=== PATIENT | female | born 1970 | race Caucasian/White ===

== ENCOUNTER → 2019-03-24 07:33 | Outpatient (CLI) | payer OTHER, SELFPAY ==
[2017-11-06 10:34] VITALS: BMI 24.4
--- NOTE | 2019-03-23 13:00 | FLU_PTH ---
PATIENT: FABIANA ORTEZ LOC: [facility] U#:[id number] AGE/SX: 55/F ROOM: RE03/24/[address]: Dr. Stephy Garcia MD : 1970 BED: DIS: SPEC #: [id number] RECD: 03/23/19 16:53 STATUS: KHAI REMaxim #: [id number] KATTY: 03/23/19 13:[address]: Stephy Garcia DEPT: CYTOLOGY RECD BY: Rodo Foster ENTERED: 03/26/19 08:37 SP TYPE: Fluid OTHR DR: No Primary Care Phys Tissues: A - Thyroid gland, NOS B - Thyroid gland, NOS Procedures: Special Stain Group II Surgery Specimen Level IV Cytospin Fluid Cytology Other HEADER OPERATION: Ultrasound-guided fine needle aspiration right thyroid PRE-OP DIAGNOSIS: Right thyroid nodule TISSUE SUBMITTED: A - FNA right thyroid fluid for cytology, B - FNA right thyroid slides x6 DIAGNOSIS CYTOLOGY A. Right thyroid fluid for cytology, ultrasound-guided FNA (cytospin and cell block): Paucicellular specimen. A few benign appearing follicular cells noted. B. Right thyroid nodule, ultrasound-guided FNA (smears): Atypical follicular cells noted, suspicious for papillary thyroid carcinoma. Adequate for evaluation. SJ:rg 03/27/19 COMMENT Correlation with clinical, radiologic findings and appropriate follow up are necessary. CYTOLOGY STUDY Slides are reviewed. CYTOLOGY GROSS A - Received is 20 ml of light brown fluid labeled with the patient's name and and designated per the requisition as right thyroid. Submitted for cytology preparation including cell block. B - Received are six smears labeled with the patient's name and designated per the requisition as right thyroid. Submitted for staining. / 03/26/19 TC:5 CPT: 80216, 71111, 30842
== END ==
PROVIDERS: Referring Provider Surgery; Visit Provider Surgery
DX: E04.1 Nontoxic single thyroid nodule (principal)
CPT/HCPCS: 88108; 88161; 88305; 88313

== ENCOUNTER 2019-04-23 14:05 | Observation (INO) | payer OTHER, SELFPAY ==
--- NOTE | 2019-03-30 15:56 | HP.PCM_ITS ---
History and Physical Date of Admission: 03/30/19 Courtney FLORES-1970 REFERRING PHYSICIAN: Darian Raza MD CHIEF COMPLAINT: right thyroid nodule HPI: The patient is a 48 year old female presents with abnormal thyroid ultrasound Mother had Graves' disease. Denies cancer in immediate family. The patient does note voice changes - more raspy lately. Feels like she is trying to clear her throat all the time. Denies unusual radiation exposure Denies history of thyroiditis. Denies use of thyroid hormones. Denies globus symptoms. 03/02/19 US thyroid Measurements: Right lobe 4.4 x 1.6 x 1.7 cm . Left lobe 4.2 x 1.4 x 1.3 cm . Isthmus 0.2 cm. Thyroid texture: Unremarkable . Nodules: (If there are nodules present than measurements of largest ones given below) Right lobe: Single solid nodule in the midpole of the RIGHT lobe of the thyroid. It measures 1 cm diameter present very hypoechoic rim . It shows no hypervascularity Left lobe: None . Isthmus: None . Pathology from US guided FNA - atypical follicular cells noted, suspicious for papillary thyroid carcinoma PAST MEDICAL HISTORY ? Fibroadenosis, breast diffuse ? Neuropathy (HCC) right leg s/p back surgery ? RLS (restless legs syndrome) PAST SURGICAL HISTORY ? HYSTERECTOMY 10/22/2013 total hysterectomy ? KNEE ARTHROSCOPY/SURGERY Left 1989 ? PAST SURGICAL HISTORY OF L5-S1 decompression Current Outpatient Medications: gabapentin (NEURONTIN) 300 mg capsule Take 1 capsule by mouth daily at bedtime for 180 days. ibuprofen (MOTRIN) 800 mg tablet Take 800 mg by mouth every 6 hours as needed. ALLERGIES: Doxycycline PERSONAL HISTORY: Social History Socioeconomic History Marital status: Tobacco Use Smoking status: Current Every Day Smoker FAMILY HISTORY ? Cancer Mother thyroid ? Heart Mother valve that flips ? other (Other) Mother SHELLY ? Hypertension Brother ? Hyperlipidemia Brother ? other (Other) Brother back issues ? Aneurysm Paternal Grandmother ? Breast Cancer Paternal Aunt REVIEW OF SYSTEMS: General: The patient denies fatigue, NOTES weight loss, denies weight gain, denies feeling hot, and denies feelings of cold. Eyes: The patient denies glaucoma, denies eye injury/surgery, wears glasses or contacts. Ear/Nose/Throat: The patient denies allergies, denies hayfever, denies ear infections, and denies bloody noses. Cardiovascular: The patient denies chest pain, denies heart disease, denies high blood pressure,denies cardiac stent, denies prior heart attack, denies irregular heart beat, denies high cholesterol, denies poor circulation, denies heart failure, other cardiac issues, denies claudication, denies cold feet, denies peripheral arterial stent. Respiratory: The patient denies tuberculosis, denies pneumonia, NOTES frequent cough, denies pulmonary embolism, denies shortness of breath, and denies coughing up blood. Gastrointestinal: The patient denies difficulty swallowing, denies acid reflux, denies ulcers, denies vomiting, NOTES jaundice/hepatitis, denies gallbladder problems, denies black or tarry stools, denies hemorrhoids, denies bleeding from rectum, denies diverticulitis, denies constipation, denies diarrhea, denies loss of stool control, and denies hernias. Kidney/Bladder: The patient denies kidney stones, denies urine infections, and denies bloody urine. Skin: The patient denies a history of skin cancer, denies bl eeding/changing moles, and denies a history of skin rash. Neurologic: The patient denies a history of epilepsy/convulsions, denies headaches, denies head/spinal injuries, and denies stroke/TIA. Psychiatric: The patient denies psychiatric medications, denies depression, and denies voices, denies substance abuse. Endocrine: The patient denies thyroid disorders, denies diabetes, and denies hormonal problems. Hematologic: bruises easily, denies bleeding, and denies anemia, denies blood clots. Infections: The patient denies a history of measles and mumps, denies rheumatic fever, and NOTES sexually transmitted diseases. Musculoskeletal: The patient NOTES back pain/injury, NOTES back problems, denies sciatica, NOTES knee/foot trouble, denies arthritis, or denies gout. PHYSICAL EXAMINATION: General: The patient is 48 year old female, well nourished, well hydrated in no acute distress. The patient is oriented to time, place, and person. VITALS: Blood pressure 110/68, pulse 68, weight 63 kg (139 lb). Body mass index is 25.02 kg/m?. Head ? Normocephalic. EOM intact with sclera clear and no icterus noted. Wearing glasses. Mouth with mucus membranes moist. Neck - supple with no jugular venous distention noted. Trachea is midline. Lungs ? clear to auscultation. Normal breath sounds. No rales/rhonchi/wheezing noted. No labored breathing noted, such as retractions. . Heart ? normal S1 and S2 auscultated. No rubs/clicks/murmurs noted. Regular rate. Abdomen ? soft and benign. Normal bowel sounds. No abdominal bruits noted. No distention noted. Extremities ? no pitting edema noted. Skin ? normal skin integrity. Lymph ? no cervical adenopathy detected, no supraclavicular adenopathy detected, no axillary adenopathy detected Neurological ? gait normal, no focal deficits noted. Psych ? calm and appropriate IMPRESSION: tight thyroid nodule - thyroid neoplasia of uncertain behavior PLAN: I have discussed the above with the patient and her mother who is present with her. I have offered right thyroid lobectomy/isthmusectomy, I have also discussed total thyroidectomy with patient. I have described the surgery to them. I have told patient that frozen section pathology may not be able to define if thyroid cancer. If thyroid cancer is found in permanent section pathology and if large enough, patient may require completion thyroidectomy. If total thyroidectomy is done, then she will have to be on lifelong thyroid medications. I have counseled the patient as to the risks of surgery, including but not limited to: infection, bleeding, seroma, scar tissue, cosmetic deformity, injury to any blood vessels/nerves, injury to the recurrent laryngeal nerves and their sequelae, injury to the parathyroid glands and their sequelae, bleeding requiring further surgery, etc. ? the patient understands. She wishes to proceed with right thyroid lobectomy/isthmusectomy only. The patient has been given the opportunity to ask questions and all questions were answered, she has no further questions.
[2019-04-23] VITALS (8 sets, daily range): BP systolic 104–119; BP diastolic 61–77; PULSE 51–63; RESP 14–16; TEMP 36.1–36.8; O2SAT 94–100; BMI 23.8
--- NOTE | 2019-04-23 | IMM_PTH ---
PATIENT: FABIANA ORTEZ LOC: [facility] U#:[id number] AGE/SX: 48/F ROOM: MS308 RE04/23/[address]: Dr. Stephy Garcia MD : 1970 BED: 1 DIS: 04/24/2019 SPEC #: [id number] RECD: 04/25/19 13:57 STATUS: KHAI REQ #: [id number] KATTY: 04/23/19 00:[address]: Stephy Garcia DEPT: IMMUNOHISTOCHEMISTRY RECD BY: Cristina Portillo ENTERED: 04/25/19 13:59 SP TYPE: IMMUNO OTHR DR: JOSE Kwong Tissues: Thyroid gland, NOS Procedures: CK19 (initial) CD56 (add) GAL-3 (add) HBME (add) PHYSICIAN & INSTITUTION [place] [id number] SPECIMEN INFORMATION: Tissue Source: Right thyroid, isthmus Clinical Info: Right thyroid nodule Specimen Number: [id number] #4 CPT code: 06303, 86372 x3 METHODOLOGY: Deparaffinized sections of prefer/formalin-fixed tissue or PAP/DQ stained slides are incubated with monoclonal/polyclonal antibodies/oligonucleotide probes. Localization is made via biotin free immunoperoxidase method. Appropriate controls are performed and reacted as expected. Results on target cell population are indicated in the following table: RESULTS: ANTIBODY / CLONE RESULT Block 4 CK19 (A53-B/A2.26) positive HBME1 (HBME-1) positive GAL3 (9C4) positive CD56 (123C3.D5) negative These tests were developed and their performance characteristics determined by [facility]. They may not have been cleared or approved by the U.S. Food and Drug Administration. The FDA has determined that such clearance or approval is not necessary. INTERPRETATION: Right thyroid, isthmus: Consistent with papillary thyroid microcarcinoma. SUPRIYA:lei 04/26/19
--- NOTE | 2019-04-23 13:15 | THYROID_PTH ---
PATIENT: FABIANA ORTEZ LOC: [facility] U#:[id number] AGE/SX: 48/F ROOM: MS308 RE04/23/[address]: Dr. 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 Unremarkable parathyroid tissue. See cancer summary below. SJ:lei 04/26/19 THYROID CANCER SUMMARY: Procedure - thyroid lobectomy and isthmusectomy Received - in formalin Specimen integrity - partly disrupted Specimen size: Right lobe - 3.5 x 2.5 x 1 cm Isthmus - 1.5 x 1 x 0.5 cm Specimen weight - 4.9 gm Tumor focality - unifocal Tumor laterality - right lobe Tumor size - 0.3 x 0.3 cm (measured microscopically). Histologic type - papillary carcinoma Variant - microcarcinoma Architecture - follicular Cytomorphology - classical Margins - margins uninvolved by invasive carcinoma. The tumor is 0.1 cm away from the anterior margin. Tumor capsule - totally encapsulated. Tumor capsular invasion - present, focal. Lymph-Vascular invasion - not identified Perineural invasion - not identified Extrathyroidal extension - not identified Distant metastasis - not applicable Additional pathologic findings - multinodular goiter - unremarkable parathyroid tissue. Ancillary studies - Immunohistochemistry ([id number]) Clinical history - Please make reference to previous specimen ([id number]) right thyroid nodule, ultrasound-guided FNA with diagnosis of atypical follicular cells noted, suspicious for papillary thyroid carcinoma. PATHOLOGIC STAGE: pT1a pNx Mx The above summary is in compliance with [employer] [place] [employer] (CAP) Cancer Protocols Checklist and [place] Joint Committee on Cancer (AJCC), Staging Manual, 8th Ed. COMMENT The tumor also show focal calcifications in the capsule. Immunohistochemistry ([id number]) supports the above diagnosis. Case has been reviewed in consultation with Dr. Dixon who concurs with the above diagnosis. IDC:AM MICROSCOPIC DESCRIPTION Slides are reviewed. GROSS DESCRIPTION Received in fixative is one container labeled with the patient's name and designated right thyroid, isthmus. The specimen consists of a partially disrupted portion of right thyroid lobe and detached portion of tissue consistent with isthmus. The entire specimen weighs 4.9 gm and the thyroid lobe measures 3.5 x 2.5 x 1 cm and the isthmus measures 1.5 x 1 x 0.5 cm. The specimen is inked as follows: right lobe thyroid anterior surface - black, posterior surface - blue, isthmus entire surface - black. Serial sections of the thyroid lobe and isthmus do not reveal obviously well-defined mass lesion. The entire specimen is submitted in five cassettes as follows: 1 - isthmus, 2-5 - right thyroid lobe (2 containing most superior portion and 5 containing most inferior portion). / SUPRIYA:lei 04/24/19 TC:0 CPT: 98053
[2019-04-23] MEDS: Cefazolin 2 GM in 0.9% Normal Saline 100 ML IV (14:30)
--- NOTE | 2019-04-23 18:01 | PCM.OPRPT ---
Report of Operation Date of Procedure: 04/23/19 Pre-Operative Diagnosis: right thyroid neoplasm of uncertain behavior Post-Operative Diagnosis: same Surgery/Procedure Performed:: right thyroid lobectomy and isthmusectomy Description of Surgical Findings:: some inflammation of the right thyroid gland, nodular thyroid gland production foreman: Trell Pradhan Type of Anesthesia:: General Anesthesiologist: Za Novak Specimen's removed: right thyroid and isthmus Drains: 10 Fr drain in right thyroid bed Estimated Blood Loss (mL): 15 ml Fluids Replaced: see anesthesia note Description of Procedure: After informed consent was obtained, the patient was brought to the Operating Room and placed in the supine position. Appropriate time out protocol was followed. She was then placed under GETA. The patient was then positioned with arms tucked and appropriate padding, with neck extension, and in the slightly reverse Trendelenburg position. The ultrasound transducer was used to identify the thyroid gland location and thus determine site of the optimum neck incision. The neck and upper chest were then prepped with a sterile surgical skin preparation and appropriate sterile surgical drapes were placed. The landmarks were identified and a low cervical collar incision was made with a 15 blade scalpel and carried down to the subcutaneous tissues using Bovie in the electrocautery mode. The platysma was divided along the incision and then flaps were created superiorly to the cricoid cartilage level and inferiorly to the sternal notch. The fascia overlying the strap muscles was then divided along the midline. . Attention was directed to the right thyroid gland. Blunt dissection was done to separate the strap muscles from the anterior aspect of the right thyroid lobe. The superior pole vessels were dissected out individually and then ligaclips were placed and then the vessels were transected. The thyroid gland was then rotated medially the middle vein was identified and transected with the Harmonic scalpel. The inferior pole was then identified and the vessels were ligated with ligaclips. The recurrent laryngeal nerve was then identified along its course and protected from injury. The superior pole was then retracted inferiorly and the pole vessels were ligated with ligaclips and then transected. The right lobe was noted to have surrounding inflammation and some adhesions to the posterior aspect of the strap muscles. The upper pole of the thyroid gland extended for superiorly and part of it was adhesed to the thyrohyoid muscle on the right. It was separted from this using the Harmonic scalpel. The thyroid gland was rotated medially and then dissected off the trachea. This was carefully done to avoid any injury to the recurrent laryngeal nerves. The inferior parathyroid gland and the superior parathyroid glands were identified and also protected. The right thyroid gland was then dissected off the trachea and the isthmus was then transected with the Harmonic scalpel to the left of the isthmus. It was fowarded to pathology for analysis. Hemostasis was carefully controlled with electrocautery, carefully avoiding any injury to the recurrent laryngeal nerves and the parathyroid glands. Because there is some bleeding still near the area of the recurrent laryngeal nerve , Surgicel was used for hemostasis. A small 10 [place] drain was then placed in the thyroid bed and brought out through the incision. The fascia of the strap muscles was then reapproximated along the midline using Vicryl suture. The platysma muscle was then reapproximated in a transverse fashion using interrupted 2-0 Vicryl suture. The skin incision was then reapproximated using 4-0 Monocryl in a running subcuticular fashion. The drain was brought out through the middle portion of the incision and sutured to the skin using nylon suture. The skin closure was reinforced using Dermibond and dressing applied over this. The patient was then extubated. She was brought to the Recovery Room in stable condition. She was able to phonate the letter E without difficulty. - Complications none noted - Admit VTE Documentation VTE Present on Admission: Yes VTE Mechan Device Prophylaxis: SCD's
[2019-04-23] MEDS: Lactated Ringers 1,000 ML 100 ML IV (18:15)
[2019-04-23] MEDS: Acetaminophen 325 MG Tablet 650 MG PO (20:12)
[2019-04-24] MEDS: Acetaminophen 325 MG Tablet 650 MG PO ×2 (01:59→07:44)
[2019-04-24] MEDS: Lactated Ringers 1,000 ML 100 ML IV (02:01)
[2019-04-24 04:19] VITALS: BP 108/62; PULSE 50; RESP 16; TEMP 36.9; O2SAT 98
[2019-04-24 05:55] LABS: Calcium,Total 8.9 mg/dL (8.5-10.1)
--- NOTE | 2019-04-24 06:50 | PCM.PN.SRG ---
Subjective: Patient feels great wants to go home now, I had planned on after lunch but she really wants to go home some sore throat, doesn't want to take pain meds - Physical Exam General: Alert, Oriented x3 Oral: Moist Mucosa Neck: Supple, - - dermibond intact, drain removed without difficulty Vital Signs Temp Pulse Resp BP Pulse Ox 98.5 F 50 L 16 108/62 98 04/24/19 04:19 04/24/19 04:19 04/24/19 04:19 04/24/19 04:19 04/24/19 04:19 Oxygen Delivery Method Room Air Weight: 61 kg Body Mass Index (BMI) 23.8 Intake and Output for Last 24 Hours 04/22/19 04/23/19 04/24/19 23:59 23:59 23:59 Intake Total 2100 / 2100 1700 / 1700 Output Total 1600 / 1600 Balance 2100 / 2100 100 / 100 Laboratory Tests Past 24 Hrs 04/24/19 05:18 Calcium 8.9 Medical Necessity - Tobacco Use Smoking Status: Light Smoker (<10/day) Tobacco Use: Cigarettes Assessment/Plan Impression: s/p right thyroid lobectomy Plan: will follow up with me on Tuesday Tums with calcium twice a day
--- NOTE | 2019-04-24 06:51 | PCM.DC.GS ---
Discharge Diet: No Restrictions, - - drink plenty of fluids Discharge Activity: Return to Normal Activity Call your doctor if your incision/area has: Continuous Slow Oozing, Foul Smelling Discharge Additional Dressing/Incision Instructions:: Leave dressing in place. May change if become saturated. do not soak wound Additional Instructions: Take TUMS with calcium - one tablet twice a day Allergies/Adverse Reactions: Allergies doxycycline Adverse Reaction (Intermediate, Verified 04/23/19 12:27) burning of throat Medications to take at Discharge Gabapentin [Neurontin] 300 mg PO QHS 04/18/19 Primary Care Physician: Jluis Whitmore PA [Primary Care Provider] - Test Results: Test results from this visit will be discussed in further detail at your follow-up appointment, if applicable. Please Follow Up With: Stephy Garcia MD - When: to be seen on Tuesday, April 27 - 10:30
--- NOTE | 2019-04-24 06:54 | DCINST_ITS ---
Discharge Diet: No Restrictions, - - drink plenty of fluids Discharge Activity: Return to Normal Activity Call your doctor if your incision/area has: Continuous Slow Oozing, Foul Smelling Discharge Additional Dressing/Incision Instructions:: Leave dressing in place. May change if become saturated. do not soak wound Additional Instructions: Take TUMS with calcium - one tablet twice a day Allergies/Adverse Reactions: Allergies doxycycline Adverse Reaction (Intermediate, Verified 04/23/19 12:27) burning of throat Medications to take at Discharge Gabapentin [Neurontin] 300 mg PO QHS 04/18/19 Primary Care Physician: Jluis Whitmore PA [Primary Care Provider] - Test Results: Test results from this visit will be discussed in further detail at your follow- up appointment, if applicable. Please Follow Up With: Stephy Garcia MD - When: to be seen on Tuesday, April 27 - 10:30
[2019-04-24 07:33] VITALS: BP 131/76; PULSE 50; RESP 18; TEMP 36.6; O2SAT 97
[2019-04-24 07:35] VITALS: PULSE 60
[2019-04-24] MEDS: Glycerin/Hypromellose/PEG400 15 ml Bottle 1 DRP EACH EYE (09:48)
== END 2019-04-24 10:55 | disposition home or self-care (01) ==
LOC: MS3 04-24 06:50
PROVIDERS: Admitting Provider Surgery; Family Provider Physician Assistant; PCP Physician Assistant; Referring Provider Surgery; Visit Provider Surgery
PROC: (CPT 60225; principal; 2019-04-23 13:00)
DX: C73 Malignant neoplasm of thyroid gland (principal); G62.9 Polyneuropathy, unspecified; G25.81 Restless legs syndrome; Z79.899 Other long term (current) drug therapy; F17.210 Nicotine dependence, cigarettes, uncomplicated
CPT/HCPCS: 60225; 36415; 82310; 88307; 88341; 88342; 96360; 96361; 97802; 99218; 99406; J7120; G0378; G0379; J2405

== ENCOUNTER → 2020-03-05 09:27 | Outpatient (CLI) | payer OTHER, SELFPAY ==
[2019-04-23 18:43] VITALS: BMI 23.8
--- NOTE | 2020-03-05 09:35 | US_ITS ---
STUDY: THYROID ULTRASOUND REASON FOR EXAM: Female, 49 years old. NODULE -- HX OF THYROID CA S/P RT THYROIDECTOMY TECHNIQUE: Ultrasound evaluation of the thyroid was performed with real-time and static burgess-scale imaging. COMPARISON: None. FINDINGS: RIGHT LOBE: The right lobe of the thyroid gland has been partially surgically removed. However, there is a remnant of the thyroid tissue measuring 2.9 cm x 0.7 cm x 1 cm. Within it, there is a 9 mm x 7 mm x 7 mm hypoechoic solid nodule in the midportion. LEFT LOBE: The left lobe of the thyroid gland measures 4.1 cm x 1.7 cm x 1.2 cm. There is a homogeneous echotexture. There are no demonstrated solid, cystic or complex lesions. ISTHMUS: The isthmus measures 2.0 mm. The regional lymph nodes are normal. US/Thyroid IMPRESSION: Status post subtotal thyroidectomy on the right side. There is a 9 mm x 7 mm x 7 mm well-defined hypoechoic solid nodule within the remnant of the right lobe. Increased vascularity is seen. Electronically Signed: Loy Rush, at 10:31 EDT , Service support ,
== END ==
PROVIDERS: PCP Physician Assistant; Referring Provider Family Medicine; Visit Provider Family Medicine
DX: E04.1 Nontoxic single thyroid nodule (principal)
CPT/HCPCS: 76536

== ENCOUNTER → 2021-03-09 08:22 | Outpatient (CLI) | payer OTHER, SELFPAY ==
[2019-04-23 18:43] VITALS: BMI 23.8
--- NOTE | 2021-03-09 08:24 | US_ITS ---
STUDY: THYROID ULTRASOUND REASON FOR EXAM: Female, 50 years old. THYROID CA TECHNIQUE: Ultrasound evaluation of the thyroid was performed with real-time and static burgess-scale imaging. COMPARISON: Comparison is made with prior study dated 03/05/2020. FINDINGS: RIGHT LOBE: The patient is status post partial right thyroidectomy. The right lobe of the thyroid gland measures 2.9 cm x 1.1 cm x 1 cm. There is a homogeneous echotexture. There is a 1 cm x 0.8 cm x 0.8 cm well-defined hypoechoic solid nodule in the midportion. This is unchanged. LEFT LOBE: The left lobe of the thyroid gland measures 4.3 cm x 1.8 cm x 1.2 cm. There is a homogeneous echotexture. There are no demonstrated solid, cystic or complex lesions. ISTHMUS: The isthmus measures 2 mm. The regional lymph nodes are normal. US/Thyroid IMPRESSION: Status post partial right thyroidectomy. Stable 1 cm x 0.8 cm x 0.8 sono solid nodule in the midportion of the right lobe. Electronically Signed: Loy Rush MD at 12:55 EDT , Service support ,
== END ==
PROVIDERS: PCP Physician Assistant; Referring Provider Physician Assistant; Visit Provider Physician Assistant
DX: C73 Malignant neoplasm of thyroid gland (principal)
CPT/HCPCS: 76536

== ENCOUNTER 2021-10-06 12:32 | Inpatient (IN) | payer OTHER, SELFPAY ==
[2021-10-06] VITALS (11 sets, daily range): BP systolic 80–102; BP diastolic 47–75; PULSE 77–105; RESP 14–18; TEMP 36.6–37.4; O2SAT 96–100; BMI 24.0
--- NOTE | 2021-10-06 13:01 | CT_ITS ---
STUDY: CT ABDOMEN AND PELVIS WITH CONTRAST REASON FOR EXAM: Female, 51 years old. Right lower quadrant pain. RADIATION DOSAGE (If Supplied By Facility): CTDIvol = ( 7.38 ) mGy, DLP = ( 284.00 ) mGycm TECHNIQUE: Transaxial images were obtained from the dome of the diaphragm to the symphysis pubis without oral contrast. IV 100ML ISOVUE 370 was administered. Sagittal and coronal images were reconstructed. Individualized dose optimization techniques were used for this CT. COMPARISON: None. FINDINGS: Mild degree of increased markings at the lung bases suggestive of a bibasilar dependent atelectasis. The visualized portions of the heart are within normal limits. There is a 1.4 cm cyst in the upper medial aspect of the right lobe of the liver. Normal gallbladder and extrahepatic biliary system. There are multiple benign calcified granulomata of the spleen. Normal pancreas. Normal bilateral adrenal glands. Normal right kidney. Normal left kidney. Normal visualized stomach. Normal small intestine. Normal colon. There is a tubular, thick-walled appendix (>7mm), consistent with acute appendicitis. Increased markings in the peritoneal fat in the right lower quadrant with thickening of the cecum suggestive of inflammatory change. Moderate amount of free fluid is seen in the cul-de-sac. Normal abdominal aorta. Normal inferior vena cava. Normal retroperitoneum. Normal urinary bladder. There is absence of the uterus consistent with a prior hysterectomy. Normal abdominal wall. Straightening of the normal cervical lordosis. CT/Abdomen/Pelvis W IV Cont ONLY IMPRESSION: Evidence of acute appendicitis with a moderate amount of free fluid in the cul-de-sac and inflammatory changes in the right lower quadrant including the cecum. Electronically Signed: Loy Rush MD at 14:25 EST , Service support ,
--- NOTE | 2021-10-06 13:02 | ED.VIS.GI ---
HPI HPI - GI History of Present Illness Chief Complaint: Abd Pain Narrative Narrative: Patient presents with her sister because of right-sided abdominal pain that she has had since 930 this morning. She states she began having nausea and vomiting, multiple episodes last evening at 8 PM. She vomited all evening. Today, she was sitting in the bathtub and had sharp abdominal pain on the right side, both upper and lower quadrant pain. It was so severe, sharp and stabbing, that she could not get out of the bathtub. Eventually, she was able to make it to her bed and was lying in bed until her sister came. They called the squad because of increased pain in the right lower quadrant. Patient vomited once in the squad without any emesis. She describes continued right-sided abdominal pain. She denies any dysuria or hematuria. Past surgical history includes hysterectomy. Sister also relates history of intermittent constipation and irritable bowel syndrome. Patient presents mainly because of the nausea, vomiting, and severe abdominal pain that she has been having over the last 3-1/2 hours. PFSH PFSH Medical History Anemia Back problem Guillermo's thyroiditis Hypoglycemia Irritable bowel syndrome Neuropathy Papillary microcarcinoma of thyroid Seasonal allergies Thyroid cancer Thyroid nodule Home Medications gabapentin [Neurontin] 300 mg PO QHS 04/18/19 [History Last Taken Unknown] ibuprofen 800 mg tablet 800 mg PO Q8H PRN 04/09/21 [History Last Taken Unknown] levothyroxine 75 mcg tablet 75 mcg PO DAILY #90 tab 09/22/21 [Rx Last Taken Unknown] Allergy/AdvReac Type Severity Reaction Status Date / Time morphine Allergy Intermediate vomitting Verified 10/06/21 12:35 doxycycline AdvReac Intermediate burning of Verified 10/06/21 12:35 throat latex tape Allergy Mild rash Uncoded 10/06/21 12:35 Family History Sister Anesthesia complication Mother Arthritis Osteoporosis Thyroid disorder Mitral valve prolapse Sleep apnea Glaucoma Surgical History H/O thyroidectomy History of back surgery History of hysterectomy History of knee surgery History of left knee surgery Social History Smoking Status: Current every day smoker tobacco type: cigarettes alcohol intake: current alcohol intake frequency: holidays/special occasions only substance use type: does not use what type of physical activity do you participate in: none ROS ROS ED ROS Narrative Constitutional: No fever, no chills. HEENT: No sore throat. No neck pain. No loss of vision. No rhinorrhea. Cardiovascular: No chest pain. No palpitations. No pedal edema. Respiratory: No cough, no shortness of breath. Abdominal: Right upper quadrant and right lower quadrant abdominal pain. Positive nausea. Multiple episodes of vomiting. No hematemesis. Genitourinary: No dysuria. No hematuria. Musculoskeletal: No myalgias. No arthralgias. Neurologic: No headaches. No dizziness. No lightheadedness. Skin: No rash. No change in color. Psychiatric: No depression. No anxiety. EXAM Physical Exam Narrative Exam Narrative: Afebrile. Vital signs noted. HEENT: Normocephalic. Atraumatic. PERRL, EOMI. Neck soft and supple. No point tenderness or step off. Cardiovascular: Regular rate and rhythm. No murmurs, rubs, or gallops appreciated. Respiratory: No tachypnea. Lungs clear to auscultation bilaterally. Gastrointestinal: Abdomen soft, tenderness to palpation right upper quadrant to right lower quadrant over McBurney's point, with normoactive bowel sounds. Positive voluntary guarding. Neurological: Awake. Alert. Nonfocal, nonlateralizing. Skin: No rash. Normal color. No pallor. Musculoskeletal: No pedal edema. Full range of motion extremities. Const Vital Signs: 10/06/21 12:32 10/06/21 15:02 Temperature 99.3 F H Temperature Source Temporal Pulse Rate 105 H Respiratory Rate 18 16 Blood Pressure 102/75 Blood Pressure Mean 84 Pulse Ox 97 Oxygen Delivery Method Room Air MDM MDM MDM Narrative Medical decision making narrative: Comprehensive work-up was pursued. Given her right upper quadrant and lower quadrant pain with history of multiple episodes of vomiting, I am concerned about cholecystitis. Additionally, appendicitis is in the differential given her pain in the right lower quadrant. I will obtain CBC, CMP, lipase, and CT of the abdomen and pelvis with IV contrast. I ordered a UA and she was administered Dilaudid 1 mg and Zofran 4 mg intravenously. She was also bolused normal saline 1 L intravenously. After Dilaudid, her abdomen remains soft. White count slightly low at 4.0, hemoglobin stable at 13.6. Electrolyte panel/CMP grossly unremarkable except for glucose appropriately elevated at 114. AST 13 with an ALT of 15. Lipase is low at 32. CT of the abdomen pelvis with IV contrast does show evidence of acute appendicitis with a moderate amount of free fluid in the cul-de-sac and inflammatory changes in the right lower quadrant including the cecum. Gallbladder appears normal. Tubular structure with wall thickening up to 7 mm is consistent with acute appendicitis. Serial abdominal examination shows her abdomen to remain soft with mild tenderness in the right lower quadrant. She was started on Zosyn 3.35 g intravenously. Patient will be discussed with Dr. Cole, on-call for general surgery. Patient will either be admitted or taken directly to the OR. She is in stable condition. Lab Data Attestation: I reviewed the patient's lab results. Labs: Laboratory Results - last 24 hr 10/06/21 10/06/21 13:16 13:16 WBC 4.0 L RBC 4.41 Hgb 13.6 Hct 40.7 MCV 92.3 MCH 30.8 MCHC 33.4 RDW Std Deviation 46.5 H RDW Coeff of Domitila 13.5 Plt Count 215 MPV 10.0 Immature Gran % (Auto) 0.300 Neut % (Auto) 82.8 H Lymph % (Auto) 13.8 L Richardson % (Auto) 2.3 Eos % (Auto) 0.0 Baso % (Auto) 0.8 Absolute Neuts (auto) 3.3 Absolute Lymphs (auto) 0.55 L Nucleated RBC % 0 Diff Path Review May foll Sodium 138 Potassium 3.7 Chloride 105 Carbon Dioxide 23.0 Anion Gap 10 BUN 21 H Creatinine 1.08 H Estim Creat Clear Calc 52.12 Est GFR (MDRD) Af Amer 69 Est GFR (MDRD) Non-Af 57 L BUN/Creatinine Ratio 19.4 Glucose 114 H Calcium 9.0 Total Bilirubin 1.00 AST 13 L ALT 15 Alkaline Phosphatase 64 Total Protein 6.8 Albumin 3.6 Globulin 3.2 Albumin/Globulin Ratio 1.1 Lipase 32 L Radiography Diagnostic Testing: Clinical Impression(s) from Imaging Studies Abdomen/Pelvis CT 10/06/21 13:01 IMPRESSION: Evidence of acute appendicitis with a moderate amount of free fluid in the cul-de-sac and inflammatory changes in the right lower quadrant including the cecum. Electronically Signed: Loy Rush MD at 14:25 EST , Service support , Discharge Plan Triage Chief Complaint: Abd Pain ED Provider: Jimi Denton Dx/Rx/DC Orders Prescriptions: No Action ibuprofen 800 mg tablet 800 mg PO Q8H PRN (Reason: pain) RF: 0 levothyroxine 75 mcg tablet 75 mcg PO DAILY Qty: 90 RF: 3 gabapentin [Neurontin] 300 MG capsule 300 mg PO QHS RF: 0 Primary Care Provider: Jluis Whitmore
[2021-10-06] MEDS: HYDROmorphone 1 MG/ML Syringe IV (13:13)
[2021-10-06] MEDS: 0.9% Normal Saline 1,000 ML 1000 ML IV (13:13)
[2021-10-06] MEDS: Ondansetron 4 MG/2 ML Vial IV (13:13)
[2021-10-06 13:27] LABS: Absolute Lymphocyte Count 0.55 X10^3/uL (0.83-4.51); Absolute Neutrophil Count 3.3 X10^3/uL (2.0-7.7); Basophil# 0.03 X10^3/uL; Basophil% 0.8 % (0-1); Hematocrit 40.7 % (37-47); Hemoglobin 13.6 g/dL (12.0-15.0); Lymphocyte # 0.55 X10^3/ul (0.83-4.51); Lymphocyte % 13.8 % (19-41); Mean Corp Hgb Conc 33.4 g/dL (32-36); Mean Corpuscular Hgb 30.8 pg (27.0-32.0); Mean Corpuscular Volume 92.3 fL (81-99); Monocyte# 0.09 X10^3/uL; Monocyte% 2.3 % (0-10); NRBC Flagged by Analyzer 0 % (0-5); Neutrophil % 82.8 % (47-70); POSITIVE DIFFERENTIAL YES; Platelet Count 215 K/mm3 (150-450); RBC Distribution Width CV 13.5 % (11.6-14.6); RBC Distribution Width SD 46.5 fl (35.1-43.9); Red Blood Count 4.41 M/mm3 (4.2-5.4)
[2021-10-06 13:28] LABS: Differential Indicated SCAN CRITERIA MET
[2021-10-06 13:47] LABS: ALB/GLOB Ratio 1.1 RATIO (0.9-2.4); AST(SGOT) 13 U/L (15-37); Alanine Aminotransfer ALT/SGPT 15 U/L (13-56); Albumin, Serum 3.6 g/dL (3.2-5.0); Alkaline Phosphatase 64 U/L (45-117); Anion Gap 10 (5-15); BUN 21 mg/dL (7-18); BUN/Creat Ratio 19.4 RATIO (10-20); Chloride 105 mmol/L (98-107); Creatinine, Serum 1.08 mg/dL (0.55-1.02); EST Glomerular Filtration Rate 57 mL/min (>60); Est Glom Filt Rate - Afr Amer 69 mL/min (>60); Estimated Creatinine Clearance 52.12 ml/min; Globulin 3.2 g/dL (2.2-4.2); Glucose 114 mg/dL (74-106); Lipase 32 U/L (73-393); Potassium 3.7 mmol/L (3.5-5.1); Protein, Total 6.8 g/dL (6.4-8.2); Sodium Level 138 mmol/L (136-145)
--- NOTE | 2021-10-06 15:06 | ED.RN ---
CALLED PHARMACY ABOUT ZOSYN, STILL NOT IN ER. KENY WILL SEND UP SHORTLY
--- NOTE | 2021-10-06 15:23 | HP.PCM_ITS ---
HPI - General HPI Narrative FABIANA ORTEZ, is a 51 F who presents to [facility] with an approximately 20?hour history of acute onset followed by localized right lower quadrant abdominal pain. Patient states that her symptoms began approximately 8 PM on 10/05/2021 as she was finishing a bath. She says that she was overcome by nausea and vomiting and this persisted for approximately the next 6 hours. She states that she has no sick contacts, but she, her daughter, and her all consumed some banana pudding that was not past its expiry but not taste right. Neither her daughter nor her , however, developed nausea and vomiting after this. Thereafter, she found herself dozing on and off but developing localized right lower quadrant pain. By 930 this a.m. her pain had become so severe she had her sister call us to bring her to the hospital. Her ED work-up is notable for biochemistries that show a white blood cell count at the lower range of normal but a left shift is present. CT imaging is consistent with acute, uncomplicated appendicitis given some periappendiceal fluid and cecal inflammation. [facility] Medical History Anemia Back problem Guillermo's thyroiditis Hypoglycemia Irritable bowel syndrome Neuropathy Papillary microcarcinoma of thyroid Seasonal allergies Thyroid cancer Thyroid nodule Home Medications gabapentin [Neurontin] 300 mg PO QHS 04/18/19 [History Last Taken Unknown] ibuprofen 800 mg tablet 800 mg PO Q8H PRN 04/09/21 [History Last Taken Unknown] levothyroxine 75 mcg tablet 75 mcg PO DAILY #90 tab 09/22/21 [Rx Last Taken Unknown] Allergy/AdvReac Type Severity Reaction Status Date / Time morphine Allergy Intermediate vomitting Verified 10/06/21 12:35 doxycycline AdvReac Intermediate burning of Verified 10/06/21 12:35 throat latex tape Allergy Mild rash Uncoded 10/06/21 12:35 Family History Sister Anesthesia complication Mother Arthritis Osteoporosis Thyroid disorder Mitral valve prolapse Sleep apnea Glaucoma Surgical History H/O thyroidectomy History of back surgery History of hysterectomy History of knee surgery History of left knee surgery Social History Smoking Status: Current every day smoker tobacco type: cigarettes alcohol intake: current alcohol intake frequency: holidays/special occasions only substance use type: does not use what type of physical activity do you participate in: none Vital Signs Vital Signs Vital Signs: 10/06/21 12:32 10/06/21 15:02 Temperature 99.3 F H Temperature Source Temporal Pulse Rate 105 H Respiratory Rate 18 16 Blood Pressure 102/75 Blood Pressure Mean 84 Pulse Ox 97 Oxygen Delivery Method Room Air Weight Weight: 136 lb Body Mass Index (BMI) 24.0 Physical Exam Const alert and oriented x3 Constitutional Narrative: Mild distress from abdominal pain GI GI Narrative: Well?healed supraumbilical incision. Nondistended. Soft. Tender to palpation diffusely with greatest intensity over McBurney's point. Positive psoas sign negative obturator sign. Extremity Extremity Narrative: Multiple contusions across anterior aspect of bilateral lo wer extremities Results Lab / Micro Data Result Diagrams: 10/06/21 13:16 10/06/21 13:16 Labs: Laboratory Results - last 24 hr 10/06/21 13:16: WBC 4.0 L, RBC 4.41, Hgb 13.6, Hct 40.7, MCV 92.3, MCH 30.8, MCHC 33.4, RDW Std Deviation 46.5 H, RDW Coeff of Domitila 13.5, Plt Count 215, MPV 10.0, Immature Gran % (Auto) 0.300, Neut % (Auto) 82.8 H, Lymph % (Auto) 13.8 L, [place] % (Auto) 2.3, Eos % (Auto) 0.0, Baso % (Auto) 0.8, Absolute Neuts (auto) 3.3, Absolute Lymphs (auto) 0.55 L, Nucleated RBC % 0, Diff Path Review March10/06/21 13:16: Sodium 138, Potassium 3.7, Chloride 105, Carbon Dioxide 23.0, Anion Gap 10, BUN 21 H, Creatinine 1.08 H, Estim Creat Clear Calc 52.12, Est GFR (MDRD) Af Amer 69, Est GFR (MDRD) Non-Af 57 L, BUN/Creatinine Ratio 19.4, Glucose 114 H, Calcium 9.0, Total Bilirubin 1.00, AST 13 L, ALT 15, Alkaline Phosphatase 64, Total Protein 6.8, Albumin 3.6, Globulin 3.2, Albumin/Globulin Ratio 1.1, Lipase 32 L Micro: Microbiology 10/06/21 14:41 Nasal Secretion SARS-CoV-2 Antigen (Rapid) - Final Radiology Impression Abdomen/Pelvis CT 10/06/21 13:01 IMPRESSION: Evidence of acute appendicitis with a moderate amount of free fluid in the cul-de-sac and inflammatory changes in the right lower quadrant including the cecum. Electronically Signed: Loy Rush MD at 14:25 EST , Service support , Assessment & Plan Assessment/Plan (1) Acute appendicitis: PLAN: This is a 51-year-old, previously?healthy, female who presents with less than 24 hours of nausea vomiting with localized abdominal pain. Patient has CT imaging demonstrating evidence of acute, uncomplicated appendicitis. Although there is not a significant leukocytosis patient does have left shift with CBC. Exam corroborates this diagnosis with significant tenderness at McBurney's point. I discussed with the patient my recommendation for laparoscopic appendectomy, but also provided information on the treatment of appendicitis with antibiotics alone based on the recent CODA trial. Patient expresses understanding of this information and agrees to proceed with my recommendation for surgery. Patient is due to receive prescribed Zosyn imminently. Following this administration, will proceed to the OR for emergent laparoscopic appendectomy. All questions were taken from the patient and her after a detailed informed consent procedure. Charges/Coding Visit Charges Inpatient E&M: 89007 Init Hosp L2
--- NOTE | 2021-10-06 15:43 | NURSING ---
OR SENG ACUTE APPENDICITIS
--- NOTE | 2021-10-06 16:15 | APP_PTH ---
PATIENT: FABIANA ORTEZ LOC: MS2 U#:[id number] AGE/SX: 51/F ROOM: [facility] [place] RE10/06/[address]: Dr. Bhanu Cole MD : 1970 BED: 1 DIS: 10/09/2021 SPEC #: [id number] RECD: 10/07/21 07:37 STATUS: KHAI REMaxim #: [id number] KATTY: 10/06/21 16:[address]: Bhanu Cole DEPT: SURGICAL PATHOLOGY RECD BY: Roopa Malave ENTERED: 10/07/21 12:49 SP TYPE: APPENDIX OTHR DR: JOSE Kwong Tissues: Appendix, NOS Procedures: Surgery Specimen Level III HEADER OPERATION: Laparoscopic appendectomy PRE-OP DIAGNOSIS: Acute appendicitis TISSUE SUBMITTED: Appendix MICROSCOPIC DIAGNOSIS Appendix, appendectomy: Acute appendicitis and periappendicitis. SUPRIYA:lei 10/08/2021 MICROSCOPIC DESCRIPTION Slides are reviewed. GROSS DESCRIPTION Received in fixative is one container labeled with the patient's name and designated appendix. The specimen consists of an appendix measuring 8 cm in length and 1.2 cm in average diameter. No gross perforations are evident. Serial sections reveal a patent lumen. Featheredge Machine Operator sections are submitted in one cassette. / AM:lei 10/07/21 TC:2 CPT: 21955
[2021-10-06] MEDS: Bupivacaine Mpf 0.5% 30 ML VIAL (17:40)
--- NOTE | 2021-10-06 17:49 | OP.PCM_ITS ---
Problems Associated Problem List Diagnoses (1) Acute appendicitis: Report of Operation Date of Procedure: 10/06/21 Pre-Operative Diagnosis: Acute appendicitis Post-Operative Diagnosis: Perforated, acute appendicitis with purulent pelvic Surgery/Procedure Performed:: Laparoscopic appendectomy Description of Surgical Findings:: - Inflamed appendix with evidence of perforation near base and fibrinous exudate along anterior abdominal wall and purulent fluid in pelvis/Morison's pouch Surgeon: Bhanu Cole supervisor blood donor recruiters: None Type of Anesthesia: General/Supplemental Anesthesiologist: Yulia Roque Specimen's removed: Peritoneal cultures Estimated Blood Loss (mL): 5 Description of Procedure: After appropriate identification in the preoperative holding area, the patient was brought to the operating room and placed supine on the operating room table. Antibiotics had been preoperatively administered in the emergency room. Patient was then induced with general endotracheal anesthetic. The abdomen was prepped and draped in usual sterile fashion. Formal timeout was conducted to confirm both the patient and the procedure. A supraumbilical incision was made and carried down to the level of the fascia which was sharply opened. After opening the peritoneum in like fashion, a finger sweep was made to confirm position, and a balloon trocar was placed and pneumoperitoneum was established to 15 mmHg. Patient was positioned in Trendelenburg with the left side down. 2 additional 5 mm trocars were placed in the left lower quadrant and suprapubic positions under direct laparoscopic vision. The peritoneum was inspected and there were no signs of inadvertent injury from this Horan entry. The appendix was visualized with moderately severe inflammation. Additionally, there was some fibrinous exudate along the anterior abdominal wall and there was a veil of omentum adherent across the pelvic inlet beneath which there was a copious amount of yellow purulent fluid. Using blunt laparoscopic dissection, the appendix was fully delineated from the cecum and adjacent terminal ileum. There is evidence of a perforation towards the base of the appendix but the most proximal portion of the base appeared to be healthy and viable confluent with the cecum. A window was made in the mesoappendix adjacent to the appendiceal base. The mesoappendix was divided with application of a laparoscopic harmonic. Then the base of the appendix was sealed and amputated with the use of an Endo PAULINO stapler. The appendix was placed in an Endo Catch bag. The staple line was inspected for hemostasis. There was a slight amount of oozing lateral aspect of the staple line so a Ray- Ahsan gauze was introduced via the 12 mm port site and pressure was applied to this area. Meanwhile, the purulent fluid was aspirated from the pelvis aside from a sample that was sent for aerobic and anaerobic cultures. Pelvis was then copiously irrigated with several liters of sterile saline and suctioned free. It also was noted that there was some purulent fluid in the area of Morison's pouch and right paracolic gutter so a similar sequence of aspiration and irrigation was undertaken in this location. The staple line was once against inspected for hemostasis and this time found to be intact. The 5 mm trocar sites were inspected for bleeding through withdrawal over our blunt tip suction product marketing specialist. Then pneumoperitoneum was evacuated and the supraumbilical port site fascia was closed wit 0 Vicryl in a upctey-fz-mighe fashion. The port sites were infiltrated with 20 mL local anesthetic. The skin of each port site was closed with 4-0 Monocryl in a subcuticular fashion. Steri-Strips and OpSite dressings were applied. Patient tolerated procedure well without any apparent complications. They were awoken from general anesthetic without issue and transferred to post anesthesia care unit for ongoing recovery. Complications None Admit VTE Documentation VTE Present on Admission: Yes VTE Mechan Device Prophylaxis: SCD's VTE Pharm Prophylaxis ordered?: No Procedures Digestive [id number]-49xxx: 53773 Laparoscopy appendectomy
[2021-10-06] MEDS: Lactated Ringers 1,000 ML 100 ML IV ×2 (18:13→18:14)
[2021-10-06] MEDS: 0.9% Normal Saline 1,000 ML 125 ML IV (20:25)
[2021-10-06] MEDS: Ibuprofen 400 MG Tablet PO (20:25)
[2021-10-06] MEDS: Acetaminophen 325 MG Tablet 650 MG PO (22:58)
[2021-10-06] MEDS: Heparin Injection (Vial) 5,000 UNIT/ML VIAL 5000 UNIT SC (22:58)
[2021-10-07] MEDS: Ibuprofen 400 MG Tablet PO ×3 (04:48→20:25)
[2021-10-07] MEDS: 0.9% Normal Saline 1,000 ML 125 ML IV ×2 (04:48→15:19)
[2021-10-07] MEDS: Heparin Injection (Vial) 5,000 UNIT/ML VIAL 5000 UNIT SC ×3 (04:48→20:25)
[2021-10-07 04:53] VITALS: BP 86/55; PULSE 82; RESP 16; TEMP 36.8; O2SAT 98
[2021-10-07 07:24] LABS: Absolute Lymphocyte Count 0.92 X10^3/uL (0.83-4.51); Absolute Neutrophil Count 6.6 X10^3/uL (2.0-7.7); Basophil# 0.03 X10^3/uL; Basophil% 0.4 % (0-1); Eosinophil# 0.01 X10^3/uL; Eosinophils% 0.1 % (0-5); Hematocrit 30.3 % (37-47); Hemoglobin 10.1 g/dL (12.0-15.0); Lymphocyte # 0.92 X10^3/ul (0.83-4.51); Lymphocyte % 11.7 % (19-41); Mean Corp Hgb Conc 33.3 g/dL (32-36); Mean Corpuscular Volume 92.9 fL (81-99); Monocyte# 0.29 X10^3/uL; Monocyte% 3.7 % (0-10); NRBC Flagged by Analyzer 0 % (0-5); Neutrophil # 6.58 X10^3/uL (2.7-7.7); Neutrophil % 83.8 % (47-70); POSITIVE MORPHOLOGY YES; Platelet Count 146 K/mm3 (150-450); RBC Distribution Width CV 14.1 % (11.6-14.6); RBC Distribution Width SD 48.1 fl (35.1-43.9); Red Blood Count 3.26 M/mm3 (4.2-5.4); White Blood Count 7.9 K/mm3 (4.4-11.0)
[2021-10-07 07:51] LABS: Anion Gap 4 (5-15); BUN 13 mg/dL (7-18); BUN/Creat Ratio 14.3 RATIO (10-20); Calcium,Total 7.8 mg/dL (8.5-10.1); Chloride 111 mmol/L (98-107); Creatinine, Serum 0.91 mg/dL (0.55-1.02); EST Glomerular Filtration Rate 70 mL/min (>60); Est Glom Filt Rate - Afr Amer 85 mL/min (>60); Estimated Creatinine Clearance 59.15 ml/min; Glucose 83 mg/dL (74-106); Potassium 3.8 mmol/L (3.5-5.1); Sodium Level 139 mmol/L (136-145)
[2021-10-07 07:57] LABS: Differential Indicated SCAN CRITERIA MET
--- NOTE | 2021-10-07 08:08 | PN.SURG_ITS ---
Subjective Subjective Patient seen and examined during AM rounds. She reports that her lower abdominal discomfort is much improved, however, she complains of upper abdominal discomfort which she describes as gas pains. She states that she is passing gas early in the evening but this has stopped and now she is uncomfortable. She is eager to begin walking to see if this will help things. Her blood pressure is noted to be 80s over 40s overnight and she states that she does normally run low but this is more like the 90s over 70s at home. Objective Data Objective Data Vital Signs: Vital Signs Temp Pulse Resp BP Pulse Ox 98.2 F 82 16 86/55 L 98 10/07/21 04:53 10/07/21 04:53 10/07/21 04:53 10/07/21 04:53 10/07/21 04:53 Oxygen Delivery Method Room Air Weight: 135 lb 12.876 oz Body Mass Index (BMI) 24.0 Intake & Output: Intake and Output for Last 24 Hours 10/05/21 10/06/21 10/07/21 23:59 23:59 23:59 Intake Total 2623.33 / 2623.33 1650 / 1650 Output Total 800 / 800 Balance 1823.33 / 1823.33 1650 / 1650 Lab / Micro Data Result Diagrams: 10/07/21 07:06 10/07/21 07:06 Labs: Laboratory Results - last 24 hr 10/06/21 13:16: WBC 4.0 L, RBC 4.41, Hgb 13.6, Hct 40.7, MCV 92.3, MCH 30.8, MCHC 33.4, RDW Std Deviation 46.5 H, RDW Coeff of Domitila 13.5, Plt Count 215, MPV 10.0, Immature Gran % (Auto) 0.300, Neut % (Auto) 82.8 H, Lymph % (Auto) 13.8 L, [place] % (Auto) 2.3, Eos % (Auto) 0.0, Baso % (Auto) 0.8, Absolute Neuts (auto) 3.3, Absolute Lymphs (auto) 0.55 L, Nucleated RBC % 0, Diff Path Review March10/06/21 13:16: Sodium 138, Potassium 3.7, Chloride 105, Carbon Dioxide 23.0, Anion Gap 10, BUN 21 H, Creatinine 1.08 H, Estim Creat Clear Calc 52.12, Est GFR (MDRD) Af Amer 69, Est GFR (MDRD) Non-Af 57 L, BUN/Creatinine Ratio 19.4, Glucose 114 H, Calcium 9.0, Total Bilirubin 1.00, AST 13 L, ALT 15, Alkaline Phosphatase 64, Total Protein 6.8, Albumin 3.6, Globulin 3.2, Albumin/Globulin Ratio 1.1, Lipase 32 L 10/07/21 07:06: WBC 7.9, RBC 3.26 L, Hgb 10.1 L, Hct 30.3 L, MCV 92.9, MCH 31.0, MCHC 33.3, RDW Std Deviation 48.1 H, RDW Coeff of Domitila 14.1, Plt Count 146 L, MPV 10.0, Immature Gran % (Auto) 0.300, Neut % (Auto) 83.8 H, Lymph % (Auto) 11.7 L, [place] % (Auto) 3.7, Eos % (Auto) 0.1, Baso % (Auto) 0.4, Absolute Neuts (auto) 6.6, Absolute Lymphs (auto) 0.92, Nucleated RBC % 0 10/07/21 07:06: Sodium 139, Potassium 3.8, Chloride 111 H, Carbon Dioxide 24.0, Anion Gap 4 L, BUN 13, Creatinine 0.91, Estim Creat Clear Calc 59.15, Est GFR (MDRD) Af Amer 85, Est GFR (MDRD) Non-Af 70, BUN/Creatinine Ratio 14.3, Glucose 83, Calcium 7.8 L, Phosphorus 3.0, Magnesium 2.0 Micro: Microbiology 10/06/21 14:41 Nasal Secretion SARS-CoV-2 Antigen (Rapid) - Final Radiography Diagnostic Testing: Radiology Impression Abdomen/Pelvis CT 10/06/21 13:01 IMPRESSION: Evidence of acute appendicitis with a moderate amount of free fluid in the cul-de-sac and inflammatory changes in the right lower quadrant including the cecum. Electronically Signed: Loy Rush MD at 14:25 EST , Service support , Physical Exam Const oriented x3 Resp normal respiratory effort GI GI Narrative: Mild to moderately distended, somewhat diffusely tender to palpation but primarily adjacent to the supraumbilical port site and in the right lower quadrant/right lateral abdominal wall. Operative dressings are intact and there is no drainage to them. Assessment & Plan Assessment/Plan (1) Perforated appendicitis: PLAN: Patient is postoperative day 1 from a laparoscopic appendectomy with Intra-Op of perforated appendicitis. There was copious amount of purulence within the pelvis as well as the right paracolic gutter. Cultures were sent but the patient has been kept empirically on Zosyn therapy. She states she initially had some passage of flatus, but this has stopped and now she is developing some uncomfortable bloating. She is already planning to walk and this is certainly encouraged. Given this bloating and lack of flatus, I will maintain her on a clear liquid diet today with IV fluid support. She is certainly at risk for an ileus given the intraoperative findings. (2) Status post laparoscopic appendectomy: PLAN: Neuro: As needed acetaminophen, ibuprofen, oxycodone, Dilaudid Pulm/CV: We will continue to monitor patient's blood pressure suspect that she is just dealing with residual sedation effects/analgesics FEN/GI: Monitor electrolytes daily, clear liquid diet, assess for consistent return of bowel function Heme/ID: Hemoglobin down trended from 13.6 preop to 10.1 mg/dL today. Patient is not tachycardic though and did have a immediate history of substantial vomiting so this could be somewhat hemodilution all. We will continue to trend with labs. Patient remains on IV Zosyn every 8 hours. We will follow up operative cultures Endo: No present concerns Proph: Ambulate as tolerated, heparin subcu 3 times daily Dispo: Continue inpatient stay Charges/Coding Visit Charges Inpatient E&M: 39507 Subs Hosp L2
[2021-10-07 08:24] LABS: Differential Comment SCANNED
[2021-10-07 09:23] VITALS: BP 99/62; PULSE 79; RESP 16; TEMP 36.7; O2SAT 97
--- NOTE | 2021-10-07 11:15 | CASEMGMT ---
RN SHIVANI Face to Face with patient for initial transition planning/care coordination assessment. RN CM introduced self and role at [facility]. Patient lying in bed, alert and oriented, at bedside. Patient willing to participate in assessment and is able to answer all questions appropriately. Care providers, pharmacy, and demographics verified. Patient wishes to discharge home, denies need for home health at this time. Patient states she has no further needs or concerns at this time. CM to follow for discharge planning needs that may arise. 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 Insurance: [employer] Prescription Benefit: yes Living Will/HPOA: Living will only LNOK: Living Arrangements: Patient lives with in a single story home with 3 steps and railing to enter the home. Patient states she was independent at home prior to surgery. Transportation: self/ DME/HHC: Patient states she has access to a shower chair. Patient denies further DME or HHC. Disposition Plan: Patient to discharge home with family support and follow-up plans in place. Gillian CRUZ, RN, CM
[2021-10-07] MEDS: Levothyroxine 75 MCG Tablet PO (12:02)
[2021-10-07 14:00] LABS: Pathologist Review Reviewed
[2021-10-07] MEDS: Acetaminophen 325 MG Tablet 650 MG PO (15:18)
[2021-10-07 15:23] VITALS: BP 111/74; PULSE 77; RESP 18; TEMP 36.8; O2SAT 98
[2021-10-07] MEDS: Gabapentin 300 MG Capsule PO (20:25)
[2021-10-07 20:31] VITALS: BP 123/82; PULSE 80; RESP 18; TEMP 36.6; O2SAT 97
[2021-10-08] MEDS: 0.9% Normal Saline 1,000 ML 125 ML IV (01:08)
[2021-10-08 03:00] VITALS: BP 118/67; PULSE 82; RESP 18; TEMP 36.6; O2SAT 96
[2021-10-08] MEDS: Levothyroxine 75 MCG Tablet PO (05:15)
[2021-10-08] MEDS: Ibuprofen 400 MG Tablet PO ×4 (05:15→22:29)
[2021-10-08] MEDS: Heparin Injection (Vial) 5,000 UNIT/ML VIAL 5000 UNIT SC ×3 (05:16→22:28)
[2021-10-08] MEDS: Ondansetron 4 MG/2 ML Vial IV (05:21)
[2021-10-08 07:40] LABS: Absolute Lymphocyte Count 0.57 X10^3/uL (0.83-4.51); Absolute Neutrophil Count 8.5 X10^3/uL (2.0-7.7); Basophil# 0.02 X10^3/uL; Basophil% 0.2 % (0-1); Eosinophil# 0.05 X10^3/uL; Eosinophils% 0.5 % (0-5); Hematocrit 30.1 % (37-47); Hemoglobin 10.1 g/dL (12.0-15.0); Lymphocyte # 0.57 X10^3/ul (0.83-4.51); Mean Corp Hgb Conc 33.6 g/dL (32-36); Mean Corpuscular Hgb 31.5 pg (27.0-32.0); Mean Corpuscular Volume 93.8 fL (81-99); Mean Platelet Vol. 10.1 fl (6.2-12.0); Monocyte# 0.25 X10^3/uL; Monocyte% 2.7 % (0-10); NRBC Flagged by Analyzer 0 % (0-5); Neutrophil # 8.49 X10^3/uL (2.7-7.7); Neutrophil % 90.1 % (47-70); POSITIVE DIFFERENTIAL YES; Platelet Count 155 K/mm3 (150-450); RBC Distribution Width CV 14.1 % (11.6-14.6); RBC Distribution Width SD 48.8 fl (35.1-43.9); Red Blood Count 3.21 M/mm3 (4.2-5.4); White Blood Count 9.4 K/mm3 (4.4-11.0)
[2021-10-08 07:41] LABS: Differential Indicated SCAN CRITERIA MET
[2021-10-08 08:23] LABS: Anion Gap 8 (5-15); BUN 14 mg/dL (7-18); BUN/Creat Ratio 17.7 RATIO (10-20); Calcium,Total 8.4 mg/dL (8.5-10.1); Chloride 112 mmol/L (98-107); Creatinine, Serum 0.79 mg/dL (0.55-1.02); EST Glomerular Filtration Rate 82 mL/min (>60); Est Glom Filt Rate - Afr Amer 99 mL/min (>60); Estimated Creatinine Clearance 68.13 ml/min; Glucose 72 mg/dL (74-106); Magnesium 2.2 mg/dL (1.6-2.6); Phosphorus 2.6 mg/dL (2.5-4.9); Potassium 3.6 mmol/L (3.5-5.1); Sodium Level 139 mmol/L (136-145)
--- NOTE | 2021-10-08 08:39 | PN.SURG_ITS ---
Subjective Subjective Patient was seen and examined on a.m. rounds. She reports that approximately 3 AM she developed some significant abdominal cramping and immediately went to the restroom where she had moderately large loose, tarry stool. She experienced some significant nausea thereafter, but this was responsive to as needed Zofran and has remained improved since approximately 5 AM. States that she now has an appetite. She attempted to try some broth yesterday but became nauseous and so she set this aside opting for water only. Additionally the belching that she reported yesterday has overall decreased in frequency. Mrs. Acosta notes that her pain is also significantly improved today. Objective Data Objective Data Vital Signs: Vital Signs Temp Pulse Resp BP Pulse Ox 97.9 F 82 18 118/67 96 10/08/21 03:00 10/08/21 03:00 10/08/21 03:00 10/08/21 03:00 10/08/21 03:00 Oxygen Delivery Method Room Air Weight: 135 lb 12.876 oz Body Mass Index (BMI) 24.0 Intake & Output: Intake and Output for Last 24 Hours 10/06/21 10/07/21 10/08/21 23:59 23:59 23:59 Intake Total 2623.33 / 2623.33 4950 / 4950 1000 / 1000 Output Total 800 / 800 Balance 1823.33 / 1823.33 4950 / 4950 1000 / 1000 Lab / Micro Data Result Diagrams: 10/08/21 07:16 10/08/21 07:16 Labs: Laboratory Results - last 24 hr 10/06/21 13:16: Diff Path Review Reviewed 10/08/21 07:16: WBC 9.4, RBC 3.21 L, Hgb 10.1 L, Hct 30.1 L, MCV 93.8, MCH 31.5, MCHC 33.6, RDW Std Deviation 48.8 H, RDW Coeff of Domitila 14.1, Plt Count 155, MPV 10.1, Immature Gran % (Auto) 0.500, Neut % (Auto) 90.1 H, Lymph % (Auto) 6.0 L, Pine % (Auto) 2.7, Eos % (Auto) 0.5, Baso % (Auto) 0.2, Absolute Neuts (auto) 8.5 H, Absolute Lymphs (auto) 0.57 L, Nucleated RBC % 0 11/18/21 07:16: Sodium 139, Potassium 3.6, Chloride 112 H, Carbon Dioxide 19.0 L , Anion Gap 8, BUN 14, Creatinine 0.79, Estim Creat Clear Calc 68.13, Est GFR (MDRD) Af Amer 99, Est GFR (MDRD) Non-Af 82, BUN/Creatinine Ratio 17.7, Glucose 72 L, Calcium 8.4 L, Phosphorus 2.6, Magnesium 2.2 Micro: Microbiology 10/06/21 17:25 Aspirate - Abdominal Gram Stain - Final 10/06/21 17:25 Aspirate - Abdominal Wound Culture - 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 Operative sites remain covered with dressings that have no drainage. Abdomen is soft and minimally tender to palpation about port site incisions. Assessment & Plan Assessment/Plan (1) Perforated appendicitis: PLAN: Patient is postoperative day two from a laparoscopic appendectomy with Intra-Op of perforated appendicitis. There was copious amount of purulence within the pelvis as well as the right paracolic gutter. Cultures were sent but the patient has been kept empirically on Zosyn therapy. Preliminary results consistent with gram-negative rods, lactose fermenting. She experienced return of bowel function overnight and continues to have loose stools. Brief, but significant nausea seems to have resolved with one-time Zofran. Now expressing an appetite. We will therefore plan to advance diet today. (2) Status post laparoscopic appendectomy: PLAN: Neuro: As needed acetaminophen, ibuprofen, oxycodone, Dilaudid Pulm/CV: Blood pressure improved; we will continue to monitor FEN/GI: Electrolytes within normal limits, advance to regular diet Heme/ID: Hemoglobin postoperatively stable at 10.1 mg/dL today and yesterday. Patient remains on IV Zosyn every 8 hours plan: We will plan to transition to oral antibiotics once patient improves tolerance of diet advancement. We will follow up operative cultures Endo: No present concerns Proph: Ambulate as tolerated, heparin subcu 3 times daily Dispo: Continue inpatient stay Charges/Coding Visit Charges Inpatient E&M: 81776 Subs Hosp L2
--- NOTE | 2021-10-08 09:32 | PCS.PANDOC ---
PANDEMIC DOCUMENTATION INITIATED: Date: 07/06/2021 Time: 190
[2021-10-08 09:50] VITALS: BP 114/68; PULSE 73; RESP 18; TEMP 36.7; O2SAT 99
[2021-10-08 15:13] VITALS: BP 127/77; PULSE 70; RESP 18; TEMP 36.4; O2SAT 98
[2021-10-08 21:15] VITALS: BP 108/71; PULSE 66; RESP 14; TEMP 36.6; O2SAT 96
[2021-10-08] MEDS: 0.9% Normal Saline 1,000 ML 25 ML IV (22:26)
[2021-10-08] MEDS: Gabapentin 300 MG Capsule PO (22:28)
[2021-10-09 02:36] VITALS: BP 126/75; PULSE 71; RESP 12; TEMP 37; O2SAT 96
[2021-10-09] MEDS: Heparin Injection (Vial) 5,000 UNIT/ML VIAL 5000 UNIT SC (06:19)
[2021-10-09] MEDS: levoFLOXacin 750 MG Tablet PO (06:19)
[2021-10-09] MEDS: Levothyroxine 75 MCG Tablet PO (06:19)
[2021-10-09] MEDS: Ibuprofen 400 MG Tablet PO (07:44)
[2021-10-09 08:00] VITALS: BP 126/88; PULSE 73; RESP 16; TEMP 37; O2SAT 97
--- NOTE | 2021-10-09 08:50 | PCM.DC ---
Discharge Instructions Diet Discharge Diet: No restrictions Activity Discharge Activity: May Not Drive (No driving while using narcotic pain medication) Lifting Restrictions: No lifting greater than 15 pounds for 2 weeks after surgery Dressing / Incision Call your doctor if your incision/area has: Increased Pain/ Swelling, Increased Redness and Foul Smelling Discharge Call your doctor if you observe: Fever of 101 or Higher Change Dressing in: leave in place till F/U Cleanse incision/area with: Soap & Water Additional Dressing/Incision Instructions:: Please leave Steri-Strips intact until they fall off spontaneously or are taken off at your follow-up visit Follow Up Care Please Follow Up With: Bhanu Cole MD When: 7 to 10 days post discharge Test Results: Test results from this visit will be discussed in further detail at your follow-up appointment, if applicable. Discharge Plan Admission Admit Date/Time: 10/06/21 17:53 Primary Reason for Your Visit: Acute appendicitis Attending Provider: Bhanu Cole Primary Care Provider: Jluis Whitmore Instructions Patient Instructions: Appendectomy Laparoscopic Dc Discharge Orders/Prescriptions Prescriptions: New levofloxacin 750 mg Tablet 750 mg PO DAILY 2 Days Qty: 2 RF: 0 oxycodone 5 mg Tablet 5 mg PO Q6H PRN (Reason: pain) 2 Days Qty: 7 RF: 0 Continued ibuprofen 800 mg tablet 800 mg PO Q8H PRN (Reason: pain) RF: 0 levothyroxine 75 mcg tablet 75 mcg PO DAILY Qty: 90 RF: 3 gabapentin [Neurontin] 300 MG capsule 300 mg PO QHS RF: 0 Referrals / Follow Up: Jluis Whitmore PA [Primary Care Provider] -
--- NOTE | 2021-10-09 09:01 | DS.PCM_ITS ---
Providers Date of Admission: 10/06/21 Primary Care Physician: JOSE Kwong Reason For Visit: PERFORATED APPENDICITIS Diagnosis Discharge Diagnosis (1) Perforated appendicitis: Status: Acute Code(s): K35.32 - Acute appendicitis with perforation and localized peritonitis, without abscess (2) Status post laparoscopic appendectomy: Status: Acute Code(s): Z90.49 - Acquired absence of other specified parts of digestive tract Medications at Discharge Home Medications gabapentin [Neurontin] 300 mg PO QHS 04/18/19 ibuprofen 800 mg tablet 800 mg PO Q8H PRN 04/09/21 levothyroxine 75 mcg tablet 75 mcg PO DAILY #90 tab 09/22/21 levofloxacin 750 mg PO DAILY 2 Days #2 tab 10/09/21 oxycodone 5 mg PO Q6H PRN 2 Days #7 tab 10/09/21 Hospital Course Operations appendectomy Summary of Care Provided Hospital Course: Patient was a seen and evaluated in [facility] ER on 10/06/2021. Her presentation and ER work-up were consistent with acute appendicitis. Emergent laparoscopic appendectomy was recommended. We then proceeded to the operating room for this procedure where intraoperatively, she was found to have perforated appendicitis and pelvic contamination with purulent fluid. The operation proceeded uneventfully and cultures were obtained of the pelvic fluid prior to aspirating it from the pelvis and copious irrigation. Patient was then admitted to the floor postoperatively for observation and ongoing antibiotic therapy. Postoperative day 1 patient had expected abdominal discomfort and appeared to be developing an ileus with bloating and absent bowel function. However, by postoperative day 2 she began having multiple loose stools. Her appetite soon followed and a regular diet was started. Operative cultures came back as positive for E. coli and her antibiotic was transitioned on postoperative day 2 from empiric Zosyn coverage to oral Levaquin 750 mg daily. By postoperative day 3 she was continued to have bowel movements tolerated regular diet, and reported feeling much improved. Therefore, discharge was granted after reviewing wound care instructions and return p recautions. Plan for short?interval follow-up in 7 to 10 days post hospital discharge. Physical Exam Const alert, oriented x3 and no apparent distress General Appearance: cooperative Resp normal respiratory effort GI GI Narrative: Mildly distended, ecchymosis to abdominal wall from heparin injections. Incision sites remain sealed with operative dressings there is no drainage to these dressings. Beneath, Steri-Strips are intact and incisions remain well approximated without surrounding erythema or drainage. Patient's a bdomen is appropriately tender to palpation about the incisions the level of the abdominal wall but the deep tenderness has resolved. Weight / BMI Weight Weight: 135 lb 12.876 oz Body Mass Index (BMI) 24.0 ABG / Lab / Microbiology Data Result Diagrams: 10/08/21 07:16 10/08/21 07:16 Laboratory: Laboratory Results - last 24 hr 10/08/21 07:16: Differential Comment COMMENT Microbiology: Microbiology 10/06/21 17:25 Aspirate - Abdominal Gram Stain - Final 10/06/21 17:25 Aspirate - Abdominal Wound Culture - Preliminary Escherichia coli Gram negative tamera 10/06/21 17:25 Aspirate - Abdominal Anaerobic Culture - Preliminary Checking for anaerobes, further studies to follow. 10/06/21 14:41 Nasal Secretion SARS-CoV-2 Antigen (Rapid) - Final D/C Instructions Discharge Diet: No restrictions Call your doctor if your incision/area has: Increased Pain/ Swelling, Increased Redness and Foul Smelling Discharge Call your doctor if you observe: Fever of 101 or Higher Cleanse incision/area with: Soap & Water Additional Dressing/Incision Instructions: Please leave Steri-Strips intact until they fall off spontaneously or are taken off at your follow-up visit Please Follow Up With: Bhanu Cole MD When: 7 to 10 days post discharge Meaningful Use Info Meaningful Use Diagnoses (Choose all that apply): None applicable Discharge Plan Admission Admit Date/Time: 10/06/21 17:53 Primary Reason for Your Visit: Acute appendicitis Attending Provider: Bhanu Cole Primary Care Provider: Jluis Whitmore Instructions Patient Instructions: Appendectomy Laparoscopic Dc Discharge Orders/Prescriptions Prescriptions: New levofloxacin 750 mg Tablet 750 mg PO DAILY 2 Days Qty: 2 RF: 0 oxycodone 5 mg Tablet 5 mg PO Q6H PRN (Reason: pain) 2 Days Qty: 7 RF: 0 Continued ibuprofen 800 mg tablet 800 mg PO Q8H PRN (Reason: pain) RF: 0 levothyroxine 75 mcg tablet 75 mcg PO DAILY Qty: 90 RF: 3 gabapentin [Neurontin] 300 MG capsule 300 mg PO QHS RF: 0 Referrals / Follow Up: Jluis Whitmore PA [Primary Care Provider] - Disposition Discharge Orders: Discharge Patient (Routine); Ordered 10/09/21 Ordered By: Dr. Bhanu Cole Charges/Coding Visit Charges Inpatient E&M: 69698 Disch Hosp
[2021-10-09 09:40] VITALS: BP 126/88; PULSE 73; RESP 16; TEMP 37; O2SAT 97
== END 2021-10-09 13:00 | disposition home or self-care (01) | DRG 340 ==
LOC: ED 15:19 → SDC 15:40 → ACINP 15:40 → SDC 19:12 → MS2 10-07 08:50
PROVIDERS: Admitting Provider Surgery; Emergency Provider Emergency Medicine; PCP Physician Assistant; Visit Provider Surgery
PROC: 0DTJ4ZZ Resection of Appendix, Percutaneous Endoscopic Approach (ICD-10-PCS; CPT 44970; principal; 2021-10-06 15:55)
DX: K35.32 Acute appendicitis with perforation, localized peritonitis, and gangrene, without abscess (principal); K58.9 Irritable bowel syndrome, unspecified; J30.2 Other seasonal allergic rhinitis; G62.9 Polyneuropathy, unspecified; F17.210 Nicotine dependence, cigarettes, uncomplicated; D64.9 Anemia, unspecified; Z91.048 Other nonmedicinal substance allergy status; Z79.890 Hormone replacement therapy; Z88.5 Allergy status to narcotic agent; Z90.710 Acquired absence of both cervix and uterus; E06.3 Autoimmune thyroiditis
CPT/HCPCS: 36415; 74177; 80048; 80053; 83690; 83735; 84100; 85025; 87070; 87075; 87077; 87186; 87205; 87426; 88304; 99251; 99285; J7030; J7120; A4216; G0463; J2405

== ENCOUNTER → 2021-10-22 10:51 | Outpatient (CLI) | payer OTHER, SELFPAY ==
--- NOTE | 2021-10-22 11:10 | RAD_ITS ---
STUDY: X-RAY CHEST REASON FOR EXAM: Female, 51 years old. Post op appy, R chest and flank pain TECHNIQUE: PA and lateral views of the chest. COMPARISON: None. FINDINGS: Increased linear markings are seen at the right lung base with blunting of the right costophrenic angle. This most likely represents atelectasis. Minimal increased markings at the left lung base as well. There is no demonstrated pleural abnormality. Normal size heart. Normal mediastinum and balaji. Normal visualized pulmonary arteries. Normal visualized aortic arch and descending thoracic aorta. Normal visualized thoracic spine. Normal visualized ribs, clavicles, and shoulders. Calcified splenic granulomas. RAD/Chest PA and Lateral IMPRESSION: Findings suggestive of bibasilar linear atelectasis is more prominent at the right lung base. Electronically Signed: Loy Rush MD at 11:44 EST , Service support ,
[2021-10-22 11:34] LABS: Absolute Lymphocyte Count 1.75 X10^3/uL (0.83-4.51); Absolute Neutrophil Count 3.9 X10^3/uL (2.0-7.7); Basophil# 0.07 X10^3/uL; Basophil% 1.1 % (0-1); Eosinophils% 1.6 % (0-5); Hematocrit 31.9 % (37-47); Hemoglobin 10.4 g/dL (12.0-15.0); Lymphocyte # 1.75 X10^3/ul (0.83-4.51); Lymphocyte % 27.4 % (19-41); Mean Corp Hgb Conc 32.6 g/dL (32-36); Mean Corpuscular Hgb 30.2 pg (27.0-32.0); Mean Corpuscular Volume 92.7 fL (81-99); Mean Platelet Vol. 9.2 fl (6.2-12.0); Monocyte# 0.55 X10^3/uL; Monocyte% 8.6 % (0-10); NRBC Flagged by Analyzer 0 % (0-5); Neutrophil # 3.88 X10^3/uL (2.7-7.7); Neutrophil % 60.8 % (47-70); Platelet Count 615 K/mm3 (150-450); RBC Distribution Width CV 13.6 % (11.6-14.6); RBC Distribution Width SD 46.1 fl (35.1-43.9); Red Blood Count 3.44 M/mm3 (4.2-5.4); White Blood Count 6.4 K/mm3 (4.4-11.0)
[2021-10-22 12:09] LABS: ALB/GLOB Ratio 0.8 RATIO (0.9-2.4); AST(SGOT) 13 U/L (15-37); Alanine Aminotransfer ALT/SGPT 26 U/L (13-56); Albumin, Serum 3.3 g/dL (3.2-5.0); Alkaline Phosphatase 120 U/L (45-117); Anion Gap 7 (5-15); BUN 11 mg/dL (7-18); BUN/Creat Ratio 12.6 RATIO (10-20); Calcium,Total 9.1 mg/dL (8.5-10.1); Chloride 104 mmol/L (98-107); Creatinine, Serum 0.88 mg/dL (0.55-1.02); EST Glomerular Filtration Rate 73 mL/min (>60); Est Glom Filt Rate - Afr Amer 88 mL/min (>60); Glucose 83 mg/dL (74-106); Potassium 3.7 mmol/L (3.5-5.1); Protein, Total 7.3 g/dL (6.4-8.2); Sodium Level 139 mmol/L (136-145)
--- NOTE | 2021-10-22 13:17 | RAD_ITS ---
STUDY: X-RAY - ABDOMEN/PELVIS REASON FOR EXAM: Female, 51 years old. POST OP FOLLOW UP/ FLANK PAIN TECHNIQUE: AP supine and upright views of the abdomen and pelvis. COMPARISON: None. FINDINGS: Bibasilar atelectasis/infiltrates. There is an abundance of fecal material throughout the colon. Multiple calcified splenic granulomas. Calcified right hepatic granuloma. Normal soft tissue structures. Normal visualized osseous structures. RAD/Abd Inc Decub and/or Erect IMPRESSION: Large amount of fecal material is seen in the colon. Electronically Signed: Loy Rush MD at 14:13 EST , Service support ,
== END ==
PROVIDERS: PCP Physician Assistant; Referring Provider Surgery; Visit Provider Surgery
DX: R10.9 Unspecified abdominal pain (principal); Z90.49 Acquired absence of other specified parts of digestive tract; R07.9 Chest pain, unspecified
CPT/HCPCS: 36415; 71046; 74019; 80053; 85025

== ENCOUNTER 2021-12-16 09:32 | Emergency (ER) | payer OTHER, SELFPAY ==
[2021-12-16 09:34] VITALS: BP 89/72; PULSE 94; RESP 6; TEMP 36.4; O2SAT 100; BMI 23.0
--- NOTE | 2021-12-16 10:00 | ED.VIS.GI ---
HPI HPI - GI History of Present Illness Chief Complaint: Abd Pain Informant: patient Narrative Narrative: Increasing abdominal pain nausea today. Has had changes in GI symptoms since her appendectomy in September. Performed by Dr. Cole. States since then has had bouts of constipation to loose stools. States has pain right away in the past week right when she eats. There has been nonbloody stools or tarry stools. Total hysterectomy in the past. Has not seen GI. She states she has been followed by Dr. Cole. States last week at her brother's house eating in [place] when pain came with eating she had persistent cramping until Tuesday. She states a lot of burping along with flatus. Watery stools. No recent antibiotics. Discussed with nursing at Dr. Walker office today was sent to the ED for evaluation. Reported had concerns for bowel obstruction. She denies any urinary symptoms. Prior similar symptoms: Yes PFSH PFSH Medical History Acute appendicitis Anemia Back problem Guillermo's thyroiditis Hypoglycemia Irritable bowel syndrome Neuropathy Papillary microcarcinoma of thyroid Perforated appendicitis Seasonal allergies Thyroid cancer Thyroid nodule Home Medications gabapentin [Neurontin] 300 mg PO QHS 04/18/19 [History Last Taken Unknown] ibuprofen 800 mg tablet 800 mg PO Q8H PRN 04/09/21 [History Last Taken Unknown] levothyroxine 75 mcg tablet 75 mcg PO DAILY #90 tab 09/22/21 [Rx Last Taken 10/06/21 07:00] Allergy/AdvReac Type Severity Reaction Status Date / Time morphine Allergy Intermediate vomitting Verified 12/16/21 09:33 doxycycline AdvReac Intermediate burning of Verified 12/16/21 09:33 throat latex tape Allergy Mild rash Uncoded 12/16/21 09:33 Family History Sister Anesthesia complication Mother Arthritis Osteoporosis Thyroid disorder Mitral valve prolapse Sleep apnea Glaucoma Surgical History H/O thyroidectomy History of appendectomy History of back surgery History of hysterectomy History of knee surgery History of left knee surgery Status post laparoscopic appendectomy (~09/2021) Social History Smoking Status: Current some day smoker tobacco type: cigarettes alcohol intake: current alcohol intake frequency: holidays/special occasions only substance use type: does not use what type of physical activity do you participate in: none ROS ROS ED Constitutional Constitutional ED: Denies chills, fever(s) or sweats Eyes Eyes: Denies change in vision ENT ENT ED: Denies dysphagia or sore throat Cardiovascular Cardiovascular: Denies chest pain, leg edema, palpitations or racing heartbeat Respiratory/Chest Respiratory/Chest: Denies cough, dyspnea or dyspnea on exertion Gastrointestinal Gastrointestinal: Reports abdominal pain, diarrhea and nausea; Denies vomiting Genitourinary Genitourinary ED: Denies dysuria, hematuria or urinary frequency Musculoskeletal Musculoskeletal: Denies back pain, extremity pain or neck pain Integumentary Denies rash or wounds Neurologic Neurologic: Denies headache(s), paresthesias or weakness EXAM Physical Exam Const Vital Signs: 12/16/21 09:34 12/16/21 11:23 Temperature 97.6 F L Temperature Source Temporal Pulse Rate 94 62 Respiratory Rate 6 L 15 Blood Pressure 89/72 L 138/74 H Blood Pressure Mean 77 Pulse Ox 100 98 Oxygen Delivery Method Room Air Positive well nourished and well developed General Appearance ED: well developed and NAD HEENT Reports dry mucous membranes normocephalic and atraumatic Mouth ED: Yes dry mucous membranes Mouth: dry mucous membranes Eyes PERRL, EOMs intact bilaterally and conjunctivae normal General Eye ED: Yes normal appearance of both eyes Neck no lymphadenopathy and supple General: Negative for tenderness Chest Wall Chest: Negative for tenderness Resp normal respiratory effort and normal air movement Effort and Inspection: symmetric chest movement; Negative for respiratory distress Cardio regular rate, regular rhythm and no murmurs Peripheral Pulses: pulses 2+ throughout GI normal to inspection, nondistended, normoactive bowel sounds GI Narrative: Tender palpation epigastric mid abdomen. Negative Aguilar's or McBurney's tenderness. No guarding or rebound. Palpation: Negative for guarding or rebound tenderness present Back/Spine no CVA tenderness and no thoracic nor lumbar tenderness Extremity normal to inspection General Extremety ED: Negative for edema or tenderness General Extremity: Negative for edema Neuro oriented x3 and no sensory deficits noted Sensorium / Orientation: awake and alert Skin no rashes or lesions noted and no wounds MDM MDM MDM Narrative Medical decision making narrative: Patient tender epigastric mid abdomen. No guarding or rebound. I did check abdominal labs normal except for slight renal insufficiency with a creatinine 1.13. She was treated for pain and nausea was given IV fluids. Nausea improved no loose stools while in the ED. White count 8.9. No C. difficile risk factors. Reports family history of irritable bowel syndrome. She states she currently started omeprazole daily for the past 4 days she will continue this. She has Zofran at home. She is given GI for follow-up as an outpatient for further work-up. States she will also follow-up with her PCP for recheck of labs. Discussed with patient clinically does not have a bowel obstruction due to having flatus and loose stools. Patient is being discharged under pandemic conditions under declared global, national and state disaster activation, with limited medical resources. Patient and community understands this. Results discussed in layman's terms to the patient satisfaction. All questions answered in layman's terms. Patient understands importance of follow-up care as directed. Patient has been instructed to return to the ED immediately if new symptoms, problems, or questions occur. We mutually agree with the plan of disposition. The patient understand that they may call or return with any questions or concerns at any time. Lab Data Attestation: I reviewed the patient's lab results. Labs: Laboratory Results - last 24 hr 12/16/21 12/16/21 09:55 09:55 WBC 8.9 RBC 4.61 Hgb 13.6 Hct 40.0 MCV 86.8 MCH 29.5 MCHC 34.0 RDW Std Deviation 47.4 H RDW Coeff of Domitila 14.9 H Plt Count 289 MPV 9.7 Immature Gran % (Auto) 0.200 Neut % (Auto) 67.7 Lymph % (Auto) 23.0 [place] % (Auto) 6.6 Eos % (Auto) 1.8 Baso % (Auto) 0.7 Absolute Neuts (auto) 6.1 Absolute Lymphs (auto) 2.05 Nucleated RBC % 0 Sodium 135 L Potassium 5.1 Chloride 103 Carbon Dioxide 23.0 Anion Gap 9 BUN 17 Creatinine 1.13 H Estim Creat Clear Calc 49.82 Est GFR (MDRD) Af Amer 66 Est GFR (MDRD) Non-Af 54 L BUN/Creatinine Ratio 15.0 Glucose 104 Calcium 9.3 Total Bilirubin 0.80 AST 25 ALT 16 Alkaline Phosphatase 80 Total Protein 7.7 Albumin 3.9 Globulin 3.8 Albumin/Globulin Ratio 1.0 Lipase 49 L Discharge Plan Triage Chief Complaint: Abd Pain ED Provider: Gabino Mo Dx/Rx/DC Orders Clinical Impression: Abdominal pain, Diarrhea, Acute renal insufficiency Instructions: Abdominal Pain, ED Diarrhea, Unknown Cause, ED Renal Insufficiency Prescriptions: No Action ibuprofen 800 mg tablet 800 mg PO Q8H PRN (Reason: pain) RF: 0 levothyroxine 75 mcg tablet 75 mcg PO DAILY Qty: 90 RF: 3 gabapentin [Neurontin] 300 MG capsule 300 mg PO QHS RF: 0 Primary Care Provider: Jluis Whitmore Referrals: FriendShamar DO [STAFF PHYSICIAN] - 3-5 Days Jluis Whitmore, PA [Primary Care Provider] - Activity Restrictions/Additional Instructions: Continue your omeprazole daily. Continue oral fluids. Your creatinine today 1.13, up from 0.88 previously. Continue oral fluids. Follow-up with GI for further work-up as an outpatient. Follow-up with your PCP for recheck of your kidney numbers. Disposition Disposition: Home, Self Care Discharge Date/Time: 12/16/21 11:25
[2021-12-16 10:05] LABS: Absolute Lymphocyte Count 2.05 X10^3/uL (0.83-4.51); Absolute Neutrophil Count 6.1 X10^3/uL (2.0-7.7); Basophil# 0.06 X10^3/uL; Basophil% 0.7 % (0-1); Eosinophil# 0.16 X10^3/uL; Eosinophils% 1.8 % (0-5); Hemoglobin 13.6 g/dL (12.0-15.0); Lymphocyte # 2.05 X10^3/ul (0.83-4.51); Mean Corpuscular Hgb 29.5 pg (27.0-32.0); Mean Corpuscular Volume 86.8 fL (81-99); Mean Platelet Vol. 9.7 fl (6.2-12.0); Monocyte# 0.59 X10^3/uL; Monocyte% 6.6 % (0-10); NRBC Flagged by Analyzer 0 % (0-5); Neutrophil # 6.05 X10^3/uL (2.7-7.7); Neutrophil % 67.7 % (47-70); Platelet Count 289 K/mm3 (150-450); RBC Distribution Width CV 14.9 % (11.6-14.6); RBC Distribution Width SD 47.4 fl (35.1-43.9); Red Blood Count 4.61 M/mm3 (4.2-5.4); White Blood Count 8.9 K/mm3 (4.4-11.0)
[2021-12-16] MEDS: 0.9% Normal Saline 1,000 ML 1000 ML IV (10:19)
[2021-12-16] MEDS: HYDROmorphone 1 MG/ML Syringe IV (10:20)
[2021-12-16] MEDS: Ondansetron 4 MG/2 ML Vial IV (10:20)
[2021-12-16 10:48] LABS: AST(SGOT) 25 U/L (15-37); Alanine Aminotransfer ALT/SGPT 16 U/L (13-56); Albumin, Serum 3.9 g/dL (3.2-5.0); Alkaline Phosphatase 80 U/L (45-117); Anion Gap 9 (5-15); BUN 17 mg/dL (7-18); Calcium,Total 9.3 mg/dL (8.5-10.1); Chloride 103 mmol/L (98-107); Creatinine, Serum 1.13 mg/dL (0.55-1.02); EST Glomerular Filtration Rate 54 mL/min (>60); Est Glom Filt Rate - Afr Amer 66 mL/min (>60); Estimated Creatinine Clearance 49.82 ml/min; Globulin 3.8 g/dL (2.2-4.2); Glucose 104 mg/dL (74-106); Lipase 49 U/L (73-393); Potassium 5.1 mmol/L (3.5-5.1); Protein, Total 7.7 g/dL (6.4-8.2); Sodium Level 135 mmol/L (136-145)
[2021-12-16 11:23] VITALS: BP 138/74; PULSE 62; RESP 15; O2SAT 98
== END 2021-12-16 11:25 | disposition home or self-care (01) ==
PROVIDERS: Emergency Provider Emergency Medicine; PCP Physician Assistant; Visit Provider Emergency Medicine
DX: R10.816 Epigastric abdominal tenderness (principal); R19.7 Diarrhea, unspecified; N28.9 Disorder of kidney and ureter, unspecified; E06.3 Autoimmune thyroiditis; F17.210 Nicotine dependence, cigarettes, uncomplicated; Z79.899 Other long term (current) drug therapy
CPT/HCPCS: 80053; 83690; 85025; 96361; 96374; 96375; 99283; J7030; A4216; J2405

== ENCOUNTER 2021-12-31 07:08 | Outpatient (CLI) | payer OTHER, SELFPAY ==
--- NOTE | 2021-12-31 07:10 | CT_ITS ---
STUDY: CT ABDOMEN AND PELVIS WITH CONTRAST REASON FOR EXAM: Female, 51 years old. Abd pain, chronic constipation -- w/ oral and IV contrast RADIATION DOSAGE (If Supplied By Facility): CTDIvol = ( 14.79 ) mGy, DLP = ( 485.17 ) mGycm TECHNIQUE: Transaxial images were obtained from the dome of the diaphragm to the symphysis pubis with oral contrast. Oral and amp; IV Readi-CAT and amp; 100mL Isovue-300 was administered. Sagittal and coronal images were reconstructed. Individualized dose optimization techniques were used for this CT. COMPARISON: Comparison is made with prior examination dated 10/06/2021. FINDINGS: The visualized lung bases are unremarkable. The visualized portions of the heart are within normal limits. Stable 1.4 cm cyst in the medial aspect of the right upper lobe superiorly. Normal gallbladder and extrahepatic biliary system. There are multiple benign calcified granulomata of the spleen. Normal pancreas. Normal bilateral adrenal glands. Normal right kidney. Normal left kidney. Normal visualized stomach. Normal small intestine. A large amount of fecal material is seen throughout the colon down to the rectum. There are surgical clips in the region of the appendix consistent with a prior appendectomy. Normal abdominal aorta. Normal inferior vena cava. Normal retroperitoneum. Normal urinary bladder. There is absence of the uterus consistent with a prior hysterectomy. Normal abdominal wall. Normal osseous structures. CT/Abdomen/Pelvis WITH Contrast IMPRESSION: Stable 1.4 cm cyst in the medial superior aspect of the right lobe of the liver. Large amount of fecal material is seen in the colon. Electronically Signed: Loy uRsh MD at 8:23 EST ,
== END 2021-12-31 23:59 | disposition home or self-care (01) ==
LOC: CT 07:09
PROVIDERS: PCP Physician Assistant; Referring Provider Nurse Practitioner Adult Health; Visit Provider Nurse Practitioner Adult Health
DX: K59.00 Constipation, unspecified (principal); R10.9 Unspecified abdominal pain
CPT/HCPCS: 74177; Q9967

== ENCOUNTER 2022-02-22 07:28 | Outpatient (CLI) | payer OTHER, SELFPAY ==
--- NOTE | 2022-02-22 07:30 | US_ITS ---
STUDY: THYROID ULTRASOUND REASON FOR EXAM: Female, 51 years old. THYROID CANCER, NODULES TECHNIQUE: Ultrasound evaluation of the thyroid was performed with real-time and static burgess-scale imaging. COMPARISON: Comparison is made with prior study dated 03/09/2021. FINDINGS: RIGHT LOBE: The patient is status post partial resection of the right lobe of the thyroid. The right lobe of the thyroid gland measures 2.9 cm x 0.77 x 1.4 cm. There is a homogeneous echotexture. Once again, is a 9 mm x 7 mm x 9 mm well-defined hypoechoic solid nodule in the midportion. Rim-like calcifications are seen within. LEFT LOBE: The left lobe of the thyroid gland measures 4.2 cm x 1.5 cm x 1.3 cm. There is a homogeneous echotexture. There are no demonstrated solid, cystic or complex lesions. ISTHMUS: The isthmus measures 2 mm. The regional lymph nodes are normal. US/Thyroid IMPRESSION: Status post partial resection of the right lobe of the thyroid. Stable 9 mm x 7 mm x 9 mm hypoechoic solid nodule in the midpole of the right lobe with the rim-like calcification. Electronically Signed: Loy Rush MD at 14:22 EDT ,
== END 2022-02-22 23:59 | disposition home or self-care (01) ==
LOC: US 07:29
PROVIDERS: PCP Physician Assistant; Referring Provider Physician Assistant; Visit Provider Physician Assistant
DX: C73 Malignant neoplasm of thyroid gland (principal); E04.1 Nontoxic single thyroid nodule; E06.3 Autoimmune thyroiditis; E89.0 Postprocedural hypothyroidism
CPT/HCPCS: 76536

== ENCOUNTER 2022-06-23 09:59 | Emergency (ER) | payer OTHER, SELFPAY ==
[2022-06-23 10:02] VITALS: BP 126/81; PULSE 70; RESP 17; TEMP 35.8; O2SAT 98; BMI 25.2
--- NOTE | 2022-06-23 10:14 | MRI_ITS ---
STUDY: MRI CERVICAL SPINE WITHOUT CONTRAST REASON FOR EXAM: Female, 51 years old. Pain, paresthesia, weak grasp x1 month TECHNIQUE: Standardized fat and water weighted pulse sequences were obtained in the sagittal and axial planes. COMPARISON: None FINDINGS: Normal foramen magnum and brainstem-cervical cord junction. Normal craniovertebral junction. Normal anterior atlantoaxial articulation. Normal odontoid process. Straightening of alignment of the columns of the cervical spine visualized. No evidence of spondylolisthesis is seen. Normal vertebral bodies and posterior osseous elements. No evidence of compression deformity is seen. No abnormal signal intensity visualized within the marrow of the cervical vertebral bodies on the STIR sequence. Unremarkable intervertebral disc height is seen. Normal cervical cord. Normal visualized soft tissue structures. C2-3: Mild degenerative changes, no significant narrowing of the spinal canal or bilateral neuroforamina is visualized at this level.. C3-4: Mild degenerative disc osteophyte complex and bilateral uncovertebral disease visualized but no significant narrowing of the spinal canal or bilateral neuroforamina is visualized at this level. C4-5: Mild degenerative disc osteophyte complex and bilateral uncovertebral disease visualized but no significant narrowing of the spinal canal or bilateral neuroforamina is visualized at this level.. C5-6: Mild degenerative disc osteophyte complex and bilateral uncovertebral disease visualized but no significant narrowing of the spinal canal or bilateral neuroforamina is visualized at this level. Degenerative disc osteophyte complex and bilateral uncovertebral disease visualized, mild narrowing of the spinal canal visualized, no significant narrowing of bilateral neuroforamina is visualized at this level. C7-T1: Mild degenerative changes visualized no significant narrowing of the spinal canal or neuroforamina is visualized at this level.. MRI/Spine Cervical (Routine) IMPRESSION: No significant degenerative changes of the cervical spine visualized. Electronically Signed: Kota Rivera MD at 11:29 EDT Reading Location ID and State: [facility] / [place] Tel , Service support ,
--- NOTE | 2022-06-23 10:16 | EDS_ITS ---
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 She reports onset May 23. She complains of pain that starts the right side of her neck and goes down her right arm. She initially complained of numbness in the thumb and index. She now has numbness in her little finger. She denies fever, chills night sweats. She denies weight loss. She denies cardiac respiratory symptoms. She has no other complaints. She reported that she felt significant improvement after her neck was manipulated. Prior similar symptoms: Yes Recent Illness/Hospitalization: No PFSH PFSH Medical History Acute appendicitis Anemia Back problem Guillermo's thyroiditis Hypoglycemia Irritable bowel syndrome Neuropathy Papillary microcarcinoma of thyroid Perforated appendicitis Seasonal allergies Thyroid cancer Thyroid nodule Home Medications gabapentin 300 mg capsule (Neurontin) 300 mg PO QHS 04/18/19 [History Last Taken Unknown] Allergy/AdvReac Type Severity Reaction Status Date / Time morphine Allergy Intermediate vomitting Verified 06/23/22 10:00 doxycycline AdvReac Intermediate burning of Verified 06/23/22 10:00 throat latex tape Allergy Mild rash Uncoded 06/23/22 10:00 Family History Sister Anesthesia complication Mother Arthritis Osteoporosis Thyroid disorder Mitral valve prolapse Sleep apnea Glaucoma Surgical History H/O thyroidectomy History of appendectomy History of back surgery History of hysterectomy History of knee surgery History of left knee surgery Status post laparoscopic appendectomy (~09/2021) Social History (Updated 06/23/22 @ 10:[address] Prince Worrell MD) household members: spouse Smoking Status: Former smoker alcohol intake: current alcohol intake frequency: holidays/special occasions only substance use type: does not use what type of physical activity do you participate in: none ROS ROS ED Constitutional Constitutional ED: Denies chills, fever(s), subjective, sweats or weight loss Eyes Eyes: Denies blurry vision, change in vision or diplopia ENT ENT ED: Denies ear pain, rhinorrhea or sore throat Cardiovascular Cardiovascular: Denies chest pain, palpitations or racing heartbeat Respiratory/Chest Respiratory/Chest: Denies cough, dyspnea or dyspnea on exertion Gastrointestinal Gastrointestinal: Denies nausea or vomiting Musculoskeletal Musculoskeletal: Reports neck pain and other Details: Numbness tingling altered grasp right upper extremity ; Denies arthralgias, back pain or myalgias Integumentary Denies Abrasions or rash Neurologic Neurologic: Reports paresthesias RUE and weakness; Denies headache(s) Hematologic/Lymphatic Hematologic/Lymphatic: Reports systems reviewed and no addt'l complaints, except as documented EXAM Physical Exam Const Vital Signs: 06/23/22 10:02 Temperature 96.4 F L Temperature Source Temporal Pulse Rate 70 Respiratory Rate 17 Blood Pressure 126/81 H Blood Pressure Mean 96 Pulse Ox 98 Oxygen Delivery Method Room Air Positive well nourished and well developed General Appearance ED: well developed and NAD; Negative for pallor HEENT Reports moist mucous membranes HEENT Narrative: Ears normal. Nares patent. Negative for trauma or tenderness Eyes PERRL and EOMs intact bilaterally General Eye ED: Negative for pale conjunctiva or scleral icterus Neck no lymphadenopathy, supple and no JVD Neck Narrative: Anterior surgical scar noted due to thyroid surgery. Resp normal respiratory effort and clear to auscultation bilaterally Cardio regular rate, regular rhythm, S1 normal heart sound and S2 normal heart sound Back/Spine Cervical Spine: Negative for cervical spine tenderness Thoracic Spine / Upper Back: Negative for thoracic spinal tenderness Lumbar Spine / Lower Back: Negative for lumbar spinal tenderness Extremity normal to inspection Extremity Narrative: Sensation is altered on the right upper extremity. Motor strength is 5/5 bicep, tricep, wrist flexors extensors. Axillary, median, radial and ulnar function intact. DTR symmetric. Grasp is weaker on the right. This may be due to the fact the patient states that her sensation is abnormal. She reports she has dropped things. Neuro oriented x3, CN's II-XII intact bilaterally and No no sensory deficits noted Sensorium / Orientation: alert Motor Exam: strength 5/5 throughout Psych mental status grossly normal Skin no rashes or lesions noted, no wounds and skin turgor normal General Skin Exam: Negative for jaundice or pallor MDM MDM MDM Narrative Medical decision making narrative: With symptoms for 1 month and now dropping things will obtain MRI of the neck to evaluate for spinal stenosis or other causes of her symptoms and findings. Patient was informed that her MRI shows minimal degenerative changes. There is no evidence of spinal stenosis or impingement on the spinal cord. Sent patient states when she cracks her neck she gets relief suspect this is due to her neck even though the MRI does not show any significant abnormality. Radiography Diagnostic Testing: Clinical Impression(s) from Imaging Studies Cervical Spine MRI 06/23/22 10:14 IMPRESSION: No significant degenerative changes of the cervical spine visualized. Electronically Signed: Kota Rivera MD at 11:29 EDT Reading Location ID and State: [facility] / [place] Tel , Service support , Discharge Plan Triage Chief Complaint: Numb/Ting ED Provider: Prince Worrell Dx/Rx/DC Orders Clinical Impression: Paresthesia of right upper extremity Instructions: ED Paraesthesias Prescriptions: No Action gabapentin [Neurontin] 300 MG capsule 300 mg PO QHS Primary Care Provider: Jluis Whitmore Referrals: Jluis Whitmore PA [Primary Care Provider] - 3-5 Days Disposition Disposition: Home, Self Care
[2022-06-23 12:32] VITALS: BP 124/88; PULSE 62; RESP 15; O2SAT 98
== END 2022-06-23 12:33 | disposition home or self-care (01) ==
PROVIDERS: Emergency Provider Emergency Medicine; PCP Physician Assistant; Visit Provider Emergency Medicine
DX: R20.2 Paresthesia of skin (principal); R20.0 Anesthesia of skin; Z87.891 Personal history of nicotine dependence; Z85.850 Personal history of malignant neoplasm of thyroid; E06.3 Autoimmune thyroiditis
CPT/HCPCS: 72141; 99283

== ENCOUNTER → 2022-06-30 | Outpatient (CLI) | payer OTHER, SELFPAY ==
[2022-06-30 11:29] LABS: Vitamin D,25 Hydroxy 38.2 ng/mL
[2022-06-30 11:45] LABS: Thyroid Stim Hormone (TSH) 2.57 uIU/mL (0.358-3.74)
== END | disposition home or self-care (01) ==
LOC: LAB 10:00
PROVIDERS: PCP Physician Assistant; Visit Provider Internal Medicine Endocrinology, Diabetes & Metabolism
DX: E55.9 Vitamin D deficiency, unspecified (principal); E06.3 Autoimmune thyroiditis
CPT/HCPCS: 36415; 82306; 84439; 84443

== ENCOUNTER → 2022-09-28 | Outpatient (CLI) | payer OTHER, SELFPAY ==
--- NOTE | 2022-09-28 08:17 | BD_ITS ---
STUDY: DUAL ENERGY X-RAY ABSORPTIOMETRY / DXA REASON FOR EXAM: Female, 52 years old. Screen TECHNIQUE: Bone Mineral Density (BMD) measurements of lumbar spine and bilateral hips were obtained. COMPARISON: None. FINDINGS: Lumbar Spine (L1-L4): g/cm2 (0.876) / T-score (-1.6) / Z-score (-0.8) Findings are suggestive of osteopenia with a moderate fracture risk. Left Femur Total: g/cm2 (0.834) / T-score (-0.9) / Z-score (-0.4) Left Femoral Neck: g/cm2 (0.712) / T-score (-1.2) / Z-score (-0.5) Right Femur Total: g/cm2 (0.845) / T-score (-0.8) / Z-score (-0.3) Right Femoral Neck: g/cm2 (0.7-0) / T-score (-1.2) / Z-score (-0.4) BD/Dexa Bone Density Study IMPRESSION: The patient is considered osteopenic as outlined below according to World Rafael Organization (WHO) criteria with a moderate fracture risk. Reference Information: The T-score is the number of standard deviations above or below the standard which is normal for young adults at their peak bone mineral density. The World Health Organization (WHO) interprets the T-scores as follows: Above -1 Normal bone density Between -1 and -2.5 Osteopenia Equal to / or below -2.5 Osteoporosis As a practical clinical guideline, osteopenia may be graded as follows: Mild -1 through -1.5 Moderate -1.6 through -2.0 Severe -2.1 through -2.4 The Z-score is the number of standard deviations above or below age-matched controls. A Z-score of less than -1.5 would be considered abnormal. References: 1. NIH Osteoporosis and Related Bone Diseases www osteo.org 2. International Society for Clinical Densitometry www iscd.org 3. National Osteoporosis Foundation www nof.org Electronically Signed: Loy Rush MD at 12:53 EST ,
== END | disposition home or self-care (01) ==
LOC: OPBD 08:09
PROVIDERS: PCP Physician Assistant; Referring Provider Internal Medicine Endocrinology, Diabetes & Metabolism; Visit Provider Internal Medicine Endocrinology, Diabetes & Metabolism
DX: E28.319 Asymptomatic premature menopause (principal)
CPT/HCPCS: 77080

== ENCOUNTER → 2023-09-01 | Outpatient (CLI) | payer OTHER, SELFPAY ==
[2023-09-01 11:22] LABS: Absolute Lymphocyte Count 1.82 X10^3/uL (0.83-4.51); Absolute Neutrophil Count 1.8 X10^3/uL (2.0-7.7); Basophil# 0.07 X10^3/uL; Basophil% 1.7 % (0-1); Eosinophil# 0.08 X10^3/uL; Hematocrit 40.7 % (37-47); Hemoglobin 13.6 g/dL (12.0-15.0); Lymphocyte # 1.82 X10^3/ul (0.83-4.51); Lymphocyte % 44.8 % (19-41); Mean Corp Hgb Conc 33.4 g/dL (32-36); Mean Corpuscular Hgb 30.9 pg (27.0-32.0); Mean Corpuscular Volume 92.5 fL (81-99); Mean Platelet Vol. 9.8 fl (6.2-12.0); Monocyte# 0.33 X10^3/uL; Monocyte% 8.1 % (0-10); NRBC Flagged by Analyzer 0 % (0-5); Neutrophil # 1.75 X10^3/uL (2.7-7.7); Neutrophil % 43.2 % (47-70); Platelet Count 232 K/mm3 (150-450); RBC Distribution Width CV 13.1 % (11.6-14.6); RBC Distribution Width SD 44.6 fl (35.1-43.9); White Blood Count 4.1 K/mm3 (4.4-11.0)
[2023-09-01 11:42] LABS: Vitamin D,25 Hydroxy 29.2 ng/mL
[2023-09-01 11:51] LABS: ALB/GLOB Ratio 1.2 RATIO (0.9-2.4); AST(SGOT) 15 U/L (15-37); Alanine Aminotransfer ALT/SGPT 20 U/L (13-56); Albumin, Serum 4.1 g/dL (3.2-5.0); Alkaline Phosphatase 79 U/L (45-117); Anion Gap 2 (5-15); BUN 13 mg/dL (7-18); BUN/Creat Ratio 12.3 RATIO (10-20); Calcium,Total 9.3 mg/dL (8.5-10.1); Chloride 108 mmol/L (98-107); Creatinine, Serum 1.06 mg/dL (0.55-1.02); EST Glomerular Filtration Rate 58 mL/min (>60); Est Glom Filt Rate - Afr Amer 70 mL/min (>60); Globulin 3.5 g/dL (2.2-4.2); Glucose 108 mg/dL (74-106); Potassium 4.7 mmol/L (3.5-5.1); Protein, Total 7.6 g/dL (6.4-8.2); Sodium Level 139 mmol/L (136-145); T4 Free Direct 0.89 ng/dL (0.76-1.46); T4 Total, Thyroxin 7.3 ug/dL (4.8-13.9); Thyroid Stim Hormone (TSH) 2.11 uIU/mL (0.358-3.74)
== END | disposition home or self-care (01) ==
LOC: LAB 10:39
PROVIDERS: PCP Physician Assistant; Referring Provider Physician Assistant; Visit Provider Physician Assistant
DX: E06.3 Autoimmune thyroiditis (principal); C73 Malignant neoplasm of thyroid gland; R79.89 Other specified abnormal findings of blood chemistry; G57.91 Unspecified mononeuropathy of right lower limb
CPT/HCPCS: 36415; 80053; 82306; 84436; 84439; 84443; 85025

== ENCOUNTER → 2023-09-30 | Outpatient (CLI) | payer OTHER, SELFPAY ==
--- NOTE | 2023-09-30 07:24 | BI_ITS ---
MAMMOGRAPHY - BILATERAL SCREENING REASON FOR EXAM: Female, 53 years old. Routine annual screening examination. PERTINENT HISTORY: Non-contributory. TECHNIQUE: Digital bilateral breast trista (3D mammographic acquisition) in the CC and MLO projections. 2-D mediolateral oblique (MLO) and craniocaudad (CC) views of both breasts were obtained. CAD: Full Field Digital Mammography with Computer Added Detection was performed. COMPARISON: Comparison is made with prior outside examination dated May 03, 2022. FINDINGS: Breast Composition: There are scattered areas of fibroglandular density. There is a 4.3 mm x 3.4 mm well-defined nodule in the deep central lateral portion of the left breast. Correlation with ultrasound is recommended. Stable small benign appearing bilateral axillary lymph nodes. No other significant abnormalities are identified. BI/SCRN MAMM (CAD)W/TRISTA BILAT IMPRESSION: 4.3 mm x 3.4 mm well-defined nodule in the deep central lateral portion of the left breast. Correlation with ultrasound is recommended. This has increased slightly in size as compared to prior study. ASSESSMENT CATEGORY: BIRADS Category 0: Incomplete. Need additional imaging evaluation. A letter regarding these results will be sent to the patient by the facility within 30 days. Approximately 10% of breast cancers are not detected by mammography. A normal mammogram should not delay biopsy of a clinically suspicious abnormality. [id number] Electronically Signed: Loy Rush MD at 8:55 EST ,
== END | disposition home or self-care (01) ==
PROVIDERS: PCP Physician Assistant; Referring Provider Physician Assistant; Visit Provider Physician Assistant
DX: Z12.31 Encounter for screening mammogram for malignant neoplasm of breast (principal)
CPT/HCPCS: 77063; 77067

== ENCOUNTER → 2023-10-03 | Outpatient (CLI) | payer OTHER, SELFPAY ==
[2023-10-03 08:18] LABS: Absolute Lymphocyte Count 1.77 X10^3/uL (0.83-4.51); Absolute Neutrophil Count 1.4 X10^3/uL (2.0-7.7); Basophil# 0.07 X10^3/uL; Basophil% 1.9 % (0-1); Eosinophil# 0.08 X10^3/uL; Eosinophils% 2.2 % (0-5); Hematocrit 40.6 % (37-47); Hemoglobin 12.9 g/dL (12.0-15.0); Lymphocyte # 1.77 X10^3/ul (0.83-4.51); Lymphocyte % 48.4 % (19-41); Mean Corp Hgb Conc 31.8 g/dL (32-36); Mean Corpuscular Hgb 29.7 pg (27.0-32.0); Mean Corpuscular Volume 93.3 fL (81-99); Mean Platelet Vol. 9.5 fl (6.2-12.0); Monocyte# 0.37 X10^3/uL; Monocyte% 10.1 % (0-10); NRBC Flagged by Analyzer 0 % (0-5); Neutrophil # 1.37 X10^3/uL (2.7-7.7); Neutrophil % 37.4 % (47-70); Platelet Count 224 K/mm3 (150-450); RBC Distribution Width CV 13.1 % (11.6-14.6); RBC Distribution Width SD 44.7 fl (35.1-43.9); Red Blood Count 4.35 M/mm3 (4.2-5.4); White Blood Count 3.7 K/mm3 (4.4-11.0)
[2023-10-03 08:46] LABS: Anion Gap 8 (5-15); BUN 19 mg/dL (7-18); BUN/Creat Ratio 20.4 RATIO (10-20); Calcium,Total 9.1 mg/dL (8.5-10.1); Chloride 106 mmol/L (98-107); Creatinine, Serum 0.93 mg/dL (0.55-1.02); EST Glomerular Filtration Rate 67 mL/min (>60); Est Glom Filt Rate - Afr Amer 82 mL/min (>60); Glucose 106 mg/dL (74-106); Potassium 4.4 mmol/L (3.5-5.1); Sodium Level 143 mmol/L (136-145)
[2023-10-03 10:06] LABS: Hemoglobin A1c 5.5 % (3.8-5.6)
== END | disposition home or self-care (01) ==
LOC: LAB 07:36
PROVIDERS: PCP Physician Assistant; Visit Provider Physician Assistant
DX: N18.31 Chronic kidney disease, stage 3a (principal); R73.09 Other abnormal glucose
CPT/HCPCS: 36415; 80048; 83036; 85025

== ENCOUNTER → 2023-10-04 | Outpatient (CLI) | payer OTHER, SELFPAY ==
--- NOTE | 2023-10-04 08:24 | US_ITS ---
STUDY: ULTRASOUND BREAST - LEFT REASON FOR EXAM: Female, 53 years old. Abnormal screening mammogram. TECHNIQUE: Axial and longitudinal images of the LEFT breast were performed with a high resolution ultrasound transducer. # OF IMAGES: 18 COMPARISON: Comparison is made with prior mammogram dated September 30, 2023. FINDINGS: LEFT Breast: The mammographic abnormality corresponds to a 5 mm x 4 mm x 3 mm hypoechoic nodule at the 3:00 position the breast at 9 cm from nipple. Increased vascularity is seen within the. Biopsy is recommended. US/Breast Limited Unilateral IMPRESSION: The mammographic abnormality corresponds to a 5 mm x 4 mm x 3 mm well-defined hypoechoic solid nodule at the 3:00 position breast and 9 cm from nipple with increased vascularity. Biopsy is recommended. ASSESSMENT CATEGORY: BIRADS Category 4: Suspicious - Biopsy Should Be Considered. A letter regarding these results will be sent to the patient by the facility within 30 days. Electronically Signed: Loy Rush MD at 11:07 EST ,
== END | disposition home or self-care (01) ==
LOC: OPUS 08:23
PROVIDERS: PCP Physician Assistant; Referring Provider Physician Assistant; Visit Provider Physician Assistant
DX: N63.21 Unspecified lump in the left breast, upper outer quadrant (principal)
CPT/HCPCS: 76642

== ENCOUNTER → 2023-10-19 | Outpatient (CLI) | payer OTHER, SELFPAY ==
--- NOTE | 2023-10-19 | IMM_PTH ---
PATIENT: FABIANA ORTEZ LOC: [facility] U#:[id number] AGE/SX: 53/F ROOM: RE10/19/[address]: Dr. Bhanu Cole MD : 1970 BED: DIS: 10/19/2023 SPEC #: [id number] RECD: 10/21/23 13:03 STATUS: KHAI REQ #: [id number] KATTY: 10/19/23 00:[address]: Bhanu Cole DEPT: IMMUNOHISTOCHEMISTRY RECD BY: Onelia Morillo ENTERED: 10/21/23 13:06 SP TYPE: IMMUNO OTHR DR: JOSE Kwong Tissues: Breast, NOS Procedures: BCL-2 (add) BCL-6 (add) CD15 (add) CD20 (add) CD30 (add) CD45 (add) CD5 (add) CD79A (add) KI-67 (add) CD3 (initial) PHYSICIAN & INSTITUTION [address] [address] SPECIMEN INFORMATION: Tissue Source: Left breast mass Clinical Info: Left breast mass Specimen Number: [id number] CPT code: 09258 x1, 53506 x9 METHODOLOGY: Deparaffinized sections of prefer/formalin-fixed tissue or PAP/DQ stained slides are incubated with monoclonal/polyclonal antibodies/oligonucleotide probes. Localization is made via biotin free immunoperoxidase method. Appropriate controls are performed and reacted as expected. Results on target cell population are indicated in the following table: RESULTS: ANTIBODY / CLONE RESULT Block A CD3 (PS1) positive CD5 (SP10) positive CD20 (L26) positive CD45 (RP2/18) positive CD79a (11E3) positive CD15 (MMA) negative CD30 (Wan-H2) negative BCL-2 (bcl-2/100/D5) positive BCL-6 (HN359C/A8) negative Ki-67 (30-9) positive, low These tests were developed and their performance characteristics determined by [facility]. They may not have been cleared or approved by the U.S. Food and Drug Administration. The FDA has determined that such clearance or approval is not necessary. The above immunohistochemical/dualISH markers are ordered and reviewed by the Pathologist. INTERPRETATION: Left breast mass, core biopsy: Polytypic (benign) lymphoid tissue. AM:lei 10/24/2023
--- NOTE | 2023-10-19 | BRBX_PTH ---
PATIENT: FABIANA ORTEZ LOC: [facility] U#:[id number] AGE/SX: 53/F ROOM: RE10/19/[address]: Dr. Bhanu Cole MD : 1970 BED: DIS: 10/19/2023 SPEC #: [id number] RECD: 10/19/23 13:45 STATUS: KHAI REMaxim #: [id number] KATTY: 10/19/23 00:[address]: Bhanu Cole DEPT: SURGICAL PATHOLOGY RECD BY: Roopa Malave ENTERED: 10/20/23 10:46 SP TYPE: BREAST BX OTHR DR: JOSE Kwong Tissues: Left breast, NOS Procedures: Surgery Specimen Level IV HEADER OPERATION: Ultrasound guided left breast biopsy PRE-OP DIAGNOSIS: Left breast mass TISSUE SUBMITTED: Left breast biopsy MICROSCOPIC DIAGNOSIS Left breast, core biopsy: Fragments of benign intramammary lymphoid tissue. See comment. AM:lei 10/21/2023 COMMENT Immunohistochemistry ([id number]) supports the above diagnosis. MICROSCOPIC DESCRIPTION Slides are reviewed. GROSS DESCRIPTION Received in fixative is one container labeled with the patient name and designated left breast. The specimen consists of two elongated fragments of candelario tissue measuring in aggregate 1.8 x 0.2 x 0.1 cm. The specimen is totally submitted in one cassette. / AM:lei 10/20/2023 TC:5 Ischemic Time: 30 seconds Fixation Time: 29.5 hours CPT: 44987
--- NOTE | 2023-10-19 11:47 | US_ITS ---
ULTRASOUND GUIDED CORE BIOPSY REASON FOR EXAM: Female, 53 years old. Abnormal ultrasound left breast PERTINENT HISTORY: Left breast nodule. COMPARISON: Comparison is made with prior sonogram of the breast dated October 04, 2023. TECHNIQUE: (All elements of maximal sterile barrier technique followed, including US elements as applicable) Under direct sonographic guidance, the surgeon performed core biopsy of a 5 mm x 4 mm x 3 mm hypoechoic nodule at the 3:00 is shown to breast at 9 cm from the nipple. US/US Breast Biopsy 1st Lesion IMPRESSION: Ultrasound guided core biopsy of a mass in the LEFT breast at 3:00 position of the breast benign sinus from nipple. without complication. Electronically Signed: Loy Rush MD at 14:23 EST ,
--- NOTE | 2023-10-19 14:47 | PCM.OP.PRO ---
Procedure Report Date of Procedure: 10/19/23 Procedure: Core needle biopsy of left breast Description: After a detailed discussion regarding the risks and benefits of the biopsy procedure, the patient was positioned supine on the exam table. Formal, written consents were obtained prior to positioning. Ultrasound was used to localize the lesion in the 3 o'clock position 9 cm from the nipple. Locally 1% lidocaine was infiltrated about the mass using ultrasound guidance (a total volume of 10 mL was used). Once the area was sufficiently anesthetized, a small stab incision was made in the skin superior to the area and the [employer] core max core needle device was introduced percutaneously. Ultrasound was used to guide the tip of the device to the border of the suspicious lesion. Then the mass was serially sampled with 3 cores which were placed in solution for pathologic processing. A marking clip was then placed under ultrasound guidance within the mass. Pressure was applied until hemostasis was obtained. The skin was cleaned and Steri-Strips were applied over the stab incision for the biopsy procedure. Patient tolerated the procedure with no complications EBL: 1 mL Complications: None Procedures Integumentary [id number]: [id number] Bx breast 1st lesion us imag
== END | disposition home or self-care (01) ==
LOC: OPUS 11:47
PROVIDERS: PCP Physician Assistant; Referring Provider Surgery; Visit Provider Surgery
DX: R92.8 Other abnormal and inconclusive findings on diagnostic imaging of breast (principal)
CPT/HCPCS: 19083; 88305; 88341; 88342

== ENCOUNTER 2023-11-24 14:53 | Emergency (ER) | payer OTHER, SELFPAY ==
[2023-11-24] VITALS (17 sets, daily range): BP systolic 110–134; BP diastolic 65–85; PULSE 57–75; RESP 11–21; TEMP 36.3; O2SAT 90–100
--- NOTE | 2023-11-24 15:08 | RAD_ITS ---
STUDY: X-RAY CHEST REASON FOR EXAM: Female, 53 years old. chest pain TECHNIQUE: Single AP portable view of the chest. COMPARISON: 10/22/2021. FINDINGS: The lungs are clear and expanded. There is no demonstrated pleural abnormality. Normal size heart. Normal mediastinum and balaji. Normal visualized pulmonary arteries. Normal visualized aortic arch and descending thoracic aorta. Normal visualized thoracic spine. Normal visualized ribs, clavicles, and shoulders. There is no demonstrated abnormality of the visualized soft tissue structures of the upper abdomen. RAD/Chest 1 View (Portable) IMPRESSION: Normal x-ray examination of the chest. Electronically Signed: Pankaj Park MD at 16:03 EST ,
--- NOTE | 2023-11-24 15:19 | ED.RN ---
NO OLD EKG
[2023-11-24 15:27] LABS: Absolute Lymphocyte Count 1.77 X10^3/uL (0.83-4.51); Absolute Neutrophil Count 3.4 X10^3/uL (2.0-7.7); Basophil# 0.05 X10^3/uL; Basophil% 0.9 % (0-1); Eosinophils% 1.7 % (0-5); Hematocrit 38.8 % (37-47); Hemoglobin 13.1 g/dL (12.0-15.0); Lymphocyte # 1.77 X10^3/ul (0.83-4.51); Lymphocyte % 30.8 % (19-41); Mean Corp Hgb Conc 33.8 g/dL (32-36); Mean Corpuscular Hgb 30.7 pg (27.0-32.0); Mean Corpuscular Volume 90.9 fL (81-99); Mean Platelet Vol. 9.2 fl (6.2-12.0); Monocyte# 0.42 X10^3/uL; Monocyte% 7.3 % (0-10); NRBC Flagged by Analyzer 0 % (0-5); Neutrophil # 3.39 X10^3/uL (2.7-7.7); Neutrophil % 59.1 % (47-70); Platelet Count 250 K/mm3 (150-450); RBC Distribution Width CV 13.1 % (11.6-14.6); RBC Distribution Width SD 43.3 fl (35.1-43.9); Red Blood Count 4.27 M/mm3 (4.2-5.4); White Blood Count 5.7 K/mm3 (4.4-11.0)
[2023-11-24 15:37] LABS: D-Dimer Quantitative (DVT/PE) 0.35 FEU/ug/m (0.27-0.49)
--- NOTE | 2023-11-24 15:39 | ED.VIS.CHEST ---
HPI History of Present Illness Chief Complaint: Chest Other Informant: patient Narrative Narrative: Patient presents with sharp pain on the right side of her chest into her breast. She states she was feeling perfectly normal at work today. She was typing at her keyboard. She stood up and turned and got sharp pain that radiated into her right breast. She states it hurts when she takes a deep breath but she is not truly short of breath. The pain seems to be more into her right breast. She has no recent travel surgery immobilization or personal history of DVT or PE. It sounds like her mother had a DVT after a femur fracture and surgery. Patient had a history of thyroid cancer but it was removed in 2019. It was removed in total. There was no need for chemo or radiation so she has no active cancer. Patient has no history or known risk for heart disease. She states other than this pain she feels fine. It is very sharp. She states if she holds her breast or if she holds her hands/arms above her chest it makes it a lot better. PFSH [facility] Medical History Acute appendicitis Anemia Back problem Guillermo's thyroiditis Hypoglycemia Irritable bowel syndrome Neuropathy Papillary microcarcinoma of thyroid Perforated appendicitis Physical exam, pre-employment Premature menopause Seasonal allergies Thyroid cancer Thyroid nodule Vitamin D deficiency Home Medications gabapentin 300 mg capsule (Neurontin) 300 mg PO QHS 04/18/19 [History Last Taken Unknown] linaclotide 145 mcg capsule (Linzess) 145 mcg PO DAILY 09/19/23 [History Last Taken Unknown] Allergy/AdvReac Type Severity Reaction Status Date / Time morphine Allergy Intermediate vomitting Verified 11/24/23 14:54 doxycycline AdvReac Intermediate burning of Verified 11/24/23 14:54 throat latex AdvReac Mild Rash Verified 11/24/23 14:54 Family History Sister Anesthesia complication Mother Arthritis Osteoporosis Thyroid disorder Mitral valve prolapse Sleep apnea Glaucoma Surgical History H/O thyroidectomy History of appendectomy History of back surgery History of hysterectomy History of knee surgery History of left knee surgery Status post laparoscopic appendectomy (~09/2021) Social History household members: spouse Smoking Status: Former smoker alcohol intake: current alcohol intake frequency: holidays/special occasions only substance use type: does not use what type of physical activity do you participate in: none ROS ROS ED Constitutional Constitutional ED: Denies chills, fever(s) or subjective Eyes Eyes: Denies blurry vision ENT ENT ED: Denies rhinorrhea or sore throat Cardiovascular Cardiovascular: Reports chest pain Respiratory/Chest Respiratory/Chest: Denies cough or dyspnea Gastrointestinal Gastrointestinal: Denies abdominal pain, nausea or vomiting Musculoskeletal Musculoskeletal: Denies myalgias Integumentary Denies rash Neurologic Neurologic: Denies paresthesias or weakness Hematologic/Lymphatic Hematologic/Lymphatic: Denies easy bleeding or easy bruising Allergic/Immunologic Allergic/Immunologic ED: Denies urticaria EXAM Physical Exam Narrative Exam Narrative: CONSTITUTIONAL: Patient is nontoxic in appearance. The patient looks comfortable. Work of breathing looks normal. She is laying in bed holding her right breast to help with the comfort. HEENT: No notable trauma. Mucous membranes moist. No sinus tenderness. No indication of pain with swallowing. EYES: No conjunctival injection. No proptosis. NECK:No JVD. No stridor. CARDIOVASCULAR: Regular rate. Regular rhythm. No notable murmur. No JVD. Rate is normal on a dose of she checked in, repeat vitals, on the monitor, and on her EKG. She appears to be normal sinus rhythm on the monitor with no ectopy. RESPIRATORY: No respiratory distress. Breathing is unlabored. No wheezes. No rhonchi. No rales. Patient does have some pain with a deep breath. Exam does not really show chest wall tenderness though. There is no axillary tenderness or lymphadenopathy. No subcu air. There is no actual tenderness on the breast tissue or under it. But it hurts in the breast tissue when she takes a deep breath. GASTROINTESTINAL: Not distended. Bowel sounds are normal. No tenderness. No guarding. No rebound. No palpable mass. No bruit is heard. GENITOURINARY: No tenderness over the bladder. No CVA tenderness. MUSCULOSKELETAL: Atraumatic. No peripheral edema. No cord. No tenderness along the deep venous system. No asymmetry. No distended veins. Extremities are overall normal plan and symmetric. NEUROLOGICAL: Patient is alert and appropriate. No focal deficit noted. SKIN: No noted rashes. No diaphoresis. PSYCHIATRIC: Patient is calm. Mood is appropriate. Const Vital Signs: 11/24/23 14:54 11/24/23 15:28 11/24/23 15:30 Temperature 97.4 F L Temperature Source Temporal Pulse Rate 75 70 Respiratory Rate 18 16 Respiratory Pattern Blood Pressure 124/85 H Blood Pressure Mean 98 Pulse Ox 97 99 Oxygen Delivery Method Room Air Room Air Room Air 11/24/23 15:30 Temperature Temperature Source Pulse Rate Respiratory Rate Respiratory Pattern Normal Blood Pressure Blood Pressure Mean Pulse Ox Oxygen Delivery Method MDM MDM MDM Narrative Medical decision making narrative: My opinion interpretation of her single view chest x-ray shows no acute process. Final reading is similar. Patient CBC shows no acute process. Patient's electrolytes show no acute process. Patient's troponin is negative despite several hours of discomfort. It is unmeasurable and less than 3. Patient's D-dimer is low at 0.35. We rechecked the patient. Toradol may have helped a little bit but not a lot. She still has pain with a deep of breath. There is a family history of DVT. Since the patient is having significant pleuritic pain, we will still do a CTA of the chest. Although this may be musculoskeletal we also do not have a reason for her to have a chest wall strain. There is nothing she has done recently. As long as the CTA is negative I think we can safely get her home. But with her overall risk factors and presentation I think it is the appropriate study to do. My independent interpretation of the patient's CTA of the chest shows no infiltrate no PE or other acute process. Final reading is negative. I talked with the patient. She is comfortable going home and managing this. There is a musculoskeletal component but there is no indication as to why this occurred. But ice rest Tylenol Motrin should be appropriate. Lab Data Attestation: I reviewed the patient's lab results. Labs: Laboratory Results - last 24 hr 11/24/23 15:15 WBC 5.7 RBC 4.27 Hgb 13.1 Hct 38.8 MCV 90.9 MCH 30.7 MCHC 33.8 RDW Std Deviation 43.3 RDW Coeff of Domitila 13.1 Plt Count 250 MPV 9.2 Immature Gran % (Auto) 0.200 Neut % (Auto) 59.1 Lymph % (Auto) 30.8 Overton % (Auto) 7.3 Eos % (Auto) 1.7 Baso % (Auto) 0.9 Absolute Neuts (auto) 3.4 Absolute Lymphs (auto) 1.77 Nucleated RBC % 0 D-Dimer Quant (PE/DVT) 0.35 Sodium 139 Potassium 4.2 Chloride 106 Carbon Dioxide 29.0 Anion Gap 4 L BUN 16 Creatinine 0.97 Est GFR (MDRD) Af Amer 78 Est GFR (MDRD) Non-Af 64 BUN/Creatinine Ratio 16.5 Glucose 93 Calcium 9.4 Troponin I High Sens < 3 L Radiography Diagnostic Testing: Clinical Impression(s) from Imaging Studies Chest X-Ray 11/24/23 15:08 IMPRESSION: Normal x-ray examination of the chest. Electronically Signed: Pankaj Park MD at 16:03 EST , Chest CTA 11/24/23 16:05 IMPRESSION: Normal CTA chest examination, without a demonstrated pulmonary embolism or arterial dissection. Electronically Signed: Pankaj Park MD at 16:37 EST , EKG Initial EKG: Comments: My independent interpretation of the patient's EKG shows a normal sinus rhythm with a rate of 64. No ventricular ectopy. Diffuse nonspecific ST and T wave changes but no sign of infarct or ischemia. There is overall mild flattening. MS interval, QRS duration and QTc are all normal. I looked on her system and there is no old EKG for comparison. Discharge Plan Triage Chief Complaint: Chest Other ED Provider: Felipe Capellan Dx/Rx/DC Orders Clinical Impression: Right-sided chest pain Instructions: ED Chest Pain, Uncertain Cause Prescriptions: No Action Linzess 145 mcg capsule 145 mcg PO DAILY gabapentin [Neurontin] 300 MG capsule 300 mg PO QHS Primary Care Provider: Jluis Whitmore Referrals: Jluis Whitmore PA [Primary Care Provider] - 3-5 Days if not improving Disposition Disposition: Home, Self Care
[2023-11-24] MEDS: 0.9% Normal Saline (500mL Bag) 500 ML 999 ML IV (15:41)
[2023-11-24] MEDS: Ketorolac 15 MG/ML Vial IV (15:41)
[2023-11-24 15:46] LABS: Anion Gap 4 (5-15); BUN 16 mg/dL (7-18); BUN/Creat Ratio 16.5 RATIO (10-20); Calcium,Total 9.4 mg/dL (8.5-10.1); Chloride 106 mmol/L (98-107); Creatinine, Serum 0.97 mg/dL (0.55-1.02); EST Glomerular Filtration Rate 64 mL/min (>60); Est Glom Filt Rate - Afr Amer 78 mL/min (>60); Glucose 93 mg/dL (74-106); Potassium 4.2 mmol/L (3.5-5.1); Sodium Level 139 mmol/L (136-145); Troponin-I HS < 3 pg/mL (3.0-54.0)
--- NOTE | 2023-11-24 16:05 | CT_ITS ---
STUDY: CTA CHEST REASON FOR EXAM: Female, 53 years old. PE RADIATION DOSAGE (If Supplied By Facility): CTDIvol = ( 9.57 ) mGy, DLP = ( 284.38 ) mGycm TECHNIQUE: The examination was performed with the intravenous administration of IV 100mL Isovue-370. Post-processing of the angiographic images was performed, with multiplanar reformation and 3D reconstruction. Individualized dose optimization techniques were used for this CT. COMPARISON: None. FINDINGS: Normal enhancement of the main pulmonary artery and right and left pulmonary arteries. Normal enhancement of the bilateral peripheral pulmonary arteries. There is no demonstrated pulmonary embolism. Normal thoracic aorta and visualized great vessels. There is no demonstrated aortic dissection. Normal heart and pericardium. Normal mediastinum. Normal hilar regions. Normal visualized trachea and bronchi. The lungs are well expanded. Normal pulmonary parenchyma. Normal pleura. Normal chest wall structures. Normal osseous structures. Normal visualized upper abdomen. CT/CTA Chest W/WO Contrast IMPRESSION: Normal CTA chest examination, without a demonstrated pulmonary embolism or arterial dissection. Electronically Signed: Pankaj Park MD at 16:37 EST ,
== END 2023-11-24 17:21 | disposition home or self-care (01) ==
PROVIDERS: Emergency Provider Emergency Medicine; PCP Physician Assistant; Visit Provider Emergency Medicine
DX: R07.9 Chest pain, unspecified (principal); Z87.891 Personal history of nicotine dependence; Z85.850 Personal history of malignant neoplasm of thyroid; K58.9 Irritable bowel syndrome, unspecified; Z79.899 Other long term (current) drug therapy; Z90.49 Acquired absence of other specified parts of digestive tract; Z90.710 Acquired absence of both cervix and uterus
CPT/HCPCS: 71045; 71275; 80048; 84484; 85025; 85379; 93005; 96361; 96374; 99284; Q9967; A4216

== ENCOUNTER → 2024-01-27 | Outpatient (CLI) | payer OTHER, SELFPAY ==
--- NOTE | 2024-01-27 14:04 | US_ITS ---
STUDY: THYROID ULTRASOUND REASON FOR EXAM: Female, 53 years old. Hx of papillary microcarcinoma of thyroid -- HX OF PARTIAL RT THYROIDECTOMY TECHNIQUE: Ultrasound evaluation of the thyroid was performed with real-time and static burgess-scale imaging. COMPARISON: 02/22/2022. FINDINGS: RIGHT LOBE: The right lobe of the thyroid gland measures 3.0 x 0.7 x 1.0 cm. There is a homogeneous echotexture. There is hypoechoic nodule with calcifications causing distal acoustic shadowing in the mid thyroid lobe measuring 0.92 x 0.80 x 0.62 cm. LEFT LOBE: The left lobe of the thyroid gland measures 4.2 x 1.6 x 1.3 cm. There is a homogeneous echotexture. There are no demonstrated solid, cystic or complex lesions. ISTHMUS: The isthmus measures 0.3 cm. US/Thyroid IMPRESSION: 1. Hypoechoic nodule with calcifications in the right mid thyroid lobe measuring 0.92 x 0.80 x 0.62 cm, previously 0.91 x 0.88 x 0.74 cm. This nodule is highly suspicious. Recommend follow-up thyroid ultrasounds annually for 3 years. 2. Normal left thyroid lobe and thyroid isthmus. Electronically Signed: Jimi Olmedo MD at 11:42 EDT ,
== END | disposition home or self-care (01) ==
LOC: US 13:59
PROVIDERS: PCP Physician Assistant; Referring Provider Nurse Practitioner Family; Visit Provider Nurse Practitioner Family
DX: C73 Malignant neoplasm of thyroid gland (principal); E04.1 Nontoxic single thyroid nodule
CPT/HCPCS: 76536

== ENCOUNTER → 2024-02-27 | Outpatient (CLI) | payer OTHER, SELFPAY ==
[2024-02-27 08:50] LABS: T4 Free Direct 0.78 ng/dL (0.76-1.46); Thyroid Stim Hormone (TSH) 4.66 uIU/mL (0.358-3.74)
== END | disposition home or self-care (01) ==
LOC: LAB 07:46
PROVIDERS: PCP Physician Assistant; Referring Provider Internal Medicine Endocrinology, Diabetes & Metabolism; Visit Provider Internal Medicine Endocrinology, Diabetes & Metabolism
DX: E06.3 Autoimmune thyroiditis (principal); C73 Malignant neoplasm of thyroid gland; E04.1 Nontoxic single thyroid nodule
CPT/HCPCS: 36415; 84439; 84443

== ENCOUNTER → 2024-05-04 | Outpatient (CLI) | payer OTHER, SELFPAY | END | disposition home or self-care (01) | LOC: EMPH 08:20 | PROVIDERS: PCP Physician Assistant; Visit Provider Family Medicine Geriatric Medicine | DX: Z03.818 Encounter for observation for suspected exposure to other biological agents ruled out (principal) | CPT/HCPCS: 87811 ==

== ENCOUNTER → 2024-05-30 | Outpatient (CLI) | payer OTHER, SELFPAY ==
[2024-05-30 11:51] LABS: T4 Free Direct 0.85 ng/dL (0.76-1.46); Thyroid Stim Hormone (TSH) 3.82 uIU/mL (0.358-3.74)
== END | disposition home or self-care (01) ==
LOC: LAB 10:25
PROVIDERS: PCP Physician Assistant; Referring Provider Internal Medicine Endocrinology, Diabetes & Metabolism; Visit Provider Internal Medicine Endocrinology, Diabetes & Metabolism
DX: E06.3 Autoimmune thyroiditis (principal)
CPT/HCPCS: 84439; 84443

== ENCOUNTER → 2024-10-04 | Outpatient (CLI) | payer OTHER, SELFPAY ==
--- NOTE | 2024-10-04 08:50 | BI_ITS ---
MAMMOGRAPHY - BILATERAL DIAGNOSTIC REASON FOR EXAM: Female, 54 years old. Follow up for left ultrasound-guided breast biopsy. PERTINENT HISTORY: Aunt with breast cancer. TECHNIQUE: Digital bilateral breast jonas (3D mammographic acquisition) in the CC and MLO projections. 2-D mediolateral oblique (MLO) and craniocaudad (CC) views of both breasts were obtained. CAD: Full Field Digital Mammography with Computer Added Detection was performed. COMPARISON: Comparison is made with prior study September 30, 2023. FINDINGS: Breast Composition: There are scattered areas of fibroglandular density. There are no dominant masses or suspicious calcifications. A tissue clip marker is seen within a 3 mm nodule in the upper lateral aspect of the left breast. Stable fat containing axillary lymph nodes. No other significant abnormalities are identified. There has been no significant change since the prior study. BI/DIAG MAMM W/CAD, BILAT IMPRESSION: Stable bilateral diagnostic mammogram. One year follow-up recommended. (A) ASSESSMENT CATEGORY: BIRADS Category 2: Benign. A letter regarding these results will be sent to the patient by the facility within 30 days. Approximately 10% of breast cancers are not detected by mammography. A normal mammogram should not delay biopsy of a clinically suspicious abnormality. Electronically Signed: Loy Rush MD at 10:25 EST ,
--- NOTE | 2024-10-04 08:53 | US_ITS ---
STUDY: ULTRASOUND BREAST - LEFT REASON FOR EXAM: Female, 54 years old. 6 month follow-up for left breast biopsy. TECHNIQUE: Axial and longitudinal images of the LEFT breast were performed with a high resolution ultrasound transducer. # OF IMAGES: 22 COMPARISON: Comparison is made with prior mammogram done earlier today as well as prior sonogram of the left breast dated October 04, 2023. FINDINGS: LEFT Breast: The lateral aspect of the left breast was examined with ultrasound. There is a 4 mm x 5 mm x 2 mm well-defined hypoechoic nodule at the 3:00 position breast at 9 cm from nipple. A tissue clip marker is seen within. US/Breast Limited Unilateral IMPRESSION: Stable examination. ASSESSMENT CATEGORY: BIRADS Category 2: Benign. A letter regarding these results will be sent to the patient by the facility within 30 days. Electronically Signed: Loy Rush MD at 11:06 EST ,
== END | disposition home or self-care (01) ==
LOC: OPBI 08:50
PROVIDERS: Referring Provider Surgery; Visit Provider Surgery
DX: R92.8 Other abnormal and inconclusive findings on diagnostic imaging of breast (principal)
CPT/HCPCS: 76642; 77062; 77066; G0279

== ENCOUNTER → 2024-11-20 | Outpatient (CLI) | payer OTHER, SELFPAY ==
[2024-11-20 08:38] LABS: T4 Free Direct 0.91 ng/dL (0.76-1.46)
== END | disposition home or self-care (01) ==
LOC: LAB 07:37
PROVIDERS: PCP Clinical Nurse Specialist Adult Health; Referring Provider Internal Medicine Endocrinology, Diabetes & Metabolism; Visit Provider Internal Medicine Endocrinology, Diabetes & Metabolism
DX: C73 Malignant neoplasm of thyroid gland (principal); E04.1 Nontoxic single thyroid nodule; E06.3 Autoimmune thyroiditis
CPT/HCPCS: 36415; 84439; 84443

== ENCOUNTER → 2024-12-07 | Outpatient (CLI) | payer OTHER, SELFPAY ==
[2024-12-07 09:06] LABS: Cholesterol 210 mg/dL (200); Glucose 113 mg/dL (74-106); High Density Lipoprotein 64 mg/dL; Triglycerides 126 mg/dL; Very Low Density Lipoprotein 25 mg/dL (5-40)
== END | disposition home or self-care (01) ==
LOC: LAB 07:48
PROVIDERS: PCP Clinical Nurse Specialist Adult Health; Referring Provider Clinical Nurse Specialist Adult Health; Visit Provider Clinical Nurse Specialist Adult Health
DX: Z13.1 Encounter for screening for diabetes mellitus (principal)
CPT/HCPCS: 36415; 80061; 82947

== ENCOUNTER → 2025-02-21 | Outpatient (CLI) | payer OTHER, SELFPAY ==
--- NOTE | 2025-02-21 12:16 | US_ITS ---
PROCEDURE: THYROID 02/21/2025 REASON FOR EXAM: Thyroid nodules, COMPARE 2023. History of prior partial right hemithyroidectomy. TECHNIQUE: Thyroid ultrasound COMPARISON: No prior comparison available. FINDINGS: Right thyroid lobe measures 2.7 x 0.6 x 0.7 cm. Left thyroid lobe measures 4.4 x 1.6 x 1.4 cm. Isthmus thickness is0.2 cm. Thyroid Size: Normal Background Echotexture: Homogeneous Thyroid Nodules: Right inferior thyroid nodule measuring 0.8 x 0.6 x 0.6 cm, mixed cystic and solid, isoechoic, wider than tall, ill-defined margins with peripheral calcification. TR-4. US/Thyroid IMPRESSION: Right TR-4 thyroid nodule, which meets ACR TI-RADS criteria for 1 year follow-u p. Reading Location: [id number]
== END | disposition home or self-care (01) ==
LOC: US 12:15
PROVIDERS: PCP Clinical Nurse Specialist Adult Health; Referring Provider Internal Medicine Endocrinology, Diabetes & Metabolism; Visit Provider Internal Medicine Endocrinology, Diabetes & Metabolism
DX: E04.1 Nontoxic single thyroid nodule (principal)
CPT/HCPCS: 76536

== ENCOUNTER → 2025-03-14 | Outpatient (CLI) | payer OTHER, SELFPAY ==
[2025-03-14 10:18] LABS: Absolute Lymphocyte Count 1.77 X10^3/uL (0.83-4.51); Basophil# 0.05 X10^3/uL; Basophil% 1.1 % (0-1); Eosinophil# 0.08 X10^3/uL; Eosinophils% 1.8 % (0-5); Hematocrit 36.7 % (37-47); Hemoglobin 12.1 g/dL (12.0-15.0); Lymphocyte # 1.77 X10^3/ul (0.83-4.51); Lymphocyte % 40.6 % (19-41); Mean Corpuscular Hgb 29.5 pg (27.0-32.0); Mean Corpuscular Volume 89.5 fL (81-99); Mean Platelet Vol. 9.2 fl (6.2-12.0); Monocyte# 0.44 X10^3/uL; Monocyte% 10.1 % (0-10); NRBC Flagged by Analyzer 0 % (0-5); Neutrophil # 2.01 X10^3/uL (2.7-7.7); Neutrophil % 46.2 % (47-70); Platelet Count 250 K/mm3 (150-450); RBC Distribution Width CV 13.4 % (11.6-14.6); White Blood Count 4.4 K/mm3 (4.4-11.0)
[2025-03-14 11:08] LABS: ALB/GLOB Ratio 1.6 RATIO (0.9-2.4); AST(SGOT) 22 U/L (<=31); Alanine Aminotransfer ALT/SGPT 16 U/L (<=34); Albumin, Serum 4.2 g/dL (3.5-5.0); Alkaline Phosphatase 71 U/L (35-104); Anion Gap 10 (5-15); BUN 16 mg/dL (4-19); BUN/Creat Ratio 17.4 RATIO (10-20); Calcium,Total 8.9 mg/dL (7.6-11.0); Carbon Dioxide 22.5 mmol/L (21.0-32.0); Chloride 106 mmol/L (98-108); Cholesterol 206 mg/dL (<=200); Creatinine, Serum 0.92 mg/dL (0.70-1.20); EST Glomerular Filtration Rate 75 (>60); Globulin 2.6 g/dL (2.2-4.2); Glucose 91 mg/dL (70-99); High Density Lipoprotein 48 mg/dL; Low Density Lipoprotein Calc. 132 mg/dL; Magnesium 2.3 mg/dL (1.5-2.2); Potassium 4.4 mmol/L (3.3-5.1); Protein, Total 6.8 g/dL (5.9-8.4); Sodium Level 139 mmol/L (133-145); Total Bilirubin 0.49 mg/dL (0.00-1.30); Triglycerides 127 mg/dL; Very Low Density Lipoprotein 25 mg/dL (5-40); Vitamin B12 468 pg/mL (180-914); cholesterol:hdl ratio screen 4.27
[2025-03-15 12:29] LABS: Hemoglobin A1c 6.2 % (<=5.6)
[2025-03-15 17:08] LABS: Anti-Thyroglobulin AB < 1.0 IU/mL (0.0-0.9); Thyroglobulin, Serum Qt. 12.5 ng/mL (1.5-38.5)
== END | disposition home or self-care (01) ==
LOC: LAB 09:49
PROVIDERS: PCP Clinical Nurse Specialist Adult Health; Referring Provider Clinical Nurse Specialist Adult Health; Visit Provider Clinical Nurse Specialist Adult Health
DX: Z13.220 Encounter for screening for lipoid disorders (principal); C73 Malignant neoplasm of thyroid gland; M51.26 Other intervertebral disc displacement, lumbar region; M47.819 Spondylosis without myelopathy or radiculopathy, site unspecified; G25.81 Restless legs syndrome
CPT/HCPCS: 36415; 80053; 80061; 82607; 83036; 83735; 84432; 84439; 84443; 85025; 86800

== ENCOUNTER → 2025-09-13 | Outpatient (CLI) | payer OTHER, SELFPAY | END | disposition home or self-care (01) | LOC: LAB 07:54 | PROVIDERS: PCP Clinical Nurse Specialist Adult Health; Referring Provider Internal Medicine Endocrinology, Diabetes & Metabolism; Visit Provider Internal Medicine Endocrinology, Diabetes & Metabolism | DX: E06.3 Autoimmune thyroiditis (principal) | CPT/HCPCS: 36415; 84439; 84443 ==

== ENCOUNTER → 2025-09-17 | Outpatient (CLI) | payer OTHER, SELFPAY ==
[2025-09-17 11:05] LABS: Hematocrit 37.9 % (37-47); Hemoglobin 12.8 g/dL (12.0-15.0); Immature Granulocytes Count 0.010 X10^3/uL (0.0-0.0); Mean Corp Hgb Conc 33.8 g/dL (32-36); Mean Corpuscular Volume 90.5 fL (81-99); Mean Platelet Vol. 9.4 fl (6.2-12.0); NRBC Flagged by Analyzer 0 % (0-5); Platelet Count 230 K/mm3 (150-450); RBC Distribution Width CV 13.2 % (11.6-14.6); RBC Distribution Width SD 43.8 fl (35.1-43.9); Red Blood Count 4.19 M/mm3 (4.2-5.4); White Blood Count 4.2 K/mm3 (4.4-11.0)
[2025-09-17 11:57] LABS: AST(SGOT) 21 U/L (<=31); Alanine Aminotransfer ALT/SGPT 13 U/L (<=34); Albumin, Serum 4.5 g/dL (3.5-5.0); Alkaline Phosphatase 71 U/L (35-104); Anion Gap 9 (5-15); BUN 22 mg/dL (4-19); BUN/Creat Ratio 25.1 RATIO (10-20); Calcium,Total 9.6 mg/dL (7.6-11.0); Carbon Dioxide 23.7 mmol/L (21.0-32.0); Chloride 106 mmol/L (98-108); Globulin 2.4 g/dL (2.2-4.2); Glucose 109 mg/dL (70-99); Potassium 4.9 mmol/L (3.3-5.1); Vitamin B12 342 pg/mL (180-914); Vitamin D,25 Hydroxy 24.8 ng/mL (30-100)
[2025-09-17 12:10] LABS: Creatinine, Urine (random) 34.20 mg/dL (28.00-217.00); Microalbumin,Random Urine < 12.0 mg/L (<20 mg/L)
== END | disposition home or self-care (01) ==
PROVIDERS: PCP Clinical Nurse Specialist Adult Health; Referring Provider Clinical Nurse Specialist Adult Health; Visit Provider Clinical Nurse Specialist Adult Health
DX: R73.03 Prediabetes (principal); C73 Malignant neoplasm of thyroid gland; R53.83 Other fatigue
CPT/HCPCS: 36415; 80053; 82043; 82306; 82570; 82607; 83036; 85025

== ENCOUNTER → 2025-10-02 | Outpatient (CLI) | payer OTHER, SELFPAY ==
[2025-10-02 14:10] LABS: Hematocrit 36.8 % (37-47); Hemoglobin 12.3 g/dL (12.0-15.0); Immature Granulocytes Count 0.010 X10^3/uL (0.0-0.0); Mean Corp Hgb Conc 33.4 g/dL (32-36); Mean Corpuscular Volume 90.4 fL (81-99); Mean Platelet Vol. 9.8 fl (6.2-12.0); NRBC Flagged by Analyzer 0 % (0-5); Platelet Count 255 K/mm3 (150-450); RBC Distribution Width CV 13.0 % (11.6-14.6); RBC Distribution Width SD 43.1 fl (35.1-43.9); Red Blood Count 4.07 M/mm3 (4.2-5.4); White Blood Count 4.5 K/mm3 (4.4-11.0)
== END | disposition home or self-care (01) ==
LOC: LAB 13:30
PROVIDERS: PCP Clinical Nurse Specialist Adult Health; Referring Provider Clinical Nurse Specialist Adult Health; Visit Provider Clinical Nurse Specialist Adult Health
DX: D72.829 Elevated white blood cell count, unspecified (principal)
CPT/HCPCS: 36415; 85025

== ENCOUNTER → 2025-10-08 | Outpatient (CLI) | payer OTHER, SELFPAY ==
--- NOTE | 2025-10-08 07:18 | BI_ITS ---
EXAM: SCRN MAMM (CAD)W/TRISTA BILAT DATE: 10/08/2025 CLINICAL HISTORY: F, Age 55 y/o , SCREENING Aunt with breast cancer. TECHNIQUE: Procedure Code: [id number] Modality: MG Procedure: SCRN MAMM (CAD)W/TRISTA BILAT COMPARISON: Prior exam(s) dated October 04, 2024.. FINDINGS: TISSUE DENSITY: There are scattered areas of fibroglandular density. Bilateral Breast Mammographic Findings: No significant masses, calcifications or other abnormalities are identified. A tissue clip marker is once again seen in the upper lateral aspect of the left breast. Stable small bilateral fat containing axillary lymph nodes. No suspicious masses, areas of developing architectural distortion, or suspicious calcifications. There has been no significant interval change. BI/SCRN MAMM (CAD)W/TRISTA BILAT IMPRESSION: Stable bilateral screening mammogram. OVERALL FINAL ASSESSMENT BI-RADS 2: BENIGN RECOMMENDATION: Routine annual follow-up in 1 Year Additional Recommendation none A letter with findings and recommendations will be mailed to the patient. Reading Location: [facility]
--- NOTE | 2025-10-08 07:21 | BD_ITS ---
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 Postmenopausal. TECHNIQUE: Procedure Code: BDDBD Modality: DX Procedure: DEXA BONE DENSITY STUDY COMPARISON: September 28, 2022. FINDINGS: BMD and T-SCORES Lumbar spine: 0.779 g/cm2, T-score -2.5 Levels: L1 through L4 Change from prior: Loss of 9.9%. Left femoral neck: 0.705 g/cm2, T-score -1.3 Femoral neck comparison data not recommended for monitoring change. Left total hip: 0.852 g/cm2, T-score -0.7 Change from prior: Improvement of 2.1%. Right femoral neck: 0.728 g/cm2, T-score -1.1 Femoral neck comparison data not recommended for monitoring change. Right total hip: 0.855 g/cm2, T-score -0.7 Change from prior: Improvement of 1.2%. The World Health Organization has defined the following categories based on bone density: Normal bone density: T-score equal to or greater than -1.0 Osteopenia: T-score between -1.0 and -2.5 Osteoporosis: T-score equal to or less than -2.5 FRAX (or Comparable) Fracture Risk Assessment: 10 Year Probability of Fracture: Major Osteoporotic Fracture: 19% Hip Fracture: 0.7% (Note: FRAX is not to be reported in setting of normal range bone density, osteoporosis on DEXA, known history of osteoporosis, prior osteoporotic hip or vertebral fracture, or for any patient undergoing pharmacological treatment for bone loss.) The National Osteoporosis Foundation (NOF) recommends pharmacological treatment for patients with a FRAX 10-year risk of 3% or higher for a hip fracture, or 20% or higher for a major osteoporotic fracture, to prevent osteoporosis and reduce fracture risk. The patient does meet the pharmacological treatment recommendations for prevention of osteoporosis. BD/Dexa Bone Density Study IMPRESSION: OSTEOPENIA. Recommend follow-up as clinically warranted. Reading Location: [id number]
--- OUTSIDE RECORDS SUMMARY | 2025-10-08 07:32 | XMS RPT_ITS | CCD ---
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 Ibanez Attending Provider Whitmore PA-C, M Oreland Primary Care Provider Whitmore PA-C, M Oreland Primary Care Provider Whitmore PA-C, [facility] Primary Care Provider Whitmore PA, PA [facility] Primary Care Provider Whitmore PA, PA [facility] Referring Provider Dr. Isac Michelle Attending Provider Wyles PA, PA Ildefonso Bazzi Attending Provider Whitmore PA, PA [facility] Primary Care Provider [phone] Whitmore PA, PA [facility] Referring Provider Wyles PA, PA Ildefonso Bazzi Attending Provider Whitmore PA-C, [facility] Primary Care Provider Whitmore PA, PA [facility] Primary Care Provider [phone] Whitmore PA, PA [facility] Referring Provider Dr. Isac Michelle Attending Provider Whitmore PA, PA [facility] Primary Care Provider [phone] Whitmore PA, PA [facility] Referring Provider Dr. Isac Michelle Attending Provider Dr. Bhanu Cole Attending Provider Dr. Bhanu Cole Referring Provider Dr. Bhanu Cole Other Provider Haim PA PA Hao Primary Care Provider Haim PA PA M Hao Referring Provider Haim GARCIA PA Hao Primary Care Provider Haim GARCIA PA Hao Referring Provider Dr. Bhanu Cole Attending Provider Dr. Bhanu Cole Referring Provider Dr. Bhanu Cole Other Provider Suppan ADVERTISING OPERATIONS COORDINATOR.ELECTRICAL DESIGNER, Jenny A Primary Care Provi yaneth Suppan MINER HELPER, Jenny Primary Care Provider Dr. Isac Michelle MD Attending Provider Dr. Isac Michelle MD Referring Provider Suppan MINER HELPER, Jenny Attending Provider Suppan MINER HELPER, Jenny Referring Provider Rafa Zhao MD, Chi Attending Provider Unavailable Suppan MINER HELPER, Jenny Primary Care Provider Rafa Zhao MD, Chi Attending Provider Unavailable SUPPAN, JENNY A Attending Unavailable SUPPAN, JENNY A Primary Care Unavailable SUPPAN, JENNY A Referring Unavailable SUPPAN, JENNY A Attending Unavailable SUPPAN, JENNY A Primary Care Unavailable Suppan, Jenny Primary Care Unavailable Rafa Manriquez Chi Attending Unavailable Suppan, Jenny Primary Care Unavailable Suppan, Jenny Referring Unavailable Bam Crisostomo Attending Unavailable Suppan, Jenny Primary Care Unavailable Suppan, Jenny Referring Unavailable Isac Michelle Attending Unavailable Chris Gerard NP Attending Unavailable Care Physician, No Primary Referring Unava ilable Care Physician, No Primary Primary Care Unava ilable Suppan, Jenny Primary Care Unavailable Isac Michelle Referring Unavailable Isac Michelle Attending Unavailable Suppan, Jenny Primary Care Unavailable Suppan, Jenny Referring Unavailable Suppan, Jenny Attending Unavailable Suppan, Jenny Primary Care Unavailable Miguel Angel, Isac Referring Unavailable Miguel Angel, Isac Attending Unavailable Suppan, Jenny Primary Care Unavailable Pavel OLS, Rafa Chi Referring Unavailable Pavel OLS, Rafa Chi Attending Unavailable Care Physician, No Primary Primary Care Unava ilable Pavel OLS, Rafa Chi Referring Unavailable Pavel OLS, Rafa Chi Attending Unavailable Suppan, Jenny Primary Care Unavailable Pavel OLS, Rafa Chi Attending Unavailable Suppan, Jenny Primary Care Unavailable Pavel OLS, Rafa Chi Attending Unavailable Suppan, Jenny Primary Care Unavailable Pavel OLS, Rafa Chi Referring Unavailable Pavel OLS, Rafa Chi Attending Unavailable Care Physician, No Primary Primary Care Unava ilable Pavel OLS, Rafa Chi Attending Unavailable Pavel OLS, Rafa Chi Referring Unavailable Suppan, Jenny Primary Care Unavailable Suppan, Jenny Attending Unavailable Suppan, Jenny Primary Care Unavailable Suppan, Jenny Referring Unavailable Suppan, Jenny Attending Unavailable Bhanu Cole Referring Unavailable Bhanu Cole Attending Unavailable Suppan, Jenny Primary Care Unavailable Miguel Angel, Isac Referring Unavailable Miguel Angel, Isac Attending Unavailable Suppan, Jenny Attending Unavailable Suppan, Jenny Primary Care Unavailable Suppan, Jenny Referring Unavailable Allergies Allergy Classification Reported Allergen(s) Allergy Type Date of Onset Reaction(s) Facility (20 sources) Doxycycline; Translations: [DOXYCYCLINE] Drug Allergy 8 Other: See Comments [facility] (20 sources) Morphine; Translations: [MORPHINE] Drug Allergy 9 GI Upset [facility] (4 sources) latex tape Allergy to substance 2 [facility] Work Phone: (20 sources) Latex Propensity to adverse reactions 2 [facility] Comment on above: latex tape (1 source) Scopolamine; Translations: [SCOPOLAMINE] Drug Allergy 5 [facility] Repository (1 source) Doxycycline Drug Allergy 5 [facility] Repository (1 source) Latex Drug allergy (disorder) 5 [facility] (1 source) Morphine Drug Allergy 5 [facility] Repository Medications Current Medications Medication Drug Class(es) Dates Sig (Normalized) Sig (Original) amoxicillin 500 mg / clavulanate 125 mg oral tablet (1 source) Penicillin-class Antibacterial Start: 12-18-2021 take 1 tablet by mouth every twelve hours Amoxicillin-Pot Clavulanate (Augmentin) 500-125 mg tablet Active 1 TABLET PO Q12H December 18, 2021 10:41am gabapentin 300 mg oral capsule (20 sources) Anti-epileptic Agent Start: 04-18-2019 End: 09-13-2025 take 1 capsule by mouth at bedtime Gabapentin (Neurontin) 300 MG capsule Active 300 mg PO AT BEDTIME April 18, 2019 12:00am Comment on above: Take 1 capsule by mouth daily at bedtime for 180 days. ibuprofen 800 mg oral tablet (20 sources) Nonsteroidal Anti-inflammatory Drug Start: 09-13-2024 End: 09-13-2025 take 1 tablet by mouth every eight hours as needed for pain ibuprofen (MOTRIN) 800 mg tablet Indications: Spondyloarthropathy Take 1 tablet by mouth every 8 hours as needed for pain. 180 tablet 3 09/13/2024 09/13/2025 Active Start: 04-09-2021 take 800 mg by mouth every eight hours Ibuprofen Active 800 MG PO Q8H April 09, 2021 1:53pm End: 09-13-2024 take 1 tablet by mouth every six hours as needed ibuprofen (MOTRIN) 800 mg tablet Take 800 mg by mouth every 6 hours as needed. 09/13/2024 Discontinued Comment on above: Take 800 mg by mouth every 6 hours as needed. Ipratropium [place] 21 mcg (0.03 %) spray,non-aerosol (1 source) Start: 5 Ipratropium [place] 21 mcg (0.03 %) spray,non-aerosol Active 2 NMA INTRANASAL 2 to 3 times per day as needed for postnasal drainage 30 February 28, 2025 12:00am administer into each nostril levothyroxine sodium 0.025 mg oral capsule (20 sources) l-Thyroxine Start: End: take 1 capsule by mouth once daily Levothyroxine (Tirosint) 25 mcg capsule Active 25 ug PO daily June 18, 2025 12:45pm Start: 09-25-2024 End: 11-09-2024 take 1 capsule by mouth every other day Levothyroxine (Tirosint) 25 mcg capsule Discontinued 25 ug PO .every other day 45 0 September 25, 2024 1:00am November 09, 2024 8:15am Start: 09-18-2024 End: 09-25-2024 take 1 capsule by mouth once daily Levothyroxine (Tirosint) 13 mcg capsule Discontinued 13 ug PO daily 90 1 September 19, 2024 3:48pm September 25, 2024 12:23pm Start: 02-29-2024 End: 03-02-2024 take 1 tablet by mouth once daily Levothyroxine 50 mcg tablet Discontinued 50 ug PO DAILY 90 2 February 29, 2024 12:00am March 02, 2024 1:48pm Start: 09-20-2022 End: 09-19-2023 take 1 tablet by mouth once daily Levothyroxine 75 mcg tablet Discontinued 75 ug PO DAILY 90 3 September 20, 2022 8:41am September 19, 2023 8:08am Start: 09-22-2021 take 1 tablet by minda th once daily levothyroxine (SYNTHROID) 75 mcg tablet Take 1 tablet by mouth once daily. 0 09/22/2021 Active Comment on above: Take 1 tablet by minda th once daily. Magnesium Glycinate 100 mg magnesium capsule (2 sources) Start: 4 Magnesium Glycinate 100 mg magnesium capsule Active 600 mg PO September 18, 2024 12:00am pantoprazole 40 mg delayed release oral tablet (1 source) Proton Pump Inhibitor Start: 2 take 40 mg by mouth once daily Pantoprazole Active 40 MG PO DAILY December 18, 2021 10:43am red yeast rice 600 mg oral tablet (2 sources) Start: 4 take 1 tablet by mouth twice daily Red Yeast Rice 600 mg tablet Active 600 mg PO TWICE A DAY September 18, 2024 12:00am give with meal/snack tumeric (2 sources) Start: 4 tumeric Active PO September 18, 2024 12:00am Completed/Discontinued Medications Medication Drug Class(es) Dates Sig (Normalized) Sig (Original) amoxicillin 500 mg oral tablet (2 sources) Penicillin-class Antibacterial Start: 06-26-2024 End: 07-13-2024 take 1 tablet by mouth three times daily Amoxicillin 500 mg tablet Discontinued 500 mg PO THREE TIMES A DAY 30 0 June 26, 2024 12:00am July 13, 2024 6:57am dicyclomine hydrochloride 10 mg oral capsule (20 sources) Anticholinergic Start: 12-18-2021 End: 12-28-2021 take 1 capsule by mouth every six hours Dicyclomine 10 mg capsule Discontinued 10 mg PO EVERY 6 HOURS 30 December 18, 2021 1:00am December 28, 2021 10:26am ferrous sulfate 325 mg oral tablet (8 sources) Start: 03-29-2022 take 1 tablet by mouth three times weekly ferrous sulfate 325 mg (65 mg iron) tablet Take 1 tablet by mouth three times a week. 36 tablet 3 03/29/2022 Active Comment on above: [facility] hydrocortisone 10 mg/ml / neomycin 3.5 mg/ml / polymyxin b [id number] unt/ml otic suspension (2 sources) Aminoglycoside Antibacterial, Polymyxin-class Antibacterial, Corticosteroid Start: 07-13-2024 End: 07-23-2024 Neomycin-Polymyxi n-Hc 3.5-10,000-1 mg/mL-unit/mL-% drops,suspension Discontinued 3 NMA OTIC Q4H 10 10 0 July 13, 2024 12:00am July 22, 2024 12:00am July 23, 2024 12:04am apply to (cotton) wick; replace wick every 24 hours levoFLOXacin 750 mg oral tablet (20 sources) Quinolone Antimicrobial Start: 10-09-2021 End: 10-20-2021 take 1 tablet by mouth once daily Levofloxacin 750 mg Tablet Discontinued 750 mg PO DAILY 2 2 0 October 09, 2021 9:56am October 20, 2021 3:53pm Rupture of appendix linaclotide 0.145 mg oral capsule (20 sources) Guanylate Cyclase-C Agonist Start: 01-12-2022 End: 09-13-2025 take 1 capsule by mouth once daily Linaclotide (Linzess) 145 mcg capsule Discontinued 145 ug PO DAILY September 19, 2023 12:00am March 08, 2024 2:57pm Start: 01-08-2022 take 1 capsule by [facility] at mealtime Linaclotide (Linzess) 145 mcg capsule Active 145 MCG PO DAILY January 08, 2022 7:35am Take thirty minutes prior to first meal/large drink of the day. Comment on above: Take 1 capsule by [facility] once daily as needed. methylPREDNISolone 4 mg oral tablet (3 sources) Corticosteroid Start: 2024 End: 2024 take 1 tablet by mouth once Methylprednisolone (Medrol ([place])) 4 mg tablets,dose pack Discontinued 4 mg PO per package directions 21 6 0 February 28, 2025 12:00am March 05, 2025 12:00am March 06, 2025 12:06am Start: 07-13-2024 End: 07-19-2024 take 1 tablet by mouth once Methylprednisolone (Medrol ([place])) 4 mg tablets,dose pack Discontinued 4 mg PO per package directions 21 6 0 July 13, 2024 12:00am July 18, 2024 12:00am July 19, 2024 12:03am oxyCODONE hydrochloride 5 mg oral tablet (20 sources) Opioid Agonist Start: 10-09-2021 End: 10-20-2021 take 1 tablet by mouth every six hours as needed for pain Oxycodone 5 mg Tablet Discontinued 5 mg PO EVERY 6 HOURS as needed for pain 7 2 0 October 09, 2021 October 20, 2021 3:53pm Status post laparoscopic appendectomy Acquired absence of other specified parts of digestive tract Problems Active Problems Problem Classification Problem Date Documented Da te Episodic/Chronic Abdominal pain (20 sources) Right upper quadrant pain; Translations: [Right upper quadrant pain] Onset: 10-07-2021 12-19-2021 Episodic Comment on above: Patient describes ac bolivar onset right upper quadrant pain early this morning. This pain is not associated with symptoms of fevers, chills, nausea, or anorexia. Also significantly she experiences relief with stretching her abdominal wall or when external pressure is applied to this area. She confirms recent constipation and states that she is experience some relief after having a bowel movement earlier this afternoon. At this juncture, I do not think her presentation is suggestive of inflamed viscera or peritoneum and therefore does not warrant any follow-up imaging or laboratories. I have asked her to monitor this pain and should she develop any of the above negative associations, to telephone our office and we will order work-up as indicated. In the interim, she is asked to maintain a strict bowel regimen and work to achieve 1 soft bowel movement daily. I have asked her to do this in the next day and a half so that there is time to accomplish an outpatient work-up if that is what is required. She and her sister expressed understanding of this information and agreed to proceed with this plan. Administrative/social admission (20 sources) Patient encounter status; Translations: [Encounter for pre-employment examination] 10-28-2022 Episodic Appendicitis and other appendiceal conditions (20 sources) Acute appendicitis; Translations: [Unspecified acute appendicitis] 10-20-2021 Episodic Cancer of thyroid (20 sources) Papillary thyroid carcinoma; Translations: [Malignant neoplasm of thyroid gland] Onset: 02-23-2022 02-23-2022 Chronic Chronic kidney disease (1 source) Chronic kidney disease stage 3A ; Translations: [Stage 3a chronic kidney disease (CKD) (HCC)] 09-05-2023 Chronic Complications of surgical procedures or medical care (1 source) History of subtotal thyroidectomy; Translations: [Postprocedural hypothyroidism] Chronic Deficiency and other anemia (20 sources) Anemia; Translations: [Anemia, unspecified] 04-09-2021 Episodic Deficiency and other anemia (1 source) Microcytic anemia; Translations: [Iron deficiency anemia, unspecified] Episodic Diabetes mellitus without complication (3 sources) Increased glucose level; Translations: [Other abnormal glucose] Onset: 09-17-2025 09-05-2023 Episodic Diseases of white blood cells (2 sources) Neutropenia; Translations: [Neutropenia, unspecified] Onset: 09-20-2025 09-05-2023 Chronic Disorders of lipid metabolism (1 source) Dyslipidemia; Translations: [Hyperlipidemia, unspecified] 09-13-2024 Chronic Immunizations and screening for infectious disease (2 sources) Encounter for observation for suspected exposure to other biological agents ruled out; Translations: [Encounter for observation for suspected exposure to other biological agents ruled out] Onset: 09-21-2025 Episodic Malaise and fatigue (1 source) Other fatigue; Translations: [Fatigue, unspecified type] Onset: 09-17-2025 Episodic Menopausal disorders (20 sources) Premature menopause; Translations: [Asymptomatic premature menopause] Onset: 09-17-2025 Chronic Mood disorders (20 sources) Reactive depression (situational); Translations: [Major depressive disorder, single episode, unspecified] Onset: 04-13-2019 04-13-2019 Chronic Nonspecific chest pain (7 sources) Right sided chest pain; Translations: [Chest pain, unspecified] 11-24-2023 Episodic Nutritional deficiencies (20 sources) Vitamin D deficiency; Translations: [Vitamin D deficiency, unspecified] Chronic Osteoarthritis (1 source) Osteoarthritis of left foot; Translations: [Primary osteoarthritis, left ankle and foot] 09-13-2024 Chronic Other bone disease and musculoskeletal deformities (1 source) Cervical somatic dysfunction; Translations: [Segmental and somatic dysfunction of cervical region] Episodic Other bone disease and musculoskeletal deformities (1 source) Somatic dysfunction of thoracic region; Translations: [Segmental and somatic dysfunction of thoracic region] Episodic Other bone disease and musculoskeletal deformities (1 source) Somatic dysfunction of right sacroiliac joint; Translations: [Segmental and somatic dysfunction of sacral region] Episodic Other bone disease and musculoskeletal deformities (1 source) Other specified disorders of bone density and structure, multiple sites; Translations: [Other specified disorders of bone density and structure, multiple sites] Onset: 09-17-2025 Episodic Other diseases of kidney and ureters (20 sources) Acute renal insufficiency; Translations: [Disorder of kidney and ureter, unspecified] 12-24-2021 Episodic Other ear and sense organ disorders (2 sources) Acute otitis externa; Translations: [Diffuse otitis externa, left ear] 07-13-2024 Episodic Other gastrointestinal disorders (2 sources) Irritable bowel syndrome characterized by constipation; Translations: [Irritable bowel syndrome with constipation] 09-13-2024 Chronic Other gastrointestinal disorders (20 sources) Diarrhea; Translations: [Diarrhea, unspecified] 12-24-2021 Episodic Other gastrointestinal disorders (20 sources) Constipation; Translations: [Constipation, unspecified] 12-18-2021 Episodic Other gastrointestinal disorders (1 source) Constipation, unspecified; Translations: [Constipation, unspecified] Episodic Other hereditary and degenerative nervous system conditions (11 sources) Restless legs; Translations: [Restless legs syndrome] Onset: 09-01-2023 Chronic Other hereditary and degenerative nervous system conditions (1 source) Restless legs syndrome; Translations: [Restless leg syndrome] Onset: 09-01-2023 Chronic Other nervous system disorders (20 sources) Neuropathy; Translations: [Polyneuropathy, unspecified] 04-09-2021 Chronic Other nervous system disorders (4 sources) Neuropathy of lower limb; Translations: [Unspecified mononeuropathy of right lower limb] Chronic Other nervous system disorders (1 source) Polyneuropathy; Translations: [Polyneuropathy, unspecified] Chronic Other nervous system disorders (2 sources) Right leg peripheral neuropathy; Translations: [Unspecified mononeuropathy of right lower limb] 01-17-2024 Chronic Other nervous system disorders (2 sources) Paresthesia; Translations: [Paresthesia of skin] Episodic Other nervous system disorders (20 sources) Paresthesia of right upper limb; Translations: [Paresthesia of skin] 07-01-2022 Episodic Other upper respiratory disease (20 sources) Seasonal allergy; Translations: [Other seasonal allergic rhinitis] 04-09-2021 Chronic Other upper respiratory disease (1 source) Seasonal allergic rhinitis; Translations: [Other seasonal allergic rhinitis] 09-13-2024 Chronic Other upper respiratory disease (1 source) Other seasonal allergic rhinitis; Translations: [Seasonal allergic rhinitis, unspecified trigger] Onset: 03-14-2025 Chronic Otitis media and related conditions (4 sources) Acute left otitis media; Translations: [Otitis media, unspecified, left ear] 06-26-2024 Episodic Screening and history of mental health and substance abuse codes (1 source) Encounter for screening examination for other mental health and behavioral disorders; Translations: [Encounter for screening examination for other mental health and behavioral disorders] Onset: 09-17-2025 Episodic Spondylosis; intervertebral disc disorders; other back problems (20 sources) Herniation of nucleus pulposus of lumbar intervertebral disc; Translations: [Other intervertebral disc displacement, lumbar region] Onset: 04-13-2019 04-13-2019 Chronic Spondylosis; intervertebral disc disorders; other back problems (20 sources) Back problem; Translations: [Dorsopathy, unspecified] 04-09-2021 Episodic Thyroid disorders (20 sources) Thyroid nodule; Translations: [Nontoxic single thyroid nodule] Onset: 03-02-2019 Resolved: 08-31-2019 Chronic Unclassified (1 source) Unknown / UNK(Unknown) Onset: 05-19-2018 Past or Other Problems Problem Classification Problem Date Documented Date Episodic/Chronic Nonmalignant breast conditions (6 sources) Breast lump; Translations: [Unspecified lump in the left breast, overlapping quadrants] Onset: 09-30-2023 09-30-2023 Episodic Other screening for suspected conditions (not mental disorders or infectious disease) (20 sources) Raised TSH level; Translations: [Other specified abnormal findings of blood chemistry] Onset: 03-03-2020 03-03-2020 Episodic Comment on above: This is a 53-year-ol d female who appears to be at average risk for breast cancer (based on the history provided and the Jacque risk calculation of approximately 1% 5-year risk for breast cancer) who presents with a new left breast abnormality. This was first detected on screening mammography earlier this month and confirmed with reflex ultrasound. The area is reported to be 5 mm x 4 mm x 3 mm and is described further as a hypoechoic nodule at the 3 o'clock position 9 cm from the nipple. Clinical breast exam is otherwise negative. I have shared with patient that given the small size of this lesion I would recommend proceeding with a core needle biopsy in the ultrasound department where we are able to get better resolution. Patient is receptive of this recommendation and we will get this scheduled as soon as possible. Other upper respiratory infections (2 sources) Laryngitis; Translations: [Acute laryngitis] Onset: 02-28-2025 02-28-2025 Episodic Residual codes; unclassified (20 sources) Acquired absence of other specified parts of digestive tract; Translations: [Status post laparoscopic appendectomy] Onset: 11-21-2020 10-20-2021 Episodic Comment on above: Patient appears to b e recovering well 2 weeks status post laparoscopic appendectomy for intraoperative finding of perforated appendicitis. Aside from 1 day of subjective chills after spending time outside, she describes no symptoms that would be concerning for postoperative abscess. Her lower abdominal pain is completely resolved. Her incisions are healing nicely. Pathology results reviewed. At this point I have given her some recommendations for local wound care to include topical triple antibiotic ointment, but have no clinical concerns related to her operation. Unclassified (1 source) BUMPS ON BACK OF TONGUE Onset: 05-19-2018 Results Test Name Value Interpretation Reference Range Facility [facility] 09-18-2025 [facility] Telephone (FAMPWS) FABIANA ACOSTA ([id number]) 1970 F Date Time Provider Department 09/18/25 JENNY LEBRON During your visit today, we recorded the following information about you: Yaneli Ortiz LPN 09/18/2025 10:53 AM Signed See lab results as requested: Scan on 09/17/2025 12:36 PM by Provider, External, PAThangC: Miscellaneous Lab Scan on 09/17/2025 12:12 PM by Provider, External PAThangC: Chemistry Scan on 09/17/2025 11:39 AM by Provider, External, PAThangC: Hematology Jenny Lebron APRN.ELECTRICAL DESIGNER 09/19/2025 7:51 AM Signed White blood count and neutrophils slightly decreased. We need to repeat CBC in 2 weeks. Prediabetes. Watch the sweets and simple carbohydrates such as white flour products, white rice, and potatoes. Choose a whole-grain whenever possible. Urine for microalbumin creatinine ratio shows no effect of the extra sugar on her kidneys. Vitamin D level is low at 24.8. She could consider [id number] vitamin D3-1000 units daily. please fax order for CBC repeat to [facility]. That is where patient works. Shawanda Handley MA 09/19/2025 11:27 AM Signed Patient was made aware of the results. Patient verbalizes understanding. Lab order faxed Shawanda Handley Ma Allergies As of Date: 09/18/2025 Noted Allergy Reaction DOXYCYCLINE 08/16/2018 14 - Other: See Comments Comments: Burned throat MORPHINE 04/27/2019 8 - GI Upset SCOPOLAMINE 09/17/2025 14 - Other: See Comments Comments: Vision changes blurry Had a patch on after surgery Date Reviewed: 09/17/2025 Reviewed by: Yaneli Ortiz LPN - Fully Assessed Reason for Visit: Results [95] Primary Visit Diagnosis:Leukocytosis, unspecified type [D72.829] Order(s):HBA1C (OUTSIDE) [1290355] Order #: [id number] COMPLETE BLOOD COUNT AND DIFFERENTIAL [SQCBCDIF] Order #: [id number] FUTURE Prescriptions as of 09/19/2025 - TIROSINT 25 mcg cap Take 25 mcg by mouth once daily. 50mg on Tuesday - levocetirizine (XYZAL) 5 mg tablet Take 5 mg by mouth. - ipratropium bromide (ATROVENT) 42 mcg (0.06 %) nasal spray Use 2 sprays in the nose four times daily. - Magnesium Glycinate (MAG GLYCINATE) 100 mg tab Take 3 tablets by mouth at bedtime as needed (RLS). - linaclotide (LINZESS) 145 mcg capsule Take 1 capsule by mouth once daily as needed. Take capsule on an empty stomach at least 30 minutes before a meal at the same time each day. Capsule should be swallowed whole. DO NOT chew or crush Problem List As Of Date 09/18/2025 Noted Resolved Thyroid nodule [E04.1] 03/02/2019 08/31/2019 Herniated intervertebral disc of lumbar spine [* Spondyloarthropathy (HCC) [M47.819] Reactive depression [F32.9] 04/13/2019 Thyroid cancer (HCC) [C73] Elevated TSH [R79.89] 03/03/2020 Abdominal pain, right lateral [R10.9] 10/07/2021 Restless leg syndrome [G25.81] 09/01/2023 Mass overlapping multiple quadrants of left eva*09/30/2023 Encounter Status:Closed by SHAWANDA HANDLEY on 09/19/25 Normal [facility] CBC W/Diff, Automatedon 10-2 Absolute Lymph 2.06 X10 3/uL Normal 0.83-4.51 [facility] Comment on above: Performed By: #### M 100.505 #### [facility] [address] [place], [address] Absolute Neut 1.5 X10 3/uL Low 2.0-7.7 [facility] Comment on above: Performed By: #### M 100.505 #### [facility] [address] [place], [place], [id number] Basophils/100 WBC (Bld) 1.2 % High 0-1 [facility] Comment on above: Performed By: #### M 100.505 #### [facility] [address] [place], [address] Eosinophils/100 WBC (Bld) 2.7 % Normal 0-5 [facility] Comment on above: Performed By: #### M 100.505 #### [facility] [address] [place], [address] Erythrocyte distribution width (RBC) [Ratio] 13.2 % Normal 11.6-14.6 [facility] Comment on above: Performed By: #### M 100.505 #### [facility] [address] [place], [address] Hematocrit (Bld) [Volume fraction] 37.9 % Normal 37-47 [facility] Comment on above: Performed By: #### M 100.505 #### [facility] [address] [place], [address] Hemoglobin (Bld) [Mass/Vol] 12.8 g/dL Normal 12.0-15.0 [facility] Comment on above: Performed By: #### M 100.505 #### [facility] [address] [place], [address] IG% 0.200 Normal 0.0-0.9 [facility] Comment on above: Result Comment: IG% - Immature Granulocytes (promyelocytes, myelocytes and metamyelocytes) > 1% indicates that a LEFT SHIFT is Present. Performed By: #### M 100.505 #### [facility] [address] [place], [address] Lymphocytes/100 WBC (Bld) 49.6 % High 19-41 [facility] Comment on above: Performed By: #### M 100.505 #### [facility] [address] [place], [address] MCH (RBC) [Entitic mass] 30.5 pg Normal 27.0-32.0 [facility] Comment on above: Performed By: #### M 100.505 #### [facility] [address] [place], [address] MCHC (RBC) [Mass/Vol] 33.8 g/dL Normal 32-36 [facility] Comment on above: Performed By: #### M 100.505 #### [facility] [address] [place], [address] MCV (RBC) [Entitic vol] 90.5 fL Normal 81-99 [facility] Comment on above: Performed By: #### M 100.505 #### [facility] [address] [place], [address] Monocytes/100 WBC (Bld) 9.2 % Normal 0-10 [facility] Comment on above: Performed By: #### M 100.505 #### [facility] [address] [place], [address] Neutrophils/100 WBC (Bld) 37.1 % Low 47-70 [facility] Comment on above: Performed By: #### M 100.505 #### [facility] [address] [place], [address] Nucleated RBC (Bld) [#/Vol] 0 10*3/uL Normal 0-5 [facility] Comment on above: Performed By: #### M 100.505 #### [facility] [address] [place], [address] Platelet mean volume (Bld) [Entitic vol] 9.4 fL Normal 6.2-12.0 [facility] Comment on above: Performed By: #### M 100.505 #### [facility] [address] [place], [address] Platelets (Bld) [#/Vol] 230 10*3/uL Normal 150-450 [facility] Comment on above: Performed By: #### M 100.505 #### [facility] [address] [place], [address] RBC (Bld) [#/Vol] 4.19 10*6/uL Low 4.2-5.4 [facility] Comment on above: Performed By: #### M 100.505 #### [facility] [address] [place], [address] RDW SD 43.8 fl Normal 35.1-43.9 [facility] Comment on above: Performed By: #### M 100.505 #### [facility] [address] [place], [address] WBC (Bld) [#/Vol] 4.2 10*3/uL Low 4.4-11.0 [facility] Comment on above: Performed By: #### M 100.505 #### [facility] [address] [place], [address] CNOVon 09-17-2025 [facility] FABIANA ACOSTA ([id number]) 1970 F Date Time Provider Department 09/17/25 9:40 AM [facility] During your visit today, we recorded the following information about you: Pulse Blood pressure Weight Height 56/minute 120/72 77.1 kg 1.625 m Jenny Lebron APRN.HUMBERTO 09/17/2025 10:07 AM Signed This is a 55 year old female who presents today with: Patient presents with: Wellness HISTORY OF PRESENT ILLNESS: Fabiana A Charpia is a 55 year old female. Patient presents with: Wellness The patient is a 55-year-old female with hypothyroidism, presenting for evaluation of persistent midday fatigue and levothyroxine dosage adjustment. Riding e-bike for exercise. PAST MEDICAL HISTORY: PAST MEDICAL HISTORY Diagnosis Date Chlamydia Chronic back pain Compound nevus excised, biopsy Condyloma acuminata Dissecting folliculitis of scalp 10/03/2009 nizoral, clobetasol Endometriosis Fibroadenosis, breast diffuse Genital warts Herniated intervertebral disc of lumbar spine l5-s1 RIGHT Histoplasmosis History of endometrial ablation SAL, BSO; BX EXTENSIVE ADENOMYOSIS, ENDOMETRIOSISLUMBAR DISC DEGEN Leiomyoma of uterus Menometrorrhagia Neuropathy right leg s/p back surgery SHELLY (obstructive sleep apnea) 04/02/2010 PSG: A:H index 5.1events per hour. 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 50mg on Tuesday levocetirizine (XYZAL) 5 mg tablet Take 5 mg by mouth. ipratropium bromide (ATROVENT) 42 mcg (0.06 %) nasal spray Use 2 sprays in the nose four times daily. Magnesium Glycinate (MAG GLYCINATE) 100 mg tab Take 3 tablets by mouth at bedtime as needed (RLS). linaclotide (LINZESS) 145 mcg capsule Take 1 capsule by mouth once daily as needed. Take capsule on an empty stomach at least 30 minutes before a meal at the same time each day. Capsule should be swallowed whole. DO NOT chew or crush No current facility-administered medications for this visit. FAMILY HISTORY Problem Relation Age of Onset Cancer Mother thyroid Heart Mother valve that flips other (Other) Mother SHELLY Glaucoma Mother Osteoporosis Mother Hypertension Brother Hyperlipidemia Brother other (Other) Brother back issues Aneurysm Paternal Grandmother Breast Cancer Paternal Aunt SOCIAL HISTORY[1] REVIEW OF SYSTEMS GENERAL: No weight loss, + malaise, no fevers/chills HEENT: Negative for frequent or significant headaches, No changes in hearing or vision. NECK: Negative for lumps, goiter, pain and significant neck swelling, cervical spine cracks and locks at times RESPIRATORY: Negative for cough, hemoptysis, wheezing, dyspnea or shortness of breath CARDIOVASCULAR: Negative for chest pain, leg swelling, orthopnea, or palpitations GI: No nausea, vomiting, or diarrhea/constipation. No hematochezia/melena. No heartburn or reflux symptoms. : No history of dysuria, frequency or incontinence MUSCULOSKELETAL: Positive for joint pain in hands. SKIN: Negative for lesions, rash, and itching ENDOCRINE: Negative for cold or heat intolerance, polyuria, polydipsia and goiter NEURO: No history of headaches, syncope, paralysis, seizures or tremors MOOD: Negative for depression, anxiety, or suicidal ideation. EXAM: BP 120/72 Pulse (!) 56 Ht 162.5 cm (5' 3.98) Wt 77.1 kg (170 lb) SpO2 98% BMI 29.20 kg/m? PHYSICAL EXAM: GENERAL: NAD, alert and oriented. SKIN: Unremarkable, no rash or skin lesions. HEAD: Normocephalic. OROPHARYNX: Lips, mucosa, and tongue normal, good dentition. No oral lesions noted. NECK: Supple, no lymphadenopathy, normal thyroid, no carotid bruits. LUNGS: Clear to auscultation bilaterally, no wheezes/rhonchi/rales. HEART: Regular rate and rhythm, no murmurs. No ectopy. EXTREMITIES: Normal, no deformities, no skin discoloration, no edema. NEURO: Awake, alert and oriented x3, normal gait, no involuntary motions. LABS: ASSESSMENT/PLAN: 1. Prediabetes - ICD9: 790.29, ICD10: R73.03 (primary diagnosis) Check labs - ALBUMIN/CREATININE RATIO, URINE - HEMOGLOBIN A1C 2. Thyroid cancer (HCC) - ICD9: 193, ICD10: C73 Followed by endocrinology - COMPREHENSIVE (more content not included)... Normal [facility] Metabolic Prof jourdan 09-17-2025 Albumin [Mass/Vol] 4.5 g/dL Normal 3.5-5.0 [facility] Comment on above: Performed By: #### M 100.505 #### [facility] [address] [place], [address] Albumin/Globulin [Mass ratio] 1.9 {ratio} Normal 0.9-2.4 [facility] Comment on above: Performed By: #### M 100.505 #### [facility] [address] [place], [address] ALK PHOS 71 U/L Normal 35-104 [facility] Comment on above: Performed By: #### M 100.505 #### [facility] [address] [place], [address] ALT [Catalytic activity/Vol] 13 U/L Normal <=34 [facility] Comment on above: Performed By: #### M 100.505 #### [facility] [address] [place], [address] AST [Catalytic activity/Vol] 21 U/L Normal <=31 [facility] Comment on above: Performed By: #### M 100.505 #### [facility] [address] [place], [address] Bilirubin [Mass/Vol] 0.48 mg/dL Normal 0.00-1.30 [facility] Comment on above: Performed By: #### M 100.505 #### [facility] [address] [place], [address] BUN/CRE 25.1 RATIO High 10-20 [facility] Comment on above: Performed By: #### M 100.505 #### [facility] [address] [place], [address] Calcium [Mass/Vol] 9.6 mg/dL Normal 7.6-11.0 [facility] Comment on above: Performed By: #### M 100.505 #### [facility] [address] [place], [address] Chloride [Moles/Vol] 106 mmol/L Normal 98-108 [facility] Comment on above: Performed By: #### M 100.505 #### [facility] [address] [place], [address] CO2 [Moles/Vol] 23.7 mmol/L Normal 21.0-32.0 [facility] Comment on above: Performed By: #### M 100.505 #### [facility] [address] [place], [address] Creatinine [Mass/Vol] 0.88 mg/dL Normal 0.70-1.20 [facility] Comment on above: Performed By: #### M 100.505 #### [facility] [address] [place], [address] GAP 9 Normal 5-15 [facility] Comment on above: Performed By: #### M 100.505 #### [facility] [address] [place], [address] GFR/1.73 sq M.predicted among non-blacks MDRD (S/P/Bld) [Vol rate/Area] 79 mL/min/{1.73_m2} Normal >60 [facility] Comment on above: Result Comment: mL/m in/1.73m2 CKD-EPI Creatinine Equation (2020) Performed By: #### M 100.505 #### [facility] [address] [place], [address] Globulin (S) [Mass/Vol] 2.4 g/dL Normal 2.2-4.2 [facility] Comment on above: Performed By: #### M 100.505 #### [facility] [address] [place], [address] Glucose [Mass/Vol] 109 mg/dL High 70-99 [facility] Comment on above: Performed By: #### M 100.505 #### [facility] [address] [place], [place], [address] Potassium [Moles/Vol] 4.9 mmol/L Normal 3.3-5.1 [facility] Comment on above: Performed By: #### M 100.505 #### [facility] [address] [place], [place], [address] Sodium [Moles/Vol] 139 mmol/L Normal 133-145 [facility] Comment on above: Performed By: #### M 100.505 #### [facility] [address] [place], [place], [address] T PROT 6.9 g/dL Normal 5.9-8.4 [facility] Comment on above: Performed By: #### M 100.505 #### [facility] [address] [place], [place], [id number] Urea nitrogen [Mass/Vol] 22 mg/dL High 4-19 [facility] Comment on above: Performed By: #### M 100.505 #### [facility] [address] [place], [place], [address] Endocrinology Visit Reporton 09-17-2025 Endocrinology Visit Report [facility] [address] [place], [place] [address] OFFICE VISIT Date of Service: 09/17/25 MR#: [id number] Acct: [id number] Name: FABIANA ACOSTA DAISY Rep #: [id number] : 1970 Provider: Jluis Burnett Age/Sex: 55/F Location: [facility] Status: Signed Intake Vital Signs 09/18/24 08:01 10/14/24 09:38 09/17/25 07:59 Height 5 ft 3 in 5 ft 3 in 5 ft 3 in Weight: 170 lb 2 oz BMI 30.1 BP 114/81 H Blood Pressure Location Rt brachial Position Sitting Pulse 60 Pulse Source Monitor Pulse Oximetry (%) 98 Oxygen Delivery Method room air Intake Visit Reasons: 1 Y FU Chief Complaint: Thyroid Allergies morphine Allergy (Intermediate, Verified 09/17/25 07:57) vomitting doxycycline Adverse Reaction (Intermediate, Verified 09/17/25 07:57) burning of throat latex Adverse Reaction (Mild, Verified 09/17/25 07:57) Rash Medications ???Medication ???Instructions ???Recorded ???Confirmed ???Type linaclotide 145 mcg capsule 145 mcg PO DAILY PRN 03/08/2408/22 History (Linzess) magnesium glycinate 600 mg PO 09/18/24 09/17/25 Histor y tumeric PO 09/18/24 09/17/25 History ipratropium bromide 21 mcg (0.03 2 spray intranasal BID-TID PRN 09/1409/17/25 Rx %) nasal spray postnasal drainage #30 mL levothyroxine 25 mcg capsule 25 mcg PO .daily, 2 on Sundays09/17/25 Rx (Tirosint) #102 [facility] History Acute otitis media, left Physical exam, pre-employment Premature menopause Vitamin D deficiency Perforated appendicitis Acute appendicitis Thyroid nodule Papillary microcarcinoma of thyroid Guillermo's thyroiditis Thyroid cancer Neuropathy Irritable bowel syndrome Hypoglycemia Back problem Anemia Seasonal allergies Surgical History History of appendectomy Status post laparoscopic appendectomy ( 09/2021) History of knee surgery H/O thyroidectomy History of hysterectomy History of back surgery History of left knee surgery Family History Sister Anesthesia complication Mother Arthritis Osteoporosis Thyroid disorder Mitral valve prolapse Sleep apnea Glaucoma Social History household members: spouse Smoking Status: Former smoker alcohol intake: current alcohol intake frequency: holidays/special occasions only substance use type: does not use what type of physical activity do you participate in: none HPI HPI Chief Complaint: Thyroid Details: FABIANA ACOSTA, is a 55 F who presents to the office today for follow up. History: She has a family history of autoimmune thyroid disease. She was noted by Alli Whitmore PA-C to have a right thyroid nodule in February,. Ultrasound showed a 1 cm thyroid nodule. FNA was suspicious according to patient (I do not have that report). She had partial lobectomy. I do not have operative report or pathology report, but Dr. Garcia's note states there was a 2 mm microcarcinoma in the removed tissue. The patient reports the pathology showed Guillermo's. (It is confusing because there is mention of right lobectomy and isthmusectomy, but clearly that was not done) Ultrasounds in 2019 and 2020: RIGHT LOBE: The patient is status post partial right thyroidectomy. The right lobe of the thyroid gland measures 2.9 cm x 1.1 cm x 1 cm. There is a homogeneous echotexture. There is a 1 cm x 0.8 cm x 0.8 cm well-defined hypoechoic solid nodule in the midportion. This is unchanged. LEFT LOBE: The left lobe of the thyroid gland measures 4.3 cm x 1.8 cm x 1.2 cm. There is a homogeneous echotexture. There are no demonstrated solid, cystic or complex lesions. ISTHMUS: The isthmus measures 2 mm. The regional lymph nodes are normal. Ultrasound 2023: RIGHT LOBE: The right lobe of the thyroid gland measures 3.0 x 0.7 x 1.0 cm. There is a homogeneous echotexture. There is hypoechoic nodule with calcifications causing distal acoustic shadowing in the mid thyroid lobe measuring 0.92 x 0.80 x 0.62 cm. LEFT LOBE: The left lobe of the thyroid gland measures 4.2 x 1.6 x 1.3 cm. There is a homogeneous echotexture. There are no demonstrated solid, cystic or complex lesions. ISTHMUS: The isthmus measures 0.3 cm. US/Thyroid IMPRESSION: 1. Hypoechoic nodule with calcifications in the right mid thyroid lobe measuring 0.92 x 0.80 x 0.62 cm, previously 0.91 x 0.88 x 0.74 cm. This nodule is highly suspicious. Recommend follow-up thyroid ultrasounds annually for 3 years. 2. Normal left thyroid lobe and thyroid i (more content not included)... Normal [facility] Hemoglobin A1con 09-17-2025 HbA1c (Bld) [Mass fraction] 5.7 % Normal <=5.6 [facility] Comment on above: Result Comment: Norm al < 5.7 % Prediabetic 5.7 - 6.4 % Diabetic >or= 6.5 % Please note range changes. Performed By: #### M 100.505 #### [facility] [address] [place], [address] Microalb:Creat Ratio,Random URon 09-17-2025 Creatinine [Mass/Vol] 34.20 mg/dL Normal 28.00-217.00 [facility] Comment on above: Performed By: #### M 100.505 #### [facility] [address] [place], [address] MALB:CREAT UNABLE TO CALCULATE Normal <30 mg/g CRE [facility] Comment on above: Performed By: #### M 100.505 #### [facility] [address] [place], [address] MICROALBUMIN,UR < 12.0 Normal <20 mg/L [facility] Comment on above: Performed By: #### M 100.505 #### [facility] [address] [place], [address] Vitamin B12on 09-17-2025 Cobalamin (Vitamin B12) [Mass/Vol] 342 pg/mL Normal 180-914 [facility] Comment on above: Performed By: #### M 100.505 #### [facility] [address] [place], [address] Vitamin D,25 Hydroxyon 09-17 Vitamin D 25-OH 24.8 ng/mL Low 30-100 [facility] Comment on above: Result Comment: Aydee min D Status Deficiency: <20 ng/mL (50nmol/L) Insufficiency: 20-30 ng/mL (50-75 nmol/L) Sufficiency: 30-100 ng/mL (75-250 nmol/L) Toxicity: >100 ng/mL (>250 nmol/L) Performed By: #### M 100.505 #### [facility] [address] [place], [address] T4 Free Directon 09-13-2025 T4 FREE DIRECT 1.10 ng/dL Normal 0.76-1.46 [facility] Comment on above: Performed By: #### M 100.505 #### [facility] [address] [place], [address] Thyroid Stim Hormone (TSH)on 09-13-2025 TSH 3.430 uIU/mL Normal 0.300-4.200 [facility] Comment on above: Performed By: #### M 100.505 #### [facility] [address] [place], [address] COVID 19 AG RAPID (RN COLLEC T)on 09-09-2025 SARS-CoV-2 (COVID-19) RNA JOHN+probe Ql (Unsp spec) SARS-CoV-2 (COVID 19) Negative RAPID METHOD BinaxNow COVID19 Ag Card Normal [facility] Comment on above: Performed By: #### M 100.505 #### [facility] [address] [place], [address] COVID 19 AG RAPID (RN COLLEC T)on 09-04-2025 SARS-CoV-2 (COVID-19) RNA JOHN+probe Ql (Unsp spec) *Negative results from patients with symptom onset beyond five days should be treated as presumptive and confirmed by a molecular assay if clinically necessary. Negative results should not be used as the sole basis for treatment or for patient management. SARS-CoV-2 Ag Resp Ql IA.rapid *Positive results do not differentiate between SARS-CoV and SARS-CoV-2. If differentiation of the specific SARS virus is desired an additional sample and an additional order is required. SARS-CoV-2 Ag Resp Ql IA.rapid * This test has not been FDA cleared or approved; the test has been authorized by FDA under an Emergency Use Authorization (EAU) for use by laboratories certified under CLIA that meet the requirements to perform moderate, high, or waived complexity tests. SARS-CoV-2 Ag Resp Ql IA.rapid Normal Reference Range: Negative SARS-CoV-2 (COVID 19) Negative RAPID METHOD BinaxNow COVID19 Ag Card [facility] Comment on above: Performed By: #### M 100.505 #### [facility] [address] [place] [address]. [place], [place], [id number] COVID 19 AG RAPID (RN COLLEC T)on 08-30-2025 SARS-CoV-2 (COVID-19) RNA JOHN+probe Ql (Unsp spec) SARS-CoV-2 (COVID 19) Negative RAPID METHOD BinaxNow COVID19 Ag Card [facility] Comment on above: Performed By: #### M 100.505 #### [facility] [address] [place] [address]. [place], [place], [id number] COVID 19 AG RAPID (RN COLLEC T)on 08-26-2025 SARS-CoV-2 (COVID-19) RNA JOHN+probe Ql (Unsp spec) *Negative results from patients with symptom onset beyond five days should be treated as presumptive and confirmed by a molecular assay if clinically necessary. Negative results should not be used as the sole basis for treatment or for patient management. SARS-CoV-2 Ag Resp Ql IA.rapid *Positive results do not differentiate between SARS-CoV and SARS-CoV-2. If differentiation of the specific SARS virus is desired an additional sample and an additional order is required. SARS-CoV-2 Ag Resp Ql IA.rapid * This test has not been FDA cleared or approved; the test has been authorized by FDA under an Emergency Use Authorization (EAU) for use by laboratories certified under CLIA that meet the requirements to perform moderate, high, or waived complexity tests. SARS-CoV-2 Ag Resp Ql IA.rapid Normal Reference Range: Negative SARS-CoV-2 (COVID 19) Negative RAPID METHOD BinaxNow COVID19 Ag Card [facility] Comment on above: Performed By: #### M 100.505 #### [facility] [address] [place], [place], [id number] COVID 19 AG RAPID (RN COLLEC T)on 08-23-2025 SARS-CoV-2 (COVID-19) RNA JOHN+probe Ql (Unsp spec) SARS-CoV-2 (COVID 19) Negative RAPID METHOD BinaxNow COVID19 Ag Card Normal [facility] Comment on above: Performed By: #### M 100.505 #### [facility] [address] [place], [address] COVID 19 AG RAPID (RN COLLEC T)on 07-15-2025 SARS-CoV-2 (COVID-19) RNA JOHN+probe Ql (Unsp spec) *Negative results from patients with symptom onset beyond five days should be treated as presumptive and confirmed by a molecular assay if clinically necessary. Negative results should not be used as the sole basis for treatment or for patient management. SARS-CoV-2 Ag Resp Ql IA.rapid *Positive results do not differentiate between SARS-CoV and SARS-CoV-2. If differentiation of the specific SARS virus is desired an additional sample and an additional order is required. SARS-CoV-2 Ag Resp Ql IA.rapid * This test has not been FDA cleared or approved; the test has been authorized by FDA under an Emergency Use Authorization (EAU) for use by laboratories certified under CLIA that meet the requirements to perform moderate, high, or waived complexity tests. SARS-CoV-2 Ag Resp Ql IA.rapid Normal Reference Range: Negative SARS-CoV-2 (COVID 19) Negative RAPID METHOD BinaxNow COVID19 Ag Card Normal [facility] Comment on above: Performed By: #### M 100.505 #### [facility] [address] [place], [address] COVID-19 virus antigen assay Ordered By: Rafa Zhao on 07-15-2025 SARS-CoV-2 (COVID-19) Ag IA.rapid Ql (Resp) [facility] CNPTorri 03-15-2025 [facility] RENALDOFABIANA AUGUSTIN ([id number]) 1970 F Date Time Provider Department 03/15/25 JENNY LEBRON During your visit today, we recorded the following information about you: Oly Lee MA 03/15/2025 9:56 AM Signed Scan on 03/14/2025 10:49 AM by Provider, External, LEANNC: CBC Jenny Lebron APRN.ELECTRICAL DESIGNER 03/15/2025 10:16 AM Signed Red blood count slightly decreased. Will monitor. Cholesterol levels look okay. Liver function normal. Kidney function normal. Magnesium normal. Thyroid level normal. B12 normal. No change needed. Codie Goldberg RN 03/15/2025 10:30 AM Signed Pt called and is notified of providers results and instructions. Pt voices understanding. Codie Goldberg RN Allergies As of Date: 03/15/2025 Noted Allergy Reaction DOXYCYCLINE 08/16/2018 14 - Other: See Comments Comments: Burned throat MORPHINE 04/27/2019 8 - GI Upset Date Reviewed: 09/13/2024 Reviewed by: Jenny Lebron, JOHNY.ELECTRICAL DESIGNER - Fully Assessed Reason for Visit: Results [95] Prescriptions as of 03/15/2025 - TIROSINT 25 mcg cap Take 25 mcg by mouth once daily. - levocetirizine (XYZAL) 5 mg tablet Take 5 mg by mouth. - ipratropium bromide (ATROVENT) 42 mcg (0.06 %) nasal spray Use 2 sprays in the nose four times daily. - Magnesium Glycinate (MAG GLYCINATE) 100 mg tab Take 3 tablets by mouth at bedtime as needed (RLS). - linaclotide (LINZESS) 145 mcg capsule Take 1 capsule by mouth once daily as needed. Take capsule on an empty stomach at least 30 minutes before a meal at the same time each day. Capsule should be swallowed whole. DO NOT chew or crush - ibuprofen (MOTRIN) 800 mg tablet Take 1 tablet by mouth every 8 hours as needed for pain. Problem List As Of Date 03/15/2025 Noted Resolved Thyroid nodule [E04.1] 03/02/2019 08/31/2019 Herniated intervertebral disc of lumbar spine [* Spondyloarthropathy (HCC) [M47.819] Reactive depression [F32.9] 04/13/2019 Thyroid cancer (HCC) [C73] Elevated TSH [R79.89] 03/03/2020 Abdominal pain, right lateral [R10.9] 10/07/2021 Restless leg syndrome [G25.81] 09/01/2023 Mass overlapping multiple quadrants of left eva*09/30/2023 Encounter Status:Closed by CODIE GOLDBERG on 03/15/25 Normal [facility] Hemoglobin A1con 03-15-2025 HbA1c (Bld) [Mass fraction] 6.2 % High <=5.6 [facility] Comment on above: Result Comment: Norm al < 5.7 % Prediabetic 5.7 - 6.4 % Diabetic >or= 6.5 % Please note range changes. Performed By: #### M 100.505 #### [facility] [address] [place], [address] Thyroglobulin w/Anti-TG ABon 03-15-2025 Anti-TG AB < 1.0 Normal 0.0-0.9 [facility] Comment on above: Result Comment: Thyr oglobulin Antibody measured by [facility] Methodology It should be noted that the presence of thyroglobulin antibodies may not be pathogenic nor diagnostic, especially at very low levels. The assay veterans contact representative has found that four percent of individuals without evidence of thyroid disease or autoimmunity will have positive TgAb levels up to 4 IU/mL. Performed By: #### M 100.505 #### [facility] [address] [place], [address] THYROGLOB QUANT 12.5 ng/mL Normal 1.5-38.5 [facility] Comment on above: Result Comment: Acco rding to the National Academy of Clinical Biochemistry, the reference interval for Thyroglobulin (TG) should be related to euthyroid patients and not for patients who underwent thyroidectomy. TG reference intervals for these patients depend on the residual mass of the thyroid tissue left after surgery. Establishing a post-operative baseline is recommended. The assay limit of quantitation is 0.1 ng/mL Thyroglobulin measured by [facility] Immunometric Assay Performed at: [address] [id number] Telegraph Service Clerk: Gurvinder Durant PhD, Phone: [phone] Performed By: #### M 100.505 #### [facility] [address] [place], [address] CBC W/Diff, Automatedon 04-2 Absolute Lymph 1.77 X10 3/uL Normal 0.83-4.51 [facility] Comment on above: Performed By: #### M 100.505 #### [facility] [address] [place], [address] Absolute Neut 2.0 X10 3/uL Normal 2.0-7.7 [facility] Comment on above: Performed By: #### M 100.505 #### [facility] [address] [place], [address] Basophils/100 WBC (Bld) 1.1 % High 0-1 [facility] Comment on above: Performed By: #### M 100.505 #### [facility] [address] [place], [address] Eosinophils/100 WBC (Bld) 1.8 % Normal 0-5 [facility] Comment on above: Performed By: #### M 100.505 #### [facility] [address] [place], [address] Erythrocyte distribution width (RBC) [Ratio] 13.4 % Normal 11.6-14.6 [facility] Comment on above: Performed By: #### M 100.505 #### [facility] [address] [place], [address] Hematocrit (Bld) [Volume fraction] 36.7 % Low 37-47 [facility] Comment on above: Performed By: #### M 100.505 #### [facility] [address] [place], [address] Hemoglobin (Bld) [Mass/Vol] 12.1 g/dL Normal 12.0-15.0 [facility] Comment on above: Performed By: #### M 100.505 #### [facility] [address] [place], [address] IG% 0.200 Normal 0.0-0.9 [facility] Comment on above: Result Comment: IG% - Immature Granulocytes (promyelocytes, myelocytes and metamyelocytes) > 1% indicates that a LEFT SHIFT is Present. Performed By: #### M 100.505 #### [facility] [address] [place], [address] Lymphocytes/100 WBC (Bld) 40.6 % Normal 19-41 [facility] Comment on above: Performed By: #### M 100.505 #### [facility] [address] [place], [address] MCH (RBC) [Entitic mass] 29.5 pg Normal 27.0-32.0 [facility] Comment on above: Performed By: #### M 100.505 #### [facility] [address] [place], [address] MCHC (RBC) [Mass/Vol] 33.0 g/dL Normal 32-36 [facility] Comment on above: Performed By: #### M 100.505 #### [facility] [address] [place], [address] MCV (RBC) [Entitic vol] 89.5 fL Normal 81-99 [facility] Comment on above: Performed By: #### M 100.505 #### [facility] [address] [place], [address] Monocytes/100 WBC (Bld) 10.1 % High 0-10 [facility] Comment on above: Performed By: #### M 100.505 #### [facility] [address] [place], [address] Neutrophils/100 WBC (Bld) 46.2 % Low 47-70 [facility] Comment on above: Performed By: #### M 100.505 #### [facility] [address] [place], [address] Nucleated RBC (Bld) [#/Vol] 0 10*3/uL Normal 0-5 [facility] Comment on above: Performed By: #### M 100.505 #### [facility] [address] [place], [address] Platelet mean volume (Bld) [Entitic vol] 9.2 fL Normal 6.2-12.0 [facility] Comment on above: Performed By: #### M 100.505 #### [facility] [address] [place], [address] Platelets (Bld) [#/Vol] 250 10*3/uL Normal 150-450 [facility] Comment on above: Performed By: #### M 100.505 #### [facility] [address] [place], [address] RBC (Bld) [#/Vol] 4.10 10*6/uL Low 4.2-5.4 [facility] Comment on above: Performed By: #### M 100.505 #### [facility] [address] [place], [address] RDW SD 44.0 fl High 35.1-43.9 [facility] Comment on above: Performed By: #### M 100.505 #### [facility] [address] [place], [address] WBC (Bld) [#/Vol] 4.4 10*3/uL Normal 4.4-11.0 [facility] Comment on above: Performed By: #### M 100.505 #### [facility] [place], [address] CNOVon 03-14-2025 CNOV Office Visit (FAMPWS ) FABIANA ACOSTA ([id number]) 1970 F Date Time Provider Department 03/14/25 8:40 AM [facility] During your visit today, we recorded the following information about you: Pulse Blood pressure Weight 68/minute 112/58 77.1 kg Jenny Lebron, ADVERTISING OPERATIONS COORDINATOR.ELECTRICAL DESIGNER 03/14/2025 9:25 AM Signed This is a 54 year old female who presents today with: Patient presents with: 6 Month Exam Fatigue HISTORY OF PRESENT ILLNESS: Fabiana Acosta is a 54 year old female. Patient presents with: 6 Month Exam Fatigue Something is not right. Extremely tired. Thyroid level in Nov. Ok. Going to work in the last 2 months and falling asleep at computer. Takes Xyzal- thought that might be doing it. Switch to night, didn't help. Before going to [place], early February- felt really tired. Then had herpes Simplex ordered. Mikenel used. Seen in urgent care for allergy induced laryngitis. Took steroid. Then had swollen glands under left arm- whole arm aches. Abdominal cramps. Watery diarrhea. Left arm hurt so bad, she couldn't touch it. That occurred on . 24 hours later, pain better. Arm still feels tender. Feels off. Foggy. Ate a lot of sugar. Slept 12 hours on . Also brings with her 's blood sugars to address. PAST MEDICAL HISTORY: PAST MEDICAL HISTORY Diagnosis Date Chlamydia Chronic back pain Compound nevus excised, biopsy Condyloma acuminata Dissecting folliculitis of scalp 10/03/2009 nizoral, clobetasol Endometriosis Fibroadenosis, breast diffuse Genital warts Herniated intervertebral disc of lumbar spine l5-s1 RIGHT Histoplasmosis History of endometrial ablation SAL, BSO; BX EXTENSIVE ADENOMYOSIS, ENDOMETRIOSISLUMBAR DISC DEGEN Leiomyoma of uterus Menometrorrhagia Neuropathy right leg s/p back surgery SHELLY (obstructive sleep apnea) 04/02/2010 PSG: A:H index 5.1events per hour. 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 levocetirizine (XYZAL) 5 mg tablet Take 5 mg by mouth. ipratropium bromide (ATROVENT) 42 mcg (0.06 %) nasal spray Use 2 sprays in the nose four times daily. ibuprofen (MOTRIN) 800 mg tablet Take 1 tablet by mouth every 8 hours as needed for pain. linaclotide (LINZESS) 145 mcg capsule Take 1 capsule by mouth once daily as needed. Take capsule on an empty stomach at least 30 minutes before a meal at the same time each day. Capsule should be swallowed whole. DO NOT chew or crush (Patient not taking: Reported on 03/14/2025) gabapentin (NEURONTIN) 300 mg capsule Take 1 capsule by mouth daily at bedtime. No current facility-administered medications for this visit. FAMILY HISTORY Problem Relation Age of Onset Cancer Mother thyroid Heart Mother valve that flips other (Other) Mother SHELLY Glaucoma Mother Osteoporosis Mother Hypertension Brother Hyperlipidemia Brother other (Other) Brother back issues Aneurysm Paternal Grandmother Breast Cancer Paternal Aunt Social History Tobacco Use Smoking status: Every Day Smokeless tobacco: Never REVIEW OF SYSTEMS GENERAL: No weight loss- some gain, + malaise or fevers/chills HEENT: + significant temples with migraine headaches- light sensitive, No changes in hearing, slight change vision. NECK: Negative for lumps, goiter, pain and significant neck swelling now but had on Tuesday and left axillae RESPIRATORY: Some cough from drainage, no hemoptysis, no wheezing, no dyspnea or shortness of breath CARDIOVASCULAR: Negative for chest pain, leg swelling, orthopnea, or palpitations GI: No nausea, no vomiting, Tuesday diarrhea/ no constipation. No hematochezia/melena. Occ heartburn or reflux symptoms. : No history of dysuria, frequency or incontinence MUSCULOSKELETAL: Always joint pain. SKIN: Negative for lesions, rash, and itching ENDOCRINE: Negative for cold or heat intolerance, polyuria, + polydipsia and goiter NEURO: No history of headaches, syncope, paralysis, seizures or tremors MOOD: Negative for depression, anxiety, or suicidal ideation. 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 PH (more content not included)... Normal [facility] 03-14-2025 [facility] Telephone ([facility]) FABIANA ACOSTA ([id number]) 1970 F Date Time Provider Department 03/14/25 JENNY LEBRON [facility] During your visit today, we recorded the following information about you: Jenny Lebron APRN.[facility] 03/14/2025 4:54 PM Signed Labs thus far today: Total cholesterol 206, triglycerides 127, HDL 48, AST 22, ALT 16, alkaline phosphatase 71 BUN 16, creatinine 0.92 Sodium 139, potassium 4.4 Magnesium 2.3 TSH 2.37 B12 468 Free T41.1 Allergies As of Date: 03/14/2025 Noted Allergy Reaction DOXYCYCLINE 08/16/2018 14 - Other: See Comments Comments: Burned throat MORPHINE 04/27/2019 8 - GI Upset Date Reviewed: 09/13/2024 Reviewed by: Jenny Lebron APRN.ELECTRICAL DESIGNER - Fully Assessed Prescriptions as of 03/14/2025 - TIROSINT 25 mcg cap Take 25 mcg by mouth once daily. - levocetirizine (XYZAL) 5 mg tablet Take 5 mg by mouth. - ipratropium bromide (ATROVENT) 42 mcg (0.06 %) nasal spray Use 2 sprays in the nose four times daily. - Magnesium Glycinate (MAG GLYCINATE) 100 mg tab Take 3 tablets by mouth at bedtime as needed (RLS). - linaclotide (LINZESS) 145 mcg capsule Take 1 capsule by mouth once daily as needed. Take capsule on an empty stomach at least 30 minutes before a meal at the same time each day. Capsule should be swallowed whole. DO NOT chew or crush - ibuprofen (MOTRIN) 800 mg tablet Take 1 tablet by mouth every 8 hours as needed for pain. Problem List As Of Date 03/14/2025 Noted Resolved Thyroid nodule [E04.1] 03/02/2019 08/31/2019 Herniated intervertebral disc of lumbar spine [* Spondyloarthropathy (HCC) [M47.819] Reactive depression [F32.9] 04/13/2019 Thyroid cancer (HCC) [C73] Elevated TSH [R79.89] 03/03/2020 Abdominal pain, right lateral [R10.9] 10/07/2021 Restless leg syndrome [G25.81] 09/01/2023 Mass overlapping multiple quadrants of left eva*09/30/2023 Encounter Status:Closed by JENNY LEBRON on 03/14/25 Normal [facility] Metabolic Prof ilon 03-14-2025 Albumin [Mass/Vol] 4.2 g/dL Normal 3.5-5.0 [facility] Comment on above: Performed By: #### M 100.505 #### [facility] [address] [place], [address] Albumin/Globulin [Mass ratio] 1.6 {ratio} Normal 0.9-2.4 [facility] Comment on above: Performed By: #### M 100.505 #### [facility] [address] [place], [address] ALK PHOS 71 U/L Normal 35-104 [facility] Comment on above: Performed By: #### M 100.505 #### [facility] [address] [place], [address] ALT [Catalytic activity/Vol] 16 U/L Normal <=34 [facility] Comment on above: Performed By: #### M 100.505 #### [facility] [address] [place], [address] AST [Catalytic activity/Vol] 22 U/L Normal <=31 [facility] Comment on above: Performed By: #### M 100.505 #### [facility] [address] [place], [address] Bilirubin [Mass/Vol] 0.49 mg/dL Normal 0.00-1.30 [facility] Comment on above: Performed By: #### M 100.505 #### [facility] [address] [place], [address] BUN/CRE 17.4 RATIO Normal 10-20 [facility] Comment on above: Performed By: #### M 100.505 #### [facility] [address] [place], [address] Calcium [Mass/Vol] 8.9 mg/dL Normal 7.6-11.0 [facility] Comment on above: Performed By: #### M 100.505 #### [facility] [address] [place], [address] Chloride [Moles/Vol] 106 mmol/L Normal 98-108 [facility] Comment on above: Performed By: #### M 100.505 #### [facility] [address] [place], [address] CO2 [Moles/Vol] 22.5 mmol/L Normal 21.0-32.0 [facility] Comment on above: Performed By: #### M 100.505 #### [facility] [address] [place], [address] Creatinine [Mass/Vol] 0.92 mg/dL Normal 0.70-1.20 [facility] Comment on above: Performed By: #### M 100.505 #### [facility] [address] [place], [address] GAP 10 Normal 5-15 [facility] Comment on above: Performed By: #### M 100.505 #### [facility] [address] [place], [address] GFR/1.73 sq M.predicted among non-blacks MDRD (S/P/Bld) [Vol rate/Area] 75 mL/min/{1.73_m2} Normal >60 [facility] Comment on above: Result Comment: mL/m in/1.73m2 CKD-EPI Creatinine Equation (2020) Performed By: #### M 100.505 #### [facility] [address] [place], [address] Globulin (S) [Mass/Vol] 2.6 g/dL Normal 2.2-4.2 [facility] Comment on above: Performed By: #### M 100.505 #### [facility] [address] [place], [address] Glucose [Mass/Vol] 91 mg/dL Normal 70-99 [facility] Comment on above: Performed By: #### M 100.505 #### [facility] [address] [place], [address] Potassium [Moles/Vol] 4.4 mmol/L Normal 3.3-5.1 [facility] Comment on above: Performed By: #### M 100.505 #### [facility] [address] [place], [address] Sodium [Moles/Vol] 139 mmol/L Normal 133-145 [facility] Comment on above: Performed By: #### M 100.505 #### [facility] [address] [place], [address] T PROT 6.8 g/dL Normal 5.9-8.4 [facility] Comment on above: Performed By: #### M 100.505 #### [facility] [address] [place], [address] Urea nitrogen [Mass/Vol] 16 mg/dL Normal 4-19 [facility] Comment on above: Performed By: #### M 100.505 #### [facility] [address] [place], [address] Lipid Profileon 03-14-2025 CHOL:HDL 4.27 Normal [facility] Comment on above: Performed By: #### M 100.505 #### [facility] [address] [place], [address] Cholesterol [Mass/Vol] 206 mg/dL High <=200 [facility] Comment on above: Result Comment: Chol esterol level, Desirable <200 mg/dL Borderline high cholesterol 200-239 mg/dL High cholesterol >=240 mg/dL Recommendations of the NCEP Adult Treatment Panel for the following risk-cutoff thresholds for the [place] population. Performed By: #### M 100.505 #### [facility] [address] [place], [address] Cholesterol in HDL [Mass/Vol] 48 mg/dL Normal [facility] Comment on above: Result Comment: Mariel onal Cholesterol Education Program (NCEP) guidelines: <40 mg/dL: Low HDL-cholesterol (major risk factor for CHD) >= 60 mg/dL: High HDL-cholesterol (negative risk factor for CHD) HDL-cholesterol is affected by a number of factors, e.g. smoking, exercise, hormones, sex and age. Performed By: #### M 100.505 #### [facility] [address] [place], [address] Cholesterol in LDL [Mass/Vol] 132 mg/dL Normal [facility] Comment on above: Result Comment: Bord ffznga=672-335 mg/dL Higher Tovt=391 mg/dL or greater Performed By: #### M 100.505 #### [facility] [address] [place], [address] Cholesterol in VLDL [Mass/Vol] 25 mg/dL Normal 5-40 [facility] Comment on above: Performed By: #### M 100.505 #### [facility] [address] [place], [address] Triglyceride [Mass/Vol] 127 mg/dL Normal [facility] Comment on above: Result Comment: The drugs N-Acetylcysteine and Metamizole may falsely depress this assay. Normal range: <150 mg/dL Borderline High: 150-199 mg/dL High: 200-499 mg/dL Very High: >500 mg/dL Performed By: #### M 100.505 #### [facility] [address] [place], [place], [address] Magnesiumon 03-14-2025 Magnesium [Mass/Vol] 2.3 mg/dL High 1.5-2.2 [facility] Comment on above: Performed By: #### M 100.505 #### [facility] [address] [place], [address] T4 Free Directon 03-14-2025 T4 FREE DIRECT 1.10 ng/dL Normal 0.76-1.46 [facility] Comment on above: Performed By: #### M 100.505 #### [facility] [address] [place], [address] Thyroid Stim Hormone (TSH)on 03-14-2025 TSH 2.370 uIU/mL Normal 0.300-4.200 [facility] Comment on above: Performed By: #### M 100.505 #### [facility] [address] [place], [place], [address] Vitamin B12on 03-14-2025 Cobalamin (Vitamin B12) [Mass/Vol] 468 pg/mL Normal 180-914 [facility] Comment on above: Performed By: #### M 100.505 #### [facility] [address] [place], [place], [address] Urgent Care Visit Reporton 0 02-28-2025 Urgent Care Visit Report [facility] [address], [address] [place], [place] [address] OFFICE VISIT Date of Service: 02/28/25 MR#: [id number] Acct: [id number] Name: FABIANA ACOSTA Rep #: [id number] : 1970 Provider: JOSE Berkowitz Age/Sex: 54/F Location[place] [facility] Status: Signed Intake Vital Signs 10/14/24 09:38 02/28/25 06:44 Height 5 ft 3 in BP 110/68 Blood Pressure Location Lt brachial Position Sitting Respiration 15 Pulse 74 Pulse Source NIBP Temp 98.2 F Temp Source Oral Pulse Oximetry (%) 97 Oxygen Delivery Method room air Intake Visit Reasons: COUGH, SORE THROAT Chief Complaint: cough, chest congest, mucus, cold sores Hog Stomach Preparer Required: No Is patient in pain?: No Allergies morphine Allergy (Intermediate, Verified 02/28/25 06:45) vomitting doxycycline Adverse Reaction (Intermediate, Verified 02/28/25 06:45) burning of throat latex Adverse Reaction (Mild, Verified 02/28/25 06:45) Rash Is last menstrual period known: No Post menopausal: No Patient : No Have you fallen in the past year?: No Nurse's Note: cough, chest congest, mucus, cold sores x 4 days. negative home covid test yesterday. states she feels fine, just so much mucus, and I cant talk PFSH Medical History Acute otitis media, left Physical exam, pre-employment Premature menopause Vitamin D deficiency Perforated appendicitis Acute appendicitis Thyroid nodule Papillary microcarcinoma of thyroid Guillermo's thyroiditis Thyroid cancer Neuropathy Irritable bowel syndrome Hypoglycemia Back problem Anemia Seasonal allergies Surgical History History of appendectomy Status post laparoscopic appendectomy ( 09/2021) History of knee surgery H/O thyroidectomy History of hysterectomy History of back surgery History of left knee surgery Family History Sister Anesthesia complication Mother Arthritis Osteoporosis Thyroid disorder Mitral valve prolapse Sleep apnea Glaucoma Social History household members: spouse Smoking Status: Former smoker alcohol intake: current alcohol intake frequency: holidays/special occasions only substance use type: does not use what type of physical activity do you participate in: none HPI HPI Chief Complaint: cough, chest congest, mucus, cold sores Details: FABIANA ACOSTA, is a 54 F who presents to the office today for complaint of cough, congestion, loss of voice and cold sores recently. Patient states that she was away on vacation and had a loss of voice just prior to that which has continued for the past 5 days. Patient states she is also started with more congestion in her upper chest in the past 2 days. She denies nausea, vomiting or diarrhea. No hemoptysis, shortness of breath or difficult breathing. No fever, chills, sweats. No loss of taste or smell. No other associated symptoms or alleviating/aggravating factors. ROS Const Constitutional: No other (As above) Exam Const General: cooperative and well developed HENWV Head: normal to inspection and atraumatic Ears: hearing grossly normal bilaterally Nose: nasal discharge clear Face and sinus: normal facial exam Mouth: oral mucosae normal Throat: abnormal tonsil bilaterally hypertrophy 1+ Resp Effort Inspection: normal respiratory effort and no audible wheezes Auscultation: Bilateral: Clear to Auscultation Cardio Rate: regular rate Rhythm: regular rhythm Neuro General: patient alert Psych Appearance: grossly normal Mental Status: mental status grossly normal Coding Level of Care Code Off vis,est,level 3 Diagnoses Laryngitis J04.0 Assessment and Plan Assessment and Plan (1) Laryngitis: Status: Acute Plan: Atrovent and Medrol Dosepak as prescribed today. Encouraged to get plenty of rest, drink lots of clear liquids, and use Tylenol or Ibuprofen (unless contraindicated) for fever and comfort. Patient also educated on other symptomatic management techniques. To be seen in 7-10 days if no improvement; sooner if worsening of symptoms. Patient advised of potential red flags and when appropriate to report to the ED. Patient verbalized understanding and agreement with all the above. Medications: New ipratropium bromide administer into each nostril 2 sprays intranasal BID-TID PRN 30 mL 0RF postnasal drainage methylprednisolone (Medrol (Quinton)) 4 mg PO PER PKG DIR 6 days 21 tabs 0RF Clinical Quality Measures Falls Risk Screening/Assistive Devices Have you fallen in the past year?: No 02/28/25 0657 Date Bam (more content not included)... Normal [facility] Thyroidon 02-21-2025 Thyroid [facility] [address] [place], [place] [address] Thyroid MR#: [id number] Acct: [id number] Name: FABIANA ACOSTA DAISY Rep #: [id number] : 1970 F 54 From: Lashawn Flaherty nd, MD PCP: Jenny Lebron, MINER HELPER Status: REG CLI Study: Thyroid Date of Exam: 02/21/25 Exam# [id number] Ordering Dr: Isac Michelle MD PROCEDURE: THYROID 02/21/2025 REASON FOR EXAM: Thyroid nodules, COMPARE 2023. History of prior partial right hemithyroidectomy. TECHNIQUE: Thyroid ultrasound COMPARISON: No prior comparison available. FINDINGS: Right thyroid lobe measures 2.7 x 0.6 x 0.7 cm. Left thyroid lobe measures 4.4 x 1.6 x 1.4 cm. Isthmus thickness is0.2 cm. Thyroid Size: Normal Background Echotexture: Homogeneous Thyroid Nodules: Right inferior thyroid nodule measuring 0.8 x 0.6 x 0.6 cm, mixed cystic and solid, isoechoic, wider than tall, ill-defined margins with peripheral calcification. TR-4. US/Thyroid IMPRESSION: Right TR-4 thyroid nodule, which meets ACR TI-RADS criteria for 1 year follow-up. Reading Location: [id number] CC: TOMAS Lebron; Dr. Isac Michelle MD Cultural Historian: Signed Normal [facility] COVID 19 AG RAPID (RN NELLYC Ivis)on 01-09-2025 SARS-CoV-2 (COVID-19) RNA JOHN+probe Ql (Unsp spec) *Negative results from patients with symptom onset beyond five days should be treated as presumptive and confirmed by a molecular assay if clinically necessary. Negative results should not be used as the sole basis for treatment or for patient management. SARS-CoV-2 Ag Resp Ql IA.rapid *Positive results do not differentiate between SARS-CoV and SARS-CoV-2. If differentiation of the specific SARS virus is desired an additional sample and an additional order is required. SARS-CoV-2 Ag Resp Ql IA.rapid * This test has not been FDA cleared or approved; the test has been authorized by FDA under an Emergency Use Authorization (EAU) for use by laboratories certified under CLIA that meet the requirements to perform moderate, high, or waived complexity tests. SARS-CoV-2 Ag Resp Ql IA.rapid Normal Reference Range: Negative SARS-CoV-2 (COVID 19) Negative RAPID METHOD BinaxNow COVID19 Ag Card Normal [facility] Comment on above: Performed By: #### M 100.505 #### [facility] [place], [address] SARS-CoV-2 (COVID-19) Ag IA. rapid Ql (Resp)Ordered By: Rafa Zhao on 01-09-2025 SARS-CoV-2 Antigen (Rapid) [facility] COVID 19 AG RAPID (RN COLLEC T)on 01-02-2025 SARS-CoV-2 (COVID-19) RNA JOHN+probe Ql (Unsp spec) *Negative results from patients with symptom onset beyond five days should be treated as presumptive and confirmed by a molecular assay if clinically necessary. Negative results should not be used as the sole basis for treatment or for patient management. SARS-CoV-2 Ag Resp Ql IA.rapid *Positive results do not differentiate between SARS-CoV and SARS-CoV-2. If differentiation of the specific SARS virus is desired an additional sample and an additional order is required. SARS-CoV-2 Ag Resp Ql IA.rapid * This test has not been FDA cleared or approved; the test has been authorized by FDA under an Emergency Use Authorization (EAU) for use by laboratories certified under CLIA that meet the requirements to perform moderate, high, or waived complexity tests. SARS-CoV-2 Ag Resp Ql IA.rapid Normal Reference Range: Negative SARS-CoV-2 (COVID 19) Negative RAPID METHOD BinaxNow COVID19 Ag Card Normal [facility] Comment on above: Performed By: #### M 100.505 #### [facility] [address] [place], [place], [address] SARS-CoV-2 (COVID-19) Ag IA. rapid Ql (Resp)Ordered By: Rafa Zhao on 01-02-2025 SARS-CoV-2 Antigen (Rapid) [facility] Glucoseon 12-07-2024 Glucose [Mass/Vol] 113 mg/dL High 74-106 [facility] Comment on above: Result Comment: Fast ing Glucose result from 100 to 125 mg/dL suggests IMPAIRED HOMEOSTASIS per A.D.A. criteria. Performed By: #### L 501.0100, L500.4100 #### [facility] [address] [place], [place], [id number] Glucose measurementOrdered B y: Jenny Lebron on 12-07-2024 Glucose [Mass/Vol] 113 mg/dL High 74-106 [facility] Comment on above: Fasting Glucose resu lt from 100 to 125 mg/dL suggests IMPAIRED HOMEOSTASIS per A.D.A. criteria. High density lipoprotein (HD L) measurementOrdered By: Jenny Lebron on 12-07-2024 Cholesterol in HDL [Mass/Vol] 64 mg/dL >40 [facility] Comment on above: The drugs N-Acetylcy steine and Metamizole may falsely depress this assay. Reference Range HDL <40 mg/dL Low HDL Cholesterol HDL >or= 60 mg/dL High HDL Cholesterol Lipid Profileon 12-07-2024 Cholesterol [Mass/Vol] 210 mg/dL High 200 [facility] Comment on above: Result Comment: <200 mg/dL Desirable 200-240 mg/dL Borderline >240 mg/dL High Risk Performed By: #### L 501.0100, L500.4100 #### [facility] [address] [place], [address] Cholesterol in HDL [Mass/Vol] 64 mg/dL Normal [facility] Comment on above: Result Comment: The drugs N-Acetylcysteine and Metamizole may falsely depress this assay. Reference Range HDL <40 mg/dL Low HDL Cholesterol HDL >or= 60 mg/dL High HDL Cholesterol Performed By: #### L 501.0100, L500.4100 #### [facility] [address] [place], [address] Cholesterol in LDL [Mass/Vol] 121 mg/dL Normal 0-130 [facility] Comment on above: Performed By: #### L 501.0100, L500.4100 #### [facility] [address] [place], [address] Cholesterol in VLDL [Mass/Vol] 25 mg/dL Normal 5-40 [facility] Comment on above: Performed By: #### L 501.0100, L500.4100 #### [facility] [address] [place], [address] Triglyceride [Mass/Vol] 126 mg/dL Normal [facility] Comment on above: Result Comment: The drugs N-Acetylcysteine and Metamizole may falsely depress this assay. Serum Triglycerides Reference Interval Normal <150 mg/dL Borderline high 150 - 199 mg/dL High 200 - 499 mg/dL Very High > or = 500 mg/dL Performed By: #### L 501.0100, L500.4100 #### [facility] [address] [place], [address] Low density lipoprotein (LDL ) cholesterol measurementOrdered By: Jenny Lebron on 12-07-2024 Cholesterol in LDL [Mass/Vol] 121 mg/dL 0-130 [facility] Serum or plasma cholesterol measurement (mass/volume)Ordered By: Jenny Lebron on 12-07-2024 Cholesterol [Mass/Vol] 210 mg/dL High <200 [facility] Comment on above: <200 mg/dL Desirable 200-240 mg/dL Borderline >240 mg/dL High Risk Triglycerides measurementOrd ered By: Jenny Lebron on 12-07-2024 Triglyceride [Mass/Vol] 126 mg/dL <199 [facility] Comment on above: The drugs N-Acetylcy steine and Metamizole may falsely depress this assay.Serum Triglycerides Reference Interval Normal <150 mg/dL Borderline high 150 - 199 mg/dL High 200 - 499 mg/dL Very High > or = 500 mg/dL Very low density lipoprotein (VLDL) cholesterol measurementOrdered By: Jenny Lebron on 12-07-2024 VLDL Cholesterol 25 mg/dL 5-40 [facility] Direct serum free thyroxine (FT4) measurementOrdered By: Isac Michelle on 11-20-2024 Free T4 [Mass/Vol] 0.91 ng/dL 0.76-1.46 [facility] T4 Free Directon 11-20-2024 T4 FREE DIRECT 0.91 ng/dL Normal 0.76-1.46 [facility] Comment on above: Performed By: #### L 501.9520, L506.0400 #### [facility] [address] [place], [place], [id number] TSH QnOrdered By: Isac Michelle on 11-20-2024 Thyroid Stimulating Hormone (TSH) 2.720 uIU/mL 0.358-3.740 [facility] Thyroid Stim Hormone (TSH)on 11-20-2024 TSH 2.720 uIU/mL Normal 0.358-3.740 [facility] Comment on above: Performed By: #### L 501.9520, L506.0400 #### [facility] [address] [place], [place], [address] Office Visit Reporton 2023 Office Visit Report [facility] [address] [place] [address] OFFICE VISIT Date of Service: 10/14/24 MR#: [id number] Acct: [id number] Patient: FABIANA ACOSTA Rep #: [id number] : 1970 Provider: KRUNAL sewell Age/Sex: 54/F Location: [facility] Status: Signed Employer Purchased Covid Test Note: Patient here today for Covid Testing, requested by their Employer. Assessment and Plan Assessment and Plan Orders: Orders POC Mac Covid FLUAB PCR 10/14/24 U07.1 - COVID-19 10/24/24 1635 Date Chris Earl Signature: Date (if applicable) CC: Normal [facility] Office Visit Reporton 2023 Office Visit Report [facility] [address] [place] [address] OFFICE VISIT Date of Service: 10/14/24 MR#: [id number] Acct: [id number] Patient: FABIANA ACOSTA DAISY Rep #: [id number] : 1970 Provider: KRUNAL sewell Age/Sex: 54/F Location: [facility] Status: Signed Intake Vital Signs 09/18/24 08:01 10/14/24 09:38 Height 5 ft 3 in 5 ft 3 in Weight: 165 lb 8 oz BMI 29.2 BP 96/69 Blood Pressure Location Rt brachial Position Sitting Pulse 65 Pulse Source Monitor Pulse Oximetry (%) 98 Oxygen Delivery Method room air Intake Visit Reasons: COVID 19 Chief Complaint: thyroid Allergies morphine Allergy (Intermediate, Verified 07/13/24 06:57) vomitting doxycycline Adverse Reaction (Intermediate, Verified 07/13/24 06:57) burning of throat latex Adverse Reaction (Mild, Verified 07/13/24 06:57) Rash Nurse's Note: Patient took a home covid test and it came back positive. Patient came to the office for a covid test mac. Results POC MAC Covid FluAB PCR POC Mac Covid PCR Detected Last Edit by Minerva Donnelly MA on 10/14/24 10:07 POC MAC FLU NOT DETECTED FLU A B Last Edit by Minerva Donnelly MA on 10/14/24 10:07 Assessment and Plan Assessment and Plan Orders: Orders POC Mac Covid FLUAB PCR Today U07.1 - COVID-19 10/14/24 1018 Date [facility] HOOKER UP HOOKER UP-C Cosigner Signature: Date (if applicable) CC: [facility] COVID 19 AG RAPID (TIMBO Fisher)on 10-09-2024 SARS-CoV-2 (COVID-19) RNA JOHN+probe Ql (Unsp spec) *Negative results from patients with symptom onset beyond five days should be treated as presumptive and confirmed by a molecular assay if clinically necessary. Negative results should not be used as the sole basis for treatment or for patient management. SARS-CoV-2 Ag Resp Ql IA.rapid *Positive results do not differentiate between SARS-CoV and SARS-CoV-2. If differentiation of the specific SARS virus is desired an additional sample and an additional order is required. SARS-CoV-2 Ag Resp Ql IA.rapid * This test has not been FDA cleared or approved; the test has been authorized by FDA under an Emergency Use Authorization (EAU) for use by laboratories certified under CLIA that meet the requirements to perform moderate, high, or waived complexity tests. SARS-CoV-2 Ag Resp Ql IA.rapid Normal Reference Range: Negative SARS-CoV-2 (COVID 19) Negative RAPID METHOD BinaxNow COVID19 Ag Card [facility] Comment on above: Performed By: #### M 100.505 #### [facility] [address] [place], [address] COVID 19 AG RAPID (TIMBO Fisher)on 10-05-2024 SARS-CoV-2 (COVID-19) RNA JOHN+probe Ql (Unsp spec) *Negative results from patients with symptom onset beyond five days should be treated as presumptive and confirmed by a molecular assay if clinically necessary. Negative results should not be used as the sole basis for treatment or for patient management. SARS-CoV-2 Ag Resp Ql IA.rapid *Positive results do not differentiate between SARS-CoV and SARS-CoV-2. If differentiation of the specific SARS virus is desired an additional sample and an additional order is required. SARS-CoV-2 Ag Resp Ql IA.rapid * This test has not been FDA cleared or approved; the test has been authorized by FDA under an Emergency Use Authorization (EAU) for use by laboratories certified under CLIA that meet the requirements to perform moderate, high, or waived complexity tests. SARS-CoV-2 Ag Resp Ql IA.rapid Normal Reference Range: Negative SARS-CoV-2 (COVID 19) Negative RAPID METHOD BinaxNow COVID19 Ag Card Normal [facility] Comment on above: Performed By: #### M 100.505 #### [facility] [address] [place], [place], [id number] Breast Limited Unilateralon 10-04-2024 Breast Limited Unilateral [facility] [address] [place], [place] [address] Breast Limited Unilateral MR#: [id number] Acct: [id number] Name: FABIANA ACOSTA DAISY Rep #: [id number] : 1970 F 54 From: Loy piper MD PCP: Status: REG CLI Study: Breast Limited Unilateral Date of Exam: Exam# [id number] Ordering [place]: [place] [id number] STUDY: ULTRASOUND BREAST - LEFT REASON FOR EXAM: Female, 54 years old. 6 month follow-up for left breast biopsy. TECHNIQUE: Axial and longitudinal images of the LEFT breast were performed with a high resolution ultrasound transducer. # OF IMAGES: 22 COMPARISON: Comparison is made with prior mammogram done earlier today as well as prior sonogram of the left breast dated October 04, 2023. FINDINGS: LEFT Breast: The lateral aspect of the left breast was examined with ultrasound. There is a 4 mm x 5 mm x 2 mm well-defined hypoechoic nodule at the 3:00 position breast at 9 cm from nipple. A tissue clip marker is seen within. US/Breast Limited Unilateral IMPRESSION: Stable examination. ASSESSMENT CATEGORY: BIRADS Category 2: Benign. A letter regarding these results will be sent to the patient by the facility within 30 days. Electronically Signed: Loy Rush MD at 11:06 EST Reading Location ID and State: [facility] / [place] , Service support , CC: Dr. Bhanu Cole MD Cultural Historian: Signed Normal [facility] DIAG MAMM W/CAD, BILATon DIAG MAMM W/CAD, [facility] Imaging Services [address] [place] [id number] DIAG MAMM W/CAD, [facility] MR#: [id number] Acct: [id number] Name: FABIANA ACOSTA DAISY Rep #: [id number] : 1970 F 54 From: Loy piper MD PCP: Status: [facility] Study: DIAG MAMM W/CAD, [facility] Date of Exam: 10/04/24 Exam# [id number] Ordering [place]: [place] [id number] MAMMOGRAPHY - BILATERAL DIAGNOSTIC REASON FOR EXAM: Female, 54 years old. Follow up for left ultrasound-guided breast biopsy. PERTINENT HISTORY: Aunt with breast cancer. TECHNIQUE: Digital bilateral breast trista (3D mammographic acquisition) in the CC and MLO projections. 2-D mediolateral oblique (MLO) and craniocaudad (CC) views of both breasts were obtained. CAD: Full Field Digital Mammography with Computer Added Detection was performed. COMPARISON: Comparison is made with prior study September 30, 2023. FINDINGS: Breast Composition: There are scattered areas of fibroglandular density. There are no dominant masses or suspicious calcifications. A tissue clip marker is seen within a 3 mm nodule in the upper lateral aspect of the left breast. Stable fat containing axillary lymph nodes. No other significant abnormalities are identified. There has been no significant change since the prior study. BI/DIAG MAMM W/CAD, BILAT IMPRESSION: Stable bilateral diagnostic mammogram. One year follow-up recommended. (A) ASSESSMENT CATEGORY: BIRADS Category 2: Benign. A letter regarding these results will be sent to the patient by the facility within 30 days. Approximately 10% of breast cancers are not detected by mammography. A normal mammogram should not delay biopsy of a clinically suspicious abnormality. Electronically Signed: Loy Rush MD at 10:25 EST , CC: Dr. Bhanu Cole MD Cultural Historian: Signed Normal [facility] Serum or plasma thyroid stim ulating hormone (TSH) measurement (units/volume)Ordered By: Isac Michelle on 02-27-2024 TSH Qn 4.66 uIU/mL 0.358-3.74 [facility] Thin prep Papanicolaou smear with manual screeningOrdered By: Isac Michelle on 02-27-2024 Thin prep Papanicolaou smear with manual screening 0.78 ng/dL 0.76-1.46 [facility] COVID-19 virus antigen assay Ordered By: Rafa Zhao on 01-02-2024 SARS-CoV-2 (COVID-19) Ag IA.rapid Ql (Resp) [facility] COVID-19 virus antigen assay Ordered By: Rafa Zhao on 12-05-2023 SARS-CoV-2 (COVID-19) Ag IA.rapid Ql (Resp) [facility] SARS-CoV-2 (COVID-19) Ag IA.rapid Ql (Resp) [facility] Absolute lymphocyte countOrd ered By: ED PROVIDER on 11-24-2023 Lymphocytes Auto (Unsp spec) [#/Vol] 1.77 10*3/uL 0.83-4.51 [facility] Basophil percentageOrdered B y: ED PROVIDER on 11-24-2023 Basophils/100 WBC (Bld) 0.9 % 0-1 [facility] Eosinophils/100 WBC (Bld) 1.7 % 0-5 [facility] Neutrophils (Bld) [#/Vol] 3.4 10*3/uL 2.0-7.7 [facility] Neutrophils/100 WBC (Bld) 59.1 % 47-70 [facility] WBC (Bld) [#/Vol] 5.7 10*3/uL 4.4-11.0 [facility] Basophil percentageOrdered B y: Felipe Capellan on 11-24-2023 Chloride [Moles/Vol] 106 mmol/L 98-107 [facility] Glucose [Mass/Vol] 93 mg/dL 74-106 [facility] Potassium [Moles/Vol] 4.2 mmol/L 3.5-5.1 [facility] Sodium [Moles/Vol] 139 mmol/L 136-145 [facility] Blood erythrocytes count (nu mber/volume)Ordered By: ED PROVIDER on 11-24-2023 RBC (Bld) [#/Vol] 4.27 10*6/uL 4.2-5.4 [facility] Blood hemoglobin measurement (mass/volume)Ordered By: ED PROVIDER on 11-24-2023 Hemoglobin (Bld) [Mass/Vol] 13.1 g/dL 12.0-15.0 [facility] Blood lymphocytes/100 leukoc ytesOrdered By: ED PROVIDER on 11-24-2023 Lymphocytes/100 WBC (Bld) 30.8 % 19-41 [facility] Blood monocytes/100 leukocyt esOrdered By: ED PROVIDER on 11-24-2023 Monocytes/100 WBC (Bld) 7.3 % 0-10 [facility] [facility] Blood platelet mean volumeOr dered By: ED PROVIDER on 11-24-2023 Platelet mean volume (Bld) [Entitic vol] 9.2 fL 6.2-12.0 [facility] Determination of erythrocyte mean corpuscular volume (MCV)Ordered By: ED PROVIDER on 11-24-2023 MCV (RBC) [Entitic vol] 90.9 fL 81-99 [facility] Hematocrit Auto (Bld) [Volum e fraction]Ordered By: ED PROVIDER on 11-24-2023 Hematocrit (Bld) [Volume fraction] 38.8 % 37-47 [facility] Laboratory - Chemistry and C hemistry - challengeOrdered By: Felipe Capellan on 11-24-2023 CO2 [Moles/Vol] 29.0 mmol/L 21.0-32.0 [facility] Urea nitrogen/Creatinine [Mass ratio] 16.5 mg/mg 10-20 [facility] Laboratory - Hematology and Cell countsOrdered By: ED PROVIDER on 11-24-2023 Erythrocyte distribution width (RBC) [Entitic vol] 43.3 fL 35.1-43.9 [facility] Erythrocyte distribution width (RBC) [Ratio] 13.1 % 11.6-14.6 [facility] Immature granulocytes/100 WBC (Bld) 0.200 % 0.0-0.9 [facility] Comment on above: IG% - Immature Granu locytes (promyelocytes, myelocytes and metamyelocytes) > 1% indicates that a LEFT SHIFT is Present. MCH (RBC) [Entitic mass] 30.7 pg 27.0-32.0 [facility] Nucleated RBC/100 WBC (Bld) [Ratio] 0 % 0-5 [facility] MCHC Auto (RBC) [Mass/Vol]Or dered By: ED PROVIDER on 11-24-2023 MCHC (RBC) [Mass/Vol] 33.8 g/dL 32-36 [facility] No Panel InformationOrdered By: Felipe Capellan on 11-24-2023 D-Dimer Quantitative (PE/DVT) 0.35 FEU/ug/m 0.27-0.49 [facility] Comment on above: NORMAL D-Dimer level (<0.50) indicates no DVT or PE. Estimated GFR (MDRD) Amer 78 mL/min >60 [facility] Comment on above: GFR Calc Estimated GFR (MDRD) Non-Af Amer 64 mL/min >60 [facility] Comment on above: Non- GFR Calc Troponin I High Sensitivity < 3 pg/mL 3.0-54.0 [facility] Comment on above: Please Note: New Key t Units and Gender Specific Reference Ranges. For more information see Policy Stat Procedure [place] High Sensitivity Troponin (TNIH) and attachments. Platelets bldOrdered By: ED PROVIDER on 11-24-2023 Platelets (Bld) [#/Vol] 250 10*3/uL 150-450 [facility] Serum or plasma calcium pillo urement (mass/volume)Ordered By: Felipe Capellan on 11-24-2023 Calcium [Mass/Vol] 9.4 mg/dL 8.5-10.1 [facility] Serum or plasma creatinine m easurement (mass/volume)Ordered By: Felipe Capellan on 11-24-2023 Creatinine [Mass/Vol] 0.97 mg/dL 0.55-1.02 [facility] Comment on above: The validity of the calculated GFR & GFRAA in patients over 70 years has not been determined. Clinical correlation is essential. Serum or plasma urea nitroge n measurement (mass/volume)Ordered By: Felipe Capellan on 11-24-2023 Urea nitrogen [Mass/Vol] 16 mg/dL 7-18 [facility] Thin prep Papanicolaou smear with manual screeningOrdered By: Felipe Capellan on 11-24-2023 Thin prep Papanicolaou smear with manual screening 4 5-15 [facility] COVID-19 virus antigen assay Ordered By: Rafa Zhao on 11-22-2023 SARS-CoV-2 (COVID-19) Ag IA.rapid Ql (Resp) [facility] COVID-19 virus antigen assay Ordered By: Rafa Zhao on 11-16-2023 SARS-CoV-2 (COVID-19) Ag IA.rapid Ql (Resp) [facility] SARS-CoV-2 (COVID-19) Ag IA.rapid Ql (Resp) [facility] COVID-19 virus antigen assay Ordered By: Rafa Zhao on 10-24-2023 SARS-CoV-2 (COVID-19) Ag IA.rapid Ql (Resp) [facility] COVID-19 virus antigen assay Ordered By: Rafa Zhao on 10-17-2023 SARS-CoV-2 (COVID-19) Ag IA.rapid Ql (Resp) [facility] SARS-CoV-2 (COVID-19) Ag IA.rapid Ql (Resp) [facility] Absolute lymphocyte countOrd ered By: Jluis Bensonon on 10-03-2023 Lymphocytes Auto (Unsp spec) [#/Vol] 1.77 10*3/uL 0.83-4.51 [facility] Basophil percentageOrdered B y: Jluis Bensonon on 10-03-2023 Basophils/100 WBC (Bld) 1.9 % 0-1 [facility] Chloride [Moles/Vol] 106 mmol/L 98-107 [facility] Eosinophils/100 WBC (Bld) 2.2 % 0-5 [facility] Glucose [Mass/Vol] 106 mg/dL 74-106 [facility] Comment on above: Fasting Glucose resu lt from 100 to 125 mg/dL suggests IMPAIRED HOMEOSTASIS per A.D.A. criteria. Neutrophils (Bld) [#/Vol] 1.4 10*3/uL 2.0-7.7 [facility] Neutrophils/100 WBC (Bld) 37.4 % 47-70 [facility] Potassium [Moles/Vol] 4.4 mmol/L 3.5-5.1 [facility] Sodium [Moles/Vol] 143 mmol/L 136-145 [facility] WBC (Bld) [#/Vol] 3.7 10*3/uL 4.4-11.0 [facility] Blood erythrocytes count (nu mber/volume)Ordered By: Jluis Haim on 10-03-2023 RBC (Bld) [#/Vol] 4.35 10*6/uL 4.2-5.4 [facility] Blood hemoglobin measurement (mass/volume)Ordered By: Jluis Whitmore on 10-03-2023 Hemoglobin (Bld) [Mass/Vol] 12.9 g/dL 12.0-15.0 [facility] Blood lymphocytes/100 leukoc ytesOrdered By: Jluis Whitmore on 10-03-2023 Lymphocytes/100 WBC (Bld) 48.4 % 19-41 [facility] Blood monocytes/100 leukocyt esOrdered By: Jluis Whitmore on 10-03-2023 Monocytes/100 WBC (Bld) 10.1 % 0-10 [facility] Blood platelet mean volumeOr dered By: Jluis Whitmore on 10-03-2023 Platelet mean volume (Bld) [Entitic vol] 9.5 fL 6.2-12.0 [facility] Determination of erythrocyte mean corpuscular volume (MCV)Ordered By: Jluis Whitmore on 10-03-2023 MCV (RBC) [Entitic vol] 93.3 fL 81-99 [facility] Hematocrit Auto (Bld) [Volum e fraction]Ordered By: Jluis Whitmore on 10-03-2023 Hematocrit (Bld) [Volume fraction] 40.6 % 37-47 [facility] Laboratory - Chemistry and C hemistry - challengeOrdered By: Jluis Whitmore on 10-03-2023 CO2 [Moles/Vol] 29.0 mmol/L 21.0-32.0 [facility] Urea nitrogen/Creatinine [Mass ratio] 20.4 mg/mg 10-20 [facility] Laboratory - Hematology and Cell countsOrdered By: Jluis Whitmore on 10-03-2023 Erythrocyte distribution width (RBC) [Entitic vol] 44.7 fL 35.1-43.9 [facility] Erythrocyte distribution width (RBC) [Ratio] 13.1 % 11.6-14.6 [facility] Immature granulocytes/100 WBC (Bld) 0.000 % 0.0-0.9 [facility] Comment on above: IG% - Immature Granu locytes (promyelocytes, myelocytes and metamyelocytes) > 1% indicates that a LEFT SHIFT is Present. MCH (RBC) [Entitic mass] 29.7 pg 27.0-32.0 [facility] Nucleated RBC/100 WBC (Bld) [Ratio] 0 % 0-5 [facility] MCHC Auto (RBC) [Mass/Vol]Or dered By: Jluis Whitmore on 10-03-2023 MCHC (RBC) [Mass/Vol] 31.8 g/dL 32-36 [facility] No Panel InformationOrdered By: Jluis Whitmore on 10-03-2023 Estimated GFR (MDRD) Amer 82 mL/min >60 [facility] Comment on above: GFR Calc Estimated GFR (MDRD) Non-Af Amer 67 mL/min >60 [facility] Comment on above: Non- GFR Calc Platelets bldOrdered By: Jluis martinez on 10-03-2023 Platelets (Bld) [#/Vol] 224 10*3/uL 150-450 [facility] Serum or plasma calcium pillo urement (mass/volume)Ordered By: Jluis Whitmore on 10-03-2023 Calcium [Mass/Vol] 9.1 mg/dL 8.5-10.1 [facility] Serum or plasma creatinine m easurement (mass/volume)Ordered By: Jluis Whitmore on 10-03-2023 Creatinine [Mass/Vol] 0.93 mg/dL 0.55-1.02 [facility] Comment on above: The validity of the calculated GFR & GFRAA in patients over 70 years has not been determined. Clinical correlation is essential. Serum or plasma urea nitroge n measurement (mass/volume)Ordered By: Jluis Whitmore on 10-03-2023 Urea nitrogen [Mass/Vol] 19 mg/dL 7-18 [facility] Thin prep Papanicolaou smear with manual screeningOrdered By: Jluis Whitmore on 10-03-2023 Thin prep Papanicolaou smear with manual screening 8 5-15 [facility] Whole blood hemoglobin A1c/t otal hemoglobin ratio (mass fraction)Ordered By: Jluis Whitmore on 10-03-2023 HbA1c (Bld) [Mass fraction] 5.5 % 3.8-5.6 [facility] Comment on above: Normal < 5.7 % Predi abetic 5.7 - 6.4 % Diabetic >or= 6.5 % Please note range changes. COVID-19 virus antigen assay Ordered By: Rafa Zhao on 09-19-2023 SARS-CoV-2 (COVID-19) Ag IA.rapid Ql (Resp) [facility] COVID-19 virus antigen assay Ordered By: Rafa Zhao on 09-05-2023 SARS-CoV-2 (COVID-19) Ag IA.rapid Ql (Resp) [facility] Absolute lymphocyte countOrd ered By: Jluis Whitmore on 09-01-2023 Lymphocytes Auto (Unsp spec) [#/Vol] 1.82 10*3/uL 0.83-4.51 [facility] Basophil percentageOrdered B y: Jluis Whitmore on 09-01-2023 Basophils/100 WBC (Bld) 1.7 % 0-1 [facility] Bilirubin [Mass/Vol] 0.60 mg/dL 0.20-1.00 [facility] Comment on above: For patients on eltr ombopag therapy, use of Dimension [place] TBIL is not recommended. Chloride [Moles/Vol] 108 mmol/L 98-107 [facility] Eosinophils/100 WBC (Bld) 2.0 % 0-5 [facility] Glucose [Mass/Vol] 108 mg/dL 74-106 [facility] Comment on above: Fasting Glucose resu lt from 100 to 125 mg/dL suggests IMPAIRED HOMEOSTASIS per A.D.A. criteria. Neutrophils (Bld) [#/Vol] 1.8 10*3/uL 2.0-7.7 [facility] Neutrophils/100 WBC (Bld) 43.2 % 47-70 [facility] Potassium [Moles/Vol] 4.7 mmol/L 3.5-5.1 [facility] Protein [Mass/Vol] 7.6 g/dL 6.4-8.2 [facility] Sodium [Moles/Vol] 139 mmol/L 136-145 [facility] WBC (Bld) [#/Vol] 4.1 10*3/uL 4.4-11.0 [facility] Blood erythrocytes count (nu mber/volume)Ordered By: Jluis Whitmore on 09-01-2023 RBC (Bld) [#/Vol] 4.40 10*6/uL 4.2-5.4 [facility] Blood hemoglobin measurement (mass/volume)Ordered By: Jluis Whitmore on 09-01-2023 Hemoglobin (Bld) [Mass/Vol] 13.6 g/dL 12.0-15.0 [facility] Blood lymphocytes/100 leukoc ytesOrdered By: Jluis Whitmore on 09-01-2023 Lymphocytes/100 WBC (Bld) 44.8 % 19-41 [facility] Blood monocytes/100 leukocyt esOrdered By: Jluis Whitmore on 09-01-2023 Monocytes/100 WBC (Bld) 8.1 % 0-10 [facility] Blood platelet mean volumeOr dered By: Jluis Whitmore on 09-01-2023 Platelet mean volume (Bld) [Entitic vol] 9.8 fL 6.2-12.0 [facility] Determination of erythrocyte mean corpuscular volume (MCV)Ordered By: Jluis Whitmore on 09-01-2023 MCV (RBC) [Entitic vol] 92.5 fL 81-99 [facility] Hematocrit Auto (Bld) [Volum e fraction]Ordered By: Jluis Whitmore on 09-01-2023 Hematocrit (Bld) [Volume fraction] 40.7 % 37-47 [facility] Laboratory - Chemistry and C hemistry - challengeOrdered By: Jluis Whitmore on 09-01-2023 ALP [Catalytic activity/Vol] 79 U/L 45-117 [facility] ALT [Catalytic activity/Vol] 20 U/L 13-56 [facility] CO2 [Moles/Vol] 29.0 mmol/L 21.0-32.0 [facility] Free T4 [Mass/Vol] 0.89 ng/dL 0.76-1.46 [facility] Globulin (S) [Mass/Vol] 3.5 g/dL 2.2-4.2 [facility] T4 [Mass/Vol] 7.3 ug/dL 4.8-13.9 [facility] Urea nitrogen/Creatinine [Mass ratio] 12.3 mg/mg 10-20 [facility] Laboratory - Hematology and Cell countsOrdered By: Jluis Whitmore on 09-01-2023 Erythrocyte distribution width (RBC) [Entitic vol] 44.6 fL 35.1-43.9 [facility] Erythrocyte distribution width (RBC) [Ratio] 13.1 % 11.6-14.6 [facility] Immature granulocytes/100 WBC (Bld) 0.200 % 0.0-0.9 [facility] Comment on above: IG% - Immature Granu locytes (promyelocytes, myelocytes and metamyelocytes) > 1% indicates that a LEFT SHIFT is Present. MCH (RBC) [Entitic mass] 30.9 pg 27.0-32.0 [facility] Nucleated RBC/100 WBC (Bld) [Ratio] 0 % 0-5 [facility] MCHC Auto (RBC) [Mass/Vol]Or dered By: Jluis Whitmore on 09-01-2023 MCHC (RBC) [Mass/Vol] 33.4 g/dL 32-36 [facility] No Panel InformationOrdered By: Jluis Whitmore on 09-01-2023 Estimated GFR (MDRD) Amer 70 mL/min >60 [facility] Comment on above: GFR Calc Estimated GFR (MDRD) Non-Af Amer 58 mL/min >60 [facility] Comment on above: Non- GFR Calc Thyroid Stimulating Hormone (TSH) 2.11 uIU/mL 0.358-3.74 [facility] Vitamin D 25-Hydroxy 29.2 ng/mL [facility] Comment on above: Vitamin D 25(OH) Sta tus Range Deficiency <20 ng/mL (50nmol/L) Insufficiency 20 - 30 ng/mL (50 - 75 nmol/L) Sufficiency 30 - 100 ng/mL (75 - 250 nmol/L) Toxicity >100 ng/mL (>250 nmol/L) Platelets bldOrdered By: Jluis martinez on 09-01-2023 Platelets (Bld) [#/Vol] 232 10*3/uL 150-450 [facility] Serum or plasma albumin pillo urement (mass/volume)Ordered By: Jluis Whitmore on 09-01-2023 Albumin [Mass/Vol] 4.1 g/dL 3.2-5.0 [facility] Serum or plasma albumin/glob ulin mass ratioOrdered By: Jluis Whitmore on 09-01-2023 Albumin/Globulin [Mass ratio] 1.2 {ratio} 0.9-2.4 [facility] Serum or plasma calcium pillo urement (mass/volume)Ordered By: Jluis Whitmore on 09-01-2023 Calcium [Mass/Vol] 9.3 mg/dL 8.5-10.1 [facility] Serum or plasma creatinine m easurement (mass/volume)Ordered By: Jluis Whitmore on 09-01-2023 Creatinine [Mass/Vol] 1.06 mg/dL 0.55-1.02 [facility] Comment on above: The validity of the calculated GFR & GFRAA in patients over 70 years has not been determined. Clinical correlation is essential. Serum or plasma urea nitroge n measurement (mass/volume)Ordered By: Jluis Whitmore on 09-01-2023 Urea nitrogen [Mass/Vol] 13 mg/dL 7-18 [facility] Thin prep Papanicolaou smear with manual screeningOrdered By: Jluis Whitmore on 09-01-2023 Thin prep Papanicolaou smear with manual screening 15 U/L 15-37 [facility] Thin prep Papanicolaou smear with manual screening 2 5-15 [facility] COVID-19 virus antigen assay Ordered By: Rafa Zhao on 08-19-2023 SARS-CoV-2 (COVID-19) Ag IA.rapid Ql (Resp) [facility] COVID-19 virus antigen assay Ordered By: Dr. Zhao on 02-23-2023 SARS-CoV-2 (COVID-19) Ag IA.rapid Ql (Resp) [facility] COVID-19 virus antigen assay Ordered By: Dr. Zhao on 02-16-2023 SARS-CoV-2 (COVID-19) Ag IA.rapid Ql (Resp) [facility] COVID-19 virus antigen assay Ordered By: Dr. Zhao on 12-03-2022 SARS-CoV-2 (COVID-19) Ag IA.rapid Ql (Resp) [facility] Laboratory - Microbiology an d Antimicrobial susceptibilityon 10-28-2022 SARS-CoV-2 (COVID-19) RNA JOHN+probe Ql (Unsp spec) Not detected [facility] No Panel Informationon 07-12 Hepatitis B Surface Antibody Reactive [facility] Work Phone: Comment on above: Non Reactive: Incons istent with immunity less than <10 mIU/mL Reactive: Consistent with immunity greater than or equal to 10 mIU/mL Laboratory - Chemistry and C hemistry - challengeon 06-30-2022 Free T4 [Mass/Vol] 0.90 ng/dL 0.76-1.46 [facility] Work Phone: No Panel Informationon 06-30 Thyroid Stimulating Hormone (TSH) 2.57 uIU/mL 0.358-3.74 [facility] Work Phone: [phone] Vitamin D 25-Hydroxy 38.2 ng/mL [facility] Work Phone: Comment on above: Vitamin D 25(OH) Sta tus Range Deficiency <20 ng/mL (50nmol/L) Insufficiency 20 - 30 ng/mL (50 - 75 nmol/L) Sufficiency 30 - 100 ng/mL (75 - 250 nmol/L) Toxicity >100 ng/mL (>250 nmol/L) SELVIN SCREENINGon 05-03-2022 [facility] EMG(NEURO/NI)on 04-12-2022 [facility] CBC panel Auto (Bld)on 03-29 Erythrocyte distribution width (RBC) [Ratio] 13.2 % 11.5 - 15.0 % [facility] Hematocrit (Bld) [Volume fraction] 43.2 % 36.0 - 46.0 % [facility] Hemoglobin (Bld) [Mass/Vol] 14.1 g/dL 11.5 - 15.5 g/dL [facility] MCH (RBC) [Entitic mass] 30.1 pg 26.0 - 34.0 pg [facility] MCHC (RBC) [Mass/Vol] 32.6 g/dL 30.5 - 36.0 g/dL [facility] MCV (RBC) [Entitic vol] 92.1 fL 80.0 - 100.0 fL [facility] Nucleated RBC (Bld) [#/Vol] 10*3/uL <0.01 k/uL [facility] Platelet mean volume (Bld) [Entitic vol] 9.6 fL 9.0 - 12.7 fL [facility] Platelets (Bld) [#/Vol] 235 10*3/uL 150 - 400 k/uL [facility] RBC (Bld) [#/Vol] 4.69 10*6/uL 3.90 - 5.2 0 m/uL [facility] WBC (Bld) [#/Vol] 4.57 10*3/uL 3.70 - 11. 00 k/uL [facility] Absolute lymphocyte counton 12-16-2021 Lymphocytes Auto (Unsp spec) [#/Vol] 2.05 10*3/uL 0.83-4.51 [facility] Work Phone: Basophil percentageon 2021 Basophils/100 WBC (Bld) 0.7 % 0-1 [facility] Work Phone: Bilirubin [Mass/Vol] 0.80 mg/dL 0.20-1.00 [facility] Work Phone: Comment on above: For patients on eltr ombopag therapy, use of Dimension [place] TBIL is not recommended. Chloride [Moles/Vol] 103 mmol/L 98-107 [facility] Work Phone: Eosinophils/100 WBC (Bld) 1.8 % 0-5 [facility] Work Phone: Glucose [Mass/Vol] 104 mg/dL 74-106 [facility] Work Phone: Comment on above: Fasting Glucose resu lt from 100 to 125 mg/dL suggests IMPAIRED HOMEOSTASIS per A.D.A. criteria. Neutrophils (Bld) [#/Vol] 6.1 10*3/uL 2.0-7.7 [facility] Work Phone: Neutrophils/100 WBC (Bld) 67.7 % 47-70 [facility] Work Phone: Potassium [Moles/Vol] 5.1 mmol/L 3.5-5.1 [facility] Work Phone: Comment on above: Moderate Hemolysis, Result may be falsely increased. Protein [Mass/Vol] 7.7 g/dL 6.4-8.2 [facility] Work Phone: Sodium [Moles/Vol] 135 mmol/L 136-145 [facility] Work Phone: [phone] WBC (Bld) [#/Vol] 8.9 10*3/uL 4.4-11.0 [facility] Work Phone: [phone] Blood erythrocytes count (nu mber/volume)on 12-16-2021 RBC (Bld) [#/Vol] 4.61 10*6/uL 4.2-5.4 [facility] Work Phone: [phone] Blood hemoglobin measurement (mass/volume)on 12-16-2021 Hemoglobin (Bld) [Mass/Vol] 13.6 g/dL 12.0-15.0 [facility] Work Phone: [phone] Blood lymphocytes/100 leukoc yteson 12-16-2021 Lymphocytes/100 WBC (Bld) 23.0 % 19-41 [facility] Work Phone: [phone] Blood monocytes/100 leukocyt eson 12-16-2021 Monocytes/100 WBC (Bld) 6.6 % 0-10 [facility] Work Phone: [phone] Blood platelet mean volumeon 12-16-2021 Platelet mean volume (Bld) [Entitic vol] 9.7 fL 6.2-12.0 [facility] Work Phone: [phone] Determination of erythrocyte mean corpuscular volume (MCV)on 12-16-2021 MCV (RBC) [Entitic vol] 86.8 fL 81-99 [facility] Work Phone: [phone] Hematocrit Auto (Bld) [Volum e fraction]on 12-16-2021 Hematocrit (Bld) [Volume fraction] 40.0 % 37-47 [facility] Work Phone: [phone] Laboratory - Chemistry and C hemistry - challengeon 12-16-2021 ALP [Catalytic activity/Vol] 80 U/L 45-117 [facility] Work Phone: [phone] ALT [Catalytic activity/Vol] 16 U/L 13-56 [facility] Work Phone: [phone] CO2 [Moles/Vol] 23.0 mmol/L 21.0-32.0 [facility] Work Phone: [phone] Globulin (S) [Mass/Vol] 3.8 g/dL 2.2-4.2 [facility] Work Phone: [phone] Lipase [Catalytic activity/Vol] 49 U/L 73-393 [facility] Work Phone: [phone] Urea nitrogen/Creatinine [Mass ratio] 15.0 mg/mg 10-20 [facility] Work Phone: [phone] Laboratory - Hematology and Cell countson 12-16-2021 Erythrocyte distribution width (RBC) [Entitic vol] 47.4 fL 35.1-43.9 [facility] Work Phone: [phone] Erythrocyte distribution width (RBC) [Ratio] 14.9 % 11.6-14.6 [facility] Work Phone: [phone] Immature granulocytes/100 WBC (Bld) 0.200 % 0.0-0.9 [facility] Work Phone: [phone] Comment on above: IG% - Immature Granu locytes (promyelocytes, myelocytes and metamyelocytes) > 1% indicates that a LEFT SHIFT is Present. MCH (RBC) [Entitic mass] 29.5 pg 27.0-32.0 [facility] Work Phone: [phone] Nucleated RBC/100 WBC (Bld) [Ratio] 0 % 0-5 [facility] Work Phone: [phone] MCHC Auto (RBC) [Mass/Vol]on 12-16-2021 MCHC (RBC) [Mass/Vol] 34.0 g/dL 32-36 [facility] Work Phone: [phone] No Panel Informationon 12-16 Estimated Creatinine Clearance Calc 49.82 ml/min [facility] Work Phone: [phone] Estimated GFR (MDRD) Amer 66 mL/min >60 [facility] Work Phone: [phone] Comment on above: GFR Calc Estimated GFR (MDRD) Non-Af Amer 54 mL/min >60 [facility] Work Phone: Comment on above: Non- GFR Calc Platelets bldon 12-16-2021 Platelets (Bld) [#/Vol] 289 10*3/uL 150-450 [facility] Work Phone: Serum or plasma albumin pillo urement (mass/volume)on 12-16-2021 Albumin [Mass/Vol] 3.9 g/dL 3.2-5.0 [facility] Work Phone: Serum or plasma albumin/glob ulin mass ratioon 12-16-2021 Albumin/Globulin [Mass ratio] 1.0 {ratio} 0.9-2.4 [facility] Work Phone: Serum or plasma calcium pillo urement (mass/volume)on 12-16-2021 Calcium [Mass/Vol] 9.3 mg/dL 8.5-10.1 [facility] Work Phone: Serum or plasma creatinine m easurement (mass/volume)on 12-16-2021 Creatinine [Mass/Vol] 1.13 mg/dL 0.55-1.02 [facility] Work Phone: Comment on above: The validity of the calculated GFR & GFRAA in patients over 70 years has not been determined. Clinical correlation is essential. Serum or plasma urea nitroge n measurement (mass/volume)on 12-16-2021 Urea nitrogen [Mass/Vol] 17 mg/dL 7-18 [facility] Work Phone: Thin prep Papanicolaou smear with manual screeningon 12-16-2021 Thin prep Papanicolaou smear with manual screening 25 U/L 15-37 [facility] Work Phone: Comment on above: Moderate Hemolysis, Result may be falsely increased. Thin prep Papanicolaou smear with manual screening 9 5-15 [facility] Work Phone: CNPTorri 03-12-2020 CNPN Telephone (Process Relations) FABIANA ACOSTA ( ) 1970 F Date Time Provider Department 03/12/20 DARIAN BAHENA During your visit today, we recorded the following information about you: Darian Bahena MD 03/12/2020 5:11 PM Signed I had accidentally hit my tsh six weeks away, can they add a repeat tsh to todays draw. The regular thyroid hormones are normal. Magdalena Bonner MA 03/13/2020 8:07 AM Signed This has been added. Magdalena Bonner MA Allergies As of Date: 03/12/2020 Noted Allergy Reaction DOXYCYCLINE 08/16/2018 14 - Other: See Comments Comments: Burned throat MORPHINE 04/27/2019 8 - GI Upset Date Reviewed: 08/31/2019 Reviewed by: Veronica Saucedo LPN - Fully Assessed Reason for Visit: Results [95] Prescriptions as of 03/12/2020 Sig: GABAPENTIN 300 MG CAPSULE Take 1 capsule by mouth daily* IBUPROFEN 800 MG TABLET Take 800 mg by mouth every 6 * Problem List As Of Date 03/12/2020 Noted Resolved Thyroid nodule [E04.1] 03/02/2019 08/31/2019 More... Herniated intervertebral disc of lumbar spine [* More... Spondyloarthropathy (HCC) [M47.819] More... Reactive depression [F32.9] 04/13/2019 Thyroid cancer (HCC) [C73] More... Elevated TSH [R79.89] 03/03/2020 Encounter Status:Closed by MAGDALENA BONNER MA on 03/13/20 [facility] MSCon 05-19-2018 [facility] REPORT Normal [facility] DATE OF SERVICE: 05/19/2018HISTORY OF PRESENT ILLNESS: This is a 47-year-old female with sore throat, bumps onthe back of her tongue, pain when swallowing, ears itching. Symptoms started on .ALLERGIES: DOXYCYCLINE.PAST MEDICAL HISTORY: Positive for orthopedic surgery, spine surgery, laparoscopichysterectom y.SOCIAL HISTORY: She is a smoker. She was advised to stop. She does drink alcohol.FAMILY HISTORY: Unremarkable.PHYSICAL EXAMINATION: Vital signs: Weight 148 pounds, blood pressure 126/70, pulse70, respirations 18, temperature 98.1, pulse oximetry 98. General: A [id number]. HEENT: TMs are unremarkable. Nares clear. Pharynx shows lingulartonsillitis with swelling of the tonsillar tissue on the back of the tongue. Pharynxis inflamed. No exudate. Neck: Supple with positive anterior and negativeposterior cervical lymphadenopathy. Heart: Regular rate and rhythm. Lungs: Clear.Extremities: Grossly intact. Neurological: Grossly intact.IMPRESSION: Lingular tonsillitis.PLAN: Patient is placed on Amoxil 875 twice a day with good and loratadine, rest,fluids. Finish all medicines. Return to work Tuesday. Follow in 7 to 10 days,sooner if complications or problems arise. MERON Wasserman/[id number]: 05/19/2018 12:45DT: 05/19/2018 22:07SSI File#: [id number] #: [id number]/Reviewed by05/20/18 0910 [facility] PATIENT NAME: FABIANA ACOSTA [id number] [facility] [address] Schmitt MEDICAL REC #: [id number], [place] [address] [facility] REPORT STATCARE PHYSICIAN Normal [facility] [place] Vital Signs Date Time Vital Sign Value Performing Clinician Jessica gabriel 09-13-2024 08:41-0400 Body mass index (BMI) [Ratio] 29.7 kg/m2 Jenny Lebron APRN.ELECTRICAL DESIGNER Work Phone: [facility] 09-13-2024 08:41-0400 Body weight 74.84 kg Jenny Suppan ADVERTISING OPERATIONS COORDINATOR.ELECTRICAL DESIGNER Work Phone: [facility] 09-13-2024 08:41-0400 Diastolic blood pressure 64 mm[Hg] Jenny Suppan ADVERTISING OPERATIONS COORDINATOR.ELECTRICAL DESIGNER Work Phone: [facility] 09-13-2024 08:41-0400 Heart rate 69 /min Jenny Suppan ADVERTISING OPERATIONS COORDINATOR.ELECTRICAL DESIGNER Work Phone: [facility] 09-13-2024 08:41-0400 Respiratory rate 16 /min Jenny Suppan ADVERTISING OPERATIONS COORDINATOR.ELECTRICAL DESIGNER Work Phone: [facility] 09-13-2024 08:41-0400 SaO2% (BldA) [Mass fraction] 99 % Jenny Suppan ADVERTISING OPERATIONS COORDINATOR.ELECTRICAL DESIGNER Work Phone: [facility] 09-13-2024 08:41-0400 Systolic blood pressure 120 mm[Hg] Jenny Suppan ADVERTISING OPERATIONS COORDINATOR.ELECTRICAL DESIGNER Work Phone: [facility] 11-24-2023 17:10-0500 Diastolic blood pressure 82 mm[Hg] PA NA Whitmore PA Work Phone: [facility] 11-24-2023 17:10-0500 Heart rate 59 /min PA NA Whitmore PA Work Phone: [facility] 11-24-2023 17:10-0500 Respiratory rate 11 /min PA NA Whitmore PA Work Phone: [facility] 11-24-2023 17:10-0500 SaO2% (BldA) [Mass fraction] 97 % PA NA Whitmore PA Work Phone: [facility] 11-24-2023 17:10-0500 Systolic blood pressure 122 mm[Hg] PA NA Whitmore PA Work Phone: [facility] 11-24-2023 14:54-0500 Body height 160.02 cm PA NA Whitmore PA Work Phone: [facility] 11-24-2023 14:54-0500 Body temperature 97.4 [degF] PA NA Whitmore PA Work Phone: [facility] 10-07-2023 15:20-0500 Body height 160.02 cm PA NA Whitmore PA Work Phone: [facility] 10-07-2023 15:20-0500 Body mass index (BMI) [Ratio] 28.5 kg/m2 PA NA Whitmore PA Work Phone: [facility] 10-07-2023 15:20-0500 Body temperature 97.3 [degF] PA NA Whitmore PA Work Phone: [phone] [place] [address] 10-07-2023 15:20-0500 Body weight 73.02 kg PA NA Whitmore PA Work Phone: [facility] 10-07-2023 15:20-0500 Diastolic blood pressure 78 mm[Hg] PA NA Whitmore PA Work Phone: [phone] [place] [address] 10-07-2023 15:20-0500 Heart rate 63 /min PA NA Whitmore PA Work Phone: [facility] 10-07-2023 15:20-0500 Respiratory rate 18 /min PA NA Whitmore PA Work Phone: [facility] 10-07-2023 15:20-0500 SaO2% (BldA) [Mass fraction] 98 % PA NA Whitmore PA Work Phone: [facility] 10-07-2023 15:20-0500 Systolic blood pressure 133 mm[Hg] PA NA Whitmore PA Work Phone: [facility] 09-19-2023 08:04-0400 Body height 160.02 cm PA NA Whitmore PA Work Phone: [facility] 09-19-2023 08:04-0400 Body mass index (BMI) [Ratio] 27.3 kg/m2 PA NA Whitmore PA Work Phone: [facility] 09-19-2023 08:04-0400 Body temperature 98 [degF] PA NA Whitmore PA Work Phone: [facility] 09-19-2023 08:04-0400 Body weight 69.85 kg PA NA Whitmore PA Work Phone: [facility] 09-19-2023 08:04-0400 Diastolic blood pressure 76 mm[Hg] PA NA Whitmore PA Work Phone: [facility] 09-19-2023 08:04-0400 Heart rate 66 /min PA NA Whitmore PA Work Phone: [facility] 09-19-2023 08:04-0400 Respiratory rate 16 /min PA NA Whitmore PA Work Phone: [facility] 09-19-2023 08:04-0400 SaO2% (BldA) [Mass fraction] 98 % PA NA Whitmore PA Work Phone: [facility] 09-19-2023 08:04-0400 Systolic blood pressure 116 mm[Hg] PA NA Whitmore PA Work Phone: [facility] 09-01-2023 09:18-0400 Body weight 70.76 kg NA Whitmore PA-C Work Phone: [facility] 09-01-2023 09:18-0400 Diastolic blood pressure 64 mm[Hg] NA Whitmore PA-C Work Phone: [facility] 09-01-2023 09:18-0400 Heart rate 67 /min NA Whitmore PA-C Work Phone: [facility] 09-01-2023 09:18-0400 Respiratory rate 16 /min NA Whitmore PA-C Work Phone: [facility] 09-01-2023 09:18-0400 SaO2% (BldA) [Mass fraction] 99 % NA Whitmore PA-C Work Phone: [facility] 09-01-2023 09:18-0400 Systolic blood pressure 110 mm[Hg] NA Whitmore PA-C Work Phone: [facility] 09-20-2022 08:07-0400 Body height 160.02 cm PA NA Whitmore PA Work Phone: [facility] 09-20-2022 08:07-0400 Body mass index (BMI) [Ratio] 27.8 kg/m2 PA NA Whitmore PA Work Phone: [facility] 09-20-2022 08:07-0400 Body temperature 96.1 [degF] PA NA Whitmore PA Work Phone: [facility] 09-20-2022 08:07-0400 Body weight 71.32 kg PA NA Whitmore PA Work Phone: [facility] 09-20-2022 08:07-0400 Diastolic blood pressure 77 mm[Hg] PA NA Whitmore PA Work Phone: [facility] 09-20-2022 08:07-0400 Heart rate 52 /min PA NA Whitmore PA Work Phone: [facility] 09-20-2022 08:07-0400 Respiratory rate 18 /min PA NA Whitmore PA Work Phone: [facility] 09-20-2022 08:07-0400 SaO2% (BldA) [Mass fraction] 97 % PA NA Whitmore PA Work Phone: [facility] 09-20-2022 08:07-0400 Systolic blood pressure 115 mm[Hg] PA NA Whitmore PA Work Phone: [facility] 06-23-2022 12:32-0400 Diastolic blood pressure 88 mm[Hg] [facility] Work Phone: 06-23-2022 12:32-0400 Heart rate 62 /min [facility] Work Phone: 06-23-2022 12:32-0400 Respiratory rate 15 /min [facility] Work Phone: 06-23-2022 12:32-0400 SaO2% (BldA) [Mass fraction] 98 % [facility] Work Phone: 06-23-2022 12:32-0400 Systolic blood pressure 124 mm[Hg] [facility] Work Phone: 06-23-2022 10:02-0400 Body height 160.02 cm [facility] Work Phone: 06-23-2022 10:02-0400 Body mass index (BMI) [Ratio] 25.2 kg/m2 [facility] Work Phone: 06-23-2022 10:02-0400 Body temperature 96.4 [degF] [facility] Work Phone: 06-23-2022 10:02-0400 Body weight 64.7 kg [facility] Work Phone: 05-25-2022 08:30-0400 Body weight 66.22 kg NA Whitmore PA-C Work Phone: [facility] 05-25-2022 08:30-0400 Diastolic blood pressure 60 mm[Hg] NA Whitmore PA-C Work Phone: [facility] 05-25-2022 08:30-0400 Heart rate 62 /min NA Whitmore PA-C Work Phone: [facility] 05-25-2022 08:30-0400 Respiratory rate 16 /min NA Whitmore PA-C Work Phone: [facility] 05-25-2022 08:30-0400 SaO2% (BldA) [Mass fraction] 100 % NA Whitmore PA-C Work Phone: [facility] 05-25-2022 08:30-0400 Systolic blood pressure 110 mm[Hg] NA Whitmore PA-C Work Phone: [facility] 03-29-2022 09:20-0400 Body weight 63.96 kg NA Whitmore PA-C Work Phone: [facility] 03-29-2022 09:20-0400 Diastolic blood pressure 64 mm[Hg] NA Whitmore PA-C Work Phone: [facility] 03-29-2022 09:20-0400 Heart rate 67 /min NA Whitmore PA-C Work Phone: [facility] 03-29-2022 09:20-0400 Respiratory rate 18 /min NA Whitmore PA-C Work Phone: [facility] 03-29-2022 09:20-0400 SaO2% (BldA) [Mass fraction] 100 % NA Whitmore PA-C Work Phone: [facility] 03-29-2022 09:20-0400 Systolic blood pressure 100 mm[Hg] NA Whitmore PA-C Work Phone: [facility] 12-16-2021 10:23-0500 Diastolic blood pressure 74 mm[Hg] PA NA Whitmore PA Work Phone: [facility] Work Phone: 12-16-2021 10:23-0500 Heart rate 62 /min PA NA Whitmore PA Work Phone: [facility] Work Phone: 12-16-2021 10:23-0500 Respiratory rate 15 /min PA NA Whitmore PA Work Phone: [facility] Work Phone: 12-16-2021 10:23-0500 SaO2% (BldA) [Mass fraction] 98 % PA NA Whitmore PA Work Phone: [facility] Work Phone: 12-16-2021 10:23-0500 Systolic blood pressure 138 mm[Hg] PA NA Whitmore PA Work Phone: [facility] Work Phone: 12-16-2021 08:34-0500 Body height 160.02 cm PA NA Whitmore PA Work Phone: [facility] Work Phone: 12-16-2021 08:34-0500 Body mass index (BMI) [Ratio] 23 kg/m2 PA NA Whitmore PA Work Phone: [facility] Work Phone: 12-16-2021 08:34-0500 Body temperature 97.6 [degF] PA PHUONG GARCIA Work Phone: [facility] Work Phone: 12-16-2021 08:34-0500 Body weight 59 kg PA PHUONG GARCIA Work Phone: [facility] Work Phone: Encounters Encounter Date Encounter Type Care Provider Facility Start: 10-01-2025 ambulatory Jenny Suppan Facil ity:[facility] Start: 09-20-2025 ambulatory Jenny Suppan Facil ity:[facility] Start: 09-17-2025 End: 09-17-2025 ambulatory JENNY A SUPPAN Facility:[facility] Start: 09-17-2025 End: 09-17-2025 ambulatory Jenny Suppan [place] Start: 09-17-2025 End: 09-17-2025 ambulatory Jenny Suppan Facility:[facility] Start: 09-13-2025 End: 09-13-2025 ambulatory Jenny Suppan Facility:[facility] Start: 09-09-2025 End: 09-20-2025 ambulatory Ejnny Suppan Facility:[facility] Start: 07-15-2025 End: 07-21-2025 Discharged Recurring Rafa Zhao MD -Employee Health Start: 07-15-2025 End: 07-21-2025 ambulatory Jenny Suppan MINER HELPER Work Phone: -Employee Health Start: 03-14-2025 End: 03-14-2025 ambulatory JENNY A SUPPAN Facility:[facility] Start: 03-14-2025 End: 03-14-2025 ambulatory Jenny Suppan Facility:[facility] Start: 02-28-2025 End: 02-28-2025 ambulatory Jenny Suppan Facility:[facility] Start: 02-21-2025 End: 02-21-2025 ambulatory Jenny Suppan MINER HELPER Work Phone: [facility] Work Phone: Start: 02-21-2025 End: 02-21-[address] Isac Michelle MD -Ultrasound, [facility] Work Phone: Start: 02-21-2025 End: 02-21-2025 ambulatory Jenny Suppan Facility:[facility] Start: 01-29-2025 ambulatory Jenny Suppan Facil ity:[facility] Start: 01-09-2025 End: 01-18-2025 ambulatory Jenny Suppan Facility:[facility] Start: 01-09-2025 End: 01-18-2025 Discharged Recurring Rafa Zhao MD -Employee Health Start: 12-07-2024 End: 12-07-2024 Patient encounter procedure Jenny Suppan MINER HELPER -Laboratory Work Phone: Start: 12-07-2024 End: 12-07-2024 ambulatory Jenny Suppan Facility:[facility] Start: 11-20-2024 End: 11-20-[address] Isac Michelle MD -Laboratory Work Phone: Start: 11-20-2024 End: 11-20-2024 ambulatory Jenny Suppan Facility:[facility] Start: 10-31-2024 End: 11-05-2024 ambulatory Jenny A Suppan ADVERTISING OPERATIONS COORDINATOR.ELECTRICAL DESIGNER Work Phone: Internal Medicine [place] [phone] Start: 10-31-2024 ambulatory No Primary Car e Physician Facility:[facility] Start: 10-14-2024 End: 10-14-2024 ambulatory Chris Gerard HOOKER UP Facility:[facility] Start: 10-09-2024 End: 10-20-2024 ambulatory No Primary Care Physician Facility:[facility] Start: 10-04-2024 End: 10-04-2024 ambulatory Bhanu Cole Facility:[facility] Start: 09-13-2024 End: 09-18-2024 Telephone encounter Jenny A Suppan ADVERTISING OPERATIONS COORDINATOR.ELECTRICAL DESIGNER Work Phone: [facility] [place] Comment on above: 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 ([employer] ) Start: 09-13-2024 End: 09-13-2024 Subsequent hospital visit by physician Xr [facility] Work Phone: Radiology Comment on above: Spondyloarthropathy [M47.819] Start: 09-13-2024 End: 09-13-2024 Office outpatient visit 25 minutes Jenny Lebron APRN.CNP Work Phone: [facility] Comment on above: 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); Neuropathy of right lower extremity; Abdominal pain, right lateral; Thyroid cancer (HCC); Spondyloarthropathy; Seasonal allergic rhinitis, unspecified trigger; Dyslipidemia; Encounter for screening examination for other mental health and behavioral disorders; Screening for diabetes mellitus (DM); Screening for lipid disorders; Irritable bowel syndrome with constipation Start: 02-27-2024 End: 02-27-2024 ambulatory [facility] Work Phone: Start: 02-27-2024 End: 02-27-2024 Patient encounter procedure [facility] Work Phone: Start: 01-27-2024 End: 01-27-2024 ambulatory PA Jluis GARCIA Work Phone: [facility] Work Phone: Start: 01-27-2024 End: 01-27-2024 Patient encounter procedure JOSE GARCIA Work Phone: [facility]-Ultrasound, [facility] Work Phone: Start: 01-17-2024 Refill Jluis peguero PA-C Work Phone: [facility] Comment on above: Refill Request Start: 01-02-2024 End: 01-19-2024 ambulatory PA Jluis GARCIA Work Phone: [facility] Work Phone: Start: 01-02-2024 End: 01-19-2024 Discharged Recurring JOSE Whitmore PA Work Phone: [facility]-Employee Health Start: 12-05-2023 End: 12-21-2023 ambulatory PA Jluis AGRCIA Work Phone: [facility] Work Phone: Start: 12-05-2023 End: 12-21-2023 Discharged Recurring PA NA Whitmore PA Work Phone: [facility] Start: 11-24-2023 End: 11-24-2023 Emergency department patient visit PA NA Whitmore PA Work Phone: [facility]-Emergency Department Work Phone: Start: 11-22-2023 Registered Recurring PA NA Bar ton PA Work Phone: [facility] Start: 11-16-2023 End: 11-20-2023 ambulatory PA M Hao Whitmore PA Work Phone: [facility] Work Phone: Start: 11-16-2023 End: 11-20-2023 Discharged Recurring PA NA Whitmore PA Work Phone: [facility] Start: 10-24-2023 Registered Recurring PA NA Bar ton PA Work Phone: [facility] Start: 10-19-2023 Non-patient / Non-visit PA NA Whitmore PA Work Phone: [facility] Start: 10-19-2023 End: 10-19-2023 ambulatory PA M Hao Whitmore PA Work Phone: [facility] Work Phone: Start: 10-19-2023 End: 10-19-2023 Patient encounter procedure PA NA Whitmore PA Work Phone: [facility]-Outpatient Pavilion Ultrasound Work Phone: Start: 10-17-2023 End: 10-20-2023 ambulatory PA M Hao Whitmore PA Work Phone: [facility] Work Phone: Start: 10-17-2023 End: 10-20-2023 Discharged Recurring PA NA Whitmore PA Work Phone: [facility] Start: 10-17-2023 Registered Recurring PA PHUONG Barone PA Work Phone: [facility]-Employee Health Start: 10-07-2023 End: 10-07-2023 Patient encounter procedure PA PHUONG GARCIA Work Phone: [facility] Work Phone: Start: 10-04-2023 Telephone encounter Jluis GARCIA-C Work Phone: [facility] [place] Comment on above: Results (Breast US) Start: 10-04-2023 End: 10-04-2023 ambulatory PA Jluis GARCIA Work Phone: [facility] Work Phone: Start: 10-04-2023 End: 10-04-2023 Patient encounter procedure PA PHUONG Whitmore PA Work Phone: [facility] Ultrasound Work Phone: Start: 10-03-2023 End: 10-03-2023 ambulatory PA Jluis Whitmore PA Work Phone: [facility] Work Phone: Start: 10-03-2023 End: 10-03-2023 Patient encounter procedure PA PHUONG GARCIA Work Phone: [facility]-Laboratory Work Phone: Start: 09-30-2023 End: 09-30-2023 ambulatory PA Jluis Whitmore PA Work Phone: [facility] Work Phone: Start: 09-30-2023 End: 09-30-2023 Patient encounter procedure PA PHUONG Whitmore PA Work Phone: [facility]-Outpatient Breast Imaging Work Phone: Start: 09-19-2023 End: 09-20-2023 ambulatory PA Jluis Whitmore PA Work Phone: [facility] Work Phone: Start: 09-19-2023 End: 09-20-2023 Discharged Recurring JOSE GARCIA Work Phone: [facility] Start: 09-19-2023 End: 09-19-2023 Patient encounter procedure JOSE GARCIA Work Phone: [facility] Work Phone: Start: 09-05-2023 Telephone encounter Jluis GARCIA-C Work Phone: Family [facility] Start: 09-05-2023 Registered Recurring [facility] Start: 09-01-2023 Telephone encounter Jluis Hao GARCIA-C Work Phone: [facility] Comment on above: [facility] orders faxed Start: 09-01-2023 End: 09-01-2023 ambulatory [facility] Work Phone: Start: 09-01-2023 End: 09-01-2023 Patient encounter procedure Jluis NORIEGAC Work Phone: [facility] Comment on above: Screening for colon cancer (Primary Dx); Herniated intervertebral disc of lumbar spine; Neuropathy of right lower extremity; Restless leg syndrome; Medication management; Low serum vitamin D; Guillermo's thyroiditis; Thyroid cancer (HCC); Wellness examination Start: 09-01-2023 End: 09-01-2023 Patient encounter status Jluis GARCIA-C Work Phone: [facility] Work Phone: Start: 08-19-2023 End: 08-20-2023 ambulatory [facility] Work Phone: Start: 08-19-2023 End: 08-20-2023 Discharged Recurring [facility] Start: 06-22-2023 ambulatory Jluis Hao GARCIA-C Work Phone: Internal Medicine [facility] [place] Start: 02-24-2023 End: 03-20-2023 ambulatory [facility] Work Phone: Start: 02-24-2023 End: 03-20-2023 Discharged Recurring [facility] Start: 02-16-2023 End: 02-18-2023 ambulatory PA Jluis Whitmore PA Work Phone: [facility] Work Phone: Start: 02-16-2023 End: 02-18-2023 Discharged Recurring PA NA Whitmore PA Work Phone: [facility] Start: 12-03-2022 End: 12-21-2022 ambulatory PA Jluis Whitmore PA Work Phone: [facility] Work Phone: Start: 12-03-2022 End: 12-21-2022 Discharged Recurring PA NA Whitmore PA Work Phone: [facility] Start: 10-28-2022 End: 10-28-2022 Patient encounter procedure PA NA Whitmore PA Work Phone: [facility] Start: 10-28-2022 End: 10-28-2022 Patient encounter procedure PA NA Whitmore PA Work Phone: [facility] Start: 09-28-2022 End: 09-28-2022 ambulatory PA Jluis Bui Whitmore PA Work Phone: [facility] Work Phone: Start: 09-28-2022 End: 09-28-2022 Patient encounter procedure PA NA Whitmore PA Work Phone: [facility]-Outpatient Bone Densitometry Start: 09-20-2022 End: 09-20-2022 Patient encounter procedure PA NA Whitmore PA Work Phone: [facility] Start: 09-15-2022 Chuyita peguero PA-C Work Phone: [facility] [place] Comment on above: Refill Request Start: 08-16-2022 End: 08-20-2022 ambulatory [facility] Work Phone: Start: 08-16-2022 End: 08-20-2022 Discharged Recurring [facility] Start: 07-12-[address] [facility] Start: 06-30-2022 End: 06-30-2022 Patient encounter procedure [facility] Start: 06-29-2022 ambulatory Jluis Benson on [employer] Work Phone: Family [facility] [place] Comment on above: Numbness continues a rm and fingers Start: 06-23-2022 End: 06-23-2022 [facility] Start: 05-25-2022 End: 05-25-2022 Patient encounter procedure Jlusi Whitmore PA-[place] Work Phone: [facility] [place] Comment on above: Somatic dysfunction of spine, cervical (Primary Dx); Somatic dysfunction of spine, thoracic; Somatic dysfunction of right sacroiliac joint Start: 05-03-2022 Documentation procedure Mammog lea Coordinator [facility] Start: 05-03-2022 Letter encounter Mammography Coordinator [facility] Department Start: 05-03-2022 End: 05-03-2022 Subsequent hospital visit by physician Screen Mammo [facility] Comment on above: Encounter for screen ing mammogram for malignant neoplasm of breast [Z12.31] Start: 04-12-2022 End: 04-12-2022 ambulatory Emg 850) Neurology Start: 04-12-2022 End: 04-12-2022 Patient encounter procedure Emg 2 Neur Ramona (Max Weight: 850) RAMONA Start: 03-31-2022 ambulatory Jluis peguero [employer] Work Phone: Family [facility] [place] Comment on above: Test Results Start: 03-29-2022 End: 03-29-2022 Refill Jluis Whitmore [employer] Work Phone: [facility] [place] Comment on above: Refill Request Encounter for screen ing mammogram for malignant neoplasm of breast (Primary Dx); Polyneuropathy; Microcytic anemia; Thyroid nodule; Guillermo's thyroiditis; S/P partial thyroidectomy; Reactive depression; Neuropathy of right lower extremity; RLS (restless legs syndrome) Start: 02-22-2022 End: 02-22-2022 Patient encounter procedure PA PHUONG Whitmore PA Work Phone: [facility]-Ultrasound, [facility] Start: 12-31-2021 End: 12-31-2021 Patient encounter procedure PA PHUONG Whitmore PA Work Phone: [facility], [facility] [facility] Start: 12-18-2021 End: 12-18-2021 Patient encounter procedure PA PHUONG Whitmore PA Work Phone: [facility] Start: 12-16-2021 End: 12-16-2021 Emergency department patient visit PA PHUONG Whitmore PA Work Phone: [facility]-Emergency Department Start: 05-19-2018 Ambulatory Shawanda Aldana Facility: [facility] Procedures Date Procedure Procedure Detail Performing Clinician Start: 07-15-2025 Viral antigen assay Jenny Lebron CN S Work Phone: Start: 02-21-2025 US scan of thyroid Jenny Lebron CN S Work Phone: Start: 01-09-2025 Viral antigen assay Jenny Joannamichelle CN S Work Phone: Start: 01-02-2025 Viral antigen assay Jenny Suppan CN S Work Phone: Start: 01-27-2024 US scan of thyroid PA NA Whitmore PA Work Phone: Start: 01-02-2024 Viral antigen assay PA NA Whitmore PA Work Phone: Start: 12-05-2023 Viral antigen assay PA NA Whitmore PA Work Phone: Start: 11-24-2023 CT angiography of chest with contrast PA NA Whitmore PA Work Phone: Start: 11-24-2023 Plain chest X-ray PA NA Whitmore PA Work Phone: Start: 11-22-2023 Viral antigen assay PA NA Whitmore PA Work Phone: Start: 11-16-2023 Viral antigen assay PA NA Whitmore PA Work Phone: Start: 10-24-2023 Viral antigen assay PA PHUONG Whitmore PA Work Phone: Start: 10-19-2023 Ultrasonography guided biopsy of breast PA PHUONG Whitmore PA Work Phone: Start: 10-17-2023 Viral antigen assay PA PHUONG Whitmore PA Work Phone: Start: 10-04-2023 Ultrasonography of breast PA PHUONG Whitmore P A Work Phone: Start: 09-30-2023 Screening mammography PA PHUONG Whitmore PA Work Phone: Start: 09-19-2023 Viral antigen assay PA PHUONG Whitmore PA Work Phone: Start: 09-05-2023 Viral antigen assay Start: 08-19-2023 Viral antigen assay Start: 09-28-2022 Dual energy X-ray absorptiometry PA PHUONG Whitmore PA Work Phone: Start: 06-23-2022 MRI of cervical spine Start: 05-03-2022 End: 05-03-2022 Screening mammography bi 2-view breast inc cad M Hao Bensonsudhir GARCIA-C Work Phone: Start: 04-12-2022 Nerve conduction studies 5-6 studies M Hao Haim NORIEGAC Work Phone: Start: 02-22-2022 US scan of thyroid PA PHUONG Whitmore PA Work Phone: Start: 12-31-2021 Computed tomography of abdomen and pelvis with contrast PA PHUONG Whitmore PA Work Phone: Start: 04-16-2021 Mammography PHUONG Whitmore PA-C Work Phone: Start: 11-21-2020 History of appendectomy Status post laparoscopic appendectomy PA PHUONG Whitmore PA Work Phone: Start: 02-26-2019 Lipid 1996 panel - Serum or Plasma PHUONG Haim PA-C Work Phone: Viral antigen assay Viral antigen assay PA NA Ba rton PA Work Phone: Viral antigen assay PA NA Ba rton PA Work Phone: Viral antigen assay Plan of Treatment Date Care Activity Detail Author Start: 07-12-2032 Urine microalbumin profile DTaP,Tdap,Td Vaccine (7 - Td or Tdap) [facility] Start: 09-04-2026 Cologuard (FIT-DNA) Cologuard (FIT-DNA) [facility] Start: 09-04-2026 Colorectal Cancer Screening Colorectal Cancer Screening [facility] Start: 09-04-2026 Screening for malignant neoplasm of colon [facility] Start: 09-13-2025 Anxiety Screening Anxiety Screening [facility] Start: 09-13-2025 Covid-19 Vaccine () Covid-19 Vaccine () [facility] Comment on above: Postponed from 07/22/2024 (Declined at t his time) Start: 09-13-2025 Hepatitis C screening Hepatitis C Screening [facility] Comment on above: Postponed from 1990 (Declined at t his time) Start: 09-13-2025 HIV screening HIV Screening [facility] Comment on above: Postponed from 1990 (Declined at t his time) Start: 09-13-2025 Pneumococcal vaccination Pneumococcal Vaccine (1 of 2 - PCV) [facility] Comment on above: Postponed from 1978 (Declined at t his time) Start: 09-13-2025 Shingrix Vaccine (1 of 2) Shingrix Vaccine (1 of 2) [facility] Comment on above: Postponed from 2022 (Declined at t his time) Start: 03-14-2025 End: 03-14-2025 Patient encounter procedure 03/14/2025 8:40 AM EDT Office Visit [facility] [address] [place], [place] [id number] Jenny Lebron APRN.ELECTRICAL DESIGNER [address] [place], [place] [id number] 6 month dollow ip [facility] Comment on above: 6 month dollow ip Start: 10-04-2024 Screening for malignant neoplasm of breast Mammogram Screening [facility] Comment on above: Postponed from 09/30/2024 (Currently Sheldon eduled) Start: 09-30-2024 Mammography Mammogram Screening [facility] Start: 09-30-2024 Screening for malignant neoplasm of breast Mammogram Screening [facility] Start: 09-13-2024 End: 12-13-2024 Fasting glucose [Mass/volume] in Serum or Plasma GLUCOSE, FASTING Lab Routine Screening for diabetes mellitus (DM) Expected: 09/13/2024, Expires: 12/13/2024 [facility] Comment on above: Expected: 09/13/2024, Expires: Start: 09-13-2024 End: 12-13-2024 Lipid 1996 panel - Serum or Plasma LIPID PANEL BASIC Lab Routine Screening for lipid disorders Expected: 09/13/2024, Expires: 12/13/2024 [facility] Comment on above: Expected: 09/13/2024, Expires: Start: 09-01-2024 Covid-19 Vaccine (#1) Covid-19 Vaccine (#1) [facility] Comment on above: Postponed from [birth year]/1973 (Declined at t his time) Start: 09-01-2024 Hepatitis C Screening Hepatitis C Screening [facility] Comment on above: Postponed from 1990 (Declined at t his time) Start: 09-01-2024 Hepatitis C screening Hepatitis C Screening [facility] Comment on above: Postponed from 1990 (Declined at t his time) Start: 09-01-2024 HIV Screening HIV Screening [facility] Comment on above: Postponed from 1990 (Declined at t his time) Start: 09-01-2024 HIV screening HIV Screening [facility] Comment on above: Postponed from 1990 (Declined at t his time) Start: 09-01-2024 Pneumococcal vaccination [facility] Comment on above: Postponed from 1978 (Declined at t his time) Start: 09-01-2024 Shingrix Vaccine (1 of 2) Shingrix Vaccine (1 of 2) [facility] Comment on above: Postponed from 2022 (Declined at t his time) Start: 05-20-2024 Influenza vaccination Influ[facility] Vaccine (#[facility] Comment on above: Postponed from 07/22/2023 (Declined at t his time) Start: 03-04-2024 DIABETES SCREEN DIABETES SCREEN [facility] Start: 03-04-2024 Diabetes Screening Diabetes Screening [facility] Start: 02-27-2024 Lipid 1996 panel - Serum or Plasma Lipid Screening [facility] Start: 02-27-2024 Lipid panel Lipid Screening [facility] Start: 02-27-2024 LIPID SCREEN LIPID SCREEN [facility] Start: 11-24-2023 [facility] Start: 11-24-2023 [facility] Start: 10-06-2023 End: 12-06-2023 Basic metabolic 2000 panel - Serum or Plasma BASIC METABOLIC PNL Lab Routine Stage 3a chronic kidney disease (CKD) (HCC) Elevated glucose Expected: 10/06/2023, Expires: 12/06/2023 [facility] Work Phone: Comment on above: Expected: 10/06/2023, Expires: 4 Start: 10-06-2023 End: 12-06-2023 CBC W Auto Differential panel - Blood CBC + DIFF Lab Routine Neutropenia, unspecified type (HCC) Expected: 10/06/2023, Expires: 12/06/2023 [facility] Work Phone: Comment on above: Expected: 10/06/2023, Expires: 4 Start: 10-06-2023 End: 12-06-2023 Hemoglobin A1c in Blood HGB A1C Lab Routine Elevated glucose Expected: 10/06/2023, Expires: 12/06/2023 [facility] Work Phone: Comment on above: Expected: 10/06/2023, Expires: 4 Start: 09-01-2023 End: 11-01-2023 25-hydroxyvitamin D3 [Mass/volume] in Serum or Plasma VITAMIN D 25 HYDROXY Lab Routine Low serum vitamin D Expected: 09/01/2023, Expires: 11/01/2023 [facility] Work Phone: Comment on above: Expected: 09/01/2023, Expires: 3 Start: 09-01-2023 End: 11-01-2023 CBC W Auto Differential panel - Blood CBC + DIFF Lab Routine Neuropathy of right lower extremity Expected: 09/01/2023, Expires: 11/01/2023 [facility] Work Phone: Comment on above: Expected: 09/01/2023, Expires: 3 Start: 09-01-2023 End: 11-01-2023 Comprehensive metabolic 2000 panel - Serum or Plasma COMP METABOLIC PANEL Lab Routine Neuropathy of right lower extremity Expected: 09/01/2023, Expires: 11/01/2023 [facility] Work Phone: Comment on above: Expected: 09/01/2023, Expires: 3 Start: 09-01-2023 End: 11-01-2023 T4/FTI/T4U T4/FTI/T4U Lab Routine Guillermo's thyroiditis Thyroid cancer (HCC) Expected: 09/01/2023, Expires: 11/01/2023 [facility] Work Phone: Comment on above: Expected: 09/01/2023, Expires: 3 Start: 09-01-2023 End: 11-01-2023 Thyrotropin [Units/volume] in Serum or Plasma TSH BLD Lab Routine Guillermo's thyroiditis Thyroid cancer (HCC) Expected: 09/01/2023, Expires: 11/01/2023 [facility] Work Phone: Comment on above: Expected: 09/01/2023, Expires: 3 Start: 07-22-2023 Influenza vaccination INFLUENZA (#1) [facility] Start: 05-03-2023 Mammography [facility] Start: 03-29-2023 HEPATITIS C SCREENING HEPATITIS C SCREENING [facility] Comment on above: Postponed from 1990 (Declined at t his time) Start: 03-29-2023 HIV SCREENING HIV SCREENING [facility] Comment on above: Postponed from 1990 (Declined at t his time) Start: 03-29-2023 ONE PNEUMOVAX PRIOR TO AGE 65 ONE PNEUMOVAX PRIOR TO AGE 67 [facility] Comment on above: Postponed from 1991 (Declined at t his time) Start: 03-29-2023 PNEUMOCOCCAL (1 - PCV) PNEUMOCOCCAL (1 - PCV) [facility] Comment on above: Postponed from 1978 (Declined at t his time) Start: 03-21-2023 Urine microalbumin profile DTAP,TDAP,TD (5 - Tdap) [facility] Comment on above: Postponed from 07/20/2003 (Declined at t his time) Start: 09-28-2022 COLORECTAL CANCER SCREENING COLORECTAL CANCER SCREENING [facility] Comment on above: Postponed from 2017 (Declined at t his time) Start: 09-28-2022 COVID-19 VACCINE (#1) COVID-19 VACCINE (#1) [facility] Comment on above: Postponed from 1977 (Declined at t his time) Postponed from 02/22 (Declined at this time) Start: 2022 SHINGRIX VACCINE (1 of 2) SHINGRIX VACCINE (1 of 2) [facility] Start: 07-22-2022 Influenza vaccination [facility] Start: 04-16-2022 Mammography MAMMOGRAM [facility] Start: 03-29-2022 End: 05-29-[address] [facility] Work Phone: Comment on above: Expected: 03/29/2022, Expires: 2 Start: 03-29-2022 End: 05-29-2022 Folate [Mass/volume] in Serum or Plasma [facility] Work Phone: Comment on above: Expected: 03/29/2022, Expires: 2 Start: 03-29-2022 End: 05-29-2022 IRON + TIBC [facility] Work Phone: Comment on above: Expected: 03/29/2022, Expires: 2 Start: 03-29-2022 End: 05-29-2022 PROTEIN ELECTROPHORESIS SERUM W/INTERP [facility] Work Phone: Comment on above: Expected: 03/29/2022, Expires: 2 Start: 03-29-2022 End: 05-29-[address] [facility] Work Phone: Comment on above: Expected: 03/29/2022, Expires: 2 Start: 2017 COLOGUARD (FIT-DNA) COLOGUARD (FIT-DNA) [facility] Start: 2017 Colonoscopy COLONOSCOPY [facility] Start: 2017 COLORECTAL CANCER SCREENING COLORECTAL CANCER SCREENING [facility] Start: [address] COLONOGRAPHY [facility] Start: 2017 FECAL OCCULT BLOOD FECAL OCCULT BLOOD [facility] Start: 2017 Screening for malignant neoplasm of colon [facility] Start: 2017 SIGMOIDOSCOPY SIGMOIDOSCOPY [facility] Start: 07-20-2003 Urine microalbumin profile DTAP,TDAP,TD (5 - Tdap) [facility] Start: 1990 HEPATITIS C SCREENING HEPATITIS C SCREENING [facility] Start: 1990 HIV SCREENING HIV SCREENING [facility] Start: 1978 PNEUMOCOCCAL (1 - PCV) PNEUMOCOCCAL (1 - PCV) [facility] Start: 02-22-1973 COVID-19 VACCINE (#1) COVID-19 VACCINE (#1) [facility] Start: 1972 HEPATITIS B (1 of 3 - 3-dose series) HEPATITIS B (1 of 3 - 3-dose series) [facility] COLOGUARD COLOGUARD Lab Ro utine Screening for colon cancer Ordered: 09/01/2023 [facility] Work Phone: Comment on above: Ordered: 09/01/2023 End: 11-30-2025 DBT Breast - bilateral screening SELVIN SCREENING W [facility] Radiology Routine Encounter for screening mammogram for breast cancer 1 Occurrences starting 10/31/2024 until 11/30/2025 [facility] Work Phone: Comment on above: 1 Occurrences starting 10/31/2024 until 11/30/2025 End: 04-02-2023 EMG(NEURO/NI) EMG(NEURO/NI) EMG Routine Paresthesia 1 Occurrences starting 04/02/2022 until 04/02/2023 [facility] Work Phone: Comment on above: 1 Occurrences starting 04/02/2022 until 04/02/2023 End: 07-21-2024 SELVIN SCREENING SELVIN SCREENING Radiology Routine Encounter for screening mammogram for breast cancer 1 Occurrences starting 06/22/2023 until 07/21/2024 [facility] Work Phone: Comment on above: 1 Occurrences starting 06/22/2023 until 07/21/2024 Patient Education [facility] Work Phone: Patient referral [facility] Work Phone: End: 04-28-2023 Screening mammography bi 2-view breast inc cad SELVIN SCREENING Radiology Routine Encounter for screening mammogram for malignant neoplasm of breast 1 Occurrences starting 03/29/2022 until 04/28/2023 [facility] Work Phone: Comment on above: 1 Occurrences starting 03/29/2022 until 04/28/2023 T4 free measurement [facility] Work Phone: T4 free measurement [facility] T4 free measurement [facility] Thyroid stimulating hormone measurement [facility] Work Phone: Thyroid stimulating hormone measurement [facility] Thyroid stimulating hormone measurement [facility] Vitamin D, 25-hydrox y measurement [facility] Work Phone: Vitamin D, 25-hydrox y measurement [facility] End: 10-13-2025 XR Foot - left AP and Lateral and oblique XR FOOT GENERAL 3V AP/LAT/OBL LEFT Radiology Routine Spondyloarthropathy 1 Occurrences starting 09/13/2024 until 10/13/2025 [facility] Work Phone: Comment on above: 1 Occurrences starting 09/13/2024 until 10/13/2025 XR Foot - left AP an d Lateral and oblique XR FOOT GENERAL 3V AP/LAT/OBL LEFT Radiology Routine Spondyloarthropathy 09/13/2024 10:05 AM EDT [facility] Immunizations Immunization Date Immunization Notes Care Provider Manohar fuller 09-10-2024 influenza, seasonal, injectable, preservative free Jenny Lebron ADVERTISING OPERATIONS COORDINATOR.ELECTRICAL DESIGNER Work Phone: [facility] 10-10-2023 influenza, injectabl e, quadrivalent, preservative free PA NA Whitmore PA Work Phone: [facility] 10-06-2022 influenza, injectabl e, quadrivalent, preservative free [facility] 10-06-2022 influenza, seasonal, injectable PA NA Whitmore PA Work Phone: [facility] 10-06-2022 influenza virus vaccine, unspecified formulation NA Whitmore PA-C Work Phone: [facility] 07-12-2022 tetanus toxoid, reduced diphtheria toxoid, and acellular pertussis vaccine, adsorbed [facility] 01-08-2009 hepatitis B vaccine, adult dosage NA Whitmore PA-C Work Phone: [facility] 09-16-2008 influenza virus vaccine, split virus (incl. purified surface antigen) NA Whitmore PA-C Work Phone: [facility] 08-02-2008 hepatitis B vaccine, adult dosage NA Whitmore PA-C Work Phone: [facility] 08-01-2008 hepatitis A vaccine, adult dosage NA Whitmore PA-C Work Phone: [facility] 08-01-2008 measles, mumps and rubella virus vaccine NA Whitmore PA-C Work Phone: [facility] 07-03-2008 hepatitis B vaccine, adult dosage NA Whitmore PA-C Work Phone: [facility] 05-07-2008 tetanus toxoid, reduced diphtheria toxoid, and acellular pertussis vaccine, adsorbed NA Whitmore PA-C Work Phone: [facility] 07-07-1999 typhoid vaccine, unspecified formulation NA Whitmore PA-C Work Phone: [facility] Work Phone: 07-20-1993 diphtheria, tetanus toxoids and pertussis vaccine NA Whitmore PA-C Work Phone: [facility] Work Phone: 07-20-1993 measles, mumps and rubella virus vaccine NA Whitmore PA-C Work Phone: [facility] Work Phone: 07-20-1993 trivalent poliovirus vaccine, live, oral NA Whitmore PA-C Work Phone: [facility] Work Phone: 08-02-1990 diphtheria, tetanus toxoids and pertussis vaccine NA Whitmore PA-C Work Phone: [facility] Work Phone: 08-02-1990 trivalent poliovirus vaccine, live, oral NA Whitmore PA-C Work Phone: [facility] Work Phone: 06-01-1990 haemophilus influenz ae type b vaccine, PRP-D conjugate NA Whitmore PA-C Work Phone: [facility] Work Phone: 06-01-1990 measles, mumps and rubella virus vaccine NA Whitmore PA-C Work Phone: [facility] Work Phone: 07-28-1989 diphtheria, tetanus toxoids and pertussis vaccine NA Whitmore PA-C Work Phone: [facility] Work Phone: 07-28-1989 trivalent poliovirus vaccine, live, oral NA Whitmore PA-C Work Phone: [facility] Work Phone: 06-01-1989 diphtheria, tetanus toxoids and pertussis vaccine NA Whitmore PA-C Work Phone: [facility] Work Phone: 06-01-1989 trivalent poliovirus vaccine, live, oral NA Whitmore PA-C Work Phone: [facility] Work Phone: 03-29-1989 diphtheria, tetanus toxoids and pertussis vaccine NA Whitmore PA-C Work Phone: [facility] Work Phone: 03-29-1989 trivalent poliovirus vaccine, live, oral NA Whitmore PA-C Work Phone: [facility] Work Phone: Payers Date Payer Category Payer [employer] ( [employer] others) [id number] 2024 Self-pay [id number] 2017 Unknown [facility] [id number] 2017-Present [phone] [address] [place] [address] Indemnity [id number] 2017 Unknown [facility] [id number] 2017-Present [phone] [address] [place] [address] Indemnity [id number] 2017 [employer] ( [employer] others) [id number] [employer] others) [id number] [employer] ( [employer] others) [id number] Private Health Insurance [id number] Unknown [id number] Unknown [id number] Unknown [id number] Unknown [id number] Unknown [id number] Unknown [id number] Unknown [id number] Unknown [id number] Unknown [id number] .[id number] Unknown [id number] .[id number] Unknown [id number] .[id number] Unknown [id number] .[id number] Unknown [id number] .[id number] Unknown [id number] .462 Unknown [id number] .462 Unknown [id number] .[id number] Unknown [id number] Unknown [id number] .[id number] Unknown [id number] Social History Date Type Detail Facility [facility] Work Phone: Start: 12-18-2021 End: 11-24-2023 Tobacco smoking status MNIS Unknown if ever smoked [facility] Start: 04-24-2019 Cigarettes [facility] Start: 1970 Sex Assigned At Female [facility] Start: 08-16-2018 End: 07-06-2022 Tobacco smoking status NHIS Smokes tobacco daily [facility] Start: 08-16-2018 End: 07-06-2022 Tobacco use and exposure Smokeless tobacco non-user [facility] Start: 03-11-2021 End: 09-22-2021 History SDOH Alcohol Frequency 2 [facility] Start: 03-11-2021 End: 03-25-2021 History SDOH Alcohol Std Drinks 1 [facility] Start: 03-11-2021 History SDOH Social Connections Phone 5 [facility] Start: 03-11-2021 History SDOH Social Connections Get Together 98 [facility] Start: 03-11-2021 History SDOH Social Connections Living 3 [facility] Start: 03-11-2021 History SDOH Physica l Activity DPW 0 [facility] Start: 03-11-2021 Education 12 [facility] Start: 03-19-2022 End: 05-03-2022 Exposure to SARS-CoV-2 (event) Not sure [facility] Start: 07-06-2022 End: 08-31-2023 History of Social function [facility] Work Phone: Start: 07-06-2022 End: 08-31-2023 Tobacco use panel [facility] Work Phone: Start: 09-03-2020 Gender identity Identifies as female gender (finding) [facility] How often do you get together with friends or relatives? Patient refused [facility] Work Phone: Do you belong to any clubs or organizations such as pentecostalism groups, unions, fraternal or athletic groups, or school groups? No [facility] Work Phone: Are you now , , , , never or living with a partner? [facility] Work Phone: How often to you hav e a drink containing alcohol? Monthly or less [facility] Work Phone: How many standard dr inks containing alcohol do you have on a typical day? 1 or 2 [facility] Work Phone: How often do you hav e 6 or more drinks on 1 occasion? Never [facility] Work Phone: Do you feel stress - tense, restless, nervous, or anxious, or unable to sleep at night because your mind is troubled all the time - these days [OSQ] Only a little [facility] Work Phone: (I/We) worried wheth er (my/our) food would run out before (I/we) got money to buy more. Never true [facility] Work Phone: Do you belong to any clubs or organizations such as pentecostalism groups, unions, fraternal or athletic groups, or school groups? Yes [facility] Do you feel stress - tense, restless, nervous, or anxious, or unable to sleep at night because your mind is troubled all the time - these days [OSQ] Not at all [facility] Start: 10-14-2024 Tobacco smoking stat [facility] Ex-smoker (finding) [facility] Start: 02-26-2025 Sex Female (finding) [facility] Medical Equipment Procedure Code Equipment Code Equipment Original Text Equipment Identifier Dates Thyroidectomy SUTURE,LIGA CLIP MED [id number] FDA Start: 04-23-2019 Thyroidectomy SUTURE,LIGA CLIP MED [id number] FDA Start: 04-23-2019 Thyroidectomy SUTURE,LIGA CLIP SM LT-100 FDA Start: 04-23-2019 Thyroidectomy SUTURE,LIGA CLIP SM LT-100 FDA Start: 04-23-2019 Thyroidectomy SUTURE,LIGA CLIP SM LT-100 FDA Start: 04-23-2019 Thyroidectomy SUTURE,LIGA CLIP SM LT-100 FDA Start: 04-23-2019 Thyroidectomy SUTURE,LIGA CLIP MED [id number] FDA Start: 04-23-2019 Thyroidectomy SUTURE,LIGA CLIP MED [id number] FDA Start: 04-23-2019 Thyroidectomy SUTURE,LIGA CLIP SM LT-100 FDA Start: 04-23-2019 Thyroidectomy SUTURE,LIGA CLIP SM LT-100 FDA Start: 04-23-2019 Thyroidectomy SUTURE,LIGA CLIP SM LT-100 FDA Start: 04-23-2019 Thyroidectomy SUTURE,LIGA CLIP SM LT-100 FDA Start: 04-23-2019 Thyroidectomy SUTURE,LIGA CLIP MED [id number] FDA Start: 04-23-2019 Thyroidectomy SUTURE,LIGA CLIP MED [id number] FDA Start: 04-23-2019 Thyroidectomy SUTURE,LIGA CLIP SM LT-100 FDA Start: 04-23-2019 Thyroidectomy SUTURE,LIGA CLIP SM LT-100 FDA Start: 04-23-2019 Thyroidectomy SUTURE,LIGA CLIP SM LT-100 FDA Start: 04-23-2019 Thyroidectomy SUTURE,LIGA CLIP SM LT-100 FDA Start: 04-23-2019 Thyroidectomy SUTURE,LIGA CLIP MED [id number] FDA Start: 04-23-2019 Thyroidectomy SUTURE,LIGA CLIP MED [id number] FDA Start: 04-23-2019 Thyroidectomy SUTURE,LIGA CLIP SM LT-100 FDA Start: 04-23-2019 Thyroidectomy SUTURE,LIGA CLIP SM LT-100 FDA Start: 04-23-2019 Thyroidectomy SUTURE,LIGA CLIP SM LT-100 FDA Start: 04-23-2019 Thyroidectomy SUTURE,LIGA CLIP SM LT-100 FDA Start: 04-23-2019 Thyroidectomy SUTURE,LIGA CLIP MED [id number] FDA Start: 04-23-2019 Thyroidectomy SUTURE,LIGA CLIP MED [id number] FDA Start: 04-23-2019 Thyroidectomy SUTURE,LIGA CLIP SM LT-100 FDA Start: 04-23-2019 Thyroidectomy SUTURE,LIGA CLIP SM LT-100 FDA Start: 04-23-2019 Thyroidectomy SUTURE,LIGA CLIP SM LT-100 FDA Start: 04-23-2019 Thyroidectomy SUTURE,LIGA CLIP SM LT-100 FDA Start: 04-23-2019 Thyroidectomy SUTURE,LIGA CLIP MED LT200 FDA Start: 04-23-2019 Thyroidectomy SUTURE,LIGA CLIP MED LT200 FDA Start: 04-23-2019 Thyroidectomy SUTURE,LIGA CLIP SM LT-100 FDA Start: 04-23-2019 Thyroidectomy SUTURE,LIGA CLIP SM LT-100 FDA Start: 04-23-2019 Thyroidectomy SUTURE,LIGA CLIP SM LT-100 FDA Start: 04-23-2019 Thyroidectomy SUTURE,LIGA CLIP SM LT-100 FDA Start: 04-23-2019 Thyroidectomy SUTURE,LIGA CLIP MED LT200 FDA Start: 04-23-2019 Thyroidectomy SUTURE,LIGA CLIP MED LT200 FDA Start: 04-23-2019 Thyroidectomy SUTURE,LIGA CLIP SM LT-100 FDA Start: 04-23-2019 Thyroidectomy SUTURE,LIGA CLIP SM LT-100 FDA Start: 04-23-2019 Thyroidectomy SUTURE,LIGA CLIP SM LT-100 FDA Start: 04-23-2019 Thyroidectomy SUTURE,LIGA CLIP SM LT-100 FDA Start: 04-23-2019 Thyroidectomy SUTURE,LIGA CLIP MED LT200 FDA Start: 04-23-2019 Thyroidectomy SUTURE,LIGA CLIP MED LT200 FDA Start: 04-23-2019 Thyroidectomy SUTURE,LIGA CLIP SM LT-100 FDA Start: 04-23-2019 Thyroidectomy SUTURE,LIGA CLIP SM LT-100 FDA Start: 04-23-2019 Thyroidectomy SUTURE,LIGA CLIP SM LT-100 FDA Start: 04-23-2019 Thyroidectomy SUTURE,LIGA CLIP SM LT-100 FDA Start: 04-23-2019 Thyroidectomy SUTURE,LIGA CLIP MED LT200 FDA Start: 04-23-2019 Thyroidectomy SUTURE,LIGA CLIP MED LT200 FDA Start: 04-23-2019 Thyroidectomy SUTURE,LIGA CLIP SM LT-100 FDA Start: 04-23-2019 Thyroidectomy SUTURE,LIGA CLIP SM LT-100 FDA Start: 04-23-2019 Thyroidectomy SUTURE,LIGA CLIP SM LT-100 FDA Start: 04-23-2019 Thyroidectomy SUTURE,LIGA CLIP SM LT-100 FDA Start: 04-23-2019 Thyroidectomy SUTURE,LIGA CLIP MED LT200 FDA Start: 04-23-2019 Thyroidectomy SUTURE,LIGA CLIP MED LT200 FDA Start: 04-23-2019 Thyroidectomy SUTURE,LIGA CLIP SM LT-100 FDA Start: 04-23-2019 Thyroidectomy SUTURE,LIGA CLIP SM LT-100 FDA Start: 04-23-2019 Thyroidectomy SUTURE,LIGA CLIP SM LT-100 FDA Start: 04-23-2019 Thyroidectomy SUTURE,LIGA CLIP SM LT-100 FDA Start: 04-23-2019 Thyroidectomy SUTURE,LIGA CLIP MED LT200 FDA Start: 04-23-2019 Thyroidectomy SUTURE,LIGA CLIP MED LT200 FDA Start: 04-23-2019 Thyroidectomy SUTURE,LIGA CLIP SM LT-100 FDA Start: 04-23-2019 Thyroidectomy SUTURE,LIGA CLIP SM LT-100 FDA Start: 04-23-2019 Thyroidectomy SUTURE,LIGA CLIP SM LT-100 FDA Start: 04-23-2019 Thyroidectomy SUTURE,LIGA CLIP SM LT-100 FDA Start: 04-23-2019 Thyroidectomy SUTURE,LIGA CLIP MED LT200 FDA Start: 04-23-2019 Thyroidectomy SUTURE,LIGA CLIP MED LT200 FDA Start: 04-23-2019 Thyroidectomy SUTURE,LIGA CLIP SM LT-100 FDA Start: 04-23-2019 Thyroidectomy SUTURE,LIGA CLIP SM LT-100 FDA Start: 04-23-2019 Thyroidectomy SUTURE,LIGA CLIP SM LT-100 FDA Start: 04-23-2019 Thyroidectomy SUTURE,LIGA CLIP SM LT-100 FDA Start: 04-23-2019 Thyroidectomy SUTURE,LIGA CLIP MED LT200 FDA Start: 04-23-2019 Thyroidectomy SUTURE,LIGA CLIP MED LT200 FDA Start: 04-23-2019 Thyroidectomy SUTURE,LIGA CLIP SM LT-100 FDA Start: 04-23-2019 Thyroidectomy SUTURE,LIGA CLIP SM LT-100 FDA Start: 04-23-2019 Thyroidectomy SUTURE,LIGA CLIP SM LT-100 FDA Start: 04-23-2019 Thyroidectomy SUTURE,LIGA CLIP SM LT-100 FDA Start: 04-23-2019 Thyroidectomy SUTURE,LIGA CLIP MED LT200 FDA Start: 04-23-2019 Thyroidectomy SUTURE,LIGA CLIP MED LT200 FDA Start: 04-23-2019 Thyroidectomy SUTURE,LIGA CLIP SM LT-100 FDA Start: 04-23-2019 Thyroidectomy SUTURE,LIGA CLIP SM LT-100 FDA Start: 04-23-2019 Thyroidectomy SUTURE,LIGA CLIP SM LT-100 FDA Start: 04-23-2019 Thyroidectomy SUTURE,LIGA CLIP SM LT-100 FDA Start: 04-23-2019 Thyroidectomy SUTURE,LIGA CLIP MED LT200 FDA Start: 04-23-2019 Thyroidectomy SUTURE,LIGA CLIP MED LT200 FDA Start: 04-23-2019 Thyroidectomy SUTURE,LIGA CLIP SM LT-100 FDA Start: 04-23-2019 Thyroidectomy SUTURE,LIGA CLIP SM LT-100 FDA Start: 04-23-2019 Thyroidectomy SUTURE,LIGA CLIP SM LT-100 FDA Start: 04-23-2019 Thyroidectomy SUTURE,LIGA CLIP SM LT-100 FDA Start: 04-23-2019 Thyroidectomy SUTURE,LIGA CLIP MED LT200 FDA Start: 04-23-2019 Thyroidectomy SUTURE,LIGA CLIP MED LT200 FDA Start: 04-23-2019 Thyroidectomy SUTURE,LIGA CLIP SM LT-100 FDA Start: 04-23-2019 Thyroidectomy SUTURE,LIGA CLIP SM LT-100 FDA Start: 04-23-2019 Thyroidectomy SUTURE,LIGA CLIP SM LT-100 FDA Start: 04-23-2019 Thyroidectomy SUTURE,LIGA CLIP SM LT-100 FDA Start: 04-23-2019 Thyroidectomy SUTURE,LIGA CLIP MED LT200 FDA Start: 04-23-2019 Thyroidectomy SUTURE,LIGA CLIP MED LT200 FDA Start: 04-23-2019 Thyroidectomy SUTURE,LIGA CLIP SM LT-100 FDA Start: 04-23-2019 Thyroidectomy SUTURE,LIGA CLIP SM LT-100 FDA Start: 04-23-2019 Thyroidectomy SUTURE,LIGA CLIP SM LT-100 FDA Start: 04-23-2019 Thyroidectomy SUTURE,LIGA CLIP SM LT-100 FDA Start: 04-23-2019 Thyroidectomy SUTURE,LIGA CLIP MED LT200 FDA Start: 04-23-2019 Thyroidectomy SUTURE,LIGA CLIP MED LT200 FDA Start: 04-23-2019 Thyroidectomy SUTURE,LIGA CLIP SM LT-100 FDA Start: 04-23-2019 Thyroidectomy SUTURE,LIGA CLIP SM LT-100 FDA Start: 04-23-2019 Thyroidectomy SUTURE,LIGA CLIP SM LT-100 FDA Start: 04-23-2019 Thyroidectomy SUTURE,LIGA CLIP SM LT-100 FDA Start: 04-23-2019 Thyroidectomy SUTURE,LIGA CLIP MED LT200 FDA Start: 04-23-2019 Thyroidectomy SUTURE,LIGA CLIP MED LT200 FDA Start: 04-23-2019 Thyroidectomy SUTURE,LIGA CLIP SM LT-100 FDA Start: 04-23-2019 Thyroidectomy SUTURE,LIGA CLIP SM LT-100 FDA Start: 04-23-2019 Thyroidectomy SUTURE,LIGA CLIP SM LT-100 FDA Start: 04-23-2019 Thyroidectomy SUTURE,LIGA CLIP SM LT-100 FDA Start: 04-23-2019 Thyroidectomy SUTURE,LIGA CLIP MED LT200 FDA Start: 04-23-2019 Thyroidectomy SUTURE,LIGA CLIP MED LT200 FDA Start: 04-23-2019 Thyroidectomy SUTURE,LIGA CLIP SM LT-100 FDA Start: 04-23-2019 Thyroidectomy SUTURE,LIGA CLIP SM LT-100 FDA Start: 04-23-2019 Thyroidectomy SUTURE,LIGA CLIP SM LT-100 FDA Start: 04-23-2019 Thyroidectomy SUTURE,LIGA CLIP SM LT-100 FDA Start: 04-23-2019 Thyroidectomy SUTURE,LIGA CLIP MED LT200 FDA Start: 04-23-2019 Thyroidectomy SUTURE,LIGA CLIP MED LT200 FDA Start: 04-23-2019 Thyroidectomy SUTURE,LIGA CLIP SM LT-100 FDA Start: 04-23-2019 Thyroidectomy SUTURE,LIGA CLIP SM LT-100 FDA Start: 04-23-2019 Thyroidectomy SUTURE,LIGA CLIP SM LT-100 FDA Start: 04-23-2019 Thyroidectomy SUTURE,LIGA CLIP SM LT-100 FDA Start: 04-23-2019 Thyroidectomy SUTURE,LIGA CLIP MED LT200 FDA Start: 04-23-2019 Thyroidectomy SUTURE,LIGA CLIP MED LT200 FDA Start: 04-23-2019 Thyroidectomy SUTURE,LIGA CLIP SM LT-100 FDA Start: 04-23-2019 Thyroidectomy SUTURE,LIGA CLIP SM LT-100 FDA Start: 04-23-2019 Thyroidectomy SUTURE,LIGA CLIP SM LT-100 FDA Start: 04-23-2019 Thyroidectomy SUTURE,LIGA CLIP SM LT-100 FDA Start: 04-23-2019 Thyroidectomy SUTURE,LIGA CLIP MED LT200 FDA Start: 04-23-2019 Thyroidectomy SUTURE,LIGA CLIP MED LT200 FDA Start: 04-23-2019 Thyroidectomy SUTURE,LIGA CLIP SM LT-100 FDA Start: 04-23-2019 Thyroidectomy SUTURE,LIGA CLIP SM LT-100 FDA Start: 04-23-2019 Thyroidectomy SUTURE,LIGA CLIP SM LT-100 FDA Start: 04-23-2019 Thyroidectomy SUTURE,LIGA CLIP SM LT-100 FDA Start: 04-23-2019 Thyroidectomy SUTURE,LIGA CLIP MED LT200 FDA Start: 04-23-2019 Thyroidectomy SUTURE,LIGA CLIP MED LT200 FDA Start: 04-23-2019 Thyroidectomy SUTURE,LIGA CLIP SM LT-100 FDA Start: 04-23-2019 Thyroidectomy SUTURE,LIGA CLIP SM LT-100 FDA Start: 04-23-2019 Thyroidectomy SUTURE,LIGA CLIP SM LT-100 FDA Start: 04-23-2019 Thyroidectomy SUTURE,LIGA CLIP SM LT-100 FDA Start: 04-23-2019 Appendectomy, laparoscopic 45mm Standard Reload FDA Start: 10-06-2021 Appendectomy, laparoscopic 45mm Standard Reload FDA Start: 10-06-2021 Appendectomy, laparoscopic 45mm Standard Reload FDA Start: 10-06-2021 Appendectomy, laparoscopic 45mm Standard Reload FDA Start: 10-06-2021 Appendectomy, laparoscopic 45mm Standard Reload FDA Start: 10-06-2021 Appendectomy, laparoscopic 45mm Standard Reload FDA Start: 10-06-2021 Appendectomy, laparoscopic 45mm Standard Reload FDA Start: 10-06-2021 Appendectomy, laparoscopic 45mm Standard Reload FDA Start: 10-06-2021 Appendectomy, laparoscopic 45mm Standard Reload FDA Start: 10-06-2021 Appendectomy, laparoscopic 45mm Standard Reload FDA Start: 10-06-2021 Appendectomy, laparoscopic 45mm Standard Reload FDA Start: 10-06-2021 Appendectomy, laparoscopic 45mm Standard Reload FDA Start: 10-06-2021 Appendectomy, laparoscopic 45mm Standard Reload FDA Start: 10-06-2021 Appendectomy, laparoscopic 45mm Standard Reload FDA Start: 10-06-2021 Appendectomy, laparoscopic 45mm Standard Reload FDA Start: 10-06-2021 Appendectomy, laparoscopic 45mm Standard Reload FDA Start: 10-06-2021 Appendectomy, laparoscopic 45mm Standard Reload FDA Start: 10-06-2021 Appendectomy, laparoscopic 45mm Standard Reload FDA Start: 10-06-2021 Appendectomy, laparoscopic 45mm Standard Reload FDA Start: 10-06-2021 Appendectomy, laparoscopic 45mm Standard Reload FDA Start: 10-06-2021 Appendectomy, laparoscopic 45mm Standard Reload FDA Start: 10-06-2021 Appendectomy, laparoscopic 45mm Standard Reload FDA Start: 10-06-2021 Appendectomy, laparoscopic 45mm Standard Reload FDA Start: 10-06-2021 Appendectomy, laparoscopic 45mm Standard Reload FDA Start: 10-06-2021 Appendectomy, laparoscopic 45mm Standard Reload FDA Start: 10-06-2021 Appendectomy, laparoscopic 45mm Standard Reload FDA Start: 10-06-2021 Appendectomy, laparoscopic 45mm Standard Reload FDA Start: 10-06-2021 Appendectomy, laparoscopic 45mm Standard Reload FDA Start: 10-06-2021 Appendectomy, laparoscopic 45mm Standard Reload FDA Start: 10-06-2021 Appendectomy, laparoscopic 45mm Standard Reload FDA Start: 10-06-2021 Appendectomy, laparoscopic 45mm Standard Reload FDA Start: 10-06-2021 Appendectomy, laparoscopic 45mm Standard Reload FDA Start: 10-06-2021 Appendectomy, laparoscopic 45mm Standard Reload FDA Start: 10-06-2021 Appendectomy, laparoscopic 45mm Standard Reload FDA Start: 10-06-2021 Appendectomy, laparoscopic 45mm Standard Reload FDA Start: 10-06-2021 Appendectomy, laparoscopic 45mm Standard Reload FDA Start: 10-06-2021 Appendectomy, laparoscopic 45mm Standard Reload FDA Start: 10-06-2021 Appendectomy, laparoscopic 45mm Standard Reload FDA Start: 10-06-2021 Appendectomy, laparoscopic 45mm Standard Reload FDA Start: 10-06-2021 Appendectomy, laparoscopic 45mm Standard Reload FDA Start: 10-06-2021 Appendectomy, laparoscopic 45mm Standard Reload FDA Start: 10-06-2021 Appendectomy, laparoscopic 45mm Standard Reload FDA Start: 10-06-2021 Appendectomy, laparoscopic 45mm Standard Reload FDA Start: 10-06-2021 Appendectomy, laparoscopic 45mm Standard Reload FDA Start: 10-06-2021 Appendectomy, laparoscopic 45mm Standard Reload FDA Start: 10-06-2021 Appendectomy, laparoscopic 45mm Standard Reload FDA Start: 10-06-2021 Appendectomy, laparoscopic 45mm Standard Reload FDA Start: 10-06-2021 Appendectomy, laparoscopic 45mm Standard Reload FDA Start: 10-06-2021 Mental Status Date Assessment Result Facility 11-24-2023 Cognitive function Voice/Name [facility] Work Phone: 06-23-2022 Cognitive function Level Of Cons ciousness Awake;Alert;Appropriate [facility] Work Phone: Clinical Notes 03-02-2019 to 09-17-2025 Telephone Encounter - Altagracia Willaimson MA - 09/18/2024 11:22 AM EDTTelephone Encounter - Altagracia Williamson MA - 09/18/2024 11:22 AM EDTTYani edwards RT(R) - 09/13/2024 10:00 AM EDT Note Date & Type Note Facility 09-17-2025 Note HNO ID: [id number] Author: JENNY LEBRON APRN.ELECTRICAL DESIGNER Service: ? Author Type: Nurse Practitioner Type: Progress Notes Filed: 09/17/2025 10:07 Note Text: This is a 55 year old female who presents today with: Patient presents with: Wellness HISTORY OF PRESENT ILLNESS: Fabiana Acosta is a 55 year old female. Patient presents with: Wellness The patient is a 55-year-old female with hypothyroidism, presenting for evaluation of persistent midday fatigue and levothyroxine dosage adjustment. Riding e-bike for exercise. PAST MEDICAL HISTORY: PAST MEDICAL HISTORY Diagnosis Date Chlamydia Chronic back pain Compound nevus excised, biopsy Condyloma acuminata Dissecting folliculitis of scalp 10/03/2009 nizoral, clobetasol Endometriosis Fibroadenosis, breast diffuse Genital warts Herniated intervertebral disc of lumbar spine l5-s1 RIGHT Histoplasmosis History of endometrial ablation SAL, BSO; BX EXTENSIVE ADENOMYOSIS, ENDOMETRIOSISLUMBAR DISC DEGEN Leiomyoma of uterus Menometrorrhagia Neuropathy right leg s/p back surgery SHELLY (obstructive sleep apnea) 04/02/2010 PSG: A:H index 5.1events per hour. 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 50mg on Tuesday levocetirizine (XYZAL) 5 mg tablet Take 5 mg by mouth. ipratropium bromide (ATROVENT) 42 mcg (0.06 %) nasal spray Use 2 sprays in the nose four times daily. Magnesium Glycinate (MAG GLYCINATE) 100 mg tab Take 3 tablets by mouth at bedtime as needed (RLS). linaclotide (LINZESS) 145 mcg capsule Take 1 capsule by mouth once daily as needed. Take capsule on an empty stomach at least 30 minutes before a meal at the same time each day. Capsule should be swallowed whole. DO NOT chew or crush No current facility-administered medications for this visit. FAMILY HISTORY Problem Relation Age of Onset Cancer Mother thyroid Heart Mother valve that flips other (Other) Mother SHELLY Glaucoma Mother Osteoporosis Mother Hypertension Brother Hyperlipidemia Brother other (Other) Brother back issues Aneurysm Paternal Grandmother Breast Cancer Paternal Aunt SOCIAL HISTORY[1] REVIEW OF SYSTEMS GENERAL: No weight loss, + malaise, no fevers/chills HEENT: Negative for frequent or significant headaches, No changes in hearing or vision. NECK: Negative for lumps, goiter, pain and significant neck swelling, cervical spine cracks and locks at times RESPIRATORY: Negative for cough, hemoptysis, wheezing, dyspnea or shortness of breath CARDIOVASCULAR: Negative for chest pain, leg swelling, orthopnea, or palpitations GI: No nausea, vomiting, or diarrhea/constipation. No hematochezia/melena. No heartburn or reflux symptoms. : No history of dysuria, frequency or incontinence MUSCULOSKELETAL: Positive for joint pain in hands. SKIN: Negative for lesions, rash, and itching ENDOCRINE: Negative for cold or heat intolerance, polyuria, polydipsia and goiter NEURO: No history of headaches, syncope, paralysis, seizures or tremors MOOD: Negative for depression, anxiety, or suicidal ideation. EXAM: BP 120/72 Pulse (!) 56 Ht 162.5 cm (5' 3.98) Wt 77.1 kg (170 lb) SpO2 98% BMI 29.20 kg/m? PHYSICAL EXAM: GENERAL: NAD, alert and oriented. SKIN: Unremarkable, no rash or skin lesions. HEAD: Normocephalic. OROPHARYNX: Lips, mucosa, and tongue normal, good dentition. No oral lesions noted. NECK: Supple, no lymphadenopathy, normal thyroid, no carotid bruits. LUNGS: Clear to auscultation bilaterally, no wheezes/rhonchi/rales. HEART: Regular rate and rhythm, no murmurs. No ectopy. EXTREMITIES: Normal, no deformities, no skin discoloration, no edema. NEURO: Awake, alert and oriented x3, normal gait, no involuntary motions. LABS: ASSESSMENT/PLAN: 1. Prediabetes - ICD9: 790.29, ICD10: R73.03 (primary diagnosis) Check labs - ALBUMIN/CREATININE RATIO, URINE - HEMOGLOBIN A1C 2. Thyroid cancer (HCC) - ICD9: 193, ICD10: C73 Followed by endocrinology - COMPREHENSIVE METABOLIC PANEL 3. Herniated intervertebral disc of lumbar spine - ICD9: 722.10, ICD10: M51.26 Stable 4. Spondyloarthropathy - ICD9: 721.90, ICD10: M47.819 Stable- off gabapentin 5. Fatigue, unspecified type - ICD9: 780.79, ICD10: R53.83 Check labs - COMP (more content not included)... [facility] 03-14-2025 Note HNO ID: [id number] Author: JENNY LEBRON APRN.ELECTRICAL DESIGNER Service: ? Author Type: Nurse Practitioner Type: Progress Notes Filed: 03/14/2025 09:25 Note Text: This is a 54 year old female who presents today with: Patient presents with: 6 Month Exam Fatigue HISTORY OF PRESENT ILLNESS: Fabiana Acosta is a 54 year old female. Patient presents with: 6 Month Exam Fatigue Something is not right. Extremely tired. Thyroid level in Nov. Ok. Going to work in the last 2 months and falling asleep at computer. Takes Xyzal- thought that might be doing it. Switch to night, didn't help. Before going to [place], early February- felt really tired. Then had herpes Simplex ordered. Renee used. Seen in urgent care for allergy induced laryngitis. Took steroid. Then had swollen glands under left arm- whole arm aches. Abdominal cramps. Watery diarrhea. Left arm hurt so bad, she couldn't touch it. That occurred on . 24 hours later, pain better. Arm still feels tender. Feels off. Foggy. Ate a lot of sugar. Slept 12 hours on [place]. Also brings with her 's blood sugars to address. PAST MEDICAL HISTORY: PAST MEDICAL HISTORY Diagnosis Date Chlamydia Chronic back pain Compound nevus excised, biopsy Condyloma acuminata Dissecting folliculitis of scalp 10/03/2009 nizoral, clobetasol Endometriosis Fibroadenosis, breast diffuse Genital warts Herniated intervertebral disc of lumbar spine l5-s1 RIGHT Histoplasmosis History of endometrial ablation SAL, BSO; BX EXTENSIVE ADENOMYOSIS, ENDOMETRIOSISLUMBAR DISC DEGEN Leiomyoma of uterus Menometrorrhagia Neuropathy right leg s/p back surgery SHELLY (obstructive sleep apnea) 04/02/2010 PSG: A:H index 5.1events per hour. 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 levocetirizine (XYZAL) 5 mg tablet Take 5 mg by mouth. ipratropium bromide (ATROVENT) 42 mcg (0.06 %) nasal spray Use 2 sprays in the nose four times daily. ibuprofen (MOTRIN) 800 mg tablet Take 1 tablet by mouth every 8 hours as needed for pain. linaclotide (LINZESS) 145 mcg capsule Take 1 capsule by mouth once daily as needed. Take capsule on an empty stomach at least 30 minutes before a meal at the same time each day. Capsule should be swallowed whole. DO NOT chew or crush (Patient not taking: Reported on 03/14/2025) gabapentin (NEURONTIN) 300 mg capsule Take 1 capsule by mouth daily at bedtime. No current facility-administered medications for this visit. FAMILY HISTORY Problem Relation Age of Onset Cancer Mother thyroid Heart Mother valve that flips other (Other) Mother SHELLY Glaucoma Mother Osteoporosis Mother Hypertension Brother Hyperlipidemia Brother other (Other) Brother back issues Aneurysm Paternal Grandmother Breast Cancer Paternal Aunt Social History Tobacco Use Smoking status: Every Day Smokeless tobacco: Never REVIEW OF SYSTEMS GENERAL: No weight loss- some gain, + malaise or fevers/chills HEENT: + significant temples with migraine headaches- light sensitive, No changes in hearing, slight change vision. NECK: Negative for lumps, goiter, pain and significant neck swelling now but had on Tuesday and left axillae RESPIRATORY: Some cough from drainage, no hemoptysis, no wheezing, no dyspnea or shortness of breath CARDIOVASCULAR: Negative for chest pain, leg swelling, orthopnea, or palpitations GI: No nausea, no vomiting, Tuesday diarrhea/ no constipation. No hematochezia/melena. Occ heartburn or reflux symptoms. : No history of dysuria, frequency or incontinence MUSCULOSKELETAL: Always joint pain. SKIN: Negative for lesions, rash, and itching ENDOCRINE: Negative for cold or heat intolerance, polyuria, + polydipsia and goiter NEURO: No history of headaches, syncope, paralysis, seizures or tremors MOOD: Negative for depression, anxiety, or suicidal ideation. 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 PHYSICAL EXAM: Physical Exam Vitals reviewed. Constitutional: Appearance: Normal appearance. HENT: Head: Normocephalic. Right Ear: Tympanic membrane, ear canal and external ear normal. There is no impacted cerumen. Left Ear: Tympanic mem (more content not included)... [facility] 02-23-2025 Radiology Diagnostic study note [facility] Imaging Services [address] [place] [address] Thyroid MR#: [id number] Acct: [id number] Name: DENAEALONSO NeumannFABIANA ANN Rep #: [id number] : 1970 F 54 From: Lucy Gil MD PCP: TOMAS Coulter Status: REG CLI Study:Thyroid Date of Exam: 02/21/25 Exam# [id number] Ordering Dr: Rg Michelle i, MD PROCEDURE: THYROID 02/21/2025 REASON FOR EXAM: Thyroid nodules, COMPARE 2023. History of prior partial right hemithyroidectomy. TECHNIQUE: Thyroid ultrasound COMPARISON: No prior comparison available. FINDINGS: Right thyroid lobe measures 2.7 x 0.6 x 0.7 cm. Left thyroid lobe measures 4.4 x 1.6 x 1.4 cm. Isthmus thickness is0.2 cm. Thyroid Size: Normal Background Echotexture: Homogeneous Thyroid Nodules: Right inferior thyroid nodule measuring 0.8 x 0.6 x 0.6 cm, mixed cystic and solid, isoechoic, wider than tall, ill-defined margins with peripheral calcification. TR-4. US/Thyroid IMPRESSION: Right TR-4 thyroid nodule, which meets ACR TI-RADS criteria for 1 year follow-up. Reading Location: [id number] CC: TOMAS Lebron; Dr. Isac Michelle MD ~ Cultural Historian: Signed [facility] 10-31-2024 Note Patient Outreach (IN [facility]MM[facility]) FABIANA ACOSTA ([id number]) 1970 F Date Time Provider Department 10/31/24 JENNY LEBRON During your visit today, we recorded the following information about you: Allergies As of Date: 10/31/2024 Noted Allergy Reaction DOXYCYCLINE 08/16/2018 14 - Other: See Comments Comments: Burned throat MORPHINE 04/27/2019 8 - GI Upset Date Reviewed: 09/13/2024 Reviewed by: Jenny Lebron APRN.ELECTRICAL DESIGNER - Fully Assessed Visit Diagnosis:Encounter for screening mammogram for breast cancer [Z12.31] Order(s):[facility] SCREENING W [facility] [[id number]] Order #: [id number] FUTURE Prescriptions as of 11/05/2024 - linaclotide (LINZESS) 145 mcg capsule Take 1 capsule by mouth once daily as needed. Take capsule on an empty stomach at least 30 minutes before a meal at the same time each day. Capsule should be swallowed whole. DO NOT chew or crush - gabapentin (NEURONTIN) 300 mg capsule Take 1 capsule by mouth daily at bedtime. - ibuprofen (MOTRIN) 800 mg tablet Take 1 tablet by mouth every 8 hours as needed for pain. Problem List As Of Date 10/31/2024 Noted Resolved Thyroid nodule [E04.1] 03/02/2019 08/31/2019 Herniated intervertebral disc of lumbar spine [* Spondyloarthropathy (HCC) [M47.819] Reactive depression [F32.9] 04/13/2019 Thyroid cancer (HCC) [C73] Elevated TSH [R79.89] 03/03/2020 Abdominal pain, right lateral [R10.9] 10/07/2021 Restless leg syndrome [G25.81] 09/01/2023 Mass overlapping multiple quadrants of left eva*09/30/2023 Encounter Status:Closed by EPIC, PRODUSER on 11/05/24 [facility] 09-18-2024 Telephone encounter Note JOSE approved and patient was notified Altagracia Williamson MA [facility] 09-18-2024 Miscellaneous Notes JOSE approved and patient was notified Altagracia Williamson MA Done Please resend rx with IBS dx so we can try to re-submit PA Altagracia Williamson MA Completed form with IBS dx and faxed with office note Altagracia Williamson MA Updated Dx. It is IBS. I just renewed medication. Completed Pa through [facility] and received fax for additional questions. Completing form states if dx is not IBS or CIC stop not approved. Is there something else we can recommend even otc? Altagracia Williamson MA documented in this encounter [facility] 09-18-2024 Telephone encounter Note Done [facility] 09-18-2024 Telephone encounter Note Please resend rx with IBS dx so we can try to re-submit JOSE Williamson MA [facility] 09-13-2024 Telephone encounter Note Completed form with IBS dx and faxed with office note Altagracia Williamson MA [facility] 09-13-2024 Telephone encounter Note Updated Dx. It is IBS. I just renewed medication. [facility] 09-13-2024 Telephone encounter Note Completed Pa through [facility] and received fax for additional questions. Completing form states if dx is not IBS or CIC stop not approved. Is there something else we can recommend even otc? Altagracia Williamson MA [facility] 09-13-2024 History of Present illness Narrative Radiology Service Progress Note PATIENT NAME: Fabiana Acosta DATE OF SERVICE: September 13, 2024 TIME: 9:56 AM PATIENT IDENTITY VERIFICATION COMPLETED USING TWO (2) IDENTIFIERS: Name and Date of confirmed by patient verbally. FALL SCREENING: Has the patient had 2 falls in the last year or 1 fall with injury or currently using an Ambulatory Assistive Device (Walker, Cane, Wheelchair, Crutches, etc.)? No PATIENT GENDER DATA: Female. status: : No status: NO. PATIENT RELEVANT IMPLANT DATA REVIEWED: Yes PATIENT PRESENTS WITH AN IMPLANTABLE OR ATTACHED NEWS PRODUCER: No RADIOLOGY DEPARTMENT: General X-ray: Exam(s) Completed: Lower Extremity X-Ray(s): Foot, Left and Wt. Bearing PERIPHERAL IV DATA: Not applicable SIGNED BY: RT Nora(R) September 13, 2024 9:56 AM documented in this encounter [facility] 09-13-2024 Instructions Jenny Lebron APRN.CNP - 09/13/2024 9:24 AM EDT 1) Check Xray today left foot 2) Consider diclofenac gel 2 x day to left foot 3) Consider OTC Flonase 2 sprays each nare daily for allergic rhinitis 4) Red rice yeast at bedtime 5) Follow up in 6 months documented in this encounter [facility] 09-13-2024 History of Present illness Narrative This is a 54 year old female who presents today with: Patient presents with: Yearly Exam HISTORY OF PRESENT ILLNESS: Fabiana Acosta is a 54 year old female. Patient presents with: Yearly Exam Left ear hurting. Saw ENT and he removed a piece of skin. Right forefoot 1st metatarsal pain- jumping down on foot. Pain since then. Very high arch. Not hurting to walk but sitting make it really stiff. Worst first few steps in the morning. Follows with endocrinology. Had thyroidectomy and Guillermo's. PAST MEDICAL HISTORY: PAST MEDICAL HISTORY Diagnosis Date Chlamydia Chronic back pain Compound nevus excised, biopsy Condyloma acuminata Dissecting folliculitis of scalp 10/03/2009 nizoral, clobetasol Endometriosis Fibroadenosis, breast diffuse Genital warts Herniated intervertebral disc of lumbar spine l5-s1 RIGHT Histoplasmosis History of endometrial ablation SAL, BSO; BX EXTENSIVE ADENOMYOSIS, ENDOMETRIOSISLUMBAR DISC DEGEN Leiomyoma of uterus Menometrorrhagia Neuropathy right leg s/p back surgery SHELLY (obstructive sleep apnea) 04/02/2010 PSG: A:H index 5.1events per hour. 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 LINZESS 145 mcg capsule Take 1 capsule by mouth once daily as needed. ibuprofen (MOTRIN) 800 mg tablet Take 800 mg by mouth every 6 hours as needed. No current facility-administered medications for this visit. FAMILY HISTORY Problem Relation Age of Onset Cancer Mother thyroid Heart Mother valve that flips other (Other) Mother SHELLY Glaucoma Mother Osteoporosis Mother Hypertension Brother Hyperlipidemia Brother other (Other) Brother back issues Aneurysm Paternal Grandmother Breast Cancer Paternal Aunt Social History Tobacco Use Smoking status: Every Day Smokeless tobacco: Never REVIEW OF SYSTEMS GENERAL: No weight loss- some gain, mushrooms improved malaise, no fevers/chills HEENT: Negative for frequent or significant headaches, No changes in hearing or vision. Left ear problem acutely NECK: Negative for lumps, goiter, pain and significant neck swelling RESPIRATORY: Negative for cough, hemoptysis, wheezing, dyspnea or shortness of breath CARDIOVASCULAR: Negative for chest pain, leg swelling, orthopnea, or palpitations GI: No nausea, vomiting, or diarrhea/constipation (improved with mushrooms). No hematochezia/melena. + heartburn or reflux symptoms. : No history of dysuria, frequency or incontinence MUSCULOSKELETAL: Negative for joint pain or swelling. Left arch of foot stiff SKIN: Negative for lesions, rash, and itching ENDOCRINE: Negative for cold or heat intolerance, polyuria, polydipsia and goiter NEURO: No history of headaches, syncope, paralysis, seizures or tremors MOOD: Negative for depression, anxiety, or suicidal ideation. Dad of heart attack from Covid at age 74, mother 3 weeks later from Covid EXAM: BP 120/64 Pulse 69 Resp 16 Wt 74.8 kg (165 lb) SpO2 99% BMI 29.70 kg/m PHYSICAL EXAM: Physical Exam Vitals reviewed. Constitutional: Appearance: Normal appearance. HENT: Head: Normocephalic. Ears: Comments: Bulging in both ears, clear fluid, no purulence Nose: Congestion present. No rhinorrhea. Mouth/Throat: Mouth: Mucous membranes are moist. Pharynx: Oropharynx is clear. Neck: Vascular: No carotid bruit. Cardiovascular: Rate and Rhythm: Normal rate and regular rhythm. Pulses: Normal pulses. Heart sounds: Normal heart sounds. Pulmonary: Effort: Pulmonary effort is normal. Breath sounds: Normal breath sounds. Abdominal: General: Bowel sounds are normal. Palpations: Abdomen is soft. Musculoskeletal: General: Normal range of motion. Cervical back: Normal range of motion and neck supple. Comments: Left foot with very high arch, no redness or inflammation. Some great toe limited dorsoflexion Lymphadenopathy: Cervical: No cervical adenopathy. Skin: General: Skin is warm and dry. Neurological: General: No focal deficit present. Mental Status: She is alert and oriented to person, place, and time. Psychiatric: Mood and Affect: Mood normal. Behavior: Behavior normal. LABS: reviewed recent labs ASSESSMENT/PLAN: 1. Abdominal pain, right lateral - ICD9: 789.09, ICD10: R10.9 (primary diagnosis) Stable constipation- some improvement with mushrooms - LINZESS 145 MCG CAPSULE 2. Neuropathy of right lower extremity - ICD9: 355.8, ICD10: G57.91 Ongoing - GABAPENTIN 300 MG CAPSULE 3. Thyroid cancer (HCC) - ICD9: 193, ICD10: C73 Followed by endocrinology 4. Spondyloarthropathy - ICD9: 721.90, ICD10: M47.819 Stable - IBUPROFEN 800 MG TABLET - XR FOOT GENERAL 3V AP/LAT/OBL LEFT 5. Primary osteoarthritis of left foot - ICD9: 715.17, ICD10: M19.072 Get Xray - Recommended diclofenac gel 2 x day 6. Seasonal allergic rhinitis, unspecified trigger - ICD9: 477.9, ICD10: J30.2 Recommended Flonase 7. Dyslipidemia - ICD9: 272.4, ICD10: E78.5 - Control undetermined, due for labs - Counseled on healthy diet and regular exercise - Consider red rice yeast ASSESSMENT/PLAN: 8. Encounter for screening examination for other mental health and behavioral disorders - ICD9: V79.8, ICD10: Z13.39 Stable - ANXIETY SCREENING 9. Screening for diabetes mellitus (DM) - ICD9: V77.1, ICD10: Z13.1 Check labs - GLUCOSE, FASTING 10. Screening for lipid disorders - ICD9: V77.91, ICD10: Z13.220 Reviewed recent lipid panel - Discussed dietary change - Consider red rice yeast [facility] - LIPID PANEL BASIC 11. Irritable bowel syndrome with constipation - ICD9: 564.1, ICD10: K58.1 Takes Linzess prn, needs renewal Discussed treatment plan and patient voices understanding. Patient's questions answered appropriately. Medications and potential side effects were discussed and patient voices understanding. Return to the office as scheduled or as needed for worsening/no improvement. Jenny Lebron APRN.ELECTRICAL DESIGNER documented in this encounter [facility] 01-18-2024 Miscellaneous Notes The following approved medication requests have been transmitted electronically. Requested Prescriptions Signed Prescriptions Disp Refills gabapentin (NEURONTIN) 300 mg capsule 90 capsule 1 Sig: Take 1 capsule by mouth daily at bedtime for 180 days. Authorizing Provider: Jluis WHITMORE PA-C Patient has been identified by name and date of : Yes, Provider Alli Whitmore Date 01-17-24 Time 10:43 am Patient phones for refill(s): Requested Prescriptions Pending Prescriptions Disp Refills gabapentin (NEURONTIN) 300 mg capsule 90 capsule 1 Sig: Take 1 capsule by mouth daily at bedtime for 180 days. Date of last office visit in primary care: 09/01/2023 Date of next office visit in primary care: Visit date not found Please advise. Thank you. Sally Lamas. documented in this encounter [facility] 11-24-2023 Discharge summary Note Date/Time November 24, 2023 3:43pm [facility] Medical Records Department [address] [place] [address] Emergency Department Summary 11/24/23 MR#: [id number] Acct: [id number] Name: FABIANA ACOSTA Rep #:[id number] : 1970 53 From: Felipe Capellan MD PCP: JOSE Kwong Status:REG E R Location: ED HPI History of Present Illness Chief Complaint: Chest Other Informant: patient Narrative Narrative: Patient presents with sharp pain on the right side of her chest into her breast. She states she was feeling perfectly normal at work today. She was typing at her keyboard. She stood up and turned and got sharp pain that radiated into herright breast. She states it hurts when she takes a deep breath but she is not truly short of breath. The pain seems to be more into her right breast. She has no recent travel surgery immobilization or personal history of DVT or PE. It sounds like her mother had a DVT after a femur fracture and surgery. Patienthad a history of thyroid cancer but it was removed in 2019. It was removed in total. There was no need for chemo or radiation so she has no active cancer. Patient has no history or known risk for heart disease. She states other than this pain she feels fine. It is very sharp. She states if she holds her breastor if she holds her hands/arms above her chest it makes it a lot better. PFSH PFS Medical History Acute appendicitis Anemia Back problem Guillermo's thyroiditis Hypoglycemia Irritable bowel syndrome Neuropathy Papillary microcarcinoma of thyroid Perforated appendicitis Physical exam, pre-employment Premature menopause Seasonal allergies Thyroid cancer Thyroid nodule Vitamin D deficiency Home Medications gabapentin 300 mg capsule (Neurontin) 300 mg PO QHS 04/18/19 [History Last Taken Unknown] linaclotide 145 mcg capsule (Linzess) 145 mcg PO DAILY 09/19/23 [History Last Taken Unknown] Allergy/AdvReac Type Severity Reaction Status Date / Time morphine Allergy Intermediate vomitting Verified 11/24/23 14:54 doxycycline AdvReac Intermediate burning of Verified 11/24/23 14:54 throat latex AdvReac Mild Rash Verified 11/24/23 14:54 Family History Sister Anesthesia complication Mother Arthritis Osteoporosis Thyroid disorder Mitral valve prolapse Sleep apnea Glaucoma Surgical History H/O thyroidectomy History of appendectomy History of back surgery History of hysterectomy History of knee surgery History of left knee surgery Status post laparoscopic appendectomy (~09/2021) Social History household members: spouse Smoking Status: Former smoker alcohol intake: current alcohol intake frequency: holidays/special occasions only substance use type: does not use what type of physical activity do you participate in: none ROS ROS ED Constitutional Constitutional ED: Denies chills, fever(s) or subjective Eyes Eyes: Denies blurry vision ENT ENT ED: Denies rhinorrhea or sore throat Cardiovascular Cardiovascular: Reports chest pain Respiratory/Chest Respiratory/Chest: Denies cough or dyspnea Gastrointestinal Gastrointestinal: Denies abdominal pain, nausea or vomiting Musculoskeletal Musculoskeletal: Denies myalgias Integumentary Denies rash Neurologic Neurologic: Denies paresthesias or weakness Hematologic/Lymphatic Hematologic/Lymphatic: Denies easy bleeding or easy bruising Allergic/Immunologic Allergic/Immunologic ED: Denies urticaria EXAM Physical Exam Narrative Exam Narrative: CONSTITUTIONAL: Patient is nontoxic in appearance. The patient looks comfortable. Work of breathing looks normal. She is laying in bed holding her right breast to help with the comfort. HEENT: No notable trauma. Mucous membranes moist. No sinus tenderness. No indication of pain with swallowing. EYES: No conjunctival injection. No proptosis. NECK:No JVD. No stridor. CARDIOVASCULAR: Regular rate. Regular rhythm. No notable murmur. No JVD. Rate is normal on a dose of she checked in, repeat vitals, on the monitor, and on herEKG. She appears to be normal sinus rhythm on the monitor with no ectopy. RESPIRATORY: No respiratory distress. Breathing is unlabored. No wheezes. No rhonchi. No rales. Patient does have some pain with a deep breath. Exam does not really show chest wall tenderness though. There is no axillary tenderness or lymphadenopathy. No subcu air. There is no actual tenderness on the breast tissue or under it. But it hurts in the breast tissue when she takes a deep breath. GASTROINTESTINAL: Not distended. Bowel sounds are normal. No tenderness. No guarding. No rebound. No palpable mass. No bruit is heard. GENITOURINARY: No tenderness over the bladder. No CVA tenderness. MUSCULOSKELETAL: Atraumatic. No peripheral edema. No cord. No tenderness along the deep venous system. No asymmetry. No distended veins. Extremities are overall normal plan and symmetric. NEUROLOGICAL: Patient is alert and appropriate. No focal deficit noted. SKIN: No noted rashes. No diaphoresis. PSYCHIATRIC: Patient is calm. Mood is appropriate. Const Vital Signs: 11/24/23 14:54 11/24/23 15:28 11/24/23 15:30 Temperature 97.4 F L Temperature Source Temporal Pulse Rate 75 70 Respiratory Rate 18 16 Respiratory Pattern Blood Pressure 124/85 H Blood Pressure Mean 98 Pulse Ox 97 99 Oxygen Delivery Method Room Air Room Air Room Air 11/24/23 15:30 Temperature Temperature Source Pulse Rate Respiratory Rate Respiratory Pattern Normal Blood Pressure Blood Pressure Mean Pulse Ox Oxygen Delivery Method MDM MDM MDM Narrative Medical decision making narrative: My opinion interpretation of her single view chest x-ray shows no acute process. Final reading is similar. Patient CBC shows no acute process. Patient's electrolytes show no acute process. Patient's troponin is negative despite several hours of discomfort. It is unmeasurable and less than 3. Patient's D-dimer is low at 0.35. We rechecked the patient. Toradol may have helped a little bit but not a lot. She still has pain with a deep of breath. There is a family history of DVT. Since the patient is having significant pleuritic pain, we will still do a CTA of the chest. Although this may be musculoskeletal we also do not have a reasonfor her to have a chest wall strain. There is nothing she has done recently. As long as the CTA is negative I think we can safely get her home. But with heroverall risk factors and presentation I think it is the appropriate study to do. My independent interpretation of the patient's CTA of the chest shows no infiltrate no PE or other acute process. Final reading is negative. I talked with the patient. She is comfortable going home and managing this. There is a musculoskeletal component but there is no indication as to why this occurred. But ice rest Tylenol Motrin should be appropriate. Lab Data Attestation: I reviewed the patient's lab results. Labs: Laboratory Results - last 24 hr 11/24/23 15:15 WBC 5.7 RBC 4.27 Hgb 13.1 Hct 38.8 MCV 90.9 MCH 30.7 MCHC 33.8 RDW Std Deviation 43.3 RDW Coeff of Domitila 13.1 Plt Count 250 MPV 9.2 Immature Gran % (Auto) 0.200 Neut % (Auto) 59.1 Lymph % (Auto) 30.8 [place] % (Auto) 7.3 Eos % (Auto) 1.7 Baso % (Auto) 0.9 Absolute Neuts (auto) 3.4 Absolute Lymphs (auto) 1.77 Nucleated RBC % 0 D-Dimer Quant (PE/DVT) 0.35 Sodium 139 Potassium 4.2 Chloride 106 Carbon Dioxide 29.0 Anion Gap 4 L BUN 16 Creatinine 0.97 Est GFR (MDRD) Af Amer 78 Est GFR (MDRD) Non-Af 64 BUN/Creatinine Ratio 16.5 Glucose 93 Calcium 9.4 Troponin I High Sens < 3 L Radiography Diagnostic Testing: Clinical Impression(s) from Imaging Studies Chest X-Ray 11/24/23 15:08 IMPRESSION: Normal x-ray examination of the chest. Electronically Signed: Pankaj Park MD at 16:03 EST , Chest CTA 11/24/23 16:05 IMPRESSION: Normal CTA chest examination, without a demonstrated pulmonary embolism or arterial dissection. Electronically Signed: Pankaj Park MD at 16:37 EST , EKG Initial EKG: Comments: My independent interpretation of the patient's EKG shows a normal sinus rhythm with a rate of 64. No ventricular ectopy. Diffuse nonspecific ST and T wave changes but no sign of infarct or ischemia. There is overall mild flattening. IA interval, QRS duration and QTc are all normal. I looked on her system and there is no old EKG for comparison. Discharge Plan Triage Chief Complaint: Chest Other ED Provider: Felipe Capellan Dx/Rx/DC Orders Clinical Impression: Right-sided chest pain Instructions: ED Chest Pain, Uncertain Cause Prescriptions: No Action Linzess 145 mcg capsule 145 mcg PO DAILY gabapentin [Neurontin] 300 MG capsule 300 mg PO QHS Primary Care Provider: Jluis Whitmore Referrals: Jluis Whitmore PA [Primary Care Provider] - 3-5 Days if not improving Disposition Disposition: Home, Self Care What to do if you have Problems For any increased pain, shortness of breath, bleeding, nausea or vomiting, chestpain, or any unexpected problems, contact your Primary Care Provider. Call [facility] ([phone]) or report to the closest Emergency Room. Call 911 if necessary. 11/24/23 1707 <Electronically signed by Felipe Capellan MD> Cosigner Signature (if applicable): CC: JOSE Kwong ~ Signed [facility] Work Phone: [phone] 130-344211-29-2023 Procedure [facility] 10-04-2023 Miscellaneous Notes* Telephone Encounter - Shawanda Handley Ma - 10/04/2023 4:39 PM EST Pt notified and order faxed to Dr Cole * Telephone Encounter - Jluis Whitmore PA-C - 10/04/2023 4:19 PM EST Radiologist recommend left breast biopsy Telephone on 10/04/23 CONSULT TO GENERAL SURGERY Alli Hodgson PA-C * Telephone Encounter - Shawanda Handley Ma - 10/04/2023 12:25 PM EST Images from the original note were not included. Please review breast US results Media Information File Link Scan on 10/04/2023 11:21 AM by Dayanara Lion PA-C: Breast US Rivera Information Document ID File Type Document Type Description [id number] Image External Imaging Breast US Import Information Attached At Date Time User Dept Order Level 10/04/2023 11:21 AM ProviderDayanara PALeobardo Order External Imaging [[id number]] Encounter Results Only on 10/04/23 with Dayanara Lion PA-C Document Information Radiology and Imaging: External Imaging Breast US 10/04/2023 11:21 AM Attached To: EXTERNAL IMAGING [[id number]] Results Only on 10/04/23 with Provider External PA-[place] Source Information ProviderDayanara PA-C [facility] Miscellaneous Notes* Telephone Encounter - Shawanda Handley Ma - 09/05/2023 5:15 PM EDT Pt notified via mychart * Telephone Encounter - Jluis Whitmore PA-C - 09/05/2023 5:08 PM EDT Telephone on 09/05/23 CBC + DIFF BASIC METABOLIC PNL HGB A1C 4 weeks to recheck Please send to [facility] Alli Hodgson PA-C * Telephone Encounter - Shawanda Handley Ma - 09/05/2023 10:57 AM EDT Patient notified of results. Asking when you would like repeat labs? Please place orders so they can be faxed to [facility] * Telephone Encounter - Jluis Whitmore PA-C - 09/05/2023 6:45 AM EDT Please advise labs abnormals: - Glucose 108 borderline high - Creatinine slightly low 0.58, stage 3a last check 0.89 1 year ago. We should recheck t next visit. - Thyroid if WNL - Vit D WNL - CBC shows WBC mildly low 4.1 with very slightly decreased WBCs, mildly increase lymph suggesting viral etiology Alli Hodgson PA-C [facility] Miscellaneous Notes* Telephone Encounter - Marleny Umanzor LPN - 09/01/2023 10:42 AM EDT Pt called and ask to have lab and mammogram orders faxed to [facility] [phone]. Done. Marleny Umanzor LPN [facility] Instructions* Patient Instructions* Jluis Whitmore PA-C - 09/01/2023 10:06 AM EDT HEALTH MAINTENANCE: Your Body mass index is 28.08 kg/m . (Target BMI: 19-25) Regular aerobic exercise, low fat diet, and periodic exams are recommended Living Will & Medical Power of Supervisor [employer] recommended Periodic Pap smear per risk profile. Mammogram recommended yearly. Colon cancer screening by age 50 & every 5-10 years. Calcium intake of 1200-1500mg elemental calcium per day and 1,000-2,000 IU of Vitamin D3/cholecalciferol daily. Bone mineral density (by age 65 or sooner if other risk factors for osteoporosis). IMMUNIZATIONS: TD at age 50 or every 10 years Pneumovax (between ages 50-65) Recommend consideration for Zostavax (shingles vaccine) in women age 60 and older. Yearly flu vaccine in the fall for those 50 and older LABS: Thyroid screening every 5 years after age 50 Fasting blood sugar every 3 years after age 45 Fasting cholesterol every five years after age 45 [facility] History of Present illness Narrative* Jluis Whitmore PA-C - 09/01/2023 9:00 AM EDT 53 year old female with c/o annual physical and med check Current concerns: No concerns. Having some right back pain ACTIVE PROBLEM LIST Reactive Depression Doing fine. Family says needs medication for anger issues. Doesn't feel she needs anything at this time. Thyroid Cancer (Hcc) Elevated Tsh Seeing Dr. 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 Having tightness and aching down back of right Abdominal Pain, Right Lateral Current medications: Linzess 145mg daily Persistent since appendix ruptured. Can't eat salads. Not as much cramping. HISTORIES FAMILY HISTORY Problem Relation Age of Onset Cancer Mother thyroid Heart Mother valve that flips other (Other) Mother SHELLY Glaucoma Mother Osteoporosis Mother Hypertension Brother Hyperlipidemia Brother other (Other) Brother back issues Aneurysm Paternal Grandmother Breast Cancer Paternal Aunt PAST MEDICAL HISTORY Diagnosis Date Chlamydia Chronic back pain Compound nevus excised, biopsy Condyloma acuminata Dissecting folliculitis of scalp 10/03/2009 nizoral, clobetasol Endometriosis Fibroadenosis, breast diffuse Genital warts Herniated intervertebral disc of lumbar spine l5-s1 RIGHT Histoplasmosis History of endometrial ablation SAL, BSO; BX EXTENSIVE ADENOMYOSIS, ENDOMETRIOSISLUMBAR DISC DEGEN Leiomyoma of uterus Menometrorrhagia Neuropathy right leg s/p back surgery SHELLY (obstructive sleep apnea) 04/02/2010 PSG: A:H index 5.1events per hour. 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 PAST SURGICAL HISTORY Procedure Laterality Date APPENDECTOMY 10/06/2021 Dr Cole HYSTERECTOMY 10/22/2013 total hysterectomy: endometriosis, including BSO KNEE ARTHROSCOPY/SURGERY Left 1989 PAST SURGICAL HISTORY OF L5-S1 decompression TOTAL THYROID LOBECTOMY UNI W/WO ISTHMUSECTOMY Right 04/23/2019 Lobectomy& isthmusectomy VAGINOSCOPY 03/31/2004 Social History Tobacco Use Smoking status: Every Day Smokeless tobacco: Never ACTIVE PROBLEM LIST Herniated Intervertebral Disc of Lumbar Spine Spondyloarthropathy Reactive Depression Thyroid Cancer (Hcc) Elevated Tsh Abdominal Pain, Right Lateral Current Outpatient Medications Medication Sig Dispense Refill gabapentin (NEURONTIN) 300 mg capsule Take 1 capsule by mouth daily at bedtime for 180 days. 90 capsule 1 ibuprofen (MOTRIN) 800 mg tablet Take 800 mg by mouth every 6 hours as needed. LINZESS 145 mcg capsule Take 1 capsule by mouth once daily as needed. No current facility-administered medications for this visit. Hepatitis B Vaccine(1 of 3 - 3-dose series) Never done Covid-19 Vaccine(1) Never done Pneumococcal Vaccine(1 - PCV) Never done Hepatitis C Screening Never done HIV Screening Never done DTaP,Tdap,Td Vaccine(5 - Tdap) due on 07/20/2003 Colorectal Cancer Screening Never done Shingrix Vaccine(1 of 2) Never done Mammogram Screening due on 05/03/2023 Influenza Vaccine(1) due on 07/22/2023 REVIEW OF SYMPTOMS: General: denies fatigue, unusual weight loss or gain, fevers, chills. Energy Level: good, normal. 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 Caffeine use: 20 oz x 2. ETOH use: 4 beers/ weeks, not always. Marijuana use: none. Illicit drug use: none. Eyes: denies change in vision, glaucoma, cataracts. Bifocals glasses/contacts. Last eye exam: March. EENT: + seasonal allergies/ blowing leaves, dust. denies recurrent sinus infection, unusual nasal drainage, hoarsemess, sore throat, or recurrent sore in mouth or tongue. Cardiovascular: denies chest pain , SOB, palpitation, irregular or racing heart beats, orthopnea, leg swelling, history of rheumatic fever or prior heart conditions Respiratory: denies unusual cough, SOB, wheezing, history of recurrent bronchitis, pneumonia or tuberculosis. Denies day time drowsiness. + disruptive Snoring. Prior sleep study- severe restless legs. no sleep apnea. GI: denies difficulty swallowing, nausea, vomiting, change in appetite. No change in bowel habits. Denies constipation, diarrhea, rectal bleeding or hemorrhoids, incontinence. No history of GERD, PUD, jaundice/hepatitis, GB disease, diverticulosis, colorectal cancer, hernias. Kidney/Bladder: Denies frequency, burning. Nocturia not usually unless drinks a lot of water, incontinence none. No history of kidney stones, recurrent UTI or kidney infection. Females: Menses last 2011. + endometriosis, + hx of ovarian cysts, 5 spots on HPV, no pelvic infection, no tubal , +abnormal pap, resolved. + Osteopenia Skin: denies unusual rashes. No history of skin cancer, bleeding/changing moles, or unusual skin lesions. Neurologic: Denies recurrent NAJERA, change in vision, hearing or smell, tremors, unusual weakness, loss of sensation, or difficulty with balance or gait. No history of epilepsy/convulsions, migraine, head/spinal injuries, or stroke/TIA. Psychiatric: denies unusual worry, moodiness, depression, suicidal ideation or unusual disturbance in relationships. No history of psychiatric illness. Endocrine: denies unusual thirst, hunger, excessive urination, change in skin or hair texture, emotional lability. No history of thryoid, pituitary or hormonal problems. Hematologic: denies unusual bleeding, bruising, or history of anemia or blood transfusion. Denies hx blood clots. Infections: denies risk factors for HIV, hepatitis or history of unusual infection. Immunizations are up to date. Musculoskeletal: Feet tend to ache. denies unusual stiffness, muscles aches, joint pain, or swelling. Denies recurrent sprain or disruption of joints, debilitating arthritis, gout, or other musculoskeletal disease. no Hx back injury, spinal stenosis, radiculopathy. EXAM: BP 110/64 Pulse 67 Resp 16 Wt 70.8 kg (156 lb) SpO2 99% BMI 28.08 kg/m Pleasant adult woman in no acute distress. Alert and oriented all spheres. Normal affect and cognition. Speech normal. No deficits to learning or comprehension. Skin warm, dry, pink to lips and nailbeds. Normal turgor. Respirations regular and unlabored. HEENT: NCAT. No scleral icterus or conjunctival injection. TM's clear. Nose and oropharynx free from injection or lesion. Oral membranes moist and pink. No cervical lymph nodes. Thyroid non-tender, no masses, or enlargement. Carotids pulses 2+/4+ without bruits. No JVD with HOB at 30 degrees. Chest is normal shape. Lungs are clear to all tinoco with good air exchange through out. HRRR without murmur or gallop. No lifts, heaves, or rubs. Abdomen: active bowel sounds throughout, soft, nontender, no masses or organomegaly. No CVAT. Extrem: no clubbing or cyanosis. Edema: none. Extremities are warm and pink with prompt capillary refill. Back with FROM, able to touch toes easily. No active tenderness or restriction. Gait and balance normal. Sensation grossly intact. Negative findings: speech normal, mental status intact, cranial nerves 2-12 intact, muscle tone normal, DTRs 2/4+ and symmetric ASSESSMENT/PLAN: 1. Screening for colon cancer - ICD9: V76.51, ICD10: Z12.11 (primary diagnosis) - COLOGUARD 2. Herniated intervertebral disc of lumbar spine - ICD9: 722.10, ICD10: M51.26 3. Neuropathy of right lower extremity - ICD9: 355.8, ICD10: G57.91 Stretches, exercises routine - GABAPENTIN 300 MG CAPSULE - CBC + DIFF - COMP METABOLIC PANEL 4. Restless leg syndrome - ICD9: 333.94, ICD10: G25.81 Controlled on gabaentin 5. Medication management - ICD9: V58.69, ICD10: Z79.899 6. Low serum vitamin D - ICD9: 790.6, ICD10: R79.89 - VITAMIN D 25 HYDROXY 7. 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 Thyroid cancer (HCC) - ICD9: 193, ICD10: C73 - TSH BLD - T4/FTI/T4U 9. Wellness examination - ICD9: V70.0, ICD10: Z00.00 - Counseled on healthy diet and regular exercise - Calcium intake with supplements or by diet of 1000 mg/day for under 50, 1200- 1500 mg/day for 50+ - Discussed need and benefit for weight loss. BMI 28.08 kg/(m^2) - Mammogram ordered - exam recommended once yearly - Follow up for annual exam in one year Jluis Whitmore PA-C documented in this encounterMary[facility]10-27-2022 Miscellaneous Notes* Telephone Encounter - Marleny Umanzor LPN - 09/16/2022 8:07 AM EDT Patient has been identified by name and date of : Yes Patient phones for refill(s): Requested Prescriptions Pending Prescriptions Disp Refills gabapentin (NEURONTIN) 300 mg capsule 90 capsule 1 Sig: Take 1 capsule by mouth daily at bedtime for 180 days. Date of last office visit in primary care: 07/06/22 Last 2 Encounter Wt Readings: Date: Wt: 07/06/2022 66.9 kg (147 lb 6.4 oz) 05/25/2022 66.2 kg (146 lb) Previous labs/tests for medication: Not applicable Thank you. Marleny Umanzor LPN documented in this encounterMary[facility] Hospital08-09-2022 Miscellaneous Notes* Telephone Encounter - Shawanda Handley Ma - 06/29/2022 4:18 PM EDT Call to patient. Appt scheduled documented in this encounterMarymount Hospital07-05-2022 Instructions* Patient Instructions* Jluis Whitmore PA-C - 05/25/2022 9:14 AM EDT Ice/ moist heat, lineaments, OTC analgesics as needed. Stretching and posture as reviewed piriformis stretching. documented in this encounterMarymount Hospital07-05-2022 History of Present illness Narrative* Jluis Whitmore PA-C - 05/25/2022 8:45 AM EDT 51 year old female with c/o pain in right buttock radiating back of leg to knee, feels swollen, andalso pain in right forearm with tingling on thumb, index, and middle fingers since Tuesday. Has been doing mulch, inserting new hot water tank, carrying shop vac full of water repeated up anddown steps. Also doing a lot of yard works. Ibuprofen 1/2 800mg Every 4 hours. No stomach sx other than being bloated following appy. Taking Linzess. HISTORIES FAMILY HISTORY Problem Relation Age of Onset Cancer Mother thyroid Heart Mother valve that flips other (Other) Mother SHELLY Glaucoma Mother Osteoporosis Mother Hypertension Brother Hyperlipidemia Brother other (Other) Brother back issues Aneurysm Paternal Grandmother Breast Cancer Paternal Aunt PAST MEDICAL HISTORY Diagnosis Date Chlamydia Chronic back pain Compound nevus excised, biopsy Condyloma acuminata Dissecting folliculitis of scalp 10/03/2009 nizoral, clobetasol Endometriosis Fibroadenosis, breast diffuse Genital warts Herniated intervertebral disc of lumbar spine l5-s1 RIGHT Histoplasmosis History of endometrial ablation SAL, BSO; BX EXTENSIVE ADENOMYOSIS, ENDOMETRIOSISLUMBAR DISC DEGEN Leiomyoma of uterus Menometrorrhagia Neuropathy right leg s/p back surgery SHELLY (obstructive sleep apnea) 04/02/2010 PSG: A:H index 5.1events per hour. 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 PAST SURGICAL HISTORY Procedure Laterality Date APPENDECTOMY 10/06/2021 Dr Cole HYSTERECTOMY 10/22/2013 total hysterectomy: endometriosis, including BSO KNEE ARTHROSCOPY/SURGERY Left 1989 PAST SURGICAL HISTORY OF L5-S1 decompression TOTAL THYROID LOBECTOMY UNI W/WO ISTHMUSECTOMY Right 04/23/2019 Lobectomy& isthmusectomy VAGINOSCOPY 03/31/2004 Social History Tobacco Use Smoking status: Current Every Day Smoker Smokeless tobacco: Never Used Substance Use Topics Alcohol use: Not on file Drug use: Not on file ACTIVE PROBLEM LIST Herniated Intervertebral Disc of Lumbar Spine Spondyloarthropathy Reactive Depression Thyroid Cancer (Hcc) Elevated Tsh Abdominal Pain, Right Lateral Current Outpatient Medications Medication Sig Dispense Refill LINZESS 145 mcg capsule Take 1 capsule by mouth once daily as needed. gabapentin (NEURONTIN) 300 mg capsule Take 1 capsule by mouth daily at bedtime for 180 days. 90 capsule 1 ibuprofen (MOTRIN) 800 mg tablet Take 800 mg by mouth every 6 hours as needed. ferrous sulfate 325 mg (65 mg iron) tablet Take 1 tablet by mouth three times a week. 36 tablet 3 levothyroxine (SYNTHROID) 75 mcg tablet Take 1 tablet by mouth once daily. (Patient not taking: Reported on 05/25/2022 ) No current facility-administered medications for this visit. There are no preventive care reminders to display for this patient. EXAM: BP 110/60 Pulse 62 Resp 16 Wt 66.2 kg (146 lb) SpO2 100% BMI 26.28 kg/m Pleasant adult woman in no acute distress. Alert and oriented all spheres. Normal affect and cognition. Speech normal. No deficits to learning or comprehension. Skin warm, dry, pink to lips and nailbeds. Normal turgor. Respirations regular and unlabored. Neck is supple, restrictions in range of motion with lateral rotation and sidebending to the right and lateral bending with extension on the left. Tender trigger points in the right lateral and posterior neck muscles. Chest is normal shape. Lungs are clear to all tinoco with good air exchange through out. HRRR without murmur or gallop. No lifts, heaves, or rubs. Extrem: no clubbing or cyanosis. Edema: none. Extremities are warm and pink with prompt capillary refill. Back is tender in paravertebral muscles and piriformis muscles on the right with restricted innominate function on forward flexion in the right SIJ. Test is negative. Neuro: Full upper and lower body strength. DTRs 2 out of 4 plus and symmetric upper and lower. Plantar downgoing. No sensory loss. Negative Tinel's at right wrist. Per patient request, OMT: Myofascial release to tender trigger points in the neck and right lumbar back. HVLA to cervical, thoracic segments and right SIJ with resolved pain and tingling in the righthand completely and restored range of motion without pain with full toe-touch. ASSESSMENT/PLAN: 1. Somatic dysfunction of spine, cervical - ICD9: 739.1, ICD10: M99.01 (primary diagnosis) 2. Somatic dysfunction of spine, thoracic - ICD9: 739.2, ICD10: M99.02 3. Somatic dysfunction of right sacroiliac joint - ICD9: 739.4, ICD10: M99.04 Patient feels today.Ice/ moist heat, lineaments, OTC analgesics as needed. Stretching and posture reviewed. Patient was provided handout on back rehab and sacroiliac stretching as well as piriformis stretching. Follow-up as needed Jluis Whitmore PA-C documented in this encounterMary[facility]06-13-2022 Miscellaneous Notes* Letter - Mammography Coordinator - 05/03/2022 1:55 PM EDT May 03, 2022 PID: [id number] Fabiana Acosta [address] [place] [id number] Dear Ms. Acosta, We are pleased to inform you that the results of your recent breast imaging exam on 05/03/2022 are normal. Early detection of cancer is very important. We also understand recommendations regarding breast cancer screening are controversial. Please discuss with your primary care provider which strategy is best for you and whether a mammogram is right for you. Your imaging studies and report will be kept [facility] as part of your permanent medical record and are available for your continuing care. Thank you for allowing us to help in meeting your health care needs. Sincerely, Dr. Green Interpreting Radiologist [facility] (Normal over 40) documented in this encounterMarymount Hospital06-13-2022 History of Present illness Narrative* RT Veronica(R) - 05/03/2022 7:30 AM EDT Radiology Service Progress Note PATIENT NAME: Fabiana Acosta DATE OF SERVICE: May 03, 2022 TIME: 7:31 AM PATIENT IDENTITY VERIFICATION COMPLETED USING TWO (2) IDENTIFIERS: Name and Date of confirmedby patient verbally. FALL SCREENING: Has the patient had 2 falls in the last year or 1 fall with injury or currently using an Ambulatory Assistive Device (Walker, Cane, Wheelchair, Crutches, etc.)? No PATIENT GENDER DATA: Female. status: : No status: NO. PATIENT RELEVANT IMPLANT DATA REVIEWED: Not Applicable RADIOLOGY DEPARTMENT: Mammography PERIPHERAL IV DATA: Not applicable SIGNED BY: RT Veronica(R) May 03, 2022 7:31 AM documented in this encounterMary[facility] Hospital05-23-2022 History of Present illness Narrative* Kendall Rahman MD - 04/12/2022 2:09 PM EDT UNIVERSAL PROTOCOL / SAFETY CHECKLIST Procedure to be Performed: EMG Sign In: A Moment of CARE was completed. Personnel directly involved with the procedure wore the appropriate PPE (Personal Protective Equipment). Patient/Surrogate Stated/Verified: PATIENT VERIFIED(optional for EMERGENT procedures): Patient name, Date of , Relevant allergies and The intended procedure Time Out Communication: Intended patient and procedure match the source documents. Correct side/site marked and visible. Sign Out: SIGN OUT (optional for EMERGENT procedures): Post-procedure follow-up management communicated and Plan of Care Visit completed when applicable. Grace Davis Emg Kendall Rahman MD documented in this encounterMary[facility] Hospital05-13-2022 Miscellaneous Notes* Telephone Encounter - Sara Lamas - 04/02/2022 11:23 AM EDT patient scheduled * Telephone Encounter - Jluis Whitmore PA-C - 04/02/2022 5:28 AM EDT See myc message Please advise I would recheck EMG, NCS It will give us the most valuable information. [facility] Get Medical Advice on 03/31/22 EMG(NEURO/NI) Thanks, Alli Whitmore PA-C documented in this encounterMarymount Hospital05-09-2022 Miscellaneous Notes* Telephone Encounter - Yaneli Ortiz LPN - 03/29/2022 11:36 AM EDT Patient has been identified by name and date of : Yes Pending Prescriptions Disp Refills GABAPENTIN 300 MG CAPSULE 90 capsule 1 Sig: Take 1 capsule by mouth daily at bedtime for 180 days. LIZBET: No RX INSTRUCTIONS: Mychart request. Seen in office today. Yaneli Ortiz LPN documented in this encounterMarymount Hospital05-09-2022 Instructions* Patient Instructions* Jluis Whitmore PA-C - 03/29/2022 9:49 AM EDT Foods Rich in Iron I am sending in a prescription for iron sulfate. Please try to get this in daily but if you have too many side effects, try to get it in at least 3 days a week. Foods Rich in Iron Please eat three servings a day from the foods listed below. You should note that the iron from fruits, vegetables, cereals, and eggs is not absorbed as efficiently as iron from meat, fish, and poultry. Adding vitamin C to your diet helps iron absorption from these foods. You may therefore want to take up to 1000 mg of vitamin C to help your body absorb the iron in your diet. The following foods, in the proportions listed, will provide you with more than 15 mg of iron. Apricots (dried) 5 halves-Beans (cooked) 1/2 cup-Beef (cooked) 2 oz-Beet greens (cooked) 1/2 cup-Wynne nuts 5 medium-Cereals 1 oz-Chicken (cooked) 3 oz - Cider (sweet) 10 oz - Clams 1 oz -Egg (Whole) 2- Ham (cooked) 2 oz - Heart (cooked) 2 oz- Kidney (cooked) 1 oz- Carrillo (cooked) 2 oz- Liver (cooked) 1 oz- Liver sausage 1 oz- Maple syrup 3 tbsp. Molasses 2 tbsp.- Oysters 1 oz- Peaches (dried) 3 halves- Peas (cooked) 1/2 cup- Pork (cooked) 2 oz-Prunes 4 medium - Prune juice 1/4 cup - Raisins 1 1/2 oz- Sardines 2 oz- Scallops 2 oz- Shrimp 2 oz- Spinach (cooked) 1/2 cup- Strawberries 1 cup- Tomato juice 3/4 cup- Tongue 2 oz- Tuna 1/2 cup- [place] (cooked) 1 oz- Veal (cooked) 1 oz- Watermelon (6 x11/2) 1 slice-Wheat Germ 2 tbsp. Iron supplements are absorbed best when taken between meals, with liquids other than milk, coffee, or tea. Taking them at bedtime often helps reduce the chance of nausea. documented in this encounterMary[facility] Hospital05-09-2022 History of Present illness Narrative* Jluis Whitmore PA-C - 03/29/2022 9:45 AM EDT 51 year old female with c/o here for follow up Nursing Notes: Shawanda Handley Ma 03/29/2022 9:22 AM Signed Is the patient having any pain? Yes LOCATION: lower back PAIN SCALE: 1 on a scale of 0-10 PAIN CHARACTER: radiating and tingling DURATION: 2 weeks FREQUENCY: occurs constantly AGGRAVATING FACTORS: doing yard work lately ALLEVIATING FACTORS: medications - Gabapentin, taking 2 instead one Appendectomy/ IBS symptoms 10/06/2021 presented to [facility] emergency department with complaint of right-sided abdominal pain over approximately 5 hours, nausea, vomiting multiple episodes prior evening. Painis sharp, right-sided, upper and lower quadrant, was unable to get herself out of bathtub when it occurred. History of intermittent constipation and IBS. Vital signs 99.3 [id number]/75-97% RA WBC 4.0 Hgb 13.6 HCT 40.7 PLT 215 neutrophil percent 80 2.8H, absolute neutrophil normal 3.3, absolute lymph low 0.55. CMP within normal limits except BUN 21 CRE 1.08 with EGFR 57, GLU 114, Lipase 32L Abdominal/pelvis CT: Evidence of acute appendicitis, moderate amount of free fluid in cul-de-sac and inflammatory changes in the right lower quadrant including the cecum Taken from emergency surgery: [facility] course POD #1 expected pain, developed ileus, on empiric Zosyn POD #2 multiple loose stools with post-op culture + E. Coli, changed to levaquin 750mg PO POD #3 improving, tolerating regular diet , discharged. Lab summary: 10/06/21 wound culture: E. coli, abdominal aspirate anaerobic culture results to follow. Nasal secretion SARS Covid 2 antigen rapid negative. 10/08/2021 WBC 9.4 Hgb 10.1 HCT 30.1 PLT 155. NA 139 K3.6 CL 112H CO2 99.0L BUN 14 CRE 0.79 [id number] Discharge plan: Diet no restrictions, soap and water wash to incision area daily, 7 10-day follow-up with Dr. Bhanu Cole Medication reconciliation: New medication: Levofloxacin 750 mg tablet daily #2/0 Oxycodone 5 mg tablet every 6 hours as needed #7/0 Continue medication: Ibuprofen 800 mg every 8 hours as needed Levothyroxine 75 mcg tablet daily Gabapentin 300 mg nightly 12/16/2021 return to [facility] emergency department with complaint of increasing abdominal pain and changes in GI symptoms since her appendectomy performed by Dr. Cole. Bouts of constipation with loose stools. As pain shortly after she eats, no bloody or tarry stools. Status post hy sterectomy. Also identified a lot of burping and gas, water antibiotics, no recent antibiotics. Vital signs 97.6 94 6 89/72-100% RA. Exam demonstrates no acute distress, tender to palpation over the mid epigastric abdomen no significant findings. Patient was given IV fluids, treated for pain and nausea. CBC: WBC 3.9 Hgb 13.6 HCT 40.0 PLT 289, normal differential. Chemistries demonstrate abnormals withsodium of 135, creatinine 1.13, EGFR 54, lipase 49, otherwise normal. Patient was recommended to push fluids, continue omeprazole, and follow-up with me. She was referred to Dr. Oliveira gastroenterology [facility]. 12/18/[address] Shamar Oliveira [facility] gastroenterology: Assessment was that abdominal painseem more functional than anything else, differential diagnosis does include ischemic colitis. Recommend that she start dicyclomine [id number] along with Augmentin therapy. Treated patient alsowith OMT with significant improvement. tarted Linzess. 12/31/2021 CT abd/pel WNL Right leg feels like spiders crawling over both legs. Hx NCS/EMG in past- unable to find in records. Status post partial resection of the right lobe of the thyroid. Stable 9 mm x 7 mm x 9 mm hypoechoic solid nodule in the midpole of the right lobe with the rim-like calcification. Depression is better. Grief over loss of parents. Has been difficult but slowly moving forward. HISTORIES FAMILY HISTORY Problem Relation Age of Onset Cancer Mother thyroid Heart Mother valve that flips other (Other) Mother SHELLY Glaucoma Mother Osteoporosis Mother Hypertension Brother Hyperlipidemia Brother other (Other) Brother back issues Aneurysm Paternal Grandmother Breast Cancer Paternal Aunt PAST MEDICAL HISTORY Diagnosis Date Chlamydia Chronic back pain Compound nevus excised, biopsy Condyloma acuminata Dissecting folliculitis of scalp 10/03/2009 nizoral, clobetasol Endometriosis Fibroadenosis, breast diffuse Genital warts Herniated intervertebral disc of lumbar spine l5-s1 RIGHT Histoplasmosis History of endometrial ablation SAL, BSO; BX EXTENSIVE ADENOMYOSIS, ENDOMETRIOSISLUMBAR DISC DEGEN Leiomyoma of uterus Menometrorrhagia Neuropathy right leg s/p back surgery SHELLY (obstructive sleep apnea) 04/02/2010 PSG: A:H index 5.1events per hour. 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 PAST SURGICAL HISTORY Procedure Laterality Date APPENDECTOMY 10/06/2021 Dr Cole HYSTERECTOMY 10/22/2013 total hysterectomy: endometriosis, including BSO KNEE ARTHROSCOPY/SURGERY Left 1989 PAST SURGICAL HISTORY OF L5-S1 decompression TOTAL THYROID LOBECTOMY UNI W/WO ISTHMUSECTOMY Right 04/23/2019 Lobectomy& isthmusectomy VAGINOSCOPY 03/31/2004 Social History Tobacco Use Smoking status: Current Every Day Smoker Smokeless tobacco: Never Used Substance Use Topics Alcohol use: Not on file Drug use: Not on file ACTIVE PROBLEM LIST Herniated Intervertebral Disc of Lumbar Spine Spondyloarthropathy Reactive Depression Thyroid Cancer (Hcc) Elevated Tsh Abdominal Pain, Right Lateral Current Outpatient Medications Medication Sig Dispense Refill LINZESS 145 mcg capsule Take 1 capsule by mouth once daily as needed. levothyroxine (SYNTHROID) 75 mcg tablet Take 1 tablet by mouth once daily. gabapentin (NEURONTIN) 300 mg capsule Take 1 capsule by mouth daily at bedtime for 180 days. 90 capsule 1 ibuprofen (MOTRIN) 800 mg tablet Take 800 mg by mouth every 6 hours as needed. No current facility-administered medications for this visit. MAMMOGRAM due on 04/16/2022 EXAM: BP 100/64 Pulse 67 Resp 18 Wt 64 kg (141 lb) SpO2 100% BMI 25.38 kg/m Pleasant adult woman in no acute distress. Alert and oriented all spheres. Normal affect and cognition. Speech normal. No deficits to learning or comprehension. Skin warm, dry, pink to lips and nailbeds. Normal turgor. Respirations regular and unlabored. HEENT: NCAT. No scleral icterus or conjunctival injection. TM's clear. Nose and oropharynx free from injection or lesion. Oral membranes moist and pink. No cervical lymph nodes. Thyroid non-tender, no masses, or enlargement. Carotids pulses 2+/4+ without bruits. No JVD with HOB at 30 degrees. Chest is normal shape. Lungs are clear to all [place] with good air exchange through out. HRRR without murmur or gallop. No lifts, heaves, or rubs. Abdomen: active bowel sounds throughout, soft, nontender, no masses or organomegaly. No CVAT. Extrem: no clubbing, cyanosis, edema. Distal pulses 2+/4, prompt capillary refill. DTR's lower 2/4+ knee jerk and Achilles. Normal sensation thoughout both legs to sharp,/ dull, warm/ cold, pinwheel. ASSESSMENT/PLAN: 1. Encounter for screening mammogram for malignant neoplasm of breast - ICD9: V76.12, ICD10: Z12.31(primary diagnosis) - Complete pelvic and breast exam with BURR FILER - Encouraged monthly BSE - Follow up for annual exam in one year. - SELVIN SCREENING 2. Polyneuropathy - ICD9: 356.9, ICD10: G62.9 Uncertain as pattern is global. No measurable motor or sensory deficits - CBC - IRON + TIBC - FERRITIN BLD - VITAMIN B12 BLOOD - FOLATE SERUM - PROTEIN ELECTROPHORESIS SERUM W/INTERP 3. Microcytic anemia - ICD9: 280.9, ICD10: D50.9 Chronic iron deficiency. - CBC - IRON + TIBC - FERRITIN BLD - VITAMIN B12 BLOOD - FOLATE SERUM 4. 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 S/P partial thyroidectomy - ICD9: 246.8, ICD10: E89.0 - Instructed patient on importance of taking on an empty stomach either first thing in the morning or at bedtime. 7. Reactive depression - ICD9: 300.4, ICD10: F32.9 Doing well 8. Neuropathy of right lower extremity - ICD9: 355.8, ICD10: G57.91 May need to repeat lower extremity NCS/EMG. She will locate prior records. 9. RLS (restless legs syndrome) - ICD9: 333.94, ICD10: G25.81 Likely r/t iron deficiency anemia at least in part. As above F/u prn after labs and records reviewed Will follow up bsed on labs and in 1 year Jluis Whitmore PA-C [facility]* Shawanda Handley Ma - 03/29/2022 9:13 AM EDT Is the patient having any pain? Yes LOCATION: lower back PAIN SCALE: 1 on a scale of 0-10 PAIN CHARACTER: radiating and tingling DURATION: 2 weeks FREQUENCY: occurs constantly AGGRAVATING FACTORS: doing yard work lately ALLEVIATING FACTORS: medications - Gabapentin, taking 2 instead one [facility] of Past illness Narrative* Problem Noted Date Resolved Date Thyroid nodule 03/02/2019 08/31/2019 Overview: 03/19/19 US: single 1 cm on right with rim, hypoechoic, normal vascular. Referred to surgery. 03/30/[address] Stephy Garcia: bx result atypical follicular cells suspicious for papillary thyroid carcinoma 04/23/[address] Stephy Garcia [facility] documented as of this encounter (statuses as of 03/29/2022) [facility] of Past illness Narrative* Problem Noted Date Resolved Date Thyroid nodule 03/02/2019 08/31/2019 Overview: 03/19/19 US: single 1 cm on right with rim, hypoechoic, normal vascular. Referred to surgery. 03/30/[address] Stephy Garcia: bx result atypical follicular cells suspicious for papillary thyroid carcinoma 04/23/[address] Stephy Garcia [facility] documented as of this encounter (statuses as of 03/29/2022) [facility] of Past illness Narrative* Problem Noted Date Resolved Date Thyroid nodule 03/02/2019 08/31/2019 Overview: 03/19/19 US: single 1 cm on right with rim, hypoechoic, normal vascular. Referred to surgery. 03/30/[address] Stephy Garcia: bx result atypical follicular cells suspicious for papillary thyroid carcinoma 04/23/[address] Stephy Garcia [facility] documented as of this encounter (statuses as of 04/02/2022) [facility] illness Narrative* Problem Noted Date Resolved Date Thyroid nodule 03/02/2019 08/31/2019 Overview: 03/19/19 US: single 1 cm on right with rim, hypoechoic, normal vascular. Referred to surgery. 03/30/[address] Stephy Garcia: bx result atypical follicular cells suspicious for papillary thyroid carcinoma 04/23/[address] Stephy Garcia [facility] documented as of this encounter (statuses as of 04/12/2022) [facility] of [facility] illness Narrative* Problem Noted Date Resolved Date Thyroid nodule 03/02/2019 08/31/2019 Overview: 03/19/19 US: single 1 cm on right with rim, hypoechoic, normal vascular. Referred to surgery. 03/30/[address] Stephy Garcia: bx result atypical follicular cells suspicious for papillary thyroid carcinoma 04/23/[address] Stephy Garcia [facility] documented as of this encounter (statuses as of 05/04/2022) [facility] Narrative* Problem Noted Date Resolved Date Thyroid nodule 03/02/2019 08/31/2019 Overview: 03/19/19 US: single 1 cm on right with rim, hypoechoic, normal vascular. Referred to surgery. 03/30/[address] Stephy Garcia: bx result atypical follicular cells suspicious for papillary thyroid carcinoma 04/23/[address] Stephy Garcia [facility] documented as of this encounter (statuses as of 05/05/2022) [facility] Narrative* Problem Noted Date Resolved Date Thyroid nodule 03/02/2019 08/31/2019 Overview: 03/19/19 US: single 1 cm on right with rim, hypoechoic, normal vascular. Referred to surgery. 03/30/[address] Stephy Garcia: bx result atypical follicular cells suspicious for papillary thyroid carcinoma 04/23/[address] Stephy Garcia [facility] documented as of this encounter (statuses as of 05/25/2022) [facility] Narrative* Problem Noted Date Resolved Date Thyroid nodule 03/02/2019 08/31/2019 Overview: 03/19/19 US: single 1 cm on right with rim, hypoechoic, normal vascular. Referred to surgery. 03/30/[address] Stephy Garcia: bx result atypical follicular cells suspicious for papillary thyroid carcinoma 04/23/[address] Stephy Garcia [facility] documented as of this encounter (statuses as of 06/29/2022) [facility] illness Narrative* Problem Noted Date Resolved Date Thyroid nodule 03/02/2019 08/31/2019 Overview: 03/19/19 US: single 1 cm on right with rim, hypoechoic, normal vascular. Referred to surgery. 03/30/[address] Stephy Garcia: bx result atypical follicular cells suspicious for papillary thyroid carcinoma 04/23/[address] Stephy Garcia [facility] documented as of this encounter (statuses as of 09/16/2022) [facility] Narrative* Problem Noted Date Diagnosed Date Resolved Date Thyroid nodule 03/02/2019 08/31/2019 Overview: 03/19/19 US: single 1 cm on right with rim, hypoechoic, normal vascular. Referred to surgery. 03/30/[address] Stephy Garcia: bx result atypical follicular cells suspicious for papillary thyroid carcinoma 04/23/[address] Stephy Garcia [facility] documented as of this encounter (statuses as of 06/27/2023) [facility] Narrative* Problem Noted Date Diagnosed Date Resolved Date Thyroid nodule 03/02/2019 08/31/2019 Overview: 03/19/19 US: single 1 cm on right with rim, hypoechoic, normal vascular. Referred to surgery. 03/30/[address] Stephy Garcia: bx result atypical follicular cells suspicious for papillary thyroid carcinoma 04/23/[address] Stephy Garcia [facility] documented as of this encounter (statuses as of 09/01/2023) [facility] Narrative* Problem Noted Date Diagnosed Date Resolved Date Thyroid nodule 03/02/2019 08/31/2019 Overview: 03/19/19 US: single 1 cm on right with rim, hypoechoic, normal vascular. Referred to surgery. 03/30/[address] Stephy Garcia: bx result atypical follicular cells suspicious for papillary thyroid carcinoma 04/23/[address] Stephy Garcia [facility] documented as of this encounter (statuses as of 09/02/2023) [facility] Narrative* Problem Noted Date Diagnosed Date Resolved Date Thyroid nodule 03/02/2019 08/31/2019 Overview: 03/19/19 US: single 1 cm on right with rim, hypoechoic, normal vascular. Referred to surgery. 03/30/[address] Stephy Garcia: bx result atypical follicular cells suspicious for papillary thyroid carcinoma 04/23/[address] Stephy Garcia [facility] documented as of this encounter (statuses as of 09/06/2023) [facility] of [facility] illness Narrative* Problem Noted Date Diagnosed Date Resolved Date Thyroid nodule 03/02/2019 08/31/2019 Overview: 03/19/19 US: single 1 cm on right with rim, hypoechoic, normal vascular. Referred to surgery. 03/30/[address] Stephy Garcia: bx result atypical follicular cells suspicious for papillary thyroid carcinoma 04/23/[address] Stephy Garcia [facility] documented as of this encounter (statuses as of 10/05/2023) [facility] Narrative* Problem Noted Date Diagnosed Date Resolved Date Thyroid nodule 03/02/2019 08/31/2019 Overview: 03/19/19 US: single 1 cm on right with rim, hypoechoic, normal vascular. Referred to surgery. 03/30/[address] Stephy Garcia: bx result atypical follicular cells suspicious for papillary thyroid carcinoma 04/23/[address] Stephy Garcia [facility] documented as of this encounter (statuses as of 01/18/2024) [facility]Reason for [facility] Narr[facility]* Chief Complaint ABD PAIN WSA REFERRAL- ER/ F/U ABD PAIN THYROID CANCER Reason for Visit Constipation [facility] Work Phone: Chief complaint+Reason for visit Narrative* Chief Complaint 1 Y FU 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 [facility] TCU PHYSICAL/TCU [facility] COVID-19 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 Premature menopause Vitamin D deficiency Physical exam, pre-employment [facility] Work Phone: Chief complaint+Reason for visit Narrative* Chief Complaint [facility] TCU PHYSICAL/TCU [facility] COVID-19 Reason for Visit Physical exam, pre-e mployment [facility] Work Phone: Evaluation note* Diagnosis Onset Date Resolution Status Constipation acute [facility] Work Phone: Evaluation note* Diagnosis Neuropathy of right lower extremity [facility] Diagnosis Encounter for screening mammogram for malignant neoplasm of breast- Primary Other screening mammogram Polyneuropathy Unspecified hereditary and idiopathic peripheral neuropathy Microcytic anemia Iron deficiency anemia, unspecified Thyroid nodule Nontoxic uninodular goiter Guillermo's thyroiditis Chronic lymphocytic thyroiditis S/P partial thyroidectomy Other postprocedural status Reactive depression Dysthymic disorder Neuropathy of right lower extremity RLS (restless legs syndrome) Restless legs syndrome (RLS) [facility]* Diagnosis Paresthesia- Primary Disturbance of skin sensation [facility]* Diagnosis Paresthesia Disturbance of skin sensation [facility]* Diagnosis Encounter for screening mammogram for malignant neoplasm of breast Other screening mammogram [facility]* Diagnosis Somatic dysfunction of spine, cervical- Primary Nonallopathic lesion of cervical region, not elsewhere classified Somatic dysfunction of spine, thoracic Nonallopathic lesion of thoracic region, not elsewhere classified Somatic dysfunction of right sacroiliac joint documented [facility] this encounter [facility] noteNo assessment information availableWPremier Health Work Phone: Evaluation note* Diagnosis Neuropathy of right lower extremity [facility]* Diagnosis Onset Date Resolution Status 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 acute Premature menopause acute Vitamin D deficiency acute [facility] Work Phone: Evaluation note* Diagnosis Onset Date Resolution Status 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 acute Premature menopause acute Vitamin D deficiency acute Physical exam, pre-employment [facility] Work Phone: Evaluation note* Diagnosis Onset Date Resolution Status Physical exam, pre-employment [facility] Work Phone: Evaluation note* Diagnosis Encounter for screening mammogram for breast cancer [facility]* Diagnosis Screening for colon cancer- Primary Special screening for malignant neoplasms, colon Herniated intervertebral disc of lumbar spine Neuropathy of right lower extremity Restless leg syndrome Restless legs syndrome (RLS) Medication management Encounter for long-term (current) use of other medications Low serum vitamin D Guillermo's thyroiditis Chronic lymphocytic thyroiditis Thyroid cancer (HCC) Malignant neoplasm of thyroid gland Wellness examination [facility]* Diagnosis Neutropenia, unspecified type (HCC)- Primary Stage 3a chronic kidney disease (CKD) (HCC) Elevated glucose Other abnormal glucose [facility] this [facility]* Diagnosis Onset Date Resolution Status Guillermo's thyroiditis foreign food cook specialty mini Papillary microcarcinoma of thyroid chronic Thyroid nodule chronic [facility] Work Phone: Evaluation note* Diagnosis Abnormal mammogram of left breast- Primary [facility]* Diagnosis Onset Date Resolution Status Guillermo's thyroiditis foreign food cook specialty mini Papillary microcarcinoma of thyroid chronic Thyroid nodule chronic Abnormal ultrasound of breast acute [facility] Work Phone: Evaluation note* Diagnosis Neuropathy of right lower extremity [facility] this [facility]* Diagnosis Onset Date Resolution Status Abnormal ultrasound of breast acute [facility] Work Phone: Evaluation note* Diagnosis Primary osteoarthritis of left foot- Primary Neuropathy of right lower extremity Abdominal pain, right lateral Abdominal pain, unspecified site Thyroid cancer (HCC) Malignant neoplasm of thyroid gland Spondyloarthropathy Spondylosis of unspecified site without mention of myelopathy Seasonal allergic rhinitis, unspecified trigger Dyslipidemia Other and unspecified hyperlipidemia Encounter for screening examination for other mental health and behavioral disorders Screening for diabetes mellitus (DM) Screening for diabetes mellitus Screening for lipid disorders Irritable bowel syndrome with constipation Irritable bowel syndrome documented in this encounter [facility] note* Diagnosis Spondyloarthropathy Spondylosis of unspecified site without mention of myelopathy documented in this encounter [facility] note* Diagnosis Irritable bowel syndrome with constipation- Primary Irritable bowel syndrome documented in this encounter [facility] note* Diagnosis Encounter for screening mammogram for breast cancer documented in this encounter [facility] Discharge instructionsWPremier Health Work Phone: Reason for referral (narrative)* Diagnostic Procedure Only (Routine) - Authorized Specialty Diagnoses / Procedures Referred By Ronal fisher Referred To Contact [facility] Diagnoses Encounter for screening mammogram for malignant neoplasm of breast Procedures SELVIN SCREENING SCREENING MAMMOGRAPHY BI 2-VIEW BREAST INC CAD Jluis Whitmore PA-C [address] [place] [address] [facility] [address] [place] [address] Referral ID Status Reason Start Date Expiration Date Visits Requested Visits Authorized [id number] Authorized Auto-Generat ed Referral 03/29/2022 04/28/2023 1 1 [facility] for referral (narrative)* Outpatient Procedure (Routine) - Authorized Specialty Diagnoses / Procedures Referred By Ronal fisher Referred To Contact [facility] Diagnoses Paresthesia Procedures EMG(NEURO/NI) NERVE CONDUCTION STUDIES 9-10 STUDIES Jluis Whitmore PA-C [address] [place] [address] [facility] [place] [address] [place] [address] Referral ID Status Reason Start Date Expiration Date Visits Requested Visits Authorized [id number] Authorized Auto-Generat ed Referral 04/02/2022 04/02/2023 1 1 [facility] for referral (narrative)* Diagnostic Procedure Only (Routine) - Closed Specialty Diagnoses / Procedures Referred By Contac t Referred To Contact [facility] Diagnoses Encounter for screening mammogram for malignant neoplasm of breast Procedures SELVIN SCREENING SCREENING MAMMOGRAPHY BI 2-VIEW BREAST INC Jluis Rankin PA-C [address] [place] [address] [facility] [address] [place] [address] Referral ID Status Reason Start Date Expiration Date V isits Requested Visits Authorized [id number] Closed Auto-Generate d Referral 03/29/2022 04/28/2023 1 1 T [facility] for referral (narrative)* Diagnostic Procedure Only (Routine) - Pending Review Specialty Diagnoses / Procedures Referred By Ronal fisher Referred To Contact [facility] Diagnoses Encounter for screening mammogram for breast cancer Procedures SELVIN SCREENING SCREENING MAMMOGRAPHY BI 2-VIEW BREAST INC Jluis Rankin PA-C [address] [place] [address] [facility] [address] [place] [address] Referral ID Status Reason Start Date Expiration Date Visits Requested Visits Authorized [id number] Pending Review Auto-Generat ed Referral 06/22/2023 07/21/2024 1 1 T [facility] for referral (narrative)* Diagnostic Procedure Only (Routine) - Closed Specialty Diagnoses / Procedures Referred By Ronal t Referred To Contact [facility] IMAG[facility] Diagnoses Spondyloarthropathy Procedures XR FOOT GENERAL 3V AP/LAT/OBL LEFT RADEX FOOT COMPLETE MINIMUM 3 VIEWS Jenny Lebron APRN.CNP [address] [place] [address] [place] [address] Referral ID Status Reason Start Date Expiration Date V isits Requested Visits Authorized [id number] Closed Auto-Generate d Referral 09/13/2024 10/13/2025 1 1 * Medication Prior Authorization - Pending Review Specialty Diagnoses / Procedures Referred By Ronal fisher Referred To Contact Diagnoses Abdominal pain, right lateral Jenny Lebron APRN.CNP [address] [place] [address] Referral ID Status Reason Start Date Expiration Date V isits Requested Visits Authorized [id number] Pending Review 09/13/2024 11/12/2024 1 1 [facility] for referral (narrative)* Diagnostic Procedure Only (Routine) - New Request Specialty Diagnoses / Procedures Referred By Ronal fisher Referred To Contact [facility] Diagnoses Encounter for screening mammogram for breast cancer Procedures SELVIN SCREENING W TRISTA SCREENING DIGITAL BREAST TOMOSYNTHESIS BI SCREENING MAMMOGRAPHY BI 2-VIEW BREAST INC CAD Jenny Lebron APRN.CNP [address] [place] [address] [facility] [address] [place] [address] Referral ID Status Reason Start Date Expiration Date Visits Requested Visits Authorized [id number] New Request Auto-Generat ed Referral 11/30/2025 1 1 [facility] for referral (narrative)No reason for referral information availableWPremier Health Work Phone: Reason for visit Narrative* Outpatient Procedure (Routine) - Closed Specialty Diagnoses / Procedures Referred By Ronal fisher Referred To Contact [facility] Diagnoses Paresthesia Procedures EMG(NEURO/NI) NERVE CONDUCTION STUDIES 9-10 STUDIES Jluis Whitmore PA-C [address] [place] [address] [facility] [place] [address] [place] [address] Referral ID Status Reason Start Date Expiration Date V isits Requested Visits Authorized [id number] Closed Auto-Generate d Referral 04/02/2022 04/02/2023 1 1 [facility] for visit Narrative* Diagnostic Procedure Only (Routine) - Closed Specialty Diagnoses / Procedures Referred By Ronal fisher Referred To Contact [facility] Diagnoses Encounter for screening mammogram for malignant neoplasm of breast Procedures SELVIN SCREENING SCREENING MAMMOGRAPHY BI 2-VIEW BREAST INC CAD Jluis Whitmore PA-C [address] [place] [address] [facility] [address] [place] [address] Referral ID Status Reason Start Date Expiration Date V isits Requested Visits Authorized [id number] Closed Auto-Generate d Referral 03/29/2022 04/28/2023 1 1 [facility] for visit Narrative* Diagnostic Procedure Only (Routine) - Closed Specialty Diagnoses / Procedures Referred By Ronal fisher Referred To Contact XR IMAGING Diagnoses Spondyloarthropathy Procedures XR FOOT GENERAL 3V AP/LAT/OBL LEFT RADEX FOOT COMPLETE MINIMUM 3 VIEWS Jenny Lebron, ADVERTISING OPERATIONS COORDINATOR.ELECTRICAL DESIGNER [address] [place] [address] [facility] Referral ID Status Reason Start Date Expiration Date V isits Requested Visits Authorized [id number] Closed Auto-Generate d Referral 09/13/2024 10/13/2025 1 1 [facility] Summary Purpose Family History No Family History Records Found Relationship Condition Age at Onset Recorded Date/T ronn sister Complication of anesthesia Unknown mother Arthritis Unknown Osteoporosis Unknown Disorder of thyroid Unknown Mitral valve prolapse Unknown Sleep apnea Unknown Glaucoma Unknown Advance Directives No Advanced Directives Records Found Advance Directive Response Recorded Date/ Time Living Will Yes December 16 10:38am Power of Supervisor [employer] No December 16, 2021 10:38am Advance Directive Response Recorded Date/ Time Living Will Yes June 23, 2022 10:20am Power of Supervisor [employer] Yes June 23 10:20am Name of Medical Power of Supervisor [employer] Geoffrey Acosta June 23, 2022 10:20am Advance Directive Response Recorded Date/ Time Name of Medical Power of Supervisor [employer] Geoffrey Acosta June 23, 2022 10:20am Living Will Yes June 23, 2022 10:20am Power of Supervisor [employer] Yes June 23 10:20am Advance Directive Response Recorded Date/ Time Name of Medical Power of Supervisor [employer] Geoffrey Acosta June 23, 2022 9:20am Living Will Yes June 23, 2022 9:20am Power of Supervisor [employer] Yes June 23 9:20am Advance Directive Response Recorded Date/ Time Living Will Yes June 23, 2022 9:20am Power of Supervisor [employer] Yes June 23 9:20am Advance Directive Response Recorded Date/ Time Living Will Yes June 23, 2022 10:20am Power of Supervisor [employer] Yes June 23 10:20am Advance Directive Response Recorded Date/ Time Living Will No November 24 3:30pm Power of Supervisor [employer] No November 24 3:30pm Advance Directive Response Recorded Date/ Time Living Will No November 24 4:30pm Power of Supervisor [employer] No November 24 4:30pm Chief Complaint and Reason for Visit Chief Complaint numbness down right arm from neck x2 days Chief Complaint numbness down right arm from neck x2 days E ORDER Chief Complaint numbness down right arm from neck x2 days E ORDER NEW EMPLOYEE PHYSICAL Chief Complaint numbness down right arm from neck x2 days E ORDER NEW EMPLOYEE PHYSICAL 1 Y FU 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 Premature menopause Vitamin D deficiency Chief Complaint OFFICE FARAYNAG ORD ER Chief Complaint OFFICE FARAYNAG ORD ER 1 Y FU 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 Thyroid nodule Chief Complaint OFFICE FARAYNAG ORD ER 1 Y FU SCREENING ABN MAMM 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 Thyroid nodule Chief Complaint OFFICE FARAYNAG ORD ER 1 Y FU SCREENING ABN MAMM [place] 4 Left Breast 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 Thyroid nodule Abnormal ultrasound of breast Chief Complaint DR OFFICE FAXING ORD ER 1 Y FU SCREENING ABN MAMM [place] 4 Left Breast LT BREAST ABN MAMM LT BREAST ABN MAMM 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 Thyroid nodule Abnormal ultrasound of breast Chief Complaint OFFICE FARAYNAG ORD ER 1 Y FU SCREENING ABN MAMM [place] 4 Left Breast LT BREAST ABN MAMM LT BREAST ABN MAMM chest pain 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 Thyroid nodule Abnormal ultrasound of breast Chief Complaint SCREENING ABN MAMM Bir[place] 4 Left Breast LT BREAST ABN MAMM LT BREAST ABN MAMM chest pain Reason for Visit Abnormal ultrasound of breast Chief Complaint ABN MAMM Birad 4 Left Breast LT BREAST ABN MAMM LT BREAST ABN MAMM chest pain Malignant neoplasm of thyroid gland Reason for Visit Abnormal ultrasound of breast Chief Complaint chest pain Malignant neoplasm of thyroid gland E ORDER Chief Complaint Admit Date THYROID NODULE February 21, 2025 12:1 5pm Reason for Referral Specialty Diagnoses / Procedures Referred By Ronal fisher Referred To Contact General Surgery Diagnoses Abnormal mammogram of left breast Procedures CONSULT TO GENERAL SURGERY OFFICE/OUTPATIENT [facility] 60-74 MINUTES Jluis Whitmore PA-C [address] [place] [address] Referral ID Status Reason Start Date Expiration Date Visits Requested Visits Authorized [id number] Pending Review PCP Requested Referral 3 10/03/2024 1 1 Specialty Diagnoses / Procedures Referred By Ronal fisher Referred To Contact Diagnoses Irritable bowel syndrome with constipation Jenny Lebron APRN.ELECTRICAL DESIGNER [address] [place] [address] Referral ID Status Reason Start Date Expiration Date V isits Requested Visits Authorized [id number] Authorized 1 1 Additional Source Comments INFORMATION SOURCE (unrecogn ized section and content) DATE CREATED AUTHOR 05/20/2018 [facility] Emelina Mcleod DATE CREATED AUTHOR AUTHOR'S ORGANIZ ATION 03/13/2020 [facility] DATE CREATED AUTHOR AUTHOR'S ORGANIZ ATION 09/21/2025 [facility] DATE CREATED AUTHOR AUTHOR'S ORGANIZ ATION 09/29/2025 [facility] Goals (unrecognized section and content) Goals may be documented in a n alternate sectionGoals may be documented in an alternate sectionGoals may be documented in an alternate sectionGoals may be documented in an alternate sectionGoals may be documented in an alternate sectionGoals may be documented in an alternate sectionGoals may be documented in an alternate sectionGoals may be documented in an alternate sectionGoals may be documented in an alternate sectionGoals may be documented in an alternate sectionGoals may be documented in an alternate sectionGoals may be documented in an alternate sectionGoals may be documented in an alternate sectionGoals may be documented in an alternate sectionGoals may be documented in an alternate sectionGoals may be documented in an alternate sectionGoals may be documented in an alternate sectionGoals may be documented in an alternate sectionGoals may be documented in an alternate sectionGoals may be documented in an alternate sectionGoals may be documented in an alternate sectionGoals may be documented in an alternate sectionGoals may be documented in an alternate sectionGoals may be documented in an alternate section Source Comments (unrecognize d section and content) In the event this informatio n is protected by the Federal Confidentiality of Alcohol and Drug Abuse Patient Records regulations: The Federal rules restrict any use of the information to criminally investigate or prosecute any alcohol or drug abuse patient.[facility] the event this information is protected by the Federal Confidentiality of Alcohol and Drug Abuse Patient Records regulations: The Federal rules restrict any use of the information to criminally investigate or prosecute any alcohol or drug abuse patient.[facility] HospitalIn the event this information is protected by the Federal Confidentiality of Alcohol and Drug Abuse Patient Records regulations: The Federal rules restrict any use of the information to criminally investigate or prosecute any alcohol or drug abuse patient.[facility] the event this information is protected by the Federal Confidentiality of Alcohol and Drug Abuse Patient Records regulations: The Federal rules restrict any use of the information to criminally investigate or prosecute any alcohol or drug abuse patient.[facility] HospitalIn the event this information is protected by the Federal Confidentiality of Alcohol and Drug Abuse Patient Records regulations: The Federal rules restrict any use of the information to criminally investigate or prosecute any alcohol or drug abuse patient.[facility] HospitalIn the event this information is protected by the Federal Confidentiality of Alcohol and Drug Abuse Patient Records regulations: The Federal rules restrict any use of the information to criminally investigate or prosecute any alcohol or drug abuse patient.[facility] HospitalIn the event this information is protected by the Federal Confidentiality of Alcohol and Drug Abuse Patient Records regulations: The Federal rules restrict any use of the information to criminally investigate or prosecute any alcohol or drug abuse patient.[facility] HospitalIn the event this information is protected by the Federal Confidentiality of Alcohol and Drug Abuse Patient Records regulations: The Federal rules restrict any use of the information to criminally investigate or prosecute any alcohol or drug abuse patient.[facility] HospitalIn the event this information is protected by the Federal Confidentiality of Alcohol and Drug Abuse Patient Records regulations: The Federal rules restrict any use of the information to criminally investigate or prosecute any alcohol or drug abuse patient.[facility] HospitalIn the event this information is protected by the Federal Confidentiality of Alcohol and Drug Abuse Patient Records regulations: The Federal rules restrict any use of the information to criminally investigate or prosecute any alcohol or drug abuse patient.[facility] HospitalIn the event this information is protected by the Federal Confidentiality of Alcohol and Drug Abuse Patient Records regulations: The Federal rules restrict any use of the information to criminally investigate or prosecute any alcohol or drug abuse patient.[facility] HospitalIn the event this information is protected by the Federal Confidentiality of Alcohol and Drug Abuse Patient Records regulations: The Federal rules restrict any use of the information to criminally investigate or prosecute any alcohol or drug abuse patient.[facility] HospitalIn the event this information is protected by the Federal Confidentiality of Alcohol and Drug Abuse Patient Records regulations: The Federal rules restrict any use of the information to criminally investigate or prosecute any alcohol or drug abuse patient.[facility] HospitalIn the event this information is protected by the Federal Confidentiality of Alcohol and Drug Abuse Patient Records regulations: The Federal rules restrict any use of the information to criminally investigate or prosecute any alcohol or drug abuse patient.[facility] HospitalIn the event this information is protected by the Federal Confidentiality of Alcohol and Drug Abuse Patient Records regulations: The Federal rules restrict any use of the information to criminally investigate or prosecute any alcohol or drug abuse patient.[facility] HospitalIn the event this information is protected by the Federal Confidentiality of Alcohol and Drug Abuse Patient Records regulations: The Federal rules restrict any use of the information to criminally investigate or prosecute any alcohol or drug abuse patient.[facility] HospitalIn the event this information is protected by the Federal Confidentiality of Alcohol and Drug Abuse Patient Records regulations: The Federal rules restrict any use of the information to criminally investigate or prosecute any alcohol or drug abuse patient.[facility] HospitalIn the event this information is protected by the Federal Confidentiality of Alcohol and Drug Abuse Patient Records regulations: The Federal rules restrict any use of the information to criminally investigate or prosecute any alcohol or drug abuse patient.[facility] HospitalIn the event this information is protected by the Federal Confidentiality of Alcohol and Drug Abuse Patient Records regulations: The Federal rules restrict any use of the information to criminally investigate or prosecute any alcohol or drug abuse patient.[facility] Reason for Visit (unrecogniz ed section and content) Reason Onset Date Comments Refill Request 03/29/2022 Reason Comments 6 Month Exam Back Pain Reason Comments Back Pain radiating pain down right leg, numbness in right arm Reason Onset Date Comments Refill Request 09/15/2022 Reason Comments [facility] orders faxed Reason Comments Yearly Exam Reason Comments Results Breast US Reason Comments Refill Request Reason Comments Yearly Exam Specialty Diagnoses / Procedures Referred By Ronal fisher Referred To Contact FAMILY MEDICINE Diagnoses Encounter for general adult medical examination without abnormal findings MEDICALLY NECESSARY SERVICES Procedures OFFICE/OUTPATIENT ESTABLISHED HIGH MDM 40 MIN MEDICALLY NECESSARY SERVICES Self Famp [facility] [address] [place] [address] Referral ID Status Reason Start Date Expiration Date Visits Requested Visits Authorized [id number] Authorized OON/Self Pay Override 4 11/20/2024 99 99 Reason Comments Insurance Authorization [employer] Teams (unrecognized sec tion and content) Rail Transit Operator Relationship Specialty Start Date End Date Jluis Whitmore PA-C [address], [place] [id number] PCP - General Family Practice 02/26/19 Rail Transit Operator Relationship Specialty Start Date End Date Jluis Whitmore PA-C [address] [place] [address] PCP - General Family Practice 02/26/19 Rail Transit Operator Relationship Specialty Start Date End Date Jluis Whitmore PA-C [address] [place] [address] PCP - General Family Practice 02/26/19 Rail Transit Operator Relationship Specialty Start Date End Date Jluis Whitmore PA-C [address] [place] [address] PCP - General Family Practice 02/26/19 Rail Transit Operator Relationship Specialty Start Date End Date Jluis Whitmore PA-C [address] [place] [address] PCP - General Family Practice 02/26/19 Rail Transit Operator Relationship Specialty Start Date End Date Jluis Whitmore PA-C [address] [place] [address] PCP - General Family Practice 02/26/19 Rail Transit Operator Relationship Specialty Start Date End Date Jluis Whitmore PA-C [address] [place] [address] PCP - General Family Practice 02/26/19 Rail Transit Operator Relationship Specialty Start Date End Date Jluis Whitmore PA-C [address] [place] [address] PCP - General Family Medicine 02/26/19 Team Status: Active Member Role Status Dates JOSE Quiroga Family Provider Active JOSE Quiroga Primary Care Provider Active Team Status: Inactive Member Role Status Dates JOSE Quiroga Primary Care Provider, Referri ng Provider Active Dr. Isac Michelle MD Attending Provider Active Team Status: Inactive Member Role Status Dates JOSE Quiroga Primary Care Provider, Referri ng Provider Active Ildefonso GARCIA PA Attending Provider Active Team Status: Inactive Member Role Status Dates JOSE Quiroga Primary Care Provider Active Dr. Isac Michelle MD Attending Provider, Referring Provi yaneth Active Team Status: Inactive Member Role Status Dates JOSE Quiroga Primary Care Provider Active Dr. Rafa Zhao MD Attending Provider Active Team Status: Inactive Member Role Status Dates JOSE Quiroga Primary Care Provider Active Dr. Rafa Zhao MD Attending Provider, Referring Pr ovider Active Rail Transit Operator Relationship Specialty Start Date End Date Jluis Whitmore PA-C [address], [place] [id number] PCP - General Family Medicine 02/26/19 Rail Transit Operator Relationship Specialty Start Date End Date Jluis Whitmore PA-C [address], [place] [id number] PCP - General Family Medicine 02/26/19 Rail Transit Operator Relationship Specialty Start Date End Date Jluis Whitmore PA-C [address], [place] [address] PCP - General Family Medicine 02/26/19 Rail Transit Operator Relationship Specialty Start Date End Date Jluis Whitmore PA-C [address], [place] [address] PCP - General Family Medicine 02/26/19 Team Status: Active Member Role Status Dates JOSE Quiroga Primary Care Provider Active Dr. Rafa Zhao MD Attending Provider, Referring Pr ovider Active Team Status: Inactive Member Role Status Dates JOSE Quiroga Primary Care Pro vider, Attending Provider, Referring Provider Active Team Status: Active Member Role Status Dates JOSE Quiroga Primary Care Provider, Attendi ng Provider Active Team Status: Active Member Role Status Dates JOSE Quiroga Primary Care Pro vider, Attending Provider, Referring Provider Active Rail Transit Operator Relationship Specialty Start Date End Date Jluis Whitmore PA-C [address], [place] [id number] PCP - General Family Medicine 02/26/19 Team Status: Inactive Member Role Status Dates JOSE Quiroga Primary Care Provider, Referri ng Provider Active Dr. Bhanu Cole MD Attending Provider Active Team Status: Inactive Member Role Status Dates JOSE Quiroga Primary Care Provider, Attendi ng Provider Active Team Status: Active Member Role Status Dates JOSE Quiroga Primary Care Provider Active Dr. Bhanu Cole MD Attending Provide r, Referring Provider, Other Provider Active Team Status: Active Member Role Status Dates JOSE Quiroga Primary Care Provider Active Dr. Bhanu Cole MD Attending Provider, Referring P rovider Active Team Status: Inactive Member Role Status Dates JOSE Quiroga Primary Care Provider Active Dr. Bhanu Cole MD Attending Provider, Referring P rovider Active Team Status: Inactive Member Role Status Dates JOSE Quiroga Primary Care Provider Active Dr. Felipe Capellan MD Emergency Provider Active Team Status: Inactive Member Role Status Dates JOSE Quiroga Primary Care Provider Active Dr. Felipe Capellan MD Attending Provider, Emergency Provider Active Rail Transit Operator Relationship Specialty Start Date End Date Jluis Whitmore PA-C [address] [place] [address] PCP - General Family Medicine 02/26/19 Team Status: Inactive Member Role Status Dates JOSE Quiroga Primary Care Provider Active Jessi Spaulding NP-C Attending Provider, Referring Pr ovider Active Rail Transit Operator Relationship Specialty Start Date End Date Jenny Lebron APRN.ELECTRICAL DESIGNER [address] [place] [address] PCP - General Family Medicine 08/31/24 Rail Transit Operator Relationship Specialty Start Date End Date Jenny Lebron APRN.ELECTRICAL DESIGNER [address] [place] [address] PCP - General Family Medicine 08/31/24 Rail Transit Operator Relationship Specialty Start Date End Date Jenny Lebron APRN.ELECTRICAL DESIGNER [address] [facility] [place] [address] PCP - [facility] Medicine 08/31/24 Rail Transit Operator Relationship Specialty Start Date End Date Carlos Lebronqueline Nel, ADVERTISING OPERATIONS COORDINATOR.ELECTRICAL DESIGNER [address] [facility] [place] [address] PCP - [facility] Medicine 08/31/24 Team Status: Active Member Role Status Dates Jenny Suppan , MINER HELPER Primary Care Provider Active Team Status: Inactive Member Role Status Dates Jenny Suppan , MINER HELPER Primary Care Provider Active Start: November 20, 2024 End: November 20, 2024 Dr. Isac Michelle MD Attending Provider Active Sta rt: November 20, 2024 End: November 20, 2024 Dr. Isac Michelle MD Referring Provider Active Sta rt: November 20, 2024 End: November 20, 2024 Team Status: Inactive Member Role Status Dates Jenny Suppan , MINER HELPER Primary Care Provider Active Start: December 07, 2024 End: December 07, 2024 Jenny Suppan , MINER HELPER Attending Provider Active Start: December 07, 2024 End: December 07, 2024 Jenny Suppan , MINER HELPER Referring Provider Active Start: December 07, 2024 End: December 07, 2024 Team Status: Inactive Member Role Status Dates Jenny Suppan , MINER HELPER Primary Care Provider Active Start: January 09, 2025 End: January 18, 2025 Rafa FOURNIER MD Attending Provider Active S tart: January 09, 2025 End: January 18, 2025 Team Status: Inactive Member Role Status Dates Jenny Suppan , MINER HELPER Primary Care Provider Active Start: February 21, 2025 End: February 21, 2025 Dr. Isac Michelle MD Attending Provider Active Sta rt: February 21, 2025 End: February 21, 2025 Dr. Isac Michelle MD Referring Provider Active Sta rt: February 21, 2025 End: February 21, 2025 Team Status: Active Member Role/Relationship Status Dates Jenny Suppan , MINER HELPER Primary Care Provider Active Team Status: Inactive Member Role/Relationship Status Dates Jenny Suppan , MINER HELPER Primary Care Provider Active Start: July 15, 2025 End: July 21, 2025 Rafa FOURNIER MD Attending Provider Active S tart: July 15, 2025 End: July 21, 2025 FOR RECORDS PERTAINING TO PATIENTS WHO ARE OR HAVE BEEN ENROLLED IN A CHEMICAL DEPENDENCY/SUBSTANCEABUSE PROGRAM, SOME INFORMATION MAY BE OMITTED. This clinical summary was aggregated from multiple sources. Caution should be exercised in using it in the provision of clinical care. This summary normalizes information from multiple sources, and as a consequence, information in this document may materially change the coding, format and clinical context of patient data. In addition, data may be omitted in some cases. CLINICAL DECISIONS SHOULD BE BASED ON THE PRIMARY CLINICAL RECORDS. [facility] [employer] [facility]. provides no warranty or guarantee of the accuracy or completeness of information in this document.
== END | disposition home or self-care (01) ==
PROVIDERS: PCP Clinical Nurse Specialist Adult Health; Referring Provider Clinical Nurse Specialist Adult Health; Visit Provider Clinical Nurse Specialist Adult Health
DX: Z12.31 Encounter for screening mammogram for malignant neoplasm of breast (principal); Z78.0 Asymptomatic menopausal state; M85.89 Other specified disorders of bone density and structure, multiple sites
CPT/HCPCS: 77063; 77067; 77080

== ENCOUNTER 2025-10-25 11:22 | Outpatient (CLI) | payer OTHER, SELFPAY ==
[2025-10-25 11:26] VITALS: BP 118/69; PULSE 71; RESP 16; TEMP 35.9; O2SAT 99; BMI 29.5
[2025-10-25] MEDS: 0.9% NaCl Peripheral Flush Adult IV (11:30)
[2025-10-25] MEDS: 0.9% NaCl IVPB Med Flush (100mL) 15 ML IV (11:35)
--- OUTSIDE RECORDS SUMMARY | 2025-10-25 11:55 | XMS RPT_ITS | CCD ---
Author Organization [facility] Care Team Providers Care Template Worker Name Role Phone Shawanda Aldana Unavailable Unavailable Whitmore PA, PA [facility] Primary Care Provider [phone] Whitmore PA, PA [facility] Referring Provider Friend, Dr. Ibanez Attending Provider Whitmore PA-C, M [place] Primary Care Provider Whitmore PA-C, M [place] Primary Care Provider Whitmore PA-C, [facility] Primary Care Provider Whitmore PA, PA [facility] Primary Care Provider Whitmore PA, PA [facility] Referring Provider Dr. Isac Michelle Attending Provider Wyles PA, PA Ildefonso Bazzi Attending Provider Whitmore PA, PA [facility] Primary Care Provider Whitmore PA, PA [facility] Referring Provider Wyles PA, PA Ildefonso Bazzi Attending Provider Whitmore PA-C, [facility] Primary Care Provider Whitmore PA, PA [facility] Primary Care Provider Whitmore PA, PA [facility] Referring Provider Dr. Isac Michelle Attending Provider Whitmore PA, PA [facility] Primary Care Provider Whitmore PA, PA [facility] Referring Provider Dr. Isac Michelle Attending [...] Provider Dr. Bhanu Cole Other Provider Suppan FISHERIES INSPECTOR.GAMBLING BOX PERSON, Jenny A Primary Care Provi yaneth Suppan VICE CHANCELLOR, Jenny Primary Care Provider Dr. Isac Michelle MD Attending Provider Dr. Isac Michelle MD Referring Provider Suppan VICE CHANCELLOR, Jenny Attending Provider Suppan VICE CHANCELLOR, Jenny Referring Provider Rafa Zhao MD, Chi Attending Provider Unavailable Suppan VICE CHANCELLOR, Jenny Primary Care Provider Rafa Zhao MD, [...] [DOXYCYCLINE] Drug Allergy 8 Other: See Comments [facility] (20 sources) Morphine; Translations: [MORPHINE] Drug Allergy 9 GI Upset [facility] (4 sources) latex tape Allergy to substance 2 [facility] Work Phone: (20 sources) Latex Propensity to adverse reactions 2 [facility] Comment on above: latex tape (1 source) Scopolamine; Translations: [SCOPOLAMINE] Drug Allergy 5 [facility] (1 source) Doxycycline Drug Allergy 5 [facility] (1 source) Latex Drug allergy (disorder) 5 [facility] (1 source) Morphine Drug Allergy 5 [facility] Medications Current Medications Medication Drug [...] mouth every 6 hours as needed. Ipratropium [place] 21 mcg (0.03 %) spray,non-aerosol (1 source) Start: 5 Ipratropium [place] 21 mcg (0.03 %) spray,non-aerosol Active 2 [...] Comment on above: [facility]. hydrocortisone 10 mg/ml / neomycin 3.5 mg/ml / polymyxin b 72782 unt/ml otic suspension (2 sources) Aminoglycoside Antibacterial, [...] 2:57pm Start: 01-08-2022 take 1 capsule by [facility] at mealtime Linaclotide (Linzess) 145 mcg capsule Active 145 MCG PO DAILY January 08, 2022 7:35am Take thirty minutes prior to first meal/large drink of the day. Comment on above: Take 1 capsule by [facility] once daily as needed. methylPREDNISolone 4 [...] Test Name Value Interpretation Reference Range Facility [facility] 09-18-2025 [facility] Telephone (FAMP[facility]) FABIANA ACOSTA ([id number]) 1970 F Date Time Provider Department 09/18/25 [...] by Provider, External, PAThangC: Hematology Jenny Lebron APRN.GAMBLING BOX PERSON 09/19/2025 7:51 AM Signed White blood count [...] is low at 24.8. She could consider aanq-bqb-pwoslle vitamin D3-1000 units daily. please fax order for CBC repeat to [facility]. That is where patient works. Shawanda [...] Visit Diagnosis:Leukocytosis, unspecified type [D72.829] Order(s):HBA1C (OUTSIDE) [[id number]] Order #: [id number] COMPLETE BLOOD COUNT AND DIFFERENTIAL [SQCBCDIF] Order #: [id number] FUTURE Prescriptions as of 09/19/2025 - TIROSINT [...] Status:Closed by SHAWANDA HANDLEY on 09/19/25 Normal [facility] CBC W/Diff, Automatedon 10-2 Absolute Lymph 2.06 X10 3/uL Normal 0.83-4.51 [facility] Comment on above: Performed By: #### M 100.505 #### [facility] [address] [place], [address] Absolute Neut 1.5 X10 3/uL Low 2.0-7.7 [facility] Comment on above: Performed By: #### M 100.505 #### [facility] [address] [place], [place], [address] Basophils/100 WBC (Bld) 1.2 % High 0-1 [facility] Comment on above: Performed By: #### M 100.505 #### [facility] [address] [place], [address] Eosinophils/100 WBC (Bld) 2.7 % Normal 0-5 [facility] Comment on above: Performed By: #### M 100.505 #### [facility] [address] [place], [address] Erythrocyte distribution width (RBC) [Ratio] 13.2 % Normal 11.6-14.6 [facility] Comment on above: Performed By: #### M 100.505 #### [facility] [address] [place], [address] Hematocrit (Bld) [Volume fraction] 37.9 % Normal 37-47 [facility] Comment on above: Performed By: #### M 100.505 #### [facility] [address] [place], [address] Hemoglobin (Bld) [Mass/Vol] 12.8 g/dL Normal 12.0-15.0 [facility] Comment on above: Performed By: #### M 100.505 #### [facility] [address] [place], [address] IG% 0.200 Normal 0.0-0.9 [facility] Comment on above: Result Comment: IG% - Immature Granulocytes (promyelocytes, myelocytes and metamyelocytes) > 1% indicates that a LEFT SHIFT is Present. Performed By: #### M 100.505 #### [facility] [address] [place], [address] Lymphocytes/100 WBC (Bld) 49.6 % High 19-41 [facility] Comment on above: Performed By: #### M 100.505 #### [facility] [address] [place], [address] MCH (RBC) [Entitic mass] 30.5 pg Normal 27.0-32.0 [facility] Comment on above: Performed By: #### M 100.505 #### [facility] [address] [place], [address] MCHC (RBC) [Mass/Vol] 33.8 g/dL Normal 32-36 [facility] Comment on above: Performed By: #### M 100.505 #### [facility] [address] [place], [address] MCV (RBC) [Entitic vol] 90.5 fL Normal 81-99 [facility] Comment on above: Performed By: #### M 100.505 #### [facility] [address] [place], [address] Monocytes/100 WBC (Bld) 9.2 % Normal 0-10 [facility] Comment on above: Performed By: #### M 100.505 #### [facility] [address] [place], [address] Neutrophils/100 WBC (Bld) 37.1 % Low 47-70 [facility] Comment on above: Performed By: #### M 100.505 #### [facility] [address] [place], [address] Nucleated RBC (Bld) [#/Vol] 0 10*3/uL Normal 0-5 [facility] Comment on above: Performed By: #### M 100.505 #### [facility] [address] [place], [address] Platelet mean volume (Bld) [Entitic vol] 9.4 fL Normal 6.2-12.0 [facility] Comment on above: Performed By: #### M 100.505 #### [facility] [address] [place], [address] Platelets (Bld) [#/Vol] 230 10*3/uL Normal 150-450 [facility] Comment on above: Performed By: #### M 100.505 #### [facility] [address] [place], [address] RBC (Bld) [#/Vol] 4.19 10*6/uL Low 4.2-5.4 [facility] Comment on above: Performed By: #### M 100.505 #### [facility] [address] [place], [address] RDW SD 43.8 fl Normal 35.1-43.9 [facility] Comment on above: Performed By: #### M 100.505 #### [facility] [address] [place], [address] WBC (Bld) [#/Vol] 4.2 10*3/uL Low 4.4-11.0 [facility] Comment on above: Performed By: #### M 100.505 #### [facility] [address] [place], [address] CNOVon 09-17-2025 CNOV Office Visit [facility] ) FABIANA ACOSTA ([id number]) 1970 F Date Time Provider Department 09/17/25 9:40 AM [facility] During your visit today, we recorded the [...] l5-s1 RIGHT Histoplasmosis History of endometrial ablation ASL, BSO; BX EXTENSIVE ADENOMYOSIS, ENDOMETRIOSISLUMBAR DISC DEGEN [...] - COMPREHENSIVE (more content not included)... Normal [facility] Metabolic Prof jourdan 09-17-2025 Albumin [Mass/Vol] 4.5 g/dL Normal 3.5-5.0 [facility] Comment on above: Performed By: #### M 100.505 #### [facility] [address] [place], [address] Albumin/Globulin [Mass ratio] 1.9 {ratio} Normal 0.9-2.4 [facility] Comment on above: Performed By: #### M 100.505 #### [facility] [address] [place], [address] ALK PHOS 71 U/L Normal 35-104 [facility] Comment on above: Performed By: #### M 100.505 #### [facility] [address] [place], [address] ALT [Catalytic activity/Vol] 13 U/L Normal <=34 [facility] Comment on above: Performed By: #### M 100.505 #### [facility] [address] [place], [address] AST [Catalytic activity/Vol] 21 U/L Normal <=31 [facility] Comment on above: Performed By: #### M 100.505 #### [facility] [address] [place], [address] Bilirubin [Mass/Vol] 0.48 mg/dL Normal 0.00-1.30 [facility] Comment on above: Performed By: #### M 100.505 #### [facility] [address] [place], [address] BUN/CRE 25.1 RATIO High 10-20 [facility] Comment on above: Performed By: #### M 100.505 #### [facility] [address] [place], [address] Calcium [Mass/Vol] 9.6 mg/dL Normal 7.6-11.0 [facility] Comment on above: Performed By: #### M 100.505 #### [facility] [address] [place], [address] Chloride [Moles/Vol] 106 mmol/L Normal 98-108 [facility] Comment on above: Performed By: #### M 100.505 #### [facility] [address] [place], [address] CO2 [Moles/Vol] 23.7 mmol/L Normal 21.0-32.0 [facility] Comment on above: Performed By: #### M 100.505 #### [facility] [address] [place], [address] Creatinine [Mass/Vol] 0.88 mg/dL Normal 0.70-1.20 [facility] Comment on above: Performed By: #### M 100.505 #### [facility] [address] [place], [address] GAP 9 Normal 5-15 [facility] Comment on above: Performed By: #### M 100.505 #### [facility] [address] [place], [address] GFR/1.73 sq M.predicted among non-blacks MDRD (S/P/Bld) [Vol rate/Area] 79 mL/min/{1.73_m2} Normal >60 [facility] Comment on above: Result Comment: mL/m in/1.73m2 CKD-EPI Creatinine Equation (2020) Performed By: #### M 100.505 #### [facility] [address] [place], [address] Globulin (S) [Mass/Vol] 2.4 g/dL Normal 2.2-4.2 [facility] Comment on above: Performed By: #### M 100.505 #### [facility] [address] [place], [address] Glucose [Mass/Vol] 109 mg/dL High 70-99 [facility] Comment on above: Performed By: #### M 100.505 #### [facility] [address] [place], [place], [address] Potassium [Moles/Vol] 4.9 mmol/L Normal 3.3-5.1 [facility] Comment on above: Performed By: #### M 100.505 #### [facility] [address] [place], [place], [address] Sodium [Moles/Vol] 139 mmol/L Normal 133-145 [facility] Comment on above: Performed By: #### M 100.505 #### [facility] [address] [place], [place], [address] T PROT 6.9 g/dL Normal 5.9-8.4 [facility] Comment on above: Performed By: #### M 100.505 #### [facility] [address] [place], [place], [address] Urea nitrogen [Mass/Vol] 22 mg/dL High 4-19 [facility] Comment on above: Performed By: #### M 100.505 #### [facility] [address] [place], [place], [address] Endocrinology Visit Reporton 09-17-2025 Endocrinology Visit Report [facility] [address] [place], [place] [address] OFFICE VISIT Date of Service: 09/17/25 MR#: [id number] Acct: [id number] Name: FABIANA ACOSTA DAISY Rep #: [id number] : 1970 Provider: Jluis Burnett Age/Sex: 55/F Location: [facility] [place] Status: Signed Intake Vital Signs 09/18/24 08:01 [...] 2 on Sundays09/17/25 Rx (Tirosint) #102 [facility] Medical History Acute otitis media, left Physical [...] thyroid i (more content not included)... Normal [facility] Hemoglobin A1con 09-17-2025 HbA1c (Bld) [Mass fraction] 5.7 % Normal <=5.6 [facility] Comment on above: Result Comment: Norm al < 5.7 % Prediabetic 5.7 - 6.4 % Diabetic >or= 6.5 % Please note range changes. Performed By: #### M 100.505 #### [facility] [address] [place], [address] Microalb:Creat Ratio,Random URon 09-17-2025 Creatinine [Mass/Vol] 34.20 mg/dL Normal 28.00-217.00 [facility] Comment on above: Performed By: #### M 100.505 #### [facility] [address] [place], [address] MALB:CREAT UNABLE TO CALCULATE Normal <30 mg/g CRE [facility] Comment on above: Performed By: #### M 100.505 #### [facility] [address] [place], [address] MICROALBUMIN,UR < 12.0 Normal <20 mg/L [facility] Comment on above: Performed By: #### M 100.505 #### [facility] [address] [place], [address] Vitamin B12on 09-17-2025 Cobalamin (Vitamin B12) [Mass/Vol] 342 pg/mL Normal 180-914 [facility] Comment on above: Performed By: #### M 100.505 #### [facility] [address] [place], [address] Vitamin D,25 Hydroxyon 09-17 Vitamin D 25-OH 24.8 ng/mL Low 30-100 [facility] Comment on above: Result Comment: Aydee min D Status Deficiency: <20 ng/mL (50nmol/L) Insufficiency: 20-30 ng/mL (50-75 nmol/L) Sufficiency: 30-100 ng/mL (75-250 nmol/L) Toxicity: >100 ng/mL (>250 nmol/L) Performed By: #### M 100.505 #### [facility] [address] [place], [address] T4 Free Directon 09-13-2025 T4 FREE DIRECT 1.10 ng/dL Normal 0.76-1.46 [facility] Comment on above: Performed By: #### M 100.505 #### [facility] [address] [place], [address] Thyroid Stim Hormone (TSH)on 09-13-2025 TSH 3.430 uIU/mL Normal 0.300-4.200 [facility] Comment on above: Performed By: #### M 100.505 #### [facility] [address] [place], [address] COVID 19 AG RAPID (RN COLLEC T)on 09-09-2025 SARS-CoV-2 (COVID-19) RNA JOHN+probe Ql (Unsp spec) SARS-CoV-2 (COVID 19) Negative RAPID METHOD BinaxNow COVID19 Ag Card Normal [facility] Comment on above: Performed By: #### M 100.505 #### [facility] [address] [place], [address] COVID 19 AG RAPID (RN COLLEC T)on [...] Negative RAPID METHOD [facility]axNow COVID19 Ag Card [facility] Comment on above: Performed By: #### M 100.505 #### [facility] [address] [place] [address]. [place], [place], [id number] COVID 19 AG RAPID (RN COLLEC T)on 08-30-2025 SARS-CoV-2 (COVID-19) RNA JOHN+probe Ql (Unsp spec) SARS-CoV-2 (COVID 19) Negative RAPID METHOD BinaxNow COVID19 Ag Card [facility] Comment on above: Performed By: #### M 100.505 #### [facility] [address] [place] [address]. [place], [place], [id number] COVID 19 AG RAPID (RN COLLEC T)on [...] Negative RAPID METHOD [facility]axNow COVID19 Ag Card [facility] Comment on above: Performed By: #### M 100.505 #### [facility] [address] [place], [place], [address] COVID 19 AG RAPID (RN COLLEC T)on 08-23-2025 SARS-CoV-2 (COVID-19) RNA JOHN+probe Ql (Unsp spec) SARS-CoV-2 (COVID 19) Negative RAPID METHOD BinaxNow COVID19 Ag Card Normal [facility] Comment on above: Performed By: #### M 100.505 #### [facility] [address] [place], [address] COVID 19 AG RAPID (RN [...] RAPID METHOD [employer]axNow COVID19 Ag Card Normal [facility] Comment on above: Performed By: #### M 100.505 #### [facility] [address] [place], [address] COVID-19 virus antigen assay Ordered By: Rafa Zhao on 07-15-2025 SARS-CoV-2 (COVID-19) Ag IA.rapid Ql (Resp) [facility] CNPTorri 03-15-2025 CNPN Telephone [facility] RENALDOFABIANA AUGUSTIN ([id number]) 1970 F Date Time Provider Department 03/15/25 JENNY LEBRON During your visit today, we recorded the following information about you: Oly Lee MA 03/15/2025 9:56 AM Signed Scan on 03/14/2025 10:49 AM by Provider, External, LEANNC: CBC Jenny Lebron APRN.GAMBLING BOX PERSON 03/15/2025 10:16 AM Signed Red blood count [...] Date Reviewed: 09/13/2024 Reviewed by: Jenny Lebron, JOHNY.GAMBLING BOX PERSON - Fully Assessed Reason for Visit: Results [...] Status:Closed by CODIE GOLDBERG on 03/15/25 Normal [facility] Hemoglobin A1con 03-15-2025 HbA1c (Bld) [Mass fraction] 6.2 % High <=5.6 [facility] Comment on above: Result Comment: Norm al < 5.7 % Prediabetic 5.7 - 6.4 % Diabetic >or= 6.5 % Please note range changes. Performed By: #### M 100.505 #### [facility] [address] [place], [address] Thyroglobulin w/Anti-TG ABon 03-15-2025 Anti-TG AB < 1.0 Normal 0.0-0.9 [facility] Comment on above: Result Comment: Thyr oglobulin Antibody measured by [facility] Methodology It should be noted that the presence of thyroglobulin antibodies may not be pathogenic nor diagnostic, especially at very low levels. The assay jewelry bearing maker has found that four percent of individuals without evidence of thyroid disease or autoimmunity will have positive TgAb levels up to 4 IU/mL. Performed By: #### M 100.505 #### [facility] [address] [place], [address] THYROGLOB QUANT 12.5 ng/mL Normal 1.5-38.5 [facility] Comment on above: Result Comment: Acco [...] is 0.1 ng/mL Thyroglobulin measured by [facility] Immunometric Assay Performed at: [address] [id number] Truck Cleaner: Gurvinder Durant PhD, Phone: [phone] Performed By: #### M 100.505 #### [facility] [address] [place], [address] CBC W/Diff, Automatedon 04-2 Absolute Lymph 1.77 X10 3/uL Normal 0.83-4.51 [facility] Comment on above: Performed By: #### M 100.505 #### [facility] [address] [place], [address] Absolute Neut 2.0 X10 3/uL Normal 2.0-7.7 [facility] Comment on above: Performed By: #### M 100.505 #### [facility] [address] [place], [address] Basophils/100 WBC (Bld) 1.1 % High 0-1 [facility] Comment on above: Performed By: #### M 100.505 #### [facility] [address] [place], [address] Eosinophils/100 WBC (Bld) 1.8 % Normal 0-5 [facility] Comment on above: Performed By: #### M 100.505 #### [facility] [address] [place], [address] Erythrocyte distribution width (RBC) [Ratio] 13.4 % Normal 11.6-14.6 [facility] Comment on above: Performed By: #### M 100.505 #### [facility] [address] [place], [address] Hematocrit (Bld) [Volume fraction] 36.7 % Low 37-47 [facility] Comment on above: Performed By: #### M 100.505 #### [facility] [address] [place], [address] Hemoglobin (Bld) [Mass/Vol] 12.1 g/dL Normal 12.0-15.0 [facility] Comment on above: Performed By: #### M 100.505 #### [facility] [address] [place], [address] IG% 0.200 Normal 0.0-0.9 [facility] Comment on above: Result Comment: IG% - Immature Granulocytes (promyelocytes, myelocytes and metamyelocytes) > 1% indicates that a LEFT SHIFT is Present. Performed By: #### M 100.505 #### [facility] [address] [place], [address] Lymphocytes/100 WBC (Bld) 40.6 % Normal 19-41 [facility] Comment on above: Performed By: #### M 100.505 #### [facility] [address] [place], [address] MCH (RBC) [Entitic mass] 29.5 pg Normal 27.0-32.0 [facility] Comment on above: Performed By: #### M 100.505 #### [facility] [address] [place], [address] MCHC (RBC) [Mass/Vol] 33.0 g/dL Normal 32-36 [facility] Comment on above: Performed By: #### M 100.505 #### [facility] [address] [place], [address] MCV (RBC) [Entitic vol] 89.5 fL Normal 81-99 [facility] Comment on above: Performed By: #### M 100.505 #### [facility] [address] [place], [address] Monocytes/100 WBC (Bld) 10.1 % High 0-10 [facility] Comment on above: Performed By: #### M 100.505 #### [facility] [address] [place], [address] Neutrophils/100 WBC (Bld) 46.2 % Low 47-70 [facility] Comment on above: Performed By: #### M 100.505 #### [facility] [address] [place], [address] Nucleated RBC (Bld) [#/Vol] 0 10*3/uL Normal 0-5 [facility] Comment on above: Performed By: #### M 100.505 #### [facility] [address] [place], [address] Platelet mean volume (Bld) [Entitic vol] 9.2 fL Normal 6.2-12.0 [facility] Comment on above: Performed By: #### M 100.505 #### [facility] [address] [place], [address] Platelets (Bld) [#/Vol] 250 10*3/uL Normal 150-450 [facility] Comment on above: Performed By: #### M 100.505 #### [facility] [address] [place], [address] RBC (Bld) [#/Vol] 4.10 10*6/uL Low 4.2-5.4 [facility] Comment on above: Performed By: #### M 100.505 #### [facility] [address] [place], [address] RDW SD 44.0 fl High 35.1-43.9 [facility] Comment on above: Performed By: #### M 100.505 #### [facility] [address] [place], [address] WBC (Bld) [#/Vol] 4.4 10*3/uL Normal 4.4-11.0 [facility] Comment on above: Performed By: #### M 100.505 #### [facility] [place], [address] CNOVon 03-14-2025 CNOV Office Visit ([facility] ) FABIANA ACOSTA ([id number]) 1970 F Date Time Provider Department 03/14/25 8:40 AM [facility] LEBR[facility] During your visit today, we recorded the following information about you: Pulse Blood pressure Weight 68/minute 112/58 77.1 kg Jenny Lebron, FISHERIES INSPECTOR.GAMBLING BOX PERSON 03/14/2025 9:25 AM Signed This is a [...] to night, didn't help. Before going to [place], early February- felt really tired. Then had [...] ideation. Thyroid cancer followed by Dr. Michelle- drier and pulverizer tender EXAM: BP 112/58 Pulse 68 Wt 77.1 kg (170 lb) SpO2 98% BMI 30.60 kg/m? PH (more content not included)... Normal [facility] 03-14-2025 [facility] Telephone ([facility]) FABIANA ACOSTA ([id number]) 1970 F Date Time Provider Department 03/14/[address] [facility] During your visit today, we recorded the following information about you: Jenny Lebron APRN.[facility] 03/14/2025 4:54 PM Signed Labs thus far [...] Date Reviewed: 09/13/2024 Reviewed by: Jenny Lebron APRN.GAMBLING BOX PERSON - Fully Assessed Prescriptions as of 03/14/2025 [...] Status:Closed by JENNY LEBRON on 03/14/[address] [facility] Metabolic Prof ilon 03-14-2025 Albumin [Mass/Vol] 4.2 g/dL Normal 3.5-5.0 [facility] Comment on above: Performed By: #### M 100.505 #### [facility] [address] [place], [address] Albumin/Globulin [Mass ratio] 1.6 {ratio} Normal 0.9-2.4 [facility] Comment on above: Performed By: #### M 100.505 #### [facility] [address] [place], [address] ALK PHOS 71 U/L Normal 35-104 [facility] Comment on above: Performed By: #### M 100.505 #### [facility] [address] [place], [address] ALT [Catalytic activity/Vol] 16 U/L Normal <=34 [facility] Comment on above: Performed By: #### M 100.505 #### [facility] [address] [place], [address] AST [Catalytic activity/Vol] 22 U/L Normal <=31 [facility] Comment on above: Performed By: #### M 100.505 #### [facility] [address] [place], [address] Bilirubin [Mass/Vol] 0.49 mg/dL Normal 0.00-1.30 [facility] Comment on above: Performed By: #### M 100.505 #### [facility] [address] [place], [address] BUN/CRE 17.4 RATIO Normal 10-20 [facility] Comment on above: Performed By: #### M 100.505 #### [facility] [address] [place], [address] Calcium [Mass/Vol] 8.9 mg/dL Normal 7.6-11.0 [facility] Comment on above: Performed By: #### M 100.505 #### [facility] [address] [place], [address] Chloride [Moles/Vol] 106 mmol/L Normal 98-108 [facility] Comment on above: Performed By: #### M 100.505 #### [facility] [address] [place], [address] CO2 [Moles/Vol] 22.5 mmol/L Normal 21.0-32.0 [facility] Comment on above: Performed By: #### M 100.505 #### [facility] [address] [place], [address] Creatinine [Mass/Vol] 0.92 mg/dL Normal 0.70-1.20 [facility] Comment on above: Performed By: #### M 100.505 #### [facility] [address] [place], [address] GAP 10 Normal 5-15 [facility] Comment on above: Performed By: #### M 100.505 #### [facility] [address] [place], [address] GFR/1.73 sq M.predicted among non-blacks MDRD (S/P/Bld) [Vol rate/Area] 75 mL/min/{1.73_m2} Normal >60 [facility] Comment on above: Result Comment: mL/m in/1.73m2 CKD-EPI Creatinine Equation (2020) Performed By: #### M 100.505 #### [facility] [address] [place], [address] Globulin (S) [Mass/Vol] 2.6 g/dL Normal 2.2-4.2 [facility] Comment on above: Performed By: #### M 100.505 #### [facility] [address] [place], [address] Glucose [Mass/Vol] 91 mg/dL Normal 70-99 [facility] Comment on above: Performed By: #### M 100.505 #### [facility] [address] [place], [address] Potassium [Moles/Vol] 4.4 mmol/L Normal 3.3-5.1 [facility] Comment on above: Performed By: #### M 100.505 #### [facility] [address] [place], [address] Sodium [Moles/Vol] 139 mmol/L Normal 133-145 [facility] Comment on above: Performed By: #### M 100.505 #### [facility] [address] [place], [address] T PROT 6.8 g/dL Normal 5.9-8.4 [facility] Comment on above: Performed By: #### M 100.505 #### [facility] [address] [place], [address] Urea nitrogen [Mass/Vol] 16 mg/dL Normal 4-19 [facility] Comment on above: Performed By: #### M 100.505 #### [facility] [address] [place], [address] Lipid Profileon 03-14-2025 CHOL:HDL 4.27 Normal [facility] Comment on above: Performed By: #### M 100.505 #### [facility] [address] [place], [address] Cholesterol [Mass/Vol] 206 mg/dL High <=200 [facility] Comment on above: Result Comment: Chol esterol level, Desirable <200 mg/dL Borderline high cholesterol 200-239 mg/dL High cholesterol >=240 mg/dL Recommendations of the NCEP Adult Treatment Panel for the following risk-cutoff thresholds for the [place] population. Performed By: #### M 100.505 #### [facility] [address] [place], [address] Cholesterol in HDL [Mass/Vol] 48 mg/dL Normal [facility] Comment on above: Result Comment: Mariel onal Cholesterol Education Program (NCEP) guidelines: <40 mg/dL: Low HDL-cholesterol (major risk factor for CHD) >= 60 mg/dL: High HDL-cholesterol (negative risk factor for CHD) HDL-cholesterol is affected by a number of factors, e.g. smoking, exercise, hormones, sex and age. Performed By: #### M 100.505 #### [facility] [address] [place], [address] Cholesterol in LDL [Mass/Vol] 132 mg/dL Normal [facility] Comment on above: Result Comment: Bord dpvxuo=300-298 mg/dL Higher Pkzb=883 mg/dL or greater Performed By: #### M 100.505 #### [facility] [address] [place], [address] Cholesterol in VLDL [Mass/Vol] 25 mg/dL Normal 5-40 [facility] Comment on above: Performed By: #### M 100.505 #### [facility] [address] [place], [address] Triglyceride [Mass/Vol] 127 mg/dL Normal [facility] Comment on above: Result Comment: The drugs N-Acetylcysteine and Metamizole may falsely depress this assay. Normal range: <150 mg/dL Borderline High: 150-199 mg/dL High: 200-499 mg/dL Very High: >500 mg/dL Performed By: #### M 100.505 #### [facility] [address] [place], [address] Magnesiumon 03-14-2025 Magnesium [Mass/Vol] 2.3 mg/dL High 1.5-2.2 [facility] Comment on above: Performed By: #### M 100.505 #### [facility] [address] [place], [address] T4 Free Directon 03-14-2025 T4 FREE DIRECT 1.10 ng/dL Normal 0.76-1.46 [facility] Comment on above: Performed By: #### M 100.505 #### [facility] [address] [place], [address] Thyroid Stim Hormone (TSH)on 03-14-2025 TSH 2.370 uIU/mL Normal 0.300-4.200 [facility] Comment on above: Performed By: #### M 100.505 #### [facility] [address] [place], [place], [address] Vitamin B12on 03-14-2025 Cobalamin (Vitamin B12) [Mass/Vol] 468 pg/mL Normal 180-914 [facility] Comment on above: Performed By: #### M 100.505 #### [facility] [address] [place], [place], [address] Urgent Care Visit Reporton 0 02-28-2025 Urgent Care Visit Report [facility] [address], [address] [place], [place] [address] OFFICE VISIT Date of Service: 02/28/25 MR#: [id number] Acct: [id number] Name: FABIANA ACOSTA Rep #: [id number] : 1970 Provider: JOSE Berkowitz Age/Sex: 54/F Location: [facility] Status: Signed Intake Vital Signs 10/14/24 09:38 02/28/25 06:44 Height 5 ft 3 in BP 110/68 Blood Pressure Location Lt brachial Position Sitting Respiration 15 Pulse 74 Pulse Source NIBP Temp 98.2 F Temp Source Oral Pulse Oximetry (%) 97 Oxygen Delivery Method room air Intake Visit Reasons: COUGH, SORE THROAT Chief Complaint: cough, chest congest, mucus, cold sores Technician Test Systems Required: No Is patient in pain?: No [...] Exam Const General: cooperative and well developed HENKY Head: normal to inspection and atraumatic Ears: [...] Date Bam (more content not included)... Normal [facility] Thyroidon 02-21-2025 Thyroid [facility] Services [address] [place], [place] [address] Thyroid MR#: [id number] Acct: [id number] Name: FABIANA ACOSTA DAISY Rep #: [id number] : 1970 F 54 From: Lashawn Flaherty nd, MD PCP: Jenny Lebron, VICE CHANCELLOR Status: REG CLI Study: Thyroid Date of Exam: 02/21/25 Exam# [id number] Ordering Dr: Isac Michelle MD PROCEDURE: THYROID [...] criteria for 1 year follow-up. Reading Location: [id number] CC: TOMAS Lebron; Dr. Isac Michelle MD Plant Cytologist: Signed Normal [facility] COVID 19 AG RAPID (RN NELLYC [...] RAPID METHOD BinaxNow COVID19 Ag Card Normal [facility] Comment on above: Performed By: #### M 100.505 #### [facility] [place], [address] SARS-CoV-2 (COVID-19) Ag IA. rapid Ql (Resp)Ordered By: Rafa Zhao on 01-09-2025 SARS-CoV-2 Antigen (Rapid) [facility] COVID 19 AG RAPID (RN COLLEC [...] RAPID METHOD BinaxNow COVID19 Ag Card Normal [facility] Comment on above: Performed By: #### M 100.505 #### [facility] [address] [place], [place], [address] SARS-CoV-2 (COVID-19) Ag IA. rapid Ql (Resp)Ordered By: Rafa Zhao on 01-02-2025 SARS-CoV-2 Antigen (Rapid) [facility] Glucoseon 12-07-2024 Glucose [Mass/Vol] 113 mg/dL High 74-106 [facility] Comment on above: Result Comment: Fast ing Glucose result from 100 to 125 mg/dL suggests IMPAIRED HOMEOSTASIS per A.D.A. criteria. Performed By: #### L 501.0100, L500.4100 #### [facility] [address] [place], [place], [address] Glucose measurementOrdered B y: Jenny Lebron on 12-07-2024 Glucose [Mass/Vol] 113 mg/dL High 74-106 [facility] Comment on above: Fasting Glucose resu lt from 100 to 125 mg/dL suggests IMPAIRED HOMEOSTASIS per A.D.A. criteria. High density lipoprotein (HD L) measurementOrdered By: Jenny Lebron on 12-07-2024 Cholesterol in HDL [Mass/Vol] 64 mg/dL >40 [facility] Comment on above: The drugs N-Acetylcy steine and Metamizole may falsely depress this assay. Reference Range HDL <40 mg/dL Low HDL Cholesterol HDL >or= 60 mg/dL High HDL Cholesterol Lipid Profileon 12-07-2024 Cholesterol [Mass/Vol] 210 mg/dL High 200 [facility] Comment on above: Result Comment: <200 mg/dL Desirable 200-240 mg/dL Borderline >240 mg/dL High Risk Performed By: #### L 501.0100, L500.4100 #### [facility] [address] [place], [address] Cholesterol in HDL [Mass/Vol] 64 mg/dL Normal [facility] Comment on above: Result Comment: The drugs N-Acetylcysteine and Metamizole may falsely depress this assay. Reference Range HDL <40 mg/dL Low HDL Cholesterol HDL >or= 60 mg/dL High HDL Cholesterol Performed By: #### L 501.0100, L500.4100 #### [facility] [address] [place], [address] Cholesterol in LDL [Mass/Vol] 121 mg/dL Normal 0-130 [facility] Comment on above: Performed By: #### L 501.0100, L500.4100 #### [facility] [address] [place], [address] Cholesterol in VLDL [Mass/Vol] 25 mg/dL Normal 5-40 [facility] Comment on above: Performed By: #### L 501.0100, L500.4100 #### [facility] [address] [place], [address] Triglyceride [Mass/Vol] 126 mg/dL Normal [facility] Comment on above: Result Comment: The drugs N-Acetylcysteine and Metamizole may falsely depress this assay. Serum Triglycerides Reference Interval Normal <150 mg/dL Borderline high 150 - 199 mg/dL High 200 - 499 mg/dL Very High > or = 500 mg/dL Performed By: #### L 501.0100, L500.4100 #### [facility] [address] [place], [address] Low density lipoprotein (LDL ) cholesterol measurementOrdered By: Jenny Lebron on 12-07-2024 Cholesterol in LDL [Mass/Vol] 121 mg/dL 0-130 [facility] Serum or plasma cholesterol measurement (mass/volume)Ordered By: Jenny Lebron on 12-07-2024 Cholesterol [Mass/Vol] 210 mg/dL High <200 [facility] Comment on above: <200 mg/dL Desirable 200-240 mg/dL Borderline >240 mg/dL High Risk Triglycerides measurementOrd ered By: Jenny Lebron on 12-07-2024 Triglyceride [Mass/Vol] 126 mg/dL <199 [facility] Comment on above: The drugs N-Acetylcy steine and Metamizole may falsely depress this assay.Serum Triglycerides Reference Interval Normal <150 mg/dL Borderline high 150 - 199 mg/dL High 200 - 499 mg/dL Very High > or = 500 mg/dL Very low density lipoprotein (VLDL) cholesterol measurementOrdered By: Jenny Lebron on 12-07-2024 VLDL Cholesterol 25 mg/dL 5-40 [facility] Direct serum free thyroxine (FT4) measurementOrdered By: Isac Michelle on 11-20-2024 Free T4 [Mass/Vol] 0.91 ng/dL 0.76-1.46 [facility] T4 Free Directon 11-20-2024 T4 FREE DIRECT 0.91 ng/dL Normal 0.76-1.46 [facility] Comment on above: Performed By: #### L 501.9520, L506.0400 #### [facility] [address] [place], [place], [address] TSH QnOrdered By: Isac Michelle on 11-20-2024 Thyroid Stimulating Hormone (TSH) 2.720 uIU/mL 0.358-3.740 [facility] Thyroid Stim Hormone (TSH)on 11-20-2024 TSH 2.720 uIU/mL Normal 0.358-3.740 [facility] Comment on above: Performed By: #### L 501.9520, L506.0400 #### [facility] [address] [place], [place], [address] Office Visit Reporton 2023 Office Visit Report [facility] [address] [place] [address] OFFICE VISIT Date of Service: 10/14/24 MR#: [id number] Acct: [id number] Patient: FABIANA ACOSTA Rep #: [id number] : 1970 Provider: KRUNAL sewell Age/Sex: 54/F Location: [facility] Status: Signed Employer Purchased Covid Test Note: Patient here today for Covid Testing, requested by their Employer. Assessment and Plan Assessment and Plan Orders: Orders POC Mac Covid FLUAB PCR 10/14/24 U07.1 - COVID-19 10/24/24 1635 Date Chris Earl Signature: Date (if applicable) CC: Normal [facility] Office Visit Reporton 2023 Office Visit Report [facility] [address] [place] [address] OFFICE VISIT Date of Service: 10/14/24 MR#: [id number] Acct: [id number] Patient: FABIANA ACOSTA DAISY Rep #: [id number] : 1970 Provider: KRUNAL sewell Age/Sex: 54/F Location: [facility] Status: Signed Intake Vital Signs 09/18/24 08:01 [...] Today U07.1 - COVID-19 10/14/24 1018 Date [facility] Roof TRUCK MECHANIC TRUCK MECHANIC-C Cosigner Signature: Date (if applicable) CC: [facility] COVID 19 AG RAPID (TIMBO Fisher)on 10-09-2024 [...] Negative RAPID METHOD BinaxNow COVID19 Ag Card [facility] Comment on above: Performed By: #### M 100.505 #### [facility] [address] [place], [address] COVID 19 AG RAPID (TIMBO Fisher)on 10-05-2024 [...] RAPID METHOD BinaxNow COVID19 Ag Card Normal [facility] Comment on above: Performed By: #### M 100.505 #### [facility] [address] [facility] [place], [place], [address] Breast Limited Unilateralon 10-04-2024 Breast Limited Unilateral [facility] Imaging Services [address] [place], [place] [address] Breast Limited Unilateral MR#: [id number] Acct: [id number] Name: FABIANA ACOSTA DAISY Rep #: [id number] : 1970 F 54 From: Loy piper MD PCP: Status: REG CLI Study: Breast Limited Unilateral Date of Exam: Exam# [id number] Ordering [place]: [place] [id number] STUDY: ULTRASOUND BREAST - LEFT REASON FOR [...] 11:06 EST Reading Location ID and State: [facility] / [place] , Service support , CC: Dr. Bhanu Cole MD Plant Cytologist: Signed Normal [facility] DIAG MAMM W/CAD, BILATon DIAG MAMM W/CAD, [facility] Imaging Services [address] [place] [id number] DIAG MAMM W/CAD, [facility] MR#: [id number] Acct: [id number] Name: FABIANA ACOSTA DAISY Rep #: [id number] : 1970 F 54 From: Loy piper MD PCP: Status: [facility] Study: DIAG MAMM W/CAD, [facility] Date of Exam: 10/04/24 Exam# [id number] Ordering [place]: [place] [id number] MAMMOGRAPHY - BILATERAL DIAGNOSTIC REASON FOR EXAM: [...] EST , CC: Dr. Bhanu Cole MD Plant Cytologist: Signed Normal [facility] Serum or plasma thyroid stim ulating hormone (TSH) measurement (units/volume)Ordered By: Isac Michelle on 02-27-2024 TSH Qn 4.66 uIU/mL 0.358-3.74 [facility] Thin prep Papanicolaou smear with manual screeningOrdered By: Isac Michelle on 02-27-2024 Thin prep Papanicolaou smear with manual screening 0.78 ng/dL 0.76-1.46 [facility] COVID-19 virus antigen assay Ordered By: Rafa Zhao on 01-02-2024 SARS-CoV-2 (COVID-19) Ag IA.rapid Ql (Resp) [facility] COVID-19 virus antigen assay Ordered By: Rafa Zhao on 12-05-2023 SARS-CoV-2 (COVID-19) Ag IA.rapid Ql (Resp) [facility] SARS-CoV-2 (COVID-19) Ag IA.rapid Ql (Resp) [facility] Absolute lymphocyte countOrd ered By: ED PROVIDER on 11-24-2023 Lymphocytes Auto (Unsp spec) [#/Vol] 1.77 10*3/uL 0.83-4.51 [facility] Basophil percentageOrdered B y: ED PROVIDER on 11-24-2023 Basophils/100 WBC (Bld) 0.9 % 0-1 [facility] Eosinophils/100 WBC (Bld) 1.7 % 0-5 [facility] Neutrophils (Bld) [#/Vol] 3.4 10*3/uL 2.0-7.7 [facility] Neutrophils/100 WBC (Bld) 59.1 % 47-70 [facility] WBC (Bld) [#/Vol] 5.7 10*3/uL 4.4-11.0 [facility] Basophil percentageOrdered B y: Felipe Capellan on 11-24-2023 Chloride [Moles/Vol] 106 mmol/L 98-107 [facility] Glucose [Mass/Vol] 93 mg/dL 74-106 [facility] Potassium [Moles/Vol] 4.2 mmol/L 3.5-5.1 [facility] Sodium [Moles/Vol] 139 mmol/L 136-145 [facility] Blood erythrocytes count (nu mber/volume)Ordered By: ED PROVIDER on 11-24-2023 RBC (Bld) [#/Vol] 4.27 10*6/uL 4.2-5.4 [facility] Blood hemoglobin measurement (mass/volume)Ordered By: ED PROVIDER on 11-24-2023 Hemoglobin (Bld) [Mass/Vol] 13.1 g/dL 12.0-15.0 [facility] Blood lymphocytes/100 leukoc ytesOrdered By: ED PROVIDER on 11-24-2023 Lymphocytes/100 WBC (Bld) 30.8 % 19-41 [facility] Blood monocytes/100 leukocyt esOrdered By: ED PROVIDER on 11-24-2023 Monocytes/100 WBC (Bld) 7.3 % 0-10 [facility] Blood platelet mean volumeOr dered By: ED PROVIDER on 11-24-2023 Platelet mean volume (Bld) [Entitic vol] 9.2 fL 6.2-12.0 [facility] Determination of erythrocyte mean corpuscular volume (MCV)Ordered By: ED PROVIDER on 11-24-2023 MCV (RBC) [Entitic vol] 90.9 fL 81-99 [facility] Hematocrit Auto (Bld) [Volum e fraction]Ordered By: ED PROVIDER on 11-24-2023 Hematocrit (Bld) [Volume fraction] 38.8 % 37-47 [facility] - Chemistry and C hemistry - challengeOrdered By: Felipe Capellan on 11-24-2023 CO2 [Moles/Vol] 29.0 mmol/L 21.0-32.0 [facility] Urea nitrogen/Creatinine [Mass ratio] 16.5 mg/mg 10-20 [facility] - Hematology and Cell countsOrdered By: ED PROVIDER on 11-24-2023 Erythrocyte distribution width (RBC) [Entitic vol] 43.3 fL 35.1-43.9 [facility] Erythrocyte distribution width (RBC) [Ratio] 13.1 % 11.6-14.6 [facility] Immature granulocytes/100 WBC (Bld) 0.200 % 0.0-0.9 [facility] Comment on above: IG% - Immature Granu locytes (promyelocytes, myelocytes and metamyelocytes) > 1% indicates that a LEFT SHIFT is Present. MCH (RBC) [Entitic mass] 30.7 pg 27.0-32.0 [facility] Nucleated RBC/100 WBC (Bld) [Ratio] 0 % 0-5 [facility] MCHC Auto (RBC) [Mass/Vol]Or dered By: ED PROVIDER on 11-24-2023 MCHC (RBC) [Mass/Vol] 33.8 g/dL 32-36 [facility] No Panel InformationOrdered By: Felipe Capellan on 11-24-2023 D-Dimer Quantitative (PE/DVT) 0.35 FEU/ug/m 0.27-0.49 [facility] Comment on above: NORMAL D-Dimer level (<0.50) indicates no DVT or PE. Estimated GFR (MDRD) Amer 78 mL/min >60 [facility] Comment on above: GFR Calc Estimated GFR (MDRD) Non-Af Amer 64 mL/min >60 [facility] Comment on above: Non- GFR Calc Troponin I High Sensitivity < 3 pg/mL 3.0-54.0 [facility] Comment on above: Please Note: New Key t Units and Gender Specific Reference Ranges. For more information see Policy Stat Procedure [place] High Sensitivity Troponin (TNIH) and attachments. Platelets bldOrdered By: ED PROVIDER on 11-24-2023 Platelets (Bld) [#/Vol] 250 10*3/uL 150-450 [facility] Serum or plasma calcium pillo urement (mass/volume)Ordered By: Felipe Capellan on 11-24-2023 Calcium [Mass/Vol] 9.4 mg/dL 8.5-10.1 [facility] Serum or plasma creatinine m easurement (mass/volume)Ordered By: Felipe Capellan on 11-24-2023 Creatinine [Mass/Vol] 0.97 mg/dL 0.55-1.02 [facility] Comment on above: The validity of the calculated GFR & GFRAA in patients over 70 years has not been determined. Clinical correlation is essential. Serum or plasma urea nitroge n measurement (mass/volume)Ordered By: Felipe Capellan on 11-24-2023 Urea nitrogen [Mass/Vol] 16 mg/dL 7-18 [facility] Thin prep Papanicolaou smear with manual screeningOrdered By: Felipe Capellan on 11-24-2023 Thin prep Papanicolaou smear with manual screening 4 5-15 [facility] COVID-19 virus antigen assay Ordered By: Rafa Zhao on 11-22-2023 SARS-CoV-2 (COVID-19) Ag IA.rapid Ql (Resp) [facility] COVID-19 virus antigen assay Ordered By: Rafa Zhao on 11-16-2023 SARS-CoV-2 (COVID-19) Ag IA.rapid Ql (Resp) [facility] SARS-CoV-2 (COVID-19) Ag IA.rapid Ql (Resp) [facility] COVID-19 virus antigen assay Ordered By: Rafa Zhao on 10-24-2023 SARS-CoV-2 (COVID-19) Ag IA.rapid Ql (Resp) [facility] COVID-19 virus antigen assay Ordered By: Rafa Zhao on 10-17-2023 SARS-CoV-2 (COVID-19) Ag IA.rapid Ql (Resp) [facility] SARS-CoV-2 (COVID-19) Ag IA.rapid Ql (Resp) [facility] Absolute lymphocyte countOrd ered By: Jluis Bensonon on 10-03-2023 Lymphocytes Auto (Unsp spec) [#/Vol] 1.77 10*3/uL 0.83-4.51 [facility] Basophil percentageOrdered B y: Jluis Bensonon on 10-03-2023 Basophils/100 WBC (Bld) 1.9 % 0-1 [facility] Chloride [Moles/Vol] 106 mmol/L 98-107 [facility] Eosinophils/100 WBC (Bld) 2.2 % 0-5 [facility] Glucose [Mass/Vol] 106 mg/dL 74-106 [facility] Comment on above: Fasting Glucose resu lt from 100 to 125 mg/dL suggests IMPAIRED HOMEOSTASIS per A.D.A. criteria. Neutrophils (Bld) [#/Vol] 1.4 10*3/uL 2.0-7.7 [facility] Neutrophils/100 WBC (Bld) 37.4 % 47-70 [facility] Potassium [Moles/Vol] 4.4 mmol/L 3.5-5.1 [facility] Sodium [Moles/Vol] 143 mmol/L 136-145 [facility] WBC (Bld) [#/Vol] 3.7 10*3/uL 4.4-11.0 [facility] Blood erythrocytes count (nu mber/volume)Ordered By: Jluis Haim on 10-03-2023 RBC (Bld) [#/Vol] 4.35 10*6/uL 4.2-5.4 [facility] Blood hemoglobin measurement (mass/volume)Ordered By: Jluis Whitmore on 10-03-2023 Hemoglobin (Bld) [Mass/Vol] 12.9 g/dL 12.0-15.0 [facility] Blood lymphocytes/100 leukoc ytesOrdered By: Jluis Whitmore on 10-03-2023 Lymphocytes/100 WBC (Bld) 48.4 % 19-41 [facility] Blood monocytes/100 leukocyt esOrdered By: Jluis Whitmore on 10-03-2023 Monocytes/100 WBC (Bld) 10.1 % 0-10 [facility] Blood platelet mean volumeOr dered By: Jluis Whitmore on 10-03-2023 Platelet mean volume (Bld) [Entitic vol] 9.5 fL 6.2-12.0 [facility] Determination of erythrocyte mean corpuscular volume (MCV)Ordered By: Jluis Whitmore on 10-03-2023 MCV (RBC) [Entitic vol] 93.3 fL 81-99 [facility] Hematocrit Auto (Bld) [Volum e fraction]Ordered By: Jluis Whitmore on 10-03-2023 Hematocrit (Bld) [Volume fraction] 40.6 % 37-47 [facility] - Chemistry and C hemistry - challengeOrdered By: Jluis Whitmore on 10-03-2023 CO2 [Moles/Vol] 29.0 mmol/L 21.0-32.0 [facility] Urea nitrogen/Creatinine [Mass ratio] 20.4 mg/mg 10-20 [facility] - Hematology and Cell countsOrdered By: Jluis Whitmore on 10-03-2023 Erythrocyte distribution width (RBC) [Entitic vol] 44.7 fL 35.1-43.9 [facility] Erythrocyte distribution width (RBC) [Ratio] 13.1 % 11.6-14.6 [facility] Immature granulocytes/100 WBC (Bld) 0.000 % 0.0-0.9 [facility] Comment on above: IG% - Immature Granu locytes (promyelocytes, myelocytes and metamyelocytes) > 1% indicates that a LEFT SHIFT is Present. MCH (RBC) [Entitic mass] 29.7 pg 27.0-32.0 [facility] Nucleated RBC/100 WBC (Bld) [Ratio] 0 % 0-5 [facility] MCHC Auto (RBC) [Mass/Vol]Or dered By: Jluis Whitmore on 10-03-2023 MCHC (RBC) [Mass/Vol] 31.8 g/dL 32-36 [facility] No Panel InformationOrdered By: Jluis Whitmore on 10-03-2023 Estimated GFR (MDRD) Amer 82 mL/min >60 [facility] Comment on above: GFR Calc Estimated GFR (MDRD) Non-Af Amer 67 mL/min >60 [facility] Comment on above: Non- GFR Calc Platelets bldOrdered By: Jluis martinez on 10-03-2023 Platelets (Bld) [#/Vol] 224 10*3/uL 150-450 [facility] Serum or plasma calcium pillo urement (mass/volume)Ordered By: Jluis Whitmore on 10-03-2023 Calcium [Mass/Vol] 9.1 mg/dL 8.5-10.1 [facility] Serum or plasma creatinine m easurement (mass/volume)Ordered By: Jluis Whitmore on 10-03-2023 Creatinine [Mass/Vol] 0.93 mg/dL 0.55-1.02 [facility] Comment on above: The validity of the calculated GFR & GFRAA in patients over 70 years has not been determined. Clinical correlation is essential. Serum or plasma urea nitroge n measurement (mass/volume)Ordered By: Jluis Whitmore on 10-03-2023 Urea nitrogen [Mass/Vol] 19 mg/dL 7-18 [facility] Thin prep Papanicolaou smear with manual screeningOrdered By: Jluis Whitmore on 10-03-2023 Thin prep Papanicolaou smear with manual screening 8 5-15 [facility] Whole blood hemoglobin A1c/t otal hemoglobin ratio (mass fraction)Ordered By: Jluis Whitmore on 10-03-2023 HbA1c (Bld) [Mass fraction] 5.5 % 3.8-5.6 [facility] Comment on above: Normal < 5.7 % Predi abetic 5.7 - 6.4 % Diabetic >or= 6.5 % Please note range changes. COVID-19 virus antigen assay Ordered By: Rafa Zhao on 09-19-2023 SARS-CoV-2 (COVID-19) Ag IA.rapid Ql (Resp) [facility] COVID-19 virus antigen assay Ordered By: Rafa Zhao on 09-05-2023 SARS-CoV-2 (COVID-19) Ag IA.rapid Ql (Resp) [facility] Absolute lymphocyte countOrd ered By: Jluis Whitmore on 09-01-2023 Lymphocytes Auto (Unsp spec) [#/Vol] 1.82 10*3/uL 0.83-4.51 [facility] Basophil percentageOrdered B y: Jluis Whitmore on 09-01-2023 Basophils/100 WBC (Bld) 1.7 % 0-1 [facility] Bilirubin [Mass/Vol] 0.60 mg/dL 0.20-1.00 [facility] Comment on above: For patients on eltr ombopag therapy, use of Dimension [place] TBIL is not recommended. Chloride [Moles/Vol] 108 mmol/L 98-107 [facility] Eosinophils/100 WBC (Bld) 2.0 % 0-5 [facility] Glucose [Mass/Vol] 108 mg/dL 74-106 [facility] Comment on above: Fasting Glucose resu lt from 100 to 125 mg/dL suggests IMPAIRED HOMEOSTASIS per A.D.A. criteria. Neutrophils (Bld) [#/Vol] 1.8 10*3/uL 2.0-7.7 [facility] Neutrophils/100 WBC (Bld) 43.2 % 47-70 [facility] Potassium [Moles/Vol] 4.7 mmol/L 3.5-5.1 [facility] Protein [Mass/Vol] 7.6 g/dL 6.4-8.2 [facility] Sodium [Moles/Vol] 139 mmol/L 136-145 [facility] WBC (Bld) [#/Vol] 4.1 10*3/uL 4.4-11.0 [facility] Blood erythrocytes count (nu mber/volume)Ordered By: Jluis Whitmore on 09-01-2023 RBC (Bld) [#/Vol] 4.40 10*6/uL 4.2-5.4 [facility] Blood hemoglobin measurement (mass/volume)Ordered By: Jluis Whitmore on 09-01-2023 Hemoglobin (Bld) [Mass/Vol] 13.6 g/dL 12.0-15.0 [facility] Blood lymphocytes/100 leukoc ytesOrdered By: Jluis Whitmore on 09-01-2023 Lymphocytes/100 WBC (Bld) 44.8 % 19-41 [facility] Blood monocytes/100 leukocyt esOrdered By: Jluis Whitmore on 09-01-2023 Monocytes/100 WBC (Bld) 8.1 % 0-10 [facility] Blood platelet mean volumeOr dered By: Jluis Whitmore on 09-01-2023 Platelet mean volume (Bld) [Entitic vol] 9.8 fL 6.2-12.0 [facility] Determination of erythrocyte mean corpuscular volume (MCV)Ordered By: Jluis Whitmore on 09-01-2023 MCV (RBC) [Entitic vol] 92.5 fL 81-99 [facility] Hematocrit Auto (Bld) [Volum e fraction]Ordered By: Jluis Whitmore on 09-01-2023 Hematocrit (Bld) [Volume fraction] 40.7 % 37-47 [facility] - Chemistry and C hemistry - challengeOrdered By: Jluis Whitmore on 09-01-2023 ALP [Catalytic activity/Vol] 79 U/L 45-117 [facility] ALT [Catalytic activity/Vol] 20 U/L 13-56 [facility] CO2 [Moles/Vol] 29.0 mmol/L 21.0-32.0 [facility] Free T4 [Mass/Vol] 0.89 ng/dL 0.76-1.46 [facility] Globulin (S) [Mass/Vol] 3.5 g/dL 2.2-4.2 [facility] T4 [Mass/Vol] 7.3 ug/dL 4.8-13.9 [facility] Urea nitrogen/Creatinine [Mass ratio] 12.3 mg/mg 10-20 [facility] - Hematology and Cell countsOrdered By: Jluis Whitmore on 09-01-2023 Erythrocyte distribution width (RBC) [Entitic vol] 44.6 fL 35.1-43.9 [facility] Erythrocyte distribution width (RBC) [Ratio] 13.1 % 11.6-14.6 [facility] Immature granulocytes/100 WBC (Bld) 0.200 % 0.0-0.9 [facility] Comment on above: IG% - Immature Granu locytes (promyelocytes, myelocytes and metamyelocytes) > 1% indicates that a LEFT SHIFT is Present. MCH (RBC) [Entitic mass] 30.9 pg 27.0-32.0 [facility] Nucleated RBC/100 WBC (Bld) [Ratio] 0 % 0-5 [facility] MCHC Auto (RBC) [Mass/Vol]Or dered By: Jluis Whitmore on 09-01-2023 MCHC (RBC) [Mass/Vol] 33.4 g/dL 32-36 [facility] No Panel InformationOrdered By: Jluis Whitmore on 09-01-2023 Estimated GFR (MDRD) Amer 70 mL/min >60 [facility] Comment on above: GFR Calc Estimated GFR (MDRD) Non-Af Amer 58 mL/min >60 [facility] Comment on above: Non- GFR Calc Thyroid Stimulating Hormone (TSH) 2.11 uIU/mL 0.358-3.74 [facility] Vitamin D 25-Hydroxy 29.2 ng/mL [facility] Comment on above: Vitamin D 25(OH) Sta tus Range Deficiency <20 ng/mL (50nmol/L) Insufficiency 20 - 30 ng/mL (50 - 75 nmol/L) Sufficiency 30 - 100 ng/mL (75 - 250 nmol/L) Toxicity >100 ng/mL (>250 nmol/L) Platelets bldOrdered By: Jluis martinez on 09-01-2023 Platelets (Bld) [#/Vol] 232 10*3/uL 150-450 [facility] Serum or plasma albumin pillo urement (mass/volume)Ordered By: Jluis Whitmore on 09-01-2023 Albumin [Mass/Vol] 4.1 g/dL 3.2-5.0 [facility] Serum or plasma albumin/glob ulin mass ratioOrdered By: lJuis Whitmore on 09-01-2023 Albumin/Globulin [Mass ratio] 1.2 {ratio} 0.9-2.4 [facility] Serum or plasma calcium pillo urement (mass/volume)Ordered By: Jluis Whitmore on 09-01-2023 Calcium [Mass/Vol] 9.3 mg/dL 8.5-10.1 [facility] Serum or plasma creatinine m easurement (mass/volume)Ordered By: Jluis Whitmore on 09-01-2023 Creatinine [Mass/Vol] 1.06 mg/dL 0.55-1.02 [facility] Comment on above: The validity of the calculated GFR & GFRAA in patients over 70 years has not been determined. Clinical correlation is essential. Serum or plasma urea nitroge n measurement (mass/volume)Ordered By: Jluis Whitmore on 09-01-2023 Urea nitrogen [Mass/Vol] 13 mg/dL 7-18 [facility] Thin prep Papanicolaou smear with manual screeningOrdered By: Jluis Whitmore on 09-01-2023 Thin prep Papanicolaou smear with manual screening 15 U/L 15-37 [facility] Thin prep Papanicolaou smear with manual screening 2 5-15 [facility] COVID-19 virus antigen assay Ordered By: Rafa Zhao on 08-19-2023 SARS-CoV-2 (COVID-19) Ag IA.rapid Ql (Resp) [facility] COVID-19 virus antigen assay Ordered By: Dr. Zhao on 02-23-2023 SARS-CoV-2 (COVID-19) Ag IA.rapid Ql (Resp) [facility] COVID-19 virus antigen assay Ordered By: Dr. Zhao on 02-16-2023 SARS-CoV-2 (COVID-19) Ag IA.rapid Ql (Resp) [facility] COVID-19 virus antigen assay Ordered By: Dr. Zhao on 12-03-2022 SARS-CoV-2 (COVID-19) Ag IA.rapid Ql (Resp) [facility] - Microbiology an d Antimicrobial susceptibilityon 10-28-2022 SARS-CoV-2 (COVID-19) RNA JOHN+probe Ql (Unsp spec) Not detected [facility] No Panel Informationon 07-12 Hepatitis B Surface Antibody Reactive [facility] Work Phone: Comment on above: Non Reactive: Incons istent with immunity less than <10 mIU/mL Reactive: Consistent with immunity greater than or equal to 10 mIU/mL Laboratory - Chemistry and C hemistry - challengeon 06-30-2022 Free T4 [Mass/Vol] 0.90 ng/dL 0.76-1.46 [facility] [place]: No Panel Informationon 06-30 Thyroid Stimulating Hormone (TSH) 2.57 uIU/mL 0.358-3.74 [facility] Work [facility]: [phone] Vitamin D 25-Hydroxy 38.2 ng/mL [facility] Work Phone: Comment on above: Vitamin D 25(OH) Sta tus Range Deficiency <20 ng/mL (50nmol/L) Insufficiency 20 - 30 ng/mL (50 - 75 nmol/L) Sufficiency 30 - 100 ng/mL (75 - 250 nmol/L) Toxicity >100 ng/mL (>250 nmol/L) SELVIN SCREENINGon 05-03-2022 [facility] EMG(NEURO/NI)on 04-12-2022 [facility] CBC panel Auto (Bld)on 03-29 Erythrocyte distribution width (RBC) [Ratio] 13.2 % 11.5 - 15.0 % [facility] Hematocrit (Bld) [Volume fraction] 43.2 % 36.0 - 46.0 % [facility] Hemoglobin (Bld) [Mass/Vol] 14.1 g/dL 11.5 - 15.5 g/dL [facility] MCH (RBC) [Entitic mass] 30.1 pg 26.0 - 34.0 pg [facility] MCHC (RBC) [Mass/Vol] 32.6 g/dL 30.5 - 36.0 g/dL [facility] MCV (RBC) [Entitic vol] 92.1 fL 80.0 - 100.0 fL [facility] Nucleated RBC (Bld) [#/Vol] 10*3/uL <0.01 k/uL [facility] Platelet mean volume (Bld) [Entitic vol] 9.6 fL 9.0 - 12.7 fL [facility] Platelets (Bld) [#/Vol] 235 10*3/uL 150 - 400 k/uL [facility] RBC (Bld) [#/Vol] 4.69 10*6/uL 3.90 - 5.2 0 m/uL [facility] WBC (Bld) [#/Vol] 4.57 10*3/uL 3.70 - 11. 00 k/uL [facility] Absolute lymphocyte counton 12-16-2021 Lymphocytes Auto (Unsp spec) [#/Vol] 2.05 10*3/uL 0.83-4.51 [facility] Work Phone: Basophil percentageon 2021 Basophils/100 WBC (Bld) 0.7 % 0-1 [facility] Work Phone: Bilirubin [Mass/Vol] 0.80 mg/dL 0.20-1.00 [facility] Work Phone: Comment on above: For patients on eltr ombopag therapy, use of Dimension [place] TBIL is not recommended. Chloride [Moles/Vol] 103 mmol/L 98-107 [facility] Work Phone: Eosinophils/100 WBC (Bld) 1.8 % 0-5 [facility] Work Phone: Glucose [Mass/Vol] 104 mg/dL 74-106 [facility] Work Phone: Comment on above: Fasting Glucose resu lt from 100 to 125 mg/dL suggests IMPAIRED HOMEOSTASIS per A.D.A. criteria. Neutrophils (Bld) [#/Vol] 6.1 10*3/uL 2.0-7.7 [facility] Work Phone: Neutrophils/100 WBC (Bld) 67.7 % 47-70 [facility] Work Phone: Potassium [Moles/Vol] 5.1 mmol/L 3.5-5.1 [facility] Work Phone: Comment on above: Moderate Hemolysis, Result may be falsely increased. Protein [Mass/Vol] 7.7 g/dL 6.4-8.2 [facility] Work Phone: Sodium [Moles/Vol] 135 mmol/L 136-145 [facility] Work Phone: [phone] WBC (Bld) [#/Vol] 8.9 10*3/uL 4.4-11.0 [facility] Work Phone: [phone] Blood erythrocytes count (nu mber/volume)on 12-16-2021 RBC (Bld) [#/Vol] 4.61 10*6/uL 4.2-5.4 [facility] Work Phone: [phone] Blood hemoglobin measurement (mass/volume)on 12-16-2021 Hemoglobin (Bld) [Mass/Vol] 13.6 g/dL 12.0-15.0 [facility] Work Phone: [phone] Blood lymphocytes/100 leukoc yteson 12-16-2021 Lymphocytes/100 WBC (Bld) 23.0 % 19-41 [facility] Work Phone: [phone] Blood monocytes/100 leukocyt eson 12-16-2021 Monocytes/100 WBC (Bld) 6.6 % 0-10 [facility] Work Phone: [phone] Blood platelet mean volumeon 12-16-2021 Platelet mean volume (Bld) [Entitic vol] 9.7 fL 6.2-12.0 [facility] Work Phone: [phone] Determination of erythrocyte mean corpuscular volume (MCV)on 12-16-2021 MCV (RBC) [Entitic vol] 86.8 fL 81-99 [facility] Work Phone: [phone] Hematocrit Auto (Bld) [Volum e fraction]on 12-16-2021 Hematocrit (Bld) [Volume fraction] 40.0 % 37-47 [facility] Work Phone: [phone] Laboratory - Chemistry and C hemistry - challengeon 12-16-2021 ALP [Catalytic activity/Vol] 80 U/L 45-117 [facility] Work Phone: [phone] ALT [Catalytic activity/Vol] 16 U/L 13-56 [facility] Work Phone: [phone] CO2 [Moles/Vol] 23.0 mmol/L 21.0-32.0 [facility] Work Phone: [phone] Globulin (S) [Mass/Vol] 3.8 g/dL 2.2-4.2 [facility] Work Phone: [phone] Lipase [Catalytic activity/Vol] 49 U/L 73-393 [facility] Work Phone: [phone] Urea nitrogen/Creatinine [Mass ratio] 15.0 mg/mg 10-20 [facility] Work Phone: [phone] Laboratory - Hematology and Cell countson 12-16-2021 Erythrocyte distribution width (RBC) [Entitic vol] 47.4 fL 35.1-43.9 [facility] Work Phone: [phone] Erythrocyte distribution width (RBC) [Ratio] 14.9 % 11.6-14.6 [facility] Work Phone: [phone] Immature granulocytes/100 WBC (Bld) 0.200 % 0.0-0.9 [facility] Work Phone: [phone] Comment on above: IG% - Immature Granu locytes (promyelocytes, myelocytes and metamyelocytes) > 1% indicates that a LEFT SHIFT is Present. MCH (RBC) [Entitic mass] 29.5 pg 27.0-32.0 [facility] Work Phone: [phone] Nucleated RBC/100 WBC (Bld) [Ratio] 0 % 0-5 [facility] Work Phone: [phone] MCHC Auto (RBC) [Mass/Vol]on 12-16-2021 MCHC (RBC) [Mass/Vol] 34.0 g/dL 32-36 [facility] Work Phone: [phone] Panel Informationon 12-16 Estimated Creatinine Clearance Calc 49.82 ml/min [facility] Work Phone: [phone] Estimated GFR (MDRD) Amer 66 mL/min >60 [facility] Work Phone: [phone] Comment on above: GFR Calc Estimated GFR (MDRD) Non-Af Amer 54 mL/min >60 [facility] Work Phone: Comment on above: Non- GFR Calc Platelets bldon 12-16-2021 Platelets (Bld) [#/Vol] 289 10*3/uL 150-450 [facility] Work Phone: Serum or plasma albumin pillo urement (mass/volume)on 12-16-2021 Albumin [Mass/Vol] 3.9 g/dL 3.2-5.0 [facility] Work Phone: Serum or plasma albumin/glob ulin mass ratioon 12-16-2021 Albumin/Globulin [Mass ratio] 1.0 {ratio} 0.9-2.4 [facility] Work Phone: Serum or plasma calcium pillo urement (mass/volume)on 12-16-2021 Calcium [Mass/Vol] 9.3 mg/dL 8.5-10.1 [facility] Work Phone: Serum or plasma creatinine m easurement (mass/volume)on 12-16-2021 Creatinine [Mass/Vol] 1.13 mg/dL 0.55-1.02 [facility] Work Phone: Comment on above: The validity of the calculated GFR & GFRAA in patients over 70 years has not been determined. Clinical correlation is essential. Serum or plasma urea nitroge n measurement (mass/volume)on 12-16-2021 Urea nitrogen [Mass/Vol] 17 mg/dL 7-18 [facility] Work Phone: Thin prep Papanicolaou smear with manual screeningon 12-16-2021 Thin prep Papanicolaou smear with manual screening 25 U/L 15-37 [facility] Work Phone: Comment on above: Moderate Hemolysis, Result may be falsely increased. Thin prep Papanicolaou smear with manual screening 9 5-15 [facility] Work Phone: CNPTorri 03-12-2020 CNPN Telephone ([employer]) FABIANA ACOSTA ( ) 1970 F Date [...] Status:Closed by MAGDALENA BONNER MA on 03/13/20 [facility] MSCon 05-19-2018 [facility] REPORT Normal [facility] DATE OF SERVICE: 05/19/2018HISTORY OF PRESENT [...] temperature 98.1, pulse oximetry 98. General: A 67-[id number]. HEENT: TMs are unremarkable. Nares clear. Pharynx [...] days,sooner if complications or problems arise. MERON Wasserman/[id number]: 05/19/2018 12:45DT: 05/19/2018 22:07SSI File#: [id number] #: [id number]/Reviewed by05/20/18 0910 [facility] PATIENT NAME: FABIANA ACOSTA [id number] [facility] [address] MEDICAL REC #: [id number], [place] [address] [facility] RE[facility] STATCARE PHYSICIAN Normal [facility] Vital Signs Date Time Vital Sign Value Performing Clinician Jessica gabriel 09-13-2024 08:41-0400 Body mass index (BMI) [Ratio] 29.7 kg/m2 Jenny Lebron APRN.GAMBLING BOX PERSON Work Phone: [facility] 09-13-2024 08:41-0400 Body weight 74.84 kg Jenny Suppan FISHERIES INSPECTOR.GAMBLING BOX PERSON Work Phone: [facility] 09-13-2024 08:41-0400 Diastolic blood pressure 64 mm[Hg] Jenny Suppan FISHERIES INSPECTOR.GAMBLING BOX PERSON Work Phone: [facility] 09-13-2024 08:41-0400 Heart rate 69 /min Jenny Suppan FISHERIES INSPECTOR.GAMBLING BOX PERSON Work Phone: [facility] 09-13-2024 08:41-0400 Respiratory rate 16 /min Jenny Suppan FISHERIES INSPECTOR.GAMBLING BOX PERSON Work Phone: [facility] 09-13-2024 08:41-0400 SaO2% (BldA) [Mass fraction] 99 % Jenny Suppan FISHERIES INSPECTOR.GAMBLING BOX PERSON Work Phone: [facility] 09-13-2024 08:41-0400 Systolic blood pressure 120 mm[Hg] Jenny Suppan FISHERIES INSPECTOR.GAMBLING BOX PERSON Work Phone: [facility] 11-24-2023 17:10-0500 Diastolic blood pressure 82 mm[Hg] PA NA Whitmore PA Work Phone: [facility] 11-24-2023 17:10-0500 Heart rate 59 /min PA NA Whitmore PA Work Phone: [facility] 11-24-2023 17:10-0500 Respiratory rate 11 /min PA NA Whitmore PA Work Phone: [facility] 11-24-2023 17:10-0500 SaO2% (BldA) [Mass fraction] 97 % PA NA Whitmore PA Work Phone: [facility] 11-24-2023 17:10-0500 Systolic blood pressure 122 mm[Hg] PA NA Whitmore PA Work Phone: [facility] 11-24-2023 14:54-0500 Body height 160.02 cm PA NA Whitmore PA Work Phone: [facility] 11-24-2023 14:54-0500 Body temperature 97.4 [degF] PA NA Whitmore PA Work Phone: [facility] 10-07-2023 15:20-0500 Body height 160.02 cm PA NA Whitmore PA Work Phone: [facility] 10-07-2023 15:20-0500 Body mass index (BMI) [Ratio] 28.5 kg/m2 PA NA Whitmore PA Work Phone: [facility] 10-07-2023 15:20-0500 Body temperature 97.3 [degF] PA NA Whitmore PA Work Phone: [phone] [place] [address] 10-07-2023 15:20-0500 Body weight 73.02 kg PA NA Whitmore PA Work Phone: [facility] 10-07-2023 15:20-0500 Diastolic blood pressure 78 mm[Hg] PA NA Whitmore PA Work Phone: [phone] [place] [address] 10-07-2023 15:20-0500 Heart rate 63 /min PA NA Whitmore PA Work Phone: [facility] 10-07-2023 15:20-0500 Respiratory rate 18 /min PA NA Whitmore PA Work Phone: [facility] 10-07-2023 15:20-0500 SaO2% (BldA) [Mass fraction] 98 % PA NA Whitmore PA Work Phone: [facility] 10-07-2023 15:20-0500 Systolic blood pressure 133 mm[Hg] PA NA Whitmore PA Work Phone: [facility] 09-19-2023 08:04-0400 Body height 160.02 cm PA NA Whitmore PA Work Phone: [facility] 09-19-2023 08:04-0400 Body mass index (BMI) [Ratio] 27.3 kg/m2 PA NA Whitmore PA Work Phone: [facility] 09-19-2023 08:04-0400 Body temperature 98 [degF] PA NA Whitmore PA Work Phone: [facility] 09-19-2023 08:04-0400 Body weight 69.85 kg PA NA Whitmore PA Work Phone: [facility] 09-19-2023 08:04-0400 Diastolic blood pressure 76 mm[Hg] PA NA Whitmore PA Work Phone: [facility] 09-19-2023 08:04-0400 Heart rate 66 /min PA NA Whitmore PA Work Phone: [facility] 09-19-2023 08:04-0400 Respiratory rate 16 /min PA NA Whitmore PA Work Phone: [facility] 09-19-2023 08:04-0400 SaO2% (BldA) [Mass fraction] 98 % PA NA Whitmore PA Work Phone: [facility] 09-19-2023 08:04-0400 Systolic blood pressure 116 mm[Hg] PA NA Whitmore PA Work Phone: [facility] 09-01-2023 09:18-0400 Body weight 70.76 kg NA Whitmore PA-C Work Phone: [facility] 09-01-2023 09:18-0400 Diastolic blood pressure 64 mm[Hg] NA Whitmore PA-C Work Phone: [facility] 09-01-2023 09:18-0400 Heart rate 67 /min NA Whitmore PA-C Work Phone: [facility] 09-01-2023 09:18-0400 Respiratory rate 16 /min NA Whitmore PA-C Work Phone: [facility] 09-01-2023 09:18-0400 SaO2% (BldA) [Mass fraction] 99 % NA Whitmore PA-C Work Phone: [facility] 09-01-2023 09:18-0400 Systolic blood pressure 110 mm[Hg] NA Whitmore PA-C Work Phone: [facility] 09-20-2022 08:07-0400 Body height 160.02 cm PA NA Whitmore PA Work Phone: [facility] 09-20-2022 08:07-0400 Body mass index (BMI) [Ratio] 27.8 kg/m2 PA NA Whitmore PA Work Phone: [facility] 09-20-2022 08:07-0400 Body temperature 96.1 [degF] PA NA Whitmore PA Work Phone: [facility] 09-20-2022 08:07-0400 Body weight 71.32 kg PA NA Whitmore PA Work Phone: [facility] 09-20-2022 08:07-0400 Diastolic blood pressure 77 mm[Hg] PA NA Whitmore PA Work Phone: [facility] 09-20-2022 08:07-0400 Heart rate 52 /min PA NA Whitmore PA Work Phone: [facility] 09-20-2022 08:07-0400 Respiratory rate 18 /min PA NA Whitmore PA Work Phone: [facility] 09-20-2022 08:07-0400 SaO2% (BldA) [Mass fraction] 97 % PA NA Whitmore PA Work Phone: [facility] 09-20-2022 08:07-0400 Systolic blood pressure 115 mm[Hg] PA NA Whitmore PA Work Phone: [facility] 06-23-2022 12:32-0400 Diastolic blood pressure 88 mm[Hg] [facility] Work Phone: 06-23-2022 12:32-0400 Heart rate 62 /min [facility] Work Phone: 06-23-2022 12:32-0400 Respiratory rate 15 /min [facility] Work Phone: 06-23-2022 12:32-0400 SaO2% (BldA) [Mass fraction] 98 % [facility] Work Phone: 06-23-2022 12:32-0400 Systolic blood pressure 124 mm[Hg] [facility] Work Phone: 06-23-2022 10:02-0400 Body height 160.02 cm [facility] Work Phone: 06-23-2022 10:02-0400 Body mass index (BMI) [Ratio] 25.2 kg/m2 [facility] Work Phone: 06-23-2022 10:02-0400 Body temperature 96.4 [degF] [facility] Work Phone: 06-23-2022 10:02-0400 Body weight 64.7 kg [facility] Work Phone: 05-25-2022 08:30-0400 Body weight 66.22 kg NA Whitmore PA-C Work Phone: [facility] 05-25-2022 08:30-0400 Diastolic blood pressure 60 mm[Hg] NA Whitmore PA-C Work Phone: [facility] 05-25-2022 08:30-0400 Heart rate 62 /min NA Whitmore PA-C Work Phone: [facility] 05-25-2022 08:30-0400 Respiratory rate 16 /min NA Whitmore PA-C Work Phone: [facility] 05-25-2022 08:30-0400 SaO2% (BldA) [Mass fraction] 100 % NA Whitmore PA-C Work Phone: [facility] 05-25-2022 08:30-0400 Systolic blood pressure 110 mm[Hg] NA Whitmore PA-C Work Phone: [facility] 03-29-2022 09:20-0400 Body weight 63.96 kg NA Whitmore PA-C Work Phone: [facility] 03-29-2022 09:20-0400 Diastolic blood pressure 64 mm[Hg] NA Whitmore PA-C Work Phone: [facility] 03-29-2022 09:20-0400 Heart rate 67 /min NA Whitmore PA-C [facility] [facility] 03-29-2022 09:20-0400 Respiratory rate 18 /min NA Whitmore PA-C Work Phone: [facility] 03-29-2022 09:20-0400 SaO2% (BldA) [Mass fraction] 100 % NA Whitmore PA-C Work Phone: [facility] 03-29-2022 09:20-0400 Systolic blood pressure 100 mm[Hg] NA Whitmore PA-C Work Phone: [facility] 12-16-2021 10:23-0500 Diastolic blood pressure 74 mm[Hg] PA NA Whitmore PA Work Phone: [facility] Work Phone: 12-16-2021 10:23-0500 Heart rate 62 /min PA NA Whitmore PA Work Phone: [facility] Work Phone: 12-16-2021 10:23-0500 Respiratory rate 15 /min PA NA Whitmore PA Work Phone: [facility] Work Phone: 12-16-2021 10:23-0500 SaO2% (BldA) [Mass fraction] 98 % PA NA Whitmore PA Work Phone: [facility] Work Phone: 12-16-2021 10:23-0500 Systolic blood pressure 138 mm[Hg] PA NA Whitmore PA Work Phone: [facility] Work Phone: 12-16-2021 08:34-0500 Body height 160.02 cm PA NA Whitmore PA Work Phone: [facility] Work Phone: 12-16-2021 08:34-0500 Body mass index (BMI) [Ratio] 23 kg/m2 PA NA Whitmore PA Work Phone: [facility] Work Phone: 12-16-2021 08:34-0500 Body temperature 97.6 [degF] PA PHUONG GARCIA Work Phone: [facility] Work Phone: 12-16-2021 08:34-0500 Body weight 59 kg PA PHUONG GARCIA Work Phone: [facility] Work Phone: Encounters Encounter Date Encounter Type Care Provider Facility Start: 10-01-2025 ambulatory Jenny Suppan Facil ity:[facility] Start: 09-20-2025 ambulatory Jenny Suppan Facil ity:[facility] Start: 09-17-2025 End: 09-17-2025 ambulatory JENNY A SUPPAN Facility:[facility] Start: 09-17-2025 End: 09-17-2025 ambulatory Jenny Suppan Facility:[facility] Start: 09-17-2025 End: 09-17-2025 ambulatory Jenny Suppan Facility:[facility] Start: 09-13-2025 End: 09-13-2025 ambulatory Jenny Suppan Facility:[facility] Start: 09-09-2025 End: 09-20-2025 ambulatory Jenny Suppan Facility:[facility] Start: 07-15-2025 End: 07-21-2025 Discharged Recurring Rafa Zhao MD -Employee Health Start: 07-15-2025 End: 07-21-2025 ambulatory Jenny Suppan VICE CHANCELLOR Work Phone: -Employee Health Start: 03-14-2025 End: 03-14-2025 ambulatory JENNY A SUPPAN Facility:[facility] Start: 03-14-2025 End: 03-14-2025 ambulatory Jenny Suppan Facility:[facility] Start: 02-28-2025 End: 02-28-2025 ambulatory Jenny Suppan Facility:[facility] Start: 02-21-2025 End: 02-21-2025 ambulatory Jenny Suppan VICE CHANCELLOR Work Phone: [facility] Work Phone: Start: 02-21-2025 End: 02-21-[address] Isac Michelle MD -Ultrasound, [facility] Work Phone: Start: 02-21-2025 End: 02-21-2025 ambulatory Jenny Suppan Facility:[facility] Start: 01-29-2025 ambulatory Jenny Suppan Facil ity:[facility] Start: 01-09-2025 End: 01-18-2025 ambulatory Jenny Suppan Facility:[facility] Start: 01-09-2025 End: 01-18-2025 Discharged Recurring Rafa Zhao MD -Employee Health Start: 12-07-2024 End: 12-07-2024 Patient encounter procedure Jenny Suppan VICE CHANCELLOR -Laboratory Work Phone: Start: 12-07-2024 End: 12-07-2024 ambulatory Jenny Suppan Facility:[facility] Start: 11-20-2024 End: 11-20-[address] Isac Michelle MD -Laboratory Work Phone: Start: 11-20-2024 End: 11-20-2024 ambulatory Jenny Suppan Facility:[facility] Start: 10-31-2024 End: 11-05-2024 ambulatory Jenny A Suppan FISHERIES INSPECTOR.GAMBLING BOX PERSON Work Phone: Internal Medicine [place] [phone] Start: 10-31-2024 ambulatory No Primary Car e Physician Facility:[facility] Start: 10-14-2024 End: 10-14-2024 ambulatory Chris Gerard TRUCK MECHANIC Facility:[facility] Start: 10-09-2024 End: 10-20-2024 ambulatory No Primary Care Physician Facility:[facility] Start: 10-04-2024 End: 10-04-2024 ambulatory Bhanu Cole Facility:[facility] Start: 09-13-2024 End: 09-18-2024 Telephone encounter Jenny A Suppan FISHERIES INSPECTOR.GAMBLING BOX PERSON Work Phone: [facility] [place] Comment on above: 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 ([employer] ) Start: 09-13-2024 End: 09-13-2024 Subsequent hospital visit by physician Xr [facility] Work Phone: Radiology Comment on above: Spondyloarthropathy [M47.819] Start: 09-13-2024 End: 09-13-2024 Office outpatient visit 25 minutes Jenny Lebron APRN.CNP Work Phone: [facility] Comment on above: 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); Neuropathy of right lower extremity; Abdominal pain, right lateral; Thyroid cancer (HCC); Spondyloarthropathy; Seasonal allergic rhinitis, unspecified trigger; Dyslipidemia; Encounter for screening examination for other mental health and behavioral disorders; Screening for diabetes mellitus (DM); Screening for lipid disorders; Irritable bowel syndrome with constipation Start: 02-27-2024 End: 02-27-2024 ambulatory [facility] Work Phone: Start: 02-27-2024 End: 02-27-2024 Patient encounter procedure [facility] Work Phone: Start: 01-27-2024 End: 01-27-2024 ambulatory PA Jluis GARCIA Work Phone: [facility] Work Phone: Start: 01-27-2024 End: 01-27-2024 Patient encounter procedure JOSE GARCIA Work Phone: [facility]-Ultrasound, [facility] Work Phone: Start: 01-17-2024 Refill Jluis peguero PA-C Work Phone: [facility] Comment on above: Refill Request Start: 01-02-2024 End: 01-19-2024 ambulatory PA Jluis GARCIA Work Phone: [facility] Work Phone: Start: 01-02-2024 End: 01-19-2024 Discharged Recurring JOSE Whitmore PA Work Phone: [facility]-Employee Health Start: 12-05-2023 End: 12-21-2023 ambulatory PA Jluis GARCIA Work Phone: [facility] Work Phone: Start: 12-05-2023 End: 12-21-2023 Discharged Recurring PA NA Whitmore PA Work Phone: [facility] Start: 11-24-2023 End: 11-24-2023 Emergency department patient visit PA NA Whitmore PA Work Phone: [facility]-Emergency Department Work Phone: Start: 11-22-2023 Registered Recurring PA NA Bar ton PA Work Phone: [facility] Start: 11-16-2023 End: 11-20-2023 ambulatory PA M Hao Whitmore PA Work Phone: [facility] Work Phone: Start: 11-16-2023 End: 11-20-2023 Discharged Recurring PA NA Whitmore PA Work Phone: [facility] Start: 10-24-2023 Registered Recurring PA NA Bar ton PA Work Phone: [facility] Start: 10-19-2023 Non-patient / Non-visit PA NA Whitmore PA Work Phone: [facility] Start: 10-19-2023 End: 10-19-2023 ambulatory PA M Hao Whitmore PA Work Phone: [facility] Work Phone: Start: 10-19-2023 End: 10-19-2023 Patient encounter procedure PA NA Whitmore PA Work Phone: [facility] Ultrasound Work Phone: Start: 10-17-2023 End: 10-20-2023 ambulatory PA M Hao Whitmore PA Work Phone: [facility] Work Phone: Start: 10-17-2023 End: 10-20-2023 Discharged Recurring PA NA Whitmore PA Work Phone: [facility] Start: 10-17-2023 Registered Recurring PA PHUONG Barone PA Work Phone: [facility] Start: 10-07-2023 End: 10-07-2023 Patient encounter procedure PA PHUONG GARCIA Work Phone: [facility] Work Phone: Start: 10-04-2023 Telephone encounter Jluis GARCIA-C Work Phone: [facility] [place] Comment on above: Results (Breast US) Start: 10-04-2023 End: 10-04-2023 ambulatory PA Jluis GARCIA Work Phone: [facility] Work Phone: Start: 10-04-2023 End: 10-04-2023 Patient encounter procedure PA PHUONG Whitmore PA Work Phone: [facility] Ultrasound Work Phone: Start: 10-03-2023 End: 10-03-2023 ambulatory PA Jluis Whitmore PA Work Phone: [facility] Work Phone: Start: 10-03-2023 End: 10-03-2023 Patient encounter procedure PA PHUONG GARCIA Work Phone: [facility]-Laboratory Work Phone: Start: 09-30-2023 End: 09-30-2023 ambulatory PA Jluis Whitmore PA Work Phone: [facility] Work Phone: Start: 09-30-2023 End: 09-30-2023 Patient encounter procedure PA PHUONG Whitmore PA Work Phone: [facility]-Outpatient Breast Imaging Work Phone: Start: 09-19-2023 End: 09-20-2023 ambulatory PA Jluis Whitmore PA Work Phone: [facility] Work Phone: Start: 09-19-2023 End: 09-20-2023 Discharged Recurring JOSE GARCIA Work Phone: [facility] Start: 09-19-2023 End: 09-19-2023 Patient encounter procedure JOSE GARCIA Work Phone: [facility] Work Phone: Start: 09-05-2023 Telephone encounter Jluis GRACIA-C Work Phone: Family [facility] Start: 09-05-2023 Registered Recurring [facility] Start: 09-01-2023 Telephone encounter Jluis Hao GARCIA-C Work Phone: [facility] Comment on above: [facility] orders faxed Start: 09-01-2023 End: 09-01-2023 ambulatory [facility] Work Phone: Start: 09-01-2023 End: 09-01-2023 Patient encounter procedure Jluis NORIEGAC Work Phone: [facility] Comment on above: Screening for colon cancer (Primary Dx); Herniated intervertebral disc of lumbar spine; Neuropathy of right lower extremity; Restless leg syndrome; Medication management; Low serum vitamin D; Guillermo's thyroiditis; Thyroid cancer (HCC); Wellness examination Start: 09-01-2023 End: 09-01-2023 Patient encounter status Jluis GARCIA-C Work Phone: [facility] Work Phone: Start: 08-19-2023 End: 08-20-2023 ambulatory [facility] Work Phone: Start: 08-19-2023 End: 08-20-2023 Discharged Recurring [facility] Start: 06-22-2023 ambulatory Jluis Hao GARCIA-C Work Phone: [facility] [place] Start: 02-24-2023 End: 03-20-2023 ambulatory [facility] Work Phone: Start: 02-24-2023 End: 03-20-2023 Discharged Recurring [facility] Start: 02-16-2023 End: 02-18-2023 ambulatory PA Jluis Whitmore PA Work Phone: [facility] Work Phone: Start: 02-16-2023 End: 02-18-2023 Discharged Recurring PA NA Whitmore PA Work Phone: [facility] Start: 12-03-2022 End: 12-21-2022 ambulatory PA Jluis Whitmore PA Work Phone: [facility] Work Phone: Start: 12-03-2022 End: 12-21-2022 Discharged Recurring PA NA Whitmore PA Work Phone: [facility] Start: 10-28-2022 End: 10-28-2022 Patient encounter procedure PA NA Whitmore PA Work Phone: [facility] Start: 10-28-2022 End: 10-28-2022 Patient encounter procedure PA NA Whitmore PA Work Phone: [facility] Start: 09-28-2022 End: 09-28-2022 ambulatory PA Jluis Bui Whitmore PA Work Phone: [facility] Work Phone: Start: 09-28-2022 End: 09-28-2022 Patient encounter procedure PA NA Whitmore PA Work Phone: [facility]-Outpatient Bone Densitometry Start: 09-20-2022 End: 09-20-2022 Patient encounter procedure PA NA Whitmore PA Work Phone: [facility]ocrin[facility] Start: 09-15-2022 Chuyita peguero PA-C Work Phone: [facility] [place] Comment on above: Refill Request Start: 08-16-2022 End: 08-20-2022 ambulatory [facility] Work Phone: Start: 08-16-2022 End: 08-20-2022 Discharged Recurring [facility] Start: 07-12-2022 Registered Referred Herrera [facility] Start: 06-30-2022 End: 06-30-2022 Patient encounter procedure [facility] Start: 06-29-2022 ambulatory Jluis Benson on PAJANZZ Work Phone: Family [facility] [place] Comment on above: Numbness continues a rm and fingers Start: 06-23-2022 End: 06-23-2022 [facility] Start: 05-25-2022 End: 05-25-2022 Patient encounter procedure Jluis Whitmore PA-Likva Work Phone: [facility] [place] Comment on above: Somatic dysfunction of spine, cervical (Primary Dx); Somatic dysfunction of spine, thoracic; Somatic dysfunction of right sacroiliac joint Start: 05-03-2022 Documentation procedure Mammog lea Coordinator [facility] Start: 05-03-2022 Letter encounter Mammography Coordinator [facility] Start: 05-03-2022 End: 05-03-2022 Subsequent hospital visit by physician Screen Mammo [facility] Comment on above: Encounter for screen ing mammogram for malignant neoplasm of breast [Z12.31] Start: 04-12-2022 End: 04-12-2022 ambulatory Emg 850) Neurology Start: 04-12-2022 End: 04-12-2022 Patient encounter procedure Emg 2 Neur Ramona (Max Weight: 850) RAMONA Start: 03-31-2022 ambulatory Jluis peguero PAJANZZ Work Phone: Family [facility] [place] Comment on above: Test Results Start: 03-29-2022 End: 03-29-2022 Refill Jluis Whitmore PAJANZZ Work Phone: [facility] [place] Comment on above: Refill Request Encounter for screen ing mammogram for malignant neoplasm of breast (Primary Dx); Polyneuropathy; Microcytic anemia; Thyroid nodule; Guillermo's thyroiditis; S/P partial thyroidectomy; Reactive depression; Neuropathy of right lower extremity; RLS (restless legs syndrome) Start: 02-22-2022 End: 02-22-2022 Patient encounter procedure PA PHUONG Whitmore PA Work Phone: [facility]-Ultrasound, [facility] Start: 12-31-2021 End: 12-31-2021 Patient encounter procedure PA PHUONG Whitmore PA Work Phone: [facility]-Cat Scan, [facility] Start: 12-18-2021 End: 12-18-2021 Patient encounter procedure PA PHUONG Whitmore PA Work Phone: [facility] Gastroenterology Start: 12-16-2021 End: 12-16-2021 Emergency department patient visit PA PHUONG Whitmore PA Work Phone: [facility]-Emergency Department Start: 05-19-2018 Ambulatory Shawanda Aldana Facility: [facility] Procedures Date Procedure Procedure Detail [...] DTaP,Tdap,Td Vaccine (7 - Td or Tdap) [facility] Start: 09-04-2026 Cologuard (FIT-DNA) Cologuard (FIT-DNA) [facility] Start: 09-04-2026 Colorectal Cancer Screening Colorectal Cancer Screening [facility] Start: 09-04-2026 Screening for malignant neoplasm of colon [facility] Start: 09-13-2025 Anxiety Screening Anxiety Screening [facility] Start: 09-13-2025 Covid-19 Vaccine () Covid-19 Vaccine () [facility] Comment on above: Postponed from 07/22/2024 (Declined at t his time) Start: 09-13-2025 Hepatitis C screening Hepatitis C Screening [facility] Comment on above: Postponed from 1990 (Declined at t his time) Start: 09-13-2025 HIV screening HIV Screening [facility] Comment on above: Postponed from 1990 (Declined at t his time) Start: 09-13-2025 Pneumococcal vaccination Pneumococcal Vaccine (1 of 2 - PCV) [facility] Comment on above: Postponed from 1978 (Declined at t his time) Start: 09-13-2025 Shingrix Vaccine (1 of 2) Shingrix Vaccine (1 of 2) [facility] Comment on above: Postponed from 2022 (Declined at t his time) Start: 03-14-2025 End: 03-14-2025 Patient encounter procedure 03/14/2025 8:40 AM EDT Office Visit [facility] [place] [address] [place], [place] [id number] Jenny Lebron APRN.GAMBLING BOX PERSON [address] [place], [place] [id number] 6 month dollow ip [facility] [place] Comment on above: 6 month dollow ip Start: 10-04-2024 Screening for malignant neoplasm of breast Mammogram Screening [facility] Comment on above: Postponed from 09/30/2024 (Currently Sheldon eduled) Start: 09-30-2024 Mammography Mammogram Screening [facility] Start: 09-30-2024 Screening for malignant neoplasm of breast Mammogram Screening [facility] Start: 09-13-2024 End: 12-13-2024 Fasting glucose [Mass/volume] in Serum or Plasma GLUCOSE, FASTING Lab Routine Screening for diabetes mellitus (DM) Expected: 09/13/2024, Expires: 12/13/2024 [facility] Comment on above: Expected: 09/13/2024, Expires: Start: 09-13-2024 End: 12-13-2024 Lipid 1996 panel - Serum or Plasma LIPID PANEL BASIC Lab Routine Screening for lipid disorders Expected: 09/13/2024, Expires: 12/13/2024 [facility] Comment on above: Expected: 09/13/2024, Expires: Start: 09-01-2024 Covid-19 Vaccine (#1) Covid-19 Vaccine (#1) [facility] Comment on above: Postponed from 02/22/1973 (Declined at t his time) Start: 09-01-2024 Hepatitis C Screening Hepatitis C Screening [facility] Comment on above: Postponed from 1990 (Declined at t his time) Start: 09-01-2024 Hepatitis C screening Hepatitis C Screening [facility] Comment on above: Postponed from 1990 (Declined at t his time) Start: 09-01-2024 HIV Screening HIV Screening [facility] Comment on above: Postponed from 1990 (Declined at t his time) Start: 09-01-2024 HIV screening HIV Screening [facility] Comment on above: Postponed from 1990 (Declined at t his time) Start: 09-01-2024 Pneumococcal vaccination [facility] Comment on above: Postponed from 1978 (Declined at t his time) Start: 09-01-2024 Shingrix Vaccine (1 of 2) Shingrix Vaccine (1 of 2) [facility] Comment on above: Postponed from 2022 (Declined at t his time) Start: 05-20-2024 Influenza vaccination [facility] Comment on above: Postponed from 07/22/2023 (Declined at t his time) Start: 03-04-2024 DIABETES SCREEN DIABETES SCREEN [facility] Start: 03-04-2024 Diabetes Screening Diabetes Screening [facility] Start: 02-27-2024 Lipid 1996 panel - Serum or Plasma Lipid Screening [facility] Start: 02-27-2024 Lipid panel Lipid Screening [facility] Start: 02-27-2024 LIPID SCREEN LIPID SCREEN [facility] Start: 11-24-2023 [facility] Start: 11-24-2023 [facility] Start: 10-06-2023 End: 12-06-2023 Basic metabolic 2000 panel - Serum or Plasma BASIC METABOLIC PNL Lab Routine Stage 3a chronic kidney disease (CKD) (HCC) Elevated glucose Expected: 10/06/2023, Expires: 12/06/2023 [facility] Work Phone: Comment on above: Expected: 10/06/2023, Expires: 4 Start: 10-06-2023 End: 12-06-2023 CBC W Auto Differential panel - Blood CBC + DIFF Lab Routine Neutropenia, unspecified type (HCC) Expected: 10/06/2023, Expires: 12/06/2023 [facility] Work Phone: Comment on above: Expected: 10/06/2023, Expires: 4 Start: 10-06-2023 End: 12-06-2023 Hemoglobin A1c in Blood HGB A1C Lab Routine Elevated glucose Expected: 10/06/2023, Expires: 12/06/2023 [facility] Work Phone: Comment on above: Expected: 10/06/2023, Expires: 4 Start: 09-01-2023 End: 11-01-2023 25-hydroxyvitamin D3 [Mass/volume] in Serum or Plasma VITAMIN D 25 HYDROXY Lab Routine Low serum vitamin D Expected: 09/01/2023, Expires: 11/01/2023 [facility] Work Phone: Comment on above: Expected: 09/01/2023, Expires: 3 Start: 09-01-2023 End: 11-01-2023 CBC W Auto Differential panel - Blood CBC + DIFF Lab Routine Neuropathy of right lower extremity Expected: 09/01/2023, Expires: 11/01/2023 [facility] Work Phone: Comment on above: Expected: 09/01/2023, Expires: 3 Start: 09-01-2023 End: 11-01-2023 Comprehensive metabolic 2000 panel - Serum or Plasma COMP METABOLIC PANEL Lab Routine Neuropathy of right lower extremity Expected: 09/01/2023, Expires: 11/01/2023 [facility] Work Phone: Comment on above: Expected: 09/01/2023, Expires: 3 Start: 09-01-2023 End: 11-01-2023 T4/FTI/T4U T4/FTI/T4U Lab Routine Guillermo's thyroiditis Thyroid cancer (HCC) Expected: 09/01/2023, Expires: 11/01/2023 [facility] Work Phone: Comment on above: Expected: 09/01/2023, Expires: 3 Start: 09-01-2023 End: 11-01-2023 Thyrotropin [Units/volume] in Serum or Plasma TSH BLD Lab Routine Guillermo's thyroiditis Thyroid cancer (HCC) Expected: 09/01/2023, Expires: 11/01/2023 [facility] Work Phone: Comment on above: Expected: 09/01/2023, Expires: 3 Start: 07-22-2023 Influenza vaccination INFLUENZA (#1) [facility] Start: 05-03-2023 Mammography [facility] Start: 03-29-2023 HEPATITIS C SCREENING HEPATITIS C SCREENING [facility] Comment on above: Postponed from 1990 (Declined at t his time) Start: 03-29-2023 HIV SCREENING HIV SCREENING [facility] Comment on above: Postponed from 1990 (Declined at t his time) Start: 03-29-2023 ONE PNEUMOVAX PRIOR TO AGE 65 ONE PNEUMOVAX PRIOR TO AGE 65 [facility] Comment on above: Postponed from 1991 (Declined at t his time) Start: 03-29-2023 PNEUMOCOCCAL (1 - PCV) PNEUMOCOCCAL (1 - PCV) [facility] Comment on above: Postponed from 1978 (Declined at t his time) Start: 03-21-2023 Urine microalbumin profile DTAP,TDAP,TD (5 - Tdap) [facility] Comment on above: Postponed from 07/20/2003 (Declined at t his time) Start: 09-28-2022 COLORECTAL CANCER SCREENING COLORECTAL CANCER SCREENING [facility] Comment on above: Postponed from 2017 (Declined at t his time) Start: 09-28-2022 COVID-19 VACCINE (#1) COVID-19 VACCINE (#1) [facility] Comment on above: Postponed from 1977 (Declined at t his time) Postponed from 02/22 (Declined at this time) Start: 2022 SHINGRIX VACCINE (1 of 2) SHINGRIX VACCINE (1 of 2) [facility] Start: 07-22-2022 Influenza vaccination [facility] Start: 04-16-2022 Mammography MAMMOGRAM [facility] Start: 03-29-2022 End: 05-29-2022 FERRITIN BLD [facility] Work Phone: Comment on above: Expected: 03/29/2022, Expires: 2 Start: 03-29-2022 End: 05-29-2022 Folate [Mass/volume] in Serum or Plasma [facility] Work Phone: Comment on above: Expected: 03/29/2022, Expires: 2 Start: 03-29-2022 End: 05-29-2022 IRON + TIBC [facility] Work Phone: Comment on above: Expected: 03/29/2022, Expires: 2 Start: 03-29-2022 End: 05-29-2022 PROTEIN ELECTROPHORESIS SERUM W/INTERP [facility] Work Phone: Comment on above: Expected: 03/29/2022, Expires: 2 Start: 03-29-2022 End: 05-29-2022 VITAMIN B12 BLOOD [facility] Work Phone: Comment on above: Expected: 03/29/2022, Expires: 2 Start: 2017 COLOGUARD (FIT-DNA) COLOGUARD (FIT-DNA) [facility] Start: 2017 Colonoscopy COLONOSCOPY [facility] Start: 2017 COLORECTAL CANCER SCREENING COLORECTAL CANCER SCREENING [facility] Start: [address] COLONOGRAPHY [facility] Start: 2017 FECAL OCCULT BLOOD FECAL OCCULT BLOOD [facility] Start: 2017 Screening for malignant neoplasm of colon [facility] Start: 2017 SIGMOIDOSCOPY SIGMOIDOSCOPY [facility] Start: 07-20-2003 Urine microalbumin profile DTAP,TDAP,TD (5 - Tdap) [facility] Start: 1990 HEPATITIS C SCREENING HEPATITIS C SCREENING [facility] Start: 1990 HIV SCREENING HIV SCREENING [facility] Start: 1978 PNEUMOCOCCAL (1 - PCV) PNEUMOCOCCAL (1 - PCV) [facility] Start: 02-22-1973 COVID-19 VACCINE (#1) COVID-19 VACCINE (#1) [facility] Start: 1972 HEPATITIS B (1 of 3 - 3-dose series) HEPATITIS B (1 of 3 - 3-dose series) [facility] COLOGUARD COLOGUARD Lab Ro utine Screening for colon cancer Ordered: 09/01/2023 [facility] Work Phone: Comment on above: Ordered: 09/01/2023 End: 11-30-2025 DBT Breast - bilateral screening SELVIN SCREENING W [facility] Radiology Routine Encounter for screening mammogram for breast cancer 1 Occurrences starting 10/31/2024 until 11/30/2025 [facility] Work Phone: Comment on above: 1 Occurrences starting 10/31/2024 until 11/30/2025 End: 04-02-2023 EMG(NEURO/NI) EMG(NEURO/NI) EMG Routine Paresthesia 1 Occurrences starting 04/02/2022 until 04/02/2023 [facility] Work Phone: Comment on above: 1 Occurrences starting 04/02/2022 until 04/02/2023 End: 07-21-2024 SELVIN SCREENING SELVIN SCREENING Radiology Routine Encounter for screening mammogram for breast cancer 1 Occurrences starting 06/22/2023 until 07/21/2024 [facility] Work Phone: Comment on above: 1 Occurrences starting 06/22/2023 until 07/21/2024 Patient Education [facility] Work Phone: Patient referral [facility] Work Phone: End: 04-28-2023 Screening mammography bi 2-view breast inc cad SELVIN SCREENING Radiology Routine Encounter for screening mammogram for malignant neoplasm of breast 1 Occurrences starting 03/29/2022 until 04/28/2023 [facility] Work Phone: Comment on above: 1 Occurrences starting 03/29/2022 until 04/28/2023 T4 free measurement [facility] Work Phone: T4 free measurement [facility] T4 free measurement [facility] Thyroid stimulating hormone measurement [facility] Work Phone: Thyroid stimulating hormone measurement [facility] Thyroid stimulating hormone measurement [facility] Vitamin D, 25-hydrox y measurement [facility] Work Phone: Vitamin D, 25-hydrox y measurement [facility] End: 10-13-2025 XR Foot - left AP and Lateral and oblique XR FOOT GENERAL 3V AP/LAT/OBL LEFT Radiology Routine Spondyloarthropathy 1 Occurrences starting 09/13/2024 until 10/13/2025 [facility] Work Phone: Comment on above: 1 Occurrences starting 09/13/2024 until 10/13/2025 XR Foot - left AP an d Lateral and oblique XR FOOT GENERAL 3V AP/LAT/OBL LEFT Radiology Routine Spondyloarthropathy 09/13/2024 10:05 AM EDT [facility] Immunizations Immunization Date Immunization Notes Care Provider Manohar fuller 09-10-2024 influenza, seasonal, injectable, preservative free Jenny Lebron FISHERIES INSPECTOR.GAMBLING BOX PERSON Work Phone: [facility] 10-10-2023 influenza, injectabl e, quadrivalent, preservative free PA NA Whitmore PA Work Phone: [facility] 10-06-2022 influenza, injectabl e, quadrivalent, preservative free [facility] 10-06-2022 influenza, seasonal, injectable PA NA Whitmore PA Work Phone: [facility] 10-06-2022 influenza virus vaccine, unspecified formulation NA Whitmore PA-C Work Phone: [facility] 07-12-2022 tetanus toxoid, reduced diphtheria toxoid, and acellular pertussis vaccine, adsorbed [facility] 01-08-2009 hepatitis B vaccine, adult dosage NA Whitmore PA-C Work Phone: [facility] 09-16-2008 influenza virus vaccine, split virus (incl. purified surface antigen) NA Whitmore PA-C Work Phone: [facility] 08-02-2008 hepatitis B vaccine, adult dosage NA Whitmore PA-C Work Phone: [facility] 08-01-2008 hepatitis A vaccine, adult dosage NA Whitmore PA-C Work Phone: [facility] 08-01-2008 measles, mumps and rubella virus vaccine NA Whitmore PA-C Work Phone: [facility] 07-03-2008 hepatitis B vaccine, adult dosage NA Whitmore PA-C Work Phone: [facility] 05-07-2008 tetanus toxoid, reduced diphtheria toxoid, and acellular pertussis vaccine, adsorbed NA Whitmore PA-C Work Phone: [facility] 07-07-1999 typhoid vaccine, unspecified formulation NA Whitmore PA-C Work Phone: [facility] Work Phone: 07-20-1993 diphtheria, tetanus toxoids and pertussis vaccine NA Whitmore PA-C Work Phone: [facility] Work Phone: 07-20-1993 measles, mumps and rubella virus vaccine NA Whitmore PA-C Work Phone: [facility] Work Phone: 07-20-1993 trivalent poliovirus vaccine, live, oral NA Whitmore PA-C Work Phone: [facility] Work Phone: 08-02-1990 diphtheria, tetanus toxoids and pertussis vaccine NA Whitmore PA-C Work Phone: [facility] Work Phone: 08-02-1990 trivalent poliovirus vaccine, live, oral NA Whitmore PA-C Work Phone: [facility] Work Phone: 06-01-1990 haemophilus influenz ae type b vaccine, PRP-D conjugate NA Whitmore PA-C Work Phone: [facility] Work Phone: 06-01-1990 measles, mumps and rubella virus vaccine NA Whitmore PA-C Work Phone: [facility] Work Phone: 07-28-1989 diphtheria, tetanus toxoids and pertussis vaccine NA Whitmore PA-C Work Phone: [facility] Work Phone: 07-28-1989 trivalent poliovirus vaccine, live, oral NA Whitmore PA-C Work Phone: [facility] Work Phone: 06-01-1989 diphtheria, tetanus toxoids and pertussis vaccine NA Whitmore PA-C Work Phone: [facility] Work Phone: 06-01-1989 trivalent poliovirus vaccine, live, oral NA Whitmore PA-C Work Phone: [facility] Work Phone: 03-29-1989 diphtheria, tetanus toxoids and pertussis vaccine NA Whitmore PA-C Work Phone: [facility] Work Phone: 03-29-1989 trivalent poliovirus vaccine, live, oral NA Whitmore PA-C Work Phone: [facility] Work Phone: Payers Date Payer Category Payer [employer] ( and others) [id number] 2024 Self-pay [id number] 2017 Unknown [facility] [id number] 2017-Present [phone] [address] [place] [address] Indemnity [id number] 2017 Unknown [facility] [id number] 2017-Present [phone] [address] [place] [address] Indemnity [id number] 2017 [employer] ( and others) [id number] [employer] ( [employer] others) [id number] [employer] ( [employer] others) [id number] Private Health Insurance [id number] Unknown [id number] Unknown [id number] Unknown [id number] .462 Unknown [id number] .462 Unknown [id number] .462 Unknown [id number] 2.16.840.1.410451.3.579.2 .462 Unknown [id number] 2.16.840.1.519871.3.579.2 .462 Unknown [id number] 2.16.840.1.987300.3.579.2 .462 Unknown [id number] 2.16.840.1.835305.3.579.2 .462 Unknown [id number] 2.16.840.1.861387.3.579.2 .462 Unknown [id number] 2.16.840.1.554756.3.579.2 .462 Unknown [id number] 2.16.840.1.684832.3.579.2 .462 Unknown [id number] 2.16.840.1.407124.3.579.2 .462 Unknown [id number] 2.16.840.1.245073.3.579.2 .462 Unknown [id number] 2.16.840.1.894581.3.579.2 .462 Unknown [id number] 2.16.840.1.323437.3.579.2 .462 Unknown [id number] 2.16.840.1.867833.3.579.2 .462 Unknown [id number] 2.16.840.1.620967.3.579.2 .462 Unknown [id number] 2.16.840.1.010149.3.579.2 .462 Social History Date Type Detail Facility [facility] Work Phone: Start: 12-18-2021 End: 11-24-2023 Tobacco smoking status MEIS Unknown if ever smoked [facility] Start: 04-24-2019 Cigarettes [facility] Start: 1970 Sex Assigned At Female [facility] Start: 08-16-2018 End: 07-06-2022 Tobacco smoking status NHIS Smokes tobacco daily [facility] Start: 08-16-2018 End: 07-06-2022 Tobacco use and exposure Smokeless tobacco non-user [facility] Start: 03-11-2021 End: 09-22-2021 History SDOH Alcohol Frequency 2 [facility] Start: 03-11-2021 End: 03-25-2021 History SDOH Alcohol Std Drinks 1 [facility] Start: 03-11-2021 History SDOH Social Connections Phone 5 [facility] Start: 03-11-2021 History SDOH Social Connections Get Together 98 [facility] Start: 03-11-2021 History SDOH Social Connections Living 3 [facility] Start: 03-11-2021 History SDOH Physica l Activity DPW 0 [facility] Start: 03-11-2021 Education 12 [facility] Start: 03-19-2022 End: 05-03-2022 Exposure to SARS-CoV-2 (event) Not sure [facility] Start: 07-06-2022 End: 08-31-2023 History of Social function [facility] Work Phone: Start: 07-06-2022 End: 08-31-2023 Tobacco use panel [facility] Work Phone: Start: 09-03-2020 Gender identity Identifies as female gender (finding) [facility] How often do you get together with friends or relatives? Patient refused [facility] Work Phone: Do you belong to any clubs or organizations such as mormonism groups, unions, fraternal or athletic groups, or school groups? No [facility] Work Phone: Are you now , , , , never or living with a partner? [facility] Work Phone: How often to you hav e a drink containing alcohol? Monthly or less [facility] Work Phone: How many standard dr inks containing alcohol do you have on a typical day? 1 or 2 [facility] Work Phone: How often do you hav e 6 or more drinks on 1 occasion? Never [facility] Work Phone: Do you feel stress - tense, restless, nervous, or anxious, or unable to sleep at night because your mind is troubled all the time - these days [OSQ] Only a little [facility] Work Phone: (I/We) worried wheth er (my/our) food would run out before (I/we) got money to buy more. Never true [facility] Work Phone: Do you belong to any clubs or organizations such as mormonism groups, unions, fraternal or athletic groups, or school groups? Yes [facility] Do you feel stress - tense, restless, nervous, or anxious, or unable to sleep at night because your mind is troubled all the time - these days [OSQ] Not at all [facility] Start: 10-14-2024 Tobacco smoking stat [facility] Ex-smoker (finding) [facility] Start: 02-26-2025 Sex Female (finding) [facility] Medical Equipment Procedure Code Equipment Code Equipment [...] Assessment Result Facility 11-24-2023 Cognitive function Voice/Name [facility] Work Phone: 06-23-2022 Cognitive function Level Of Cons ciousness Awake;Alert;Appropriate [facility] Work Phone: Clinical Notes 03-02-2019 to 09-17-2025 Telephone Encounter - Altagracia Williamson MA - 09/18/2024 11:22 AM EDTTelephone Encounter - Altagracia Williamson MA - 09/18/2024 11:22 AM EDTTYani edwards RT(R) - 09/13/2024 10:00 AM EDT Note Date & Type Note Facility 09-17-2025 Note HNO ID: [id number] Author: JENNY LEBRON APRN.GAMBLING BOX PERSON Service: ? Author Type: Nurse Practitioner Type: [...] labs - COMP (more content not included)... [facility] 03-14-2025 Note HNO ID: [id number] Author: JENNY LEBRON APRN.GAMBLING BOX PERSON Service: ? Author Type: Nurse Practitioner Type: [...] to night, didn't help. Before going to [place], early February- felt really tired. Then had [...] ideation. Thyroid cancer followed by Dr. Michelle- drier and pulverizer tender EXAM: BP 112/58 Pulse 68 Wt 77.1 kg (170 lb) SpO2 98% BMI 30.60 kg/m? PHYSICAL EXAM: Physical Exam Vitals reviewed. Constitutional: Appearance: Normal appearance. HENT: Head: Normocephalic. Right Ear: Tympanic membrane, ear canal and external ear normal. There is no impacted cerumen. Left Ear: Tympanic mem (more content not included)... [facility] 02-23-2025 Radiology Diagnostic study note [facility] Imaging Services [address] [place] [address] Thyroid MR#: [id number] Acct: [id number] Name: DENAEALONSO NeumannFABIANA ANN Rep #: [id number] : 1970 F 54 From: Lucy Gil MD PCP: TOMAS Coulter Status: REG CLI Study:Thyroid Date of Exam: 02/21/25 Exam# [id number] Ordering Dr: Rg Michelle i, MD PROCEDURE: [...] criteria for 1 year follow-up. Reading Location: [id number] CC: TOMAS Lebron; Dr. Isac Michelle MD ~ Plant Cytologist: Signed [facility] 10-31-2024 Note Patient Outreach (IN TMMN) FABIANA ACOSTA ([id number]) 1970 F Date Time Provider Department 10/31/24 JENNY LEBRON During your visit today, we recorded the following information about you: Allergies As of Date: 10/31/2024 Noted Allergy Reaction DOXYCYCLINE 08/16/2018 14 - Other: See Comments Comments: Burned throat MORPHINE 04/27/2019 8 - GI Upset Date Reviewed: 09/13/2024 Reviewed by: Jenny Lebron APRN.GAMBLING BOX PERSON - Fully Assessed Visit Diagnosis:Encounter for screening mammogram for breast cancer [Z12.31] Order(s):[facility] SCREENING W [facility] [[id number]] Order #: [id number] FUTURE Prescriptions as of 11/05/2024 - linaclotide [...] Encounter Status:Closed by EPIC, PRODUSER on 11/05/24 [facility] 09-18-2024 Telephone encounter Note JOSE approved and patient was notified Altagracia Williamson MA [facility] 09-18-2024 Miscellaneous Notes JOSE approved and patient was notified Altagracia Williamson MA Done Please resend rx with IBS dx so we can try to re-submit PA Altagracia Williamson MA Completed form with IBS dx and faxed with office note Altagracia Williamson MA Updated Dx. It is IBS. I just renewed medication. Completed Pa through [employer] and received fax for additional questions. Completing form states if dx is not IBS or CIC stop not approved. Is there something else we can recommend even otc? Altagracia Williamson MA documented in this encounter [facility] 09-18-2024 Telephone encounter Note Done [facility] 09-18-2024 Telephone encounter Note Please resend rx with IBS dx so we can try to re-submit JOSE Williamson MA [facility] 09-13-2024 Telephone encounter Note Completed form with IBS dx and faxed with office note Altagracia Williamson MA [facility] 09-13-2024 Telephone encounter Note Updated Dx. It is IBS. I just renewed medication. [facility] 09-13-2024 Telephone encounter Note Completed Pa through [employer] and received fax for additional questions. Completing form states if dx is not IBS or CIC stop not approved. Is there something else we can recommend even otc? Altagracia Williamson MA [facility] 09-13-2024 History of Present illness Narrative Radiology [...] PATIENT PRESENTS WITH AN IMPLANTABLE OR ATTACHED ASSISTANT PROFESSOR OF ART: No RADIOLOGY DEPARTMENT: General X-ray: Exam(s) Completed: Lower Extremity X-Ray(s): Foot, Left and Wt. Bearing PERIPHERAL IV DATA: Not applicable SIGNED BY: RT Nora(R) September 13, 2024 9:56 AM documented in this encounter [facility] 09-13-2024 Instructions Jenny Lebron APRN.CNP - 09/13/2024 9:24 AM EDT 1) Check Xray today left foot 2) Consider diclofenac gel 2 x day to left foot 3) Consider OTC Flonase 2 sprays each nare daily for allergic rhinitis 4) Red rice yeast at bedtime 5) Follow up in 6 months documented in this encounter [facility] 09-13-2024 History of Present illness Narrative This [...] dietary change - Consider red rice yeast [facility] - LIPID PANEL BASIC 11. Irritable bowel syndrome with constipation - ICD9: 564.1, ICD10: K58.1 Takes Linzess prn, needs renewal Discussed treatment plan and patient voices understanding. Patient's questions answered appropriately. Medications and potential side effects were discussed and patient voices understanding. Return to the office as scheduled or as needed for worsening/no improvement. Jenny Lebron APRN.GAMBLING BOX PERSON documented in this encounter [facility] 01-18-2024 Miscellaneous Notes The following approved medication [...] you. Sally Lamas. documented in this encounter [facility] 11-24-2023 Discharge summary Note Date/Time November 24, 2023 3:43pm [facility] Medical Records Department [address] [place] [address] Emergency Department Summary 11/24/23 MR#: [id number] Acct: [id number] Name: FABIANA ACOSTA Rep #:[id number] : [...] % (Auto) 59.1 Lymph % (Auto) 30.8 [place] % (Auto) 7.3 Eos % (Auto) 1.7 [...] or ischemia. There is overall mild flattening. MN interval, QRS duration and QTc are all [...] your Primary Care Provider. Call [facility] ([phone]) or report to the closest Emergency Room. Call 911 if necessary. 11/24/23 1707 <Electronically signed by Felipe Capellan MD> Cosigner Signature (if applicable): CC: JOSE Kwong ~ Signed [facility] Work Phone: [phone] 464-861511-29-2023 Procedure [facility] 10-04-2023 Miscellaneous Notes* Telephone Encounter - Shawanda [...] Document ID File Type Document Type Description [id number] Image External Imaging Breast US Import Information Attached At Date Time User Dept Order Level 10/04/2023 11:21 AM ProviderDayanara PALeobardo Order External Imaging [[id number]] Encounter Results Only on 10/04/23 with Dayanara Lion PA-C Document Information Radiology and Imaging: External Imaging Breast US 10/04/2023 11:21 AM Attached To: EXTERNAL IMAGING [[id number]] Results Only on 10/04/23 with Provider External PA-[place] Information ProviderDayanara PA-C documented in [facility]10-16-2023 Miscellaneous Notes* Telephone Encounter - Shawanda Handley Ma - 09/05/2023 5:15 PM EDT Pt notified via mychart * Telephone Encounter - Jluis Whitmore PA-C - 09/05/2023 5:08 PM EDT Telephone on 09/05/23 CBC + DIFF BASIC METABOLIC PNL HGB A1C 4 weeks to recheck Please send to [facility] Alli Hodgson PA-C * Telephone Encounter - Shawanda Handley Ma - 09/05/2023 10:57 AM EDT Patient notified of results. Asking when you would like repeat labs? Please place orders so they can be faxed to [facility] * Telephone Encounter - Jluis Whitmore PA-C [...] etiology Alli Hodgson PA-C documented in this encounterV[facility]10-12-2023 Miscellaneous Notes* Telephone Encounter - Marleny Umanzor LPN - 09/01/2023 10:42 AM EDT Pt called and ask to have lab and mammogram orders faxed to [facility] [phone]. Done. Marleny Umanzor LPN documented in this encounterVeterans Health Administration10-12-2023 Instructions* Patient Instructions* Jluis Whitmore PA-C - 09/01/2023 10:06 AM EDT HEALTH MAINTENANCE: Your Body mass index is 28.08 kg/m . (Target BMI: 19-25) Regular aerobic exercise, low fat diet, and periodic exams are recommended Living Will & Medical Power of [place] Supervisor recommended Periodic Pap smear per risk profile. 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 Marleny Umanzor LPN documented in this encounterVeter[facility] Administration08-09-2022 Miscellaneous Notes* Telephone Encounter - Shawanda Handley Ma - 06/29/2022 4:18 PM EDT Call to patient. Appt scheduled documented in this encounterVeterans Health Administration07-05-2022 Instructions* Patient Instructions* Jluis Whitmore PA-C - 05/25/2022 9:14 AM EDT Ice/ moist heat, lineaments, OTC analgesics as needed. Stretching and posture as reviewed piriformis stretching. documented in this encounterVeterans Health Administration07-05-2022 History of Present illness Narrative* Jluis Whitmore [...] needed Jluis Whitmore PA-C documented in this encounterVeterans Health Administration06-13-2022 Miscellaneous Notes* Letter - Mammography Coordinator - 05/03/2022 1:55 PM EDT May 03, 2022 PID: [id number] Fabiana Acosta [address] [place] [id number] Dear Ms. Acosta, We are pleased to [...] report will be kept on file at [facility] as part of your permanent medical record and are available for your continuing care. Thank you for allowing us to help in meeting your health care needs. Sincerely, Dr. Green Interpreting Radiologist [facility] (Normal over 40) documented in this encounterVeterans Health Administration06-13-2022 History of Present illness Narrative* RT Veronica(R) [...] 03, 2022 7:31 AM documented in this encounterVeterans Health Administration05-23-2022 History of Present illness Narrative* Kendall Rahman [...] Emg Kendall Rahman MD documented in this encounterVeterans Health Administration05-13-2022 Miscellaneous Notes* Telephone Encounter - Sara Lamas - 04/02/2022 11:23 AM EDT patient scheduled * Telephone Encounter - Jluis Whitmore PA-C - 04/02/2022 5:28 AM EDT See myc message Please advise I would recheck EMG, NCS It will give us the most valuable information. [facility] Get Medical Advice on 03/31/22 EMG(NEURO/NI) Thanks, Alli Whitmore PA-C documented in this encounterVeterans Health Administration05-09-2022 Miscellaneous Notes* Telephone Encounter - Yaneli Ortiz LPN - 03/29/2022 11:36 AM EDT Patient has been identified by name and date of : Yes Pending Prescriptions Disp Refills GABAPENTIN 300 MG CAPSULE 90 capsule 1 Sig: Take 1 capsule by mouth daily at bedtime for 180 days. LIZBET: No RX INSTRUCTIONS: Mychart request. Seen in office today. Yaneli Ortiz LPN documented in this encounterVeterans Health Administration05-09-2022 Instructions* Patient Instructions* Jluis Whitmore PA-C - [...] cup-Beef (cooked) 2 oz-Beet greens (cooked) 1/2 cup-[place] nuts 5 medium-Cereals 1 oz-Chicken (cooked) 3 [...] cup- Tongue 2 oz- Tuna 1/2 cup- [place] (cooked) 1 oz- Veal (cooked) 1 oz- Watermelon (6 x11/2) 1 slice-Wheat Germ 2 tbsp. Iron supplements are absorbed best when taken between meals, with liquids other than milk, coffee, or tea. Taking them at bedtime often helps reduce the chance of nausea. documented in this encounterVeterans Health Administration05-09-2022 History of Present illness Narrative* Jluis Whitmore [...] one Appendectomy/ IBS symptoms 10/06/2021 presented to [facility] emergency department with complaint of right-sided abdominal pain over approximately 5 hours, nausea, vomiting multiple episodes prior evening. Painis sharp, right-sided, upper and lower quadrant, was unable to get herself out of bathtub when it occurred. History of intermittent constipation and IBS. Vital signs 99.3 A-228-64-102/75-97% RA WBC 4.0 Hgb 13.6 HCT 40.7 [...] including the cecum Taken from emergency surgery: [facility] course POD #1 expected pain, developed [...] 112H CO2 99.0L BUN 14 CRE 0.79 [id number] Discharge plan: Diet no restrictions, soap and water wash to incision area daily, 7 10-day follow-up with Dr. Bhanu Cole Medication reconciliation: New medication: Levofloxacin 750 mg tablet daily #2/0 Oxycodone 5 mg tablet every 6 hours as needed #7/0 Continue medication: Ibuprofen 800 mg every 8 hours as needed Levothyroxine 75 mcg tablet daily Gabapentin 300 mg nightly 12/16/2021 return to [facility] emergency department with complaint of increasing [...] She was referred to Dr. Oliveira gastroenterology [facility]. 12/18/[address] Shamar Oliveira [facility] gastroenterology: Assessment was that abdominal painseem more functional than anything else, differential diagnosis does include ischemic colitis. Recommend that she start dicyclomine [id number] along with Augmentin therapy. Treated patient alsowith [...] - Complete pelvic and breast exam with METAL CHECKER - Encouraged monthly BSE - Follow up [...] year Jluis Whitmore PA-C [facility]* Shawanda Handley Ma - 03/29/2022 9:13 AM EDT Is the patient having any pain? Yes LOCATION: lower back PAIN SCALE: 1 on a scale of 0-10 PAIN CHARACTER: radiating and tingling DURATION: 2 weeks FREQUENCY: occurs constantly AGGRAVATING FACTORS: doing yard work lately ALLEVIATING FACTORS: medications - Gabapentin, taking 2 instead one [facility] this [facility]2019 History of Past illness Narrative* Problem Noted Date Resolved Date Thyroid nodule 03/02/2019 08/31/2019 Overview: 03/19/19 US: single 1 cm on right with rim, hypoechoic, normal vascular. Referred to surgery. 03/30/[address] Stephy Garcia: bx result atypical follicular cells suspicious for papillary thyroid carcinoma 04/23/[address] Stephy Garcia [facility] documented as of this encounter (statuses as of 03/29/2022) [facility] History of Past illness Narrative* Problem Noted Date Resolved Date Thyroid nodule 03/02/2019 08/31/2019 Overview: 03/19/19 US: single 1 cm on right with rim, hypoechoic, normal vascular. Referred to surgery. 03/30/[address] Stephy Garcia: bx result atypical follicular cells suspicious for papillary thyroid carcinoma 04/23/[address] Stephy Garcia [facility] documented as of this encounter (statuses as of 03/29/2022) [facility] History of Past illness Narrative* Problem Noted Date Resolved Date Thyroid nodule 03/02/2019 08/31/2019 Overview: 03/19/19 US: single 1 cm on right with rim, hypoechoic, normal vascular. Referred to surgery. 03/30/[address] Stephy Garcia: bx result atypical follicular cells suspicious for papillary thyroid carcinoma 04/23/[address] Stephy Garcia [facility] documented as of this encounter (statuses as of 04/02/2022) [facility] History of Past illness Narrative* Problem Noted Date Resolved Date Thyroid nodule 03/02/2019 08/31/2019 Overview: 03/19/19 US: single 1 cm on right with rim, hypoechoic, normal vascular. Referred to surgery. 03/30/[address] Stephy Garcia: bx result atypical follicular cells suspicious for papillary thyroid carcinoma 04/23/[address] Stephy Garcia [facility] documented as of this encounter (statuses as of 04/12/2022) [facility] History of Past illness Narrative* Problem Noted Date Resolved Date Thyroid nodule 03/02/2019 08/31/2019 Overview: 03/19/19 US: single 1 cm on right with rim, hypoechoic, normal vascular. Referred to surgery. 03/30/[address] Stephy Garcia: bx result atypical follicular cells suspicious for papillary thyroid carcinoma 04/23/[address] Stephy Garcia [facility] documented as of this encounter (statuses as of 05/04/2022) [facility] History of Past illness Narrative* Problem Noted Date Resolved Date Thyroid nodule 03/02/2019 08/31/2019 Overview: 03/19/19 US: single 1 cm on right with rim, hypoechoic, normal vascular. Referred to surgery. 03/30/[address] Stephy Garcia: bx result atypical follicular cells suspicious for papillary thyroid carcinoma 04/23/[address] Stephy Garcia [facility] documented as of this encounter (statuses as of 05/05/2022) [facility] History of Past illness Narrative* Problem Noted Date Resolved Date Thyroid nodule 03/02/2019 08/31/2019 Overview: 03/19/19 US: single 1 cm on right with rim, hypoechoic, normal vascular. Referred to surgery. 03/30/[address] Stephy Garcia: bx result atypical follicular cells suspicious for papillary thyroid carcinoma 04/23/[address] Stephy Garcia [facility] documented as of this encounter (statuses as of 05/25/2022) [facility] History of Past illness Narrative* Problem Noted Date Resolved Date Thyroid nodule 03/02/2019 08/31/2019 Overview: 03/19/19 US: single 1 cm on right with rim, hypoechoic, normal vascular. Referred to surgery. 03/30/[address] Stephy Garcia: bx result atypical follicular cells suspicious for papillary thyroid carcinoma 04/23/[address] Stephy Garcia [facility] documented as of this encounter (statuses as of 06/29/2022) [facility] of [facility] illness Narrative* Problem Noted Date Resolved Date Thyroid nodule 03/02/2019 08/31/2019 Overview: 03/19/19 US: single 1 cm on right with rim, hypoechoic, normal vascular. Referred to surgery. 03/30/[address] Stephy Garcia: bx result atypical follicular cells suspicious for papillary thyroid carcinoma 04/23/[address] Stephy Garcia [facility] documented as of this encounter (statuses as of 09/16/2022) [facility] of [facility] illness Narrative* Problem Noted Date Diagnosed Date Resolved Date Thyroid nodule 03/02/2019 08/31/2019 Overview: 03/19/19 US: single 1 cm on right with rim, hypoechoic, normal vascular. Referred to surgery. 03/30/[address] Stephy Garcia: bx result atypical follicular cells suspicious for papillary thyroid carcinoma 04/23/[address] Stephy Garcia [facility] documented as of this encounter (statuses as of 06/27/2023) [facility] of [facility] illness Narrative* Problem Noted Date Diagnosed Date Resolved Date Thyroid nodule 03/02/2019 08/31/2019 Overview: 03/19/19 US: single 1 cm on right with rim, hypoechoic, normal vascular. Referred to surgery. 03/30/[address] Stephy Garcia: bx result atypical follicular cells suspicious for papillary thyroid carcinoma 04/23/[address] Stephy Garcia [facility] documented as of this encounter (statuses as of 09/01/2023) [facility] of [facility] illness Narrative* Problem Noted Date Diagnosed Date Resolved Date Thyroid nodule 03/02/2019 08/31/2019 Overview: 03/19/19 US: single 1 cm on right with rim, hypoechoic, normal vascular. Referred to surgery. 03/30/[address] Stephy Garcia: bx result atypical follicular cells suspicious for papillary thyroid carcinoma 04/23/[address] Stephy Garcia [facility] documented as of this encounter (statuses as of 09/02/2023) [facility] of [facility] illness Narrative* Problem Noted Date Diagnosed Date Resolved Date Thyroid nodule 03/02/2019 08/31/2019 Overview: 03/19/19 US: single 1 cm on right with rim, hypoechoic, normal vascular. Referred to surgery. 03/30/[address] Stephy Garcia: bx result atypical follicular cells suspicious for papillary thyroid carcinoma 04/23/[address] Stephy Garcia [facility] documented as of this encounter (statuses as of 09/06/2023) [facility] History of Past illness Narrative* Problem Noted Date Diagnosed Date Resolved Date Thyroid nodule 03/02/2019 08/31/2019 Overview: 03/19/19 US: single 1 cm on right with rim, hypoechoic, normal vascular. Referred to surgery. 03/30/[address] Stephy Garcia: bx result atypical follicular cells suspicious for papillary thyroid carcinoma 04/23/[address] Stephy Garcia [facility] documented as of this encounter (statuses as of 10/05/2023) [facility] History of Past illness Narrative* Problem Noted Date Diagnosed Date Resolved Date Thyroid nodule 03/02/2019 08/31/2019 Overview: 03/19/19 US: single 1 cm on right with rim, hypoechoic, normal vascular. Referred to surgery. 03/30/[address] Stephy Garcia: bx result atypical follicular cells suspicious for papillary thyroid carcinoma 04/23/[address] Stephy Garcia [facility] documented as of this encounter (statuses as of 01/18/2024) 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 Premature menopause Vitamin D deficiency Physical exam, pre-employment [facility] Work Phone: Chief complaint+Reason for visit Narrative* Chief Complaint [facility] TCU PHYSICAL/TCU [facility] COVID-19 Reason for Visit Physical exam, pre-e mployment [facility] Work Phone: Evaluation note* Diagnosis Onset Date Resolution Status Constipation acute [facility] Work Phone: Evaluation note* Diagnosis Neuropathy of right lower extremity [facility]* Diagnosis Encounter for screening mammogram for [...] legs syndrome (RLS) documented [facility] this encounter [facility]* Diagnosis Paresthesia- Primary Disturbance of skin sensation [facility] encounter [facility]* Diagnosis Paresthesia Disturbance of skin sensation documented [facility] this encounter [facility]* Diagnosis Encounter for screening mammogram for malignant neoplasm of breast Other screening mammogram documented [facility] this [facility]* Diagnosis Somatic dysfunction of spine, cervical- Primary Nonallopathic lesion of cervical region, not elsewhere classified Somatic dysfunction of spine, thoracic Nonallopathic lesion of thoracic region, not elsewhere classified Somatic dysfunction of right sacroiliac joint documented in this encounter [facility] noteNo assessment information availableWProMedica [facility] Work Phone: Evaluation note* Diagnosis Neuropathy of right lower extremity [facility]* Diagnosis Onset Date Resolution Status 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 acute Premature menopause acute Vitamin D deficiency acute [facility] Work Phone: Evaluation note* Diagnosis Onset Date Resolution Status 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 acute Premature menopause acute Vitamin D deficiency acute Physical exam, pre-employment [facility] Work Phone: Evaluation note* Diagnosis Onset Date Resolution Status Physical exam, pre-employment [facility] Work Phone: Evaluation note* Diagnosis Encounter for screening mammogram for breast cancer documented [facility] this encounter [facility]* Diagnosis Screening for colon cancer- Primary [...] gland Wellness examination [facility]* Diagnosis Neutropenia, unspecified type (HCC)- Primary Stage 3a chronic kidney disease (CKD) (HCC) Elevated glucose Other abnormal glucose [facility]* Diagnosis Onset Date Resolution Status Guillermo's thyroiditis trimmer sawyer mini Papillary microcarcinoma of thyroid chronic Thyroid nodule chronic [facility] Work Phone: Evaluation note* Diagnosis Abnormal mammogram of left breast- Primary [facility] this encounter [facility]* Diagnosis Onset Date Resolution Status Guillermo's thyroiditis trimmer sawyer mini Papillary microcarcinoma of thyroid chronic Thyroid nodule chronic Abnormal ultrasound of breast acute [facility] Work Phone: Evaluation note* Diagnosis Neuropathy of right lower extremity [facility]* Diagnosis Onset Date Resolution Status Abnormal ultrasound of breast acute [facility] Work Phone: Evaluation note* Diagnosis Primary [...] Irritable bowel syndrome documented in this encounter [facility] note* Diagnosis Spondyloarthropathy Spondylosis of unspecified site without mention of myelopathy documented in this encounter [facility] note* Diagnosis Irritable bowel syndrome with constipation- Primary Irritable bowel syndrome documented in this encounter [facility] note* Diagnosis Encounter for screening mammogram for breast cancer documented in this encounter [facility] instructionsWPro[facility] Work Phone: Reason for referral (narrative)* Diagnostic Procedure Only (Routine) - Authorized Specialty Diagnoses / Procedures Referred By Ronal fisher Referred To Contact [facility] Diagnoses Encounter for screening mammogram for malignant neoplasm of breast Procedures SELVIN SCREENING SCREENING MAMMOGRAPHY BI 2-VIEW BREAST INC CAD Jluis Whitmore PA-C [address] [place] [address] [facility] [address] [place] [address] Referral ID Status Reason Start Date Expiration Date Visits Requested Visits Authorized [id number] Authorized Auto-Generat ed Referral 03/29/2022 04/28/2023 1 1 [facility] for referral (narrative)* Outpatient Procedure (Routine) - Authorized Specialty Diagnoses / Procedures Referred By Ronal fisher Referred To Contact [facility] Diagnoses Paresthesia Procedures EMG(NEURO/NI) NERVE CONDUCTION STUDIES 9-10 STUDIES Jluis Whitmore PA-C [address] [place] [address] [facility] [place] [address] [place] [address] Referral ID Status Reason Start Date Expiration Date Visits Requested Visits Authorized [id number] Authorized Auto-Generat ed Referral 04/02/2022 04/02/2023 1 1 [facility] for referral (narrative)* Diagnostic Procedure Only (Routine) - Closed Specialty Diagnoses / Procedures Referred By Contac t Referred To Contact [facility] Diagnoses Encounter for screening mammogram for malignant neoplasm of breast Procedures SELVIN SCREENING SCREENING MAMMOGRAPHY BI 2-VIEW BREAST INC Jluis Rankin PA-C [address] [place] [address] [facility] [address] [place] [address] Referral ID Status Reason Start Date Expiration Date V isits Requested Visits Authorized [id number] Closed Auto-Generate d Referral 03/29/2022 04/28/2023 1 1 T [facility] for referral (narrative)* Diagnostic Procedure Only (Routine) - Pending Review Specialty Diagnoses / Procedures Referred By Ronal fisher Referred To Contact [facility] Diagnoses Encounter for screening mammogram for breast cancer Procedures SELVIN SCREENING SCREENING MAMMOGRAPHY BI 2-VIEW BREAST INC Jluis Rankin PA-C [address] [place] [address] [facility] [address] [place] [address] Referral ID Status Reason Start Date Expiration Date Visits Requested Visits Authorized [id number] Pending Review Auto-Generat ed Referral 06/22/2023 07/21/2024 1 1 T [facility] for referral (narrative)* Diagnostic Procedure Only (Routine) - Closed Specialty Diagnoses / Procedures Referred By Ronal t Referred To Contact [facility] IMAG[facility] Diagnoses Spondyloarthropathy Procedures XR FOOT GENERAL 3V AP/LAT/OBL LEFT RADEX FOOT COMPLETE MINIMUM 3 VIEWS Jenny Lebron APRN.CNP [address] [place] [address] [place] [address] Referral ID Status Reason Start Date Expiration Date V isits Requested Visits Authorized [id number] Closed Auto-Generate d Referral 09/13/2024 10/13/2025 1 1 * Medication Prior Authorization - Pending Review Specialty Diagnoses / Procedures Referred By Ronal fisher Referred To Contact Diagnoses Abdominal pain, right lateral Jenny Lebron APRN.CNP [address] [place] [address] Referral ID Status Reason Start Date Expiration Date V isits Requested Visits Authorized [id number] Pending Review 09/13/2024 11/12/2024 1 1 [facility] for referral (narrative)* Diagnostic Procedure Only (Routine) - New Request Specialty Diagnoses / Procedures Referred By Ronal fisher Referred To Contact [facility] Diagnoses Encounter for screening mammogram for breast cancer Procedures SELVIN SCREENING W TRISTA SCREENING DIGITAL BREAST TOMOSYNTHESIS BI SCREENING MAMMOGRAPHY BI 2-VIEW BREAST INC CAD Jenny Lebron APRN.CNP [address] [place] [address] [facility] [address] [place] [address] Referral ID Status Reason Start Date Expiration Date Visits Requested Visits Authorized [id number] New Request Auto-Generat ed Referral 11/30/2025 1 1 [facility] for referral (narrative)No reason for referral information availableWProMedica [facility] Work Phone: Reason for visit Narrative* Outpatient Procedure (Routine) - Closed Specialty Diagnoses / Procedures Referred By Ronal fisher Referred To Contact [facility] Diagnoses Paresthesia Procedures EMG(NEURO/NI) NERVE CONDUCTION STUDIES 9-10 STUDIES Jluis Whitmore PA-C [address] [place] [address] [facility] [place] [address] [place] [address] Referral ID Status Reason Start Date Expiration Date V isits Requested Visits Authorized [id number] Closed Auto-Generate d Referral 04/02/2022 04/02/2023 1 1 [facility] for visit Narrative* Diagnostic Procedure Only (Routine) - Closed Specialty Diagnoses / Procedures Referred By Ronal fisher Referred To Contact [facility] Diagnoses Encounter for screening mammogram for malignant neoplasm of breast Procedures SELVIN SCREENING SCREENING MAMMOGRAPHY BI 2-VIEW BREAST INC CAD Jluis Whitmore PA-C [address] [place] [address] [facility] [address] [place] [address] Referral ID Status Reason Start Date Expiration Date V isits Requested Visits Authorized [id number] Closed Auto-Generate d Referral 03/29/2022 04/28/2023 1 1 [facility] for visit Narrative* Diagnostic Procedure Only (Routine) - Closed Specialty Diagnoses / Procedures Referred By Ronal fisher Referred To Contact XR IMAGING Diagnoses Spondyloarthropathy Procedures XR FOOT GENERAL 3V AP/LAT/OBL LEFT RADEX FOOT COMPLETE MINIMUM 3 VIEWS Jenny Lebron, FISHERIES INSPECTOR.GAMBLING BOX PERSON [address] [place] [address] Xr Imaging [facility] Referral ID Status Reason Start Date Expiration Date V isits Requested Visits Authorized [id number] Closed Auto-Generate d Referral 09/13/2024 10/13/2025 1 1 [facility] Summary Purpose Family History No Family History Records Found Relationship Condition Age at Onset Recorded Date/T ronn sister Complication of anesthesia Unknown mother Arthritis Unknown Osteoporosis Unknown Disorder of thyroid Unknown Mitral valve prolapse Unknown Sleep apnea Unknown Glaucoma Unknown Advance Directives No Advanced Directives Records Found Advance Directive Response Recorded Date/ Time Living Will Yes December 16 10:38am Power of Strip Mine Supervisor No December 16, 2021 10:38am Advance Directive Response Recorded Date/ Time Living Will Yes June 23, 2022 10:20am Power of Strip Mine Supervisor Yes June 23 10:20am Name of Medical Power of Strip Mine Supervisor Geoffrey Acosta June 23, 2022 10:20am Advance Directive Response Recorded Date/ Time Name of Medical Power of Strip Mine Supervisor Geoffrey Acosta June 23, 2022 10:20am Living Will Yes June 23, 2022 10:20am Power of Strip Mine Supervisor Yes June 23 10:20am Advance Directive Response Recorded Date/ Time Name of Medical Power of Strip Mine Supervisor Geoffrey Acosta June 23, 2022 9:20am Living Will Yes June 23, 2022 9:20am Power of Strip Mine Supervisor Yes June 23 9:20am Advance Directive Response Recorded Date/ Time Living Will Yes June 23, 2022 9:20am Power of Strip Mine Supervisor Yes June 23 9:20am Advance Directive Response Recorded Date/ Time Living Will Yes June 23, 2022 10:20am Power of Strip Mine Supervisor Yes June 23 10:20am Advance Directive Response Recorded Date/ Time Living Will No November 24 3:30pm Power of Strip Mine Supervisor No November 24 3:30pm Advance Directive Response Recorded Date/ Time Living Will No November 24 4:30pm Power of Strip [employer] Supervisor No November 24 4:30pm Chief Complaint and [...] ER 1 Y FU Reason for Visit 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 Thyroid [...] breast Procedures CONSULT TO GENERAL SURGERY OFFICE/OUTPATIENT [facility] 60-74 MINUTES Jluis Whitmore PA-C [address] [place] [address] Referral ID Status Reason Start Date Expiration Date Visits Requested Visits Authorized [id number] Pending Review PCP Requested Referral 3 10/03/2024 1 1 Specialty Diagnoses / Procedures Referred By Ronal fisher Referred To Contact Diagnoses Irritable bowel syndrome with constipation Jenny Lebron APRN.GAMBLING BOX PERSON [address] [place] [address] Referral ID Status Reason Start Date Expiration Date V isits Requested Visits Authorized [id number] Authorized 1 1 Additional Source Comments INFORMATION SOURCE (unrecogn ized section and content) DATE CREATED AUTHOR 05/20/2018 [facility] Emelina Mcleod DATE CREATED AUTHOR AUTHOR'S ORGANIZ ATION 03/13/2020 [facility] DATE CREATED AUTHOR AUTHOR'S ORGANIZ ATION 09/21/2025 [facility] DATE CREATED AUTHOR AUTHOR'S ORGANIZ ATION 09/29/2025 [facility] Goals (unrecognized section and content) Goals [...] or prosecute any alcohol or drug abuse patient.[facility] AdministrationIn the event this information is protected by the Federal Confidentiality of Alcohol and Drug Abuse Patient Records regulations: The Federal rules restrict any use of the information to criminally investigate or prosecute any alcohol or drug abuse patient.[facility] AdministrationIn the event this information is protected by the Federal Confidentiality of Alcohol and Drug Abuse Patient Records regulations: The Federal rules restrict any use of the information to criminally investigate or prosecute any alcohol or drug abuse patient.[facility] AdministrationIn the event this information is protected by the Federal Confidentiality of Alcohol and Drug Abuse Patient Records regulations: The Federal rules restrict any use of the information to criminally investigate or prosecute any alcohol or drug abuse patient.[facility] AdministrationIn the event this information is protected by the Federal Confidentiality of Alcohol and Drug Abuse Patient Records regulations: The Federal rules restrict any use of the information to criminally investigate or prosecute any alcohol or drug abuse patient.[facility] AdministrationIn the event this information is protected by the Federal Confidentiality of Alcohol and Drug Abuse Patient Records regulations: The Federal rules restrict any use of the information to criminally investigate or prosecute any alcohol or drug abuse patient.[facility] AdministrationIn the event this information is protected by the Federal Confidentiality of Alcohol and Drug Abuse Patient Records regulations: The Federal rules restrict any use of the information to criminally investigate or prosecute any alcohol or drug abuse patient.[facility] AdministrationIn the event this information is protected by the Federal Confidentiality of Alcohol and Drug Abuse Patient Records regulations: The Federal rules restrict any use of the information to criminally investigate or prosecute any alcohol or drug abuse patient.[facility] AdministrationIn the event this information is protected by the Federal Confidentiality of Alcohol and Drug Abuse Patient Records regulations: The Federal rules restrict any use of the information to criminally investigate or prosecute any alcohol or drug abuse patient.[facility] AdministrationIn the event this information is protected by the Federal Confidentiality of Alcohol and Drug Abuse Patient Records regulations: The Federal rules restrict any use of the information to criminally investigate or prosecute any alcohol or drug abuse patient.[facility] AdministrationIn the event this information is protected by the Federal Confidentiality of Alcohol and Drug Abuse Patient Records regulations: The Federal rules restrict any use of the information to criminally investigate or prosecute any alcohol or drug abuse patient.[facility] AdministrationIn the event this information is protected by the Federal Confidentiality of Alcohol and Drug Abuse Patient Records regulations: The Federal rules restrict any use of the information to criminally investigate or prosecute any alcohol or drug abuse patient.[facility] AdministrationIn the event this information is protected by the Federal Confidentiality of Alcohol and Drug Abuse Patient Records regulations: The Federal rules restrict any use of the information to criminally investigate or prosecute any alcohol or drug abuse patient.[facility] AdministrationIn the event this information is protected by the Federal Confidentiality of Alcohol and Drug Abuse Patient Records regulations: The Federal rules restrict any use of the information to criminally investigate or prosecute any alcohol or drug abuse patient.[facility] AdministrationIn the event this information is protected by the Federal Confidentiality of Alcohol and Drug Abuse Patient Records regulations: The Federal rules restrict any use of the information to criminally investigate or prosecute any alcohol or drug abuse patient.[facility] AdministrationIn the event this information is protected by the Federal Confidentiality of Alcohol and Drug Abuse Patient Records regulations: The Federal rules restrict any use of the information to criminally investigate or prosecute any alcohol or drug abuse patient.[facility] AdministrationIn the event this information is protected by the Federal Confidentiality of Alcohol and Drug Abuse Patient Records regulations: The Federal rules restrict any use of the information to criminally investigate or prosecute any alcohol or drug abuse patient.[facility] AdministrationIn the event this information is protected by the Federal Confidentiality of Alcohol and Drug Abuse Patient Records regulations: The Federal rules restrict any use of the information to criminally investigate or prosecute any alcohol or drug abuse patient.[facility] AdministrationIn the event this information is protected by the Federal Confidentiality of Alcohol and Drug Abuse Patient Records regulations: The Federal rules restrict any use of the information to criminally investigate or prosecute any alcohol or drug abuse patient.[facility] Reason for Visit (unrecogniz ed section and content) Reason Onset Date Comments Refill Request 03/29/2022 Reason Comments 6 Month Exam Back Pain Reason Comments Back Pain radiating pain down right leg, numbness in right arm Reason Onset Date Comments Refill Request 09/15/2022 Reason Comments [facility] orders faxed Reason Comments Yearly Exam Reason Comments Results Breast US Reason Comments Refill Request Reason Comments Yearly Exam Specialty Diagnoses / Procedures Referred By Ronal fisher Referred To Contact FAMILY MEDICINE Diagnoses Encounter for general adult medical examination without abnormal findings MEDICALLY NECESSARY SERVICES Procedures OFFICE/OUTPATIENT ESTABLISHED HIGH MDM 40 MIN MEDICALLY NECESSARY SERVICES Self Famp [facility] [address] [place] [address] Referral ID Status Reason Start Date Expiration Date Visits Requested Visits Authorized [id number] Authorized OON/Self Pay Override 4 11/20/2024 99 99 Reason Comments Insurance Authorization [employer] Care Teams (unrecognized sec tion and content) Template Worker Relationship Specialty Start Date End Date Jluis Whitmore PA-C [address] [place], [place] [id number] PCP - General Family Practice 02/26/19 Template Worker Relationship Specialty Start Date End Date Jluis Whitmore PA-C [address] [place] [address] PCP - General Family Practice 02/26/19 Template Worker Relationship Specialty Start Date End Date Jluis Whitmore PA-C [address] [place] [address] PCP - General Family Practice 02/26/19 Template Worker Relationship Specialty Start Date End Date Jluis Whitmore PA-C [address] [place] [address] PCP - General Family Practice 02/26/19 Template Worker Relationship Specialty Start Date End Date Jluis Whitmore PA-C [address] [place] [address] PCP - General Family Practice 02/26/19 Template Worker Relationship Specialty Start Date End Date Jluis Whitmore PA-C [address] [place] [address] PCP - General Family Practice 02/26/19 Template Worker Relationship Specialty Start Date End Date Jluis Whitmore PA-C [address] [place] [address] PCP - General Family Practice 02/26/19 Template Worker Relationship Specialty Start Date End Date Jluis Whitmore PA-C [address] [place] [address] PCP - General Family Medicine 02/26/19 Team [...] MD Attending Provider, Referring Pr ovider Active Template Worker Relationship Specialty Start Date End Date Jluis Whitmore PA-C [address] [place], [place] [id number] PCP - General Family Medicine 02/26/19 Template Worker Relationship Specialty Start Date End Date Jluis Whitmore PA-C [address] [place], [place] [id number] PCP - General Family Medicine 02/26/19 Template Worker Relationship Specialty Start Date End Date Jluis Whitmore PA-C [address] [place], [place] [address] PCP - General Family Medicine 02/26/19 Template Worker Relationship Specialty Start Date End Date Jluis Whitmore PA-C [address] [place], [place] [address] PCP - General Family Medicine 02/26/19 Team [...] Pro vider, Attending Provider, Referring Provider Active Template Worker Relationship Specialty Start Date End Date Jluis Whitmore PA-C [address] [place], [place] [id number] PCP - General Family Medicine 02/26/19 Team [...] Capellan MD Attending Provider, Emergency Provider Active Template Worker Relationship Specialty Start Date End Date Jluis Whitmore PA-C [address] [place] [address] PCP - General Family Medicine 02/26/19 Team Status: Inactive Member Role Status Dates JOSE Quiroga Primary Care Provider Active Jessi Spaulding NP-C Attending Provider, Referring Pr ovider Active Template Worker Relationship Specialty Start Date End Date Jenny Lebron APRN.GAMBLING BOX PERSON [address] [place] [address] PCP - General Family Medicine 08/31/24 Template Worker Relationship Specialty Start Date End Date Jenny Lebron APRN.GAM[employer] BOX PERSON [address] [place] [address] PCP - General Family Medicine 08/31/24 Template Worker Relationship Specialty Start Date End Date Jenny Lebron APRN.GAMBL[employer] BOX PERSON [address] [place] [place] [address] PCP - [facility] Medicine 08/31/24 Template Worker Relationship Specialty Start Date End Date Carlos Lebronqueline Nel, FISHERIES INSPECTOR.GAMBL[employer] BOX PERSON [address] [place] [address] PCP - [facility] Medicine 08/31/24 Team Status: Active Member Role Status Dates Jenny Suppan , VICE CHANCELLOR Primary Care Provider Active Team Status: Inactive Member Role Status Dates Jenny Suppan , VICE CHANCELLOR Primary Care Provider Active Start: November 20, 2024 End: November 20, 2024 Dr. Isac Michelle MD Attending Provider Active Sta rt: November 20, 2024 End: November 20, 2024 Dr. Isac Michelle MD Referring Provider Active Sta rt: November 20, 2024 End: November 20, 2024 Team Status: Inactive Member Role Status Dates Jenny Suppan , VICE CHANCELLOR Primary Care Provider Active Start: December 07, 2024 End: December 07, 2024 Jenny Suppan , VICE CHANCELLOR Attending Provider Active Start: December 07, 2024 End: December 07, 2024 Jenny Suppan , VICE CHANCELLOR Referring Provider Active Start: December 07, 2024 End: December 07, 2024 Team Status: Inactive Member Role Status Dates Jenny Suppan , VICE CHANCELLOR Primary Care Provider Active Start: January 09, 2025 End: January 18, 2025 Rafa FOURNIER MD Attending Provider Active S tart: January 09, 2025 End: January 18, 2025 Team Status: Inactive Member Role Status Dates Jenny Suppan , VICE CHANCELLOR Primary Care Provider Active Start: February 21, 2025 End: February 21, 2025 Dr. Isac Michelle MD Attending Provider Active Sta rt: February 21, 2025 End: February 21, 2025 Dr. Isac Michelle MD Referring Provider Active Sta rt: February 21, 2025 End: February 21, 2025 Team Status: Active Member Role/Relationship Status Dates Jenny Suppan , VICE CHANCELLOR Primary Care Provider Active Team Status: Inactive Member Role/Relationship Status Dates Jenny Suppan , VICE CHANCELLOR Primary Care Provider Active Start: July 15, [...] BE BASED ON THE PRIMARY CLINICAL RECORDS. [facility]. provides no warranty or guarantee of the accuracy or completeness of information in this document.
[2025-10-25 12:13] VITALS: BP 113/66; PULSE 66; RESP 16; TEMP 36.1; O2SAT 97
== END 2025-10-25 23:59 | disposition home or self-care (01) ==
LOC: MEDOUTP 11:23
PROVIDERS: PCP Clinical Nurse Specialist Adult Health; Referring Provider Internal Medicine Endocrinology, Diabetes & Metabolism; Visit Provider Internal Medicine Endocrinology, Diabetes & Metabolism
DX: M81.0 Age-related osteoporosis without current pathological fracture (principal)
CPT/HCPCS: 96365; A4216; J3489